=== PATIENT | female | born 1950 | race African-American/Black ===

== ENCOUNTER 2025-08-19 17:47 | Inpatient (IN) | payer OTHER ==
--- OUTSIDE RECORDS SUMMARY | 2025-08-19 17:57 | XMS REPORT | Continuity of Care Document ---
Author Name Unknown Address [address] [facility] [address] [place] [address] Organization [facility] [place] Address [address] [facility] [address] [place] [address] Care Team Providers Care Professor Of German Name Role Phone NEREIDA DODSON Primary Care Physician Unavaila KATIE Phelps Attending Clinician Unavailable ELLIOTT MALONEY Attending Clinician Unavailable RANDALL MARTIN Attending Clinician Unavailable RANDALL MARTIN Attending Clinician Unavailable AZUL AMAYA Attending Clinician Unavailable AZUL AMAYA Attending Clinician Unavailable ROBERTA BENAVIDEZ Attending Clinician Unavailab ROBERTA Mistry Attending Clinician Unavailab MEGHAN Cunningham Attending Clinician UnavailGARRY Elias Attending Clinician Unavailable GARRY KIRK Attending Clinician Unavailable Doctor Unassigned, [place] Attending Clinician U NEREIDA Guerra Attending Clinician Unavailable Nereida Marsh Attending Clinician [phone] Deni Benz DO Attending Clinician [phone] ETHAN DILLARD Attending Clinician Unavailable Meghan Reynoso MD Attending Clinician [phone] Testing, [facility] Pulmonary Function Attending Clinic laron Unavailable Maryanne Ram LMSW Attending Clinician UnaGarry Singer MD Attending Clinician Lab, Ang - Db Attending Clinician Unavailable Dai MCINTOSH, Esther Wiggins Attending Clinician Roberta Weaver DO Attending Clinician [phone] ANTONETTE MOELLER Attending Clinician Unavailable Catbecca Fernandes, ACNPChen Attending Clinician CHEN SAWYER Attending Clinician Unavailable Arabella Meza RN Attending Clinician Unavailable Amol GAR, Katie Attending Clinician [phone] Ayleen GAR, Nancy Attending Clinician [phone] Charline Toth CRNA Attending Clinician [phone] Antonette Chris MD Attending Clinician + [phone] NANCY ABBASI Attending Clinician Unavailable NANCY ABBASI Attending Clinician Unavailable Zamzam Ny Attending Clinician [phone] Denisse Novoa RN Attending Clinician [phone] JAMES OMALLEY Attending Clinician UnavailKHOI Allen Attending Clinician Unavail able KHOI DUBON Attending Clinician Unavail able Rikki Saenz DO Attending Clinician + [phone] Jelena GAR, Angel Solares Attending Clinician [phone] Anjali GAR, Sony Wiggins Attending Clinician [phone] Michael MCINTOSH, Saurabh Valdez Attending Clinician Unavail able Jessica Yeh Attending Clinician Unavailable SONY ALBA Attending Clinician Unavailable SONY ALBA Attending Clinician Unavailable Azul Amaya MD Attending Clinician [phone] THOMAS MONTGOMERY Attending Clinician Unavailable THOMAS MONTGOMERY Attending Clinician Unavailable Valerie Rios CRNA Attending Clinician [phone] Khoi Dubon MD Attending Clinician [phone] NAOMI SWEENEY Attending Clinician U NAOMI Martinez Attending Clinician U liberty Joe MD, Marlene Attending Clinician [phone] Brett Baker MD Attending Clinician [phone] April Ye MD Attending Clinician [phone] Andrew MCINTOSH, Daisy Attending Clinician Unavailab zach Morris NP, Sanjay Attending Clinician [phone] SEGUN ASCENCIO Attending Clinician Unavailable SEGUN ASCENCIO Attending Clinician Unavailable Sakshi GAR, Segun Attending Clinician [phone] Randall Martin MD Attending Clinician [phone] IVANA ROCHA Attending Clinician Unavailab IVANA Torres Attending Clinician Unavailab Ivana Torres DO Attending Clinician [phone] CRISTINA ROSAS Attending Clinician Unavailable CRISTINA ROSAS Attending Clinician Unavailable Alison GAR, Cristina Attending Clinician [phone] Fran Alvarez DO Attending Clinician [phone] EYAL SEVILLA Attending Clinician Unav ailable EYAL SEVILLA Attending Clinician Unav ailable Doctor Unassigned, [place] Attending Clinician U navailable Seth-Zeny_A_CHUCKIE Attending Clinician Unavailable KATIE CARMICHAEL Admitting Clinician Unavailable ANTONETTE MOELLER Admitting Clinician Unavailable Katie Carmichael MD Admitting Clinician + [phone] ROBERTA BENAVIDEZ Admitting Clinician Unavailab NANCY Mclaughlin Admitting Clinician Unavailable JAMES OMALLEY Admitting Clinician UnavailANGEL George Admitting Clinician Unavailable MEGHAN REYNOSO Admitting Clinician UnavailSANJAY Jacobson Admitting Clinician Unavailab IVANA Torres Admitting Clinician Unavailab FRAN Mendez Admitting Clinician Unavailable Fran Alvarez DO Admitting Clinician [phone] Seth-Gloriao_A_CHUCKIE Admitting Clinician Unavailable Payers Payer Name Policy Type Policy Number Effective Date Expirati on Date Source [facility] [id number] 2021 00:00:00 [facility] (MEDICARE REPLACEMENT/ADVANT AGE - HMO) [id number] 2019 00:00:00 Problems Condition Name Condition Details Condition Category Status Onset Date Resolution Date Last Treatment Date Treating Clinician Comments Source Tachycardi a Tachycardi a Disease Active 0 8-21 00:00: 00 [facility] Atrial fibrillati on with rapid ventricula r response Atrial fibrillati on with rapid ventricula r response Disease Active 0 7-27 00:00: 00 [facility] Non-small cell cancer of right lung Non-small cell cancer of right lung Disease Active 7-15 00:00: 00 [facility] Primary hypertensi on Primary hypertensi on Disease Active 7-02 00:00: 00 [facility] Preop cardiovasc ular exam Preop cardiovasc ular exam Disease Active 7- 00:00: 00 [facility] Hyperlipid emia, unspecifie d hyperlipid emia type Hyperlipid emia, unspecifie d hyperlipid emia type Disease Active 7- 00:00: 00 [facility] Coronary artery calcificat ion Coronary artery calcificat ion Disease Active 7-02 00:00: 00 [facility] Encounter for screening colonoscop y Encounter for screening colonoscop y Disease Active 6-13 00:00: 00 [facility] Mass of upper lobe of right lung Mass of upper lobe of right lung Disease Active 0 6- 00:00: 00 [facility] Viral syndrome Viral syndrome Disease Active 6-01 00:00: 00 [facility] Dizziness Dizziness Disease Active 0 6-01 00:00: 00 [facility] Acute UTI (urinary tract infection) Acute UTI (urinary tract infection) Disease Active 6-01 00:00: 00 [facility] SVT (supravent ricular tachycardi a) SVT (supravent ricular tachycardi a) Disease Active 0 4-16 00:00: 00 [facility] Chest pain Chest pain Disease Active 0 4-24 00:00: 00 [facility] Lung mass Lung mass Disease Resolve d 609 00:00: 00 2025-07-03 00:00:00 2025-07-03 15:48:38 [facility] Allergies, Adverse Reactions, Alerts Allergy Name Allergy Type Status Severity Reaction(s) Onset Date Inactive Date Treating Clinician Comments Source NO KNOWN ALLERGIE S Drug Class Active [facility] Family History Family Member Diagnosis Comments Start Date Stop Date Sourc e Natural [facility] father Alcohol/Drug [facility] Natural father [facility] Natural father [facility] Natural mother [facility] Natural mother Hy[facility] Natural mother Stroke [facility] Natural sister Diabetes Unive [facility] Natural [facility] Hy[facility] Social History Social Habit Start Date Stop Date Quantity Comments Source History SDOH Alcohol Std Drinks [facility] History SDOH Alcohol Binge [facility] History SDOH Social Connections Get Together [facility] History SDOH Social Connections Hoahaoism [facility] History SDOH Social Connections Membership [facility] History SDOH Social Connections Meetings [facility] ASSERTION Not [facility] Sexual orientation U [facility] History of tobacco use Passive smoker [facility] Alcoholic beverage intake 2025-07-15 00:00:00 2025-07-15 00:00:00 Ex-drinker (finding) [facility] Tobacco Comment 2025-07-03 00:00:00 2025-07-03 00:00:00 Smokes 1 each per day10 yrs ago stopped smoking [facility] Cigarettes smoked current (pack per day) - Reported 2025-07-03 00:00:00 2025-07-03 00:00:00 [facility] Cigarette pack-years 2025-07-03 00:00:00 2025-07-03 00:00:00 [facility] Tobacco use and exposure 2025-07-03 00:00:00 2025-07-03 00:00:00 Smokeless tobacco non-user [facility] Education 2025-06-16 00:00:00 2025-06-16 00:00:00 21 [facility] History of Social function 2025-06-15 00:00:00 2025-06-15 00:00:00 [facility] History SDOH Alcohol Frequency 2023-03-16 00:00:00 2023-03-16 00:00:00 1 [facility] History SDOH Social Connections Phone 2023-03-16 00:00:00 2023-03-16 00:00:00 5 [facility] History SDOH Social Connections Living 2023-03-16 00:00:00 2023-03-16 00:00:00 6 [facility] History SDOH Physical Activity DPW 2023-03-16 00:00:00 2023-03-16 00:00:00 7 [facility] History SDOH Physical Activity MPS 2023-03-16 00:00:00 2023-03-16 00:00:00 6 [facility] History SDOH Financial 2023-03-16 00:00:00 2023-03-16 00:00:00 5 [facility] History SDOH Food Worry 2023-03-16 00:00:00 2023-03-16 00:00:00 1 [facility] History SDOH Food Scarcity 2023-03-16 00:00:00 2023-03-16 00:00:00 1 [facility] History SDOH Transport Med 2023-03-16 00:00:00 2023-03-16 00:00:00 2 [facility] History SDOH Transport Non-Med 2023-03-16 00:00:00 2023-03-16 00:00:00 2 [facility] History SDOH Housing Unable to Pay 2023-03-16 00:00:00 2023-03-16 00:00:00 2 [facility] History SDOH Housing Places Lived 2023-03-16 00:00:00 2023-03-16 00:00:00 1 [facility] History SDOH Housing Homeless Last Year 2023-03-16 00:00:00 2023-03-16 00:00:00 2 [facility] Alcohol intake 2023-03-14 00:00:00 2023-03-14 00:00:00 Ex-drinker (finding) [facility] Sex assigned at 1950 00:00:00 1950 00:00:00 [facility] Smoking Status Start Date Stop Date Source Ex-smoker 2025-07-03 00:00:00 2025-07-03 00:00:00 [facility] Occasional tobacco smoker 2025-04-30 00:00:00 [facility] Smokes tobacco daily 2025-03-06 00:00:00 [facility] Medications Ordered Medication Name Filled Medication Name Start Date Stop Date Current Medication? Ordering Clinician Indication Dosage Frequency Signature (SIG) Comments Components Source qi Ruvalcaba (ANORO ELLIPTA) 62.5-25 mcg/actuati on inhaler 07-15 00:00: 00 Yes [id number] 1{puff} Inhale 1 puff in the morning. [facility] metoprolol tartrate (LOPRESSOR) tablet 50 mg metoprolol tartrate (LOPRESSOR) tablet 50 mg 07-14 15:30: 00 Yes 50mg 50 mg, Oral, BID, First dose (after last modificati on) on 07/14/25 at 1030, Until Discontinu ed, Routine [facility] morphine (2 mg/mL) injection 2 mg morphine (2 mg/mL) injection 2 mg 07-14 03:44: 36 07-14 17:11 :36 Yes 2mg 2 mg, Slow IV Push, Q4HPRN, Starting on 07/13/25 at 2244, Until 07/14/25 at 1211, Routine, Pain (scale 7-10) [facility] traMADoL (ULTRAM) tablet 50 mg 07-14 03:44: 29 07-14 17:11 :36 No 50mg 50 mg, Oral, Q6HPRN, Starting on 07/13/25 at 2244, Until 07/14/25 at 1211, Routine, Pain (scale 4-6) [facility] acetaminoph en (TYLENOL) tablet 650 mg 07-14 03:44: 27 07-14 17:11 :36 No 650mg 650 mg, Oral, Q6HPRN, Starting on 07/13/25 at 2244, Until 07/14/25 at 1211, Routine, Pain (scale 1-3) [facility] potassium chloride in water 10 mEq/100 mL RTU 10 mEq potassium chloride in water 10 mEq/100 mL RTU 10 mEq 07-14 01:00: 00 07-14 03:29 :36 Yes 10meq 10 mEq, IV Piggyback, Q1H, 2 doses, First dose on 07/13/25 at 2000, Last dose on Tue07/13/25 at 2100, Administer over 60 Minutes, 100 mL [facility] KCL (KLOR-CON M20) tablet 40 mEq KCL (KLOR-CON M20) tablet 40 mEq 07-14 01:00: 00 07-14 02:27 :00 Yes 40meq 40 mEq, Oral, ONCE, 1 dose, On 07/13/25 at 2000, [facility] mg tablet 07-14 00:00: 00 08-14 04:59 :00 Yes [id number] 50mg Take 1 tablet by mouth in the morning and 1 tablet in the evening. [facility] Loperamide 1 mg/7.5 mL solution 07-14 00:00: 00 07-20 04:59 :00 Yes [id number] 2mg Take 15 mL by mouth every 4 hours as needed (diarrhra) for up to [address] [facility] potassium chloride in water 10 mEq/100 mL RTU 10 mEq potassium chloride in water 10 mEq/100 mL RTU 10 mEq 07-13 18:00: 00 07-13 21:01 :00 Yes 10meq 10 mEq, IV Piggyback, Q1H, 2 doses, First dose on Tue07/13/25 at 1300, Last dose on Tue07/13/25 at 1400, Administer over 60 Minutes, [address] [facility] KCL (KLOR-CON M20) tablet 40 mEq KCL (KLOR-CON M20) tablet 40 mEq 07-13 17:00: 00 07-13 16:15 :00 Yes 40meq 40 mEq, Oral, ONCE, 1 dose, On 07/13/25 at 1200, Routine [facility] magnesium oxide (MAG-OX 400) 400 mg (241.3 mg magnesium) tablet 400 mg magnesium oxide (MAG-OX 400) 400 mg (241.3 mg magnesium) tablet 400 mg 07-13 16:45: 00 07-13 16:54 :00 Yes 400mg 400 mg, Oral, ONCE, 1 dose, On 07/13/25 at 1145, Routine [facility] potassium chloride in water 10 mEq/100 mL RTU 10 mEq potassium chloride in water 10 mEq/100 mL RTU 10 mEq 07-13 10:30: 00 07-13 15:28 :00 Yes 10meq 10 mEq, IV Piggyback, Q2H ES, 2 doses, First dose (after last modificati on) on Tue07/13/25 at 0530, Last dose on Tue07/13/25 at 0730, Administer over 120 Minutes, 100 mL [facility] KCL (KLOR-CON M20) tablet 40 mEq KCL (KLOR-CON M20) tablet 40 mEq 07-13 10:30: 00 07-13 10:19 :00 Yes 40meq 40 mEq, Oral, ONCE, 1 dose, On Tue07/13/25 at 0530, Routine [facility] atorvastati n (LIPITOR) tablet 40 mg atorvastati n (LIPITOR) tablet 40 mg 07-13 02:00: 00 07-14 17:11 :36 Yes 40mg 40 mg, Oral, QHS, First dose on Tue07/12/25 at 2100, Until Discontinu ed, Routine [facility] apixaban (ELIQUIS) tablet 5 mg apixaban (ELIQUIS) tablet 5 mg 07-12 13:00: 00 07-14 17:11 :36 Yes 1361 5mg 5 mg, Oral, BID, First dose on Tue07/12/25 at 0800, Until Discontinu ed, Routine, Indication s: Non-Valvul ar Atrial Fibrillati on [facility] Potassium Bicarb-Citr ic Acid (EFFER-K) effervescen t tablet 40 mEq Potassium Bicarb-Citr ic Acid (EFFER-K) effervescen t tablet 40 mEq 07-12 08:15: 00 07-12 07:55 :00 Yes 40meq 40 mEq, Oral, ONCE, 1 dose, On Tue07/12/25 at 0315, Routine [facility] diltiazem (CARDIZEM) tablet 30 mg diltiazem (CARDIZEM) tablet 30 mg 07-12 05:00: 00 07-12 08:18 :29 Yes 30mg 30 mg, Oral, Q6H, First dose on Tue07/12/25 at 0000, Until Discontinu ed, Routine [facility] Potassium Bicarb-Citr ic Acid (EFFER-K) effervescen t tablet 40 mEq 07-12 03:00: 00 07-12 02:11 :00 No 40meq 40 mEq, Oral, ONCE, 1 dose, On Tue07/11/25 at 2200, Routine [facility] diltiazem (CARDIZEM IV) 5 mg/mL injection 10 mg diltiazem (CARDIZEM IV) 5 mg/mL injection 10 mg 07-12 01:15: 00 07-12 01:21 :00 Yes 10mg 10 mg, IV Push, Administer over 2 Minutes, ONCE, 1 dose, On Tue07/11/25 at 2014, STAT [facility] NaCl 0.9% (NS) bolus infusion 1,000 mL 07-12 01:15: 00 07-12 02:14 :00 No 1000mL at 999 mL/hr, 1,000 mL, IV Infusion, ONCE, 1 dose, On Tue07/11/25 at 2014, STAT [facility] proMETHazin e 25 mg suppository 07-03 00:00: 00 Yes [id number] 25mg Insert 1 suppositor y into rectum every 4 hours as needed for Nausea and Vomiting (N/V). [facility] proCHLORper azine 10 mg tablet 07-03 00:00: 00 Yes [id number] 10mg Take 1 tablet by mouth every 6 hours as needed for Nausea and Vomiting (N/V). 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 Restricted medication : MARLENE JOE [facility] tc 99m-tetrofo smin (MYOVIEW) injection 44 millicurie 07-02 15:15: 00 07-02 15:08 :00 No [id number] 44mCi 44 millicurie , Intravenou s, ONCE, 1 dose, On Tue07/02/25 at 1015, Routine [facility] tc 99m-tetrofo smin (MYOVIEW) injection 15.5 millicurie 07-02 13:00: 00 07-02 13:00 :00 No [id number] 15.5mCi 15.5 millicurie , Intravenou s, ONCE, 1 dose, On Tue07/02/25 at 0800, Routine [facility] gadobenate dimeglumine (MULTIHANCE -10 mL) injection 10.06 mL 06-27 15:45: 00 06-27 14:45 :00 No [id number] .2mL/kg 10.06 mL (0.2 mL/kg ?50.3 kg), Intravenou s, ONCE, 1 dose, On Tue06/27/25 at 1045, Routine [facility] Food Supplement, Lactose-Ayan e (ENSURE ORIGINAL) liquid 06-25 00:00: 00 09-24 05:59 :00 Yes [id number] 1{bottl e} Take 1 Bottle by mouth in the morning and 1 Bottle in the evening. [facility] KCL (KLOR-CON M20) tablet 40 mEq KCL (KLOR-CON M20) tablet 40 mEq 06-18 15:45: 00 06-18 15:53 :00 Yes 40meq 40 mEq, Oral, ONCE, 1 dose, On Tue06/18/25 at 1045, Routine [facility] amiodarone (PACERONE) tablet 200 mg amiodarone (PACERONE) tablet 200 mg 06-18 01:00: 00 Yes 200mg 200 mg, Oral, BID, First dose on Tue06/17/25 at 2000, Until Discontinu ed, Routine [facility] amiodarone 200 mg tablet 06-18 00:00: 00 07-19 04:59 :00 No [id number] Take 1 tablet by mouth 2 times daily for 7 days, THEN 1 tablet daily for 23 days. [facility] metoprolol tartrate 50 mg tablet 06-18 00:00: 00 07-14 00:00 :00 No [id number] 75mg Take 1.5 tablets by mouth in the morning and 1.5 tablets in the evening. [facility] magnesium sulfate in water 2 gram/50 mL (4 %) infusion 2 g magnesium sulfate in water 2 gram/50 mL (4 %) infusion 2 g 06-17 22:15: 00 06-17 22:54 :00 Yes 2g 2 g, Intravenou s, ONCE, 1 dose, On Tue06/17/25 at 1715, 50 mL [facility] KCL (KLOR-CON M20) tablet 40 mEq KCL (KLOR-CON M20) tablet 40 mEq 06-17 22:15: 00 06-17 22:00 :00 Yes 40meq 40 mEq, Oral, ONCE, 1 dose, On Tue06/17/25 at 1715, Routine [facility] pantoprazol e (PROTONIX) EC tablet 40 mg pantoprazol e (PROTONIX) EC tablet 40 mg 06-17 14:00: 00 06-17 21:23 :14 Yes 40mg 40 mg, Oral, DAILY, First dose on Tue06/17/25 at 0900, Until Discontinu ed, Routine, Indication for use: None of the above [facility] metoprolol tartrate (LOPRESSOR) tablet 50 mg metoprolol tartrate (LOPRESSOR) tablet 50 mg 06-17 02:00: 00 06-18 18:31 :07 Yes 50mg 50 mg, Oral, BID, First dose on Tue06/16/25 at 2100, Until Discontinu ed, Routine [facility] apixaban (ELIQUIS) tablet 5 mg apixaban (ELIQUIS) tablet 5 mg 06-17 02:00: 00 06-18 18:31 :07 Yes 1361 5mg 5 mg, Oral, BID, First dose on Tue06/16/25 at 2100, Until Discontinu ed, Routine, Indication s: Non-Valvul ar Atrial Fibrillati on [facility] atorvastati n (LIPITOR) tablet 40 mg atorvastati n (LIPITOR) tablet 40 mg 06-17 02:00: 00 06-18 18:31 :07 Yes 40mg 40 mg, Oral, QHS, First dose on Tue06/16/25 at 2100, Until Discontinu ed, Routine [facility] metoprolol (LOPRESSOR) injection 2.5 mg 06-16 20:45: 00 06-16 20:38 :00 No 2.5mg 2.5 mg, Slow IV Push, ONCE, 1 dose, On Tue06/16/25 at 1545, FAMILIA [facility] NaCl 0.9% (NS) bolus infusion 500 mL 06-16 20:45: 00 06-16 22:25 :00 No 500mL at 999 mL/hr, 500 mL, IV Infusion, ONCE, 1 dose, On Tue06/16/25 at 1545, STAT [facility] apixaban (ELIQUIS) tablet 5 mg apixaban (ELIQUIS) tablet 5 mg 06-15 22:30: 00 06-16 00:31 :17 Yes 5mg 5 mg, Oral, BID, First dose (after last modificati on) on Tue06/15/25 at 1730, Until Discontinu ed, Routine, Indication s: Non-Valvul ar Atrial Fibrillati on [facility] apixaban (ELIQUIS) tablet 5 mg apixaban (ELIQUIS) tablet 5 mg 06-15 14:15: 00 06-15 22:26 :14 Yes 5mg 5 mg, Oral, BID, First dose (after last modificati on) on Tue06/15/25 at 0915, Until Discontinu ed, Routine, Indication s: Non-Valvul ar Atrial Fibrillati on [facility] sennosides (SENOKOT) tablet 8.6 mg sennosides (SENOKOT) tablet 8.6 mg 06-15 14:00: 00 06-16 00:31 :17 Yes 8.6mg [facility] metoprolol tartrate (LOPRESSOR) tablet 50 mg metoprolol tartrate (LOPRESSOR) tablet 50 mg 06-15 13:00: 00 Yes 50mg 50 mg, Oral, BID, First dose (after last modificati on) on Tue06/15/25 at 0800, Until Discontinu ed, Routine [facility] KCL (KLOR-CON M20) tablet 40 mEq KCL (KLOR-CON M20) tablet 40 mEq 06-15 13:00: 00 06-15 12:55 :00 Yes 40meq 40 mEq, Oral, ONCE, 1 dose, On Tue06/15/25 at 0800, Routine [facility] atorvastati n (LIPITOR) tablet 40 mg atorvastati n (LIPITOR) tablet 40 mg 06-15 02:00: 00 06-16 00:31 :17 Yes 40mg 40 mg, Oral, QHS, First dose on Tue06/14/25 at 2100, Until Discontinu ed, Routine [facility] metoprolol tartrate (LOPRESSOR) tablet 25 mg [id number] 7-26 01:00: 00 06-15 10:49 :12 Yes 25mg 25 mg, Oral, BID, First dose on Tue06/14/25 at 2000, Until Discontinu ed, Routine [facility] metoprolol tartrate 50 mg tablet 06-15 00:00: 00 06-18 00:00 :00 No [id number] 50mg Take 1 tablet by mouth in the morning and 1 tablet in the evening. [facility] apixaban 5 mg tablet 06-15 00:00: 00 06-15 00:00 :00 Yes 1361 5mg Take 1 tablet by mouth in the morning and 1 tablet in the evening. Indication s: atrial flutter [facility] enoxaparin (LOVENOX) injection 40 mg enoxaparin (LOVENOX) injection 40 mg 06-14 22:00: 00 06-15 14:53 :52 Yes 40mg 40 mg, Subcutaneo us, DAILY AT 1700, First dose on Tue06/14/25 at 1700, Until Discontinu ed, Routine [facility] KCL (KLOR-CON M20) tablet 40 mEq KCL (KLOR-CON M20) tablet 40 mEq 06-14 19:00: 00 06-14 22:23 :00 Yes 40meq 40 mEq, Oral, Q2H, 2 doses, First dose on Tue06/14/25 at 1400, Last dose on Tue06/14/25 at 1600, Routine [facility] levalbutero l (XOPENEX) nebulizer solution 0.63 mg levalbutero l (XOPENEX) nebulizer solution 0.63 mg 06-14 18:31: 38 06-16 00:31 :17 Yes .63mg [facility] ipratropium (ATROVENT) 0.02 % nebulizer solution 0.25 mg 06-14 18:31: 30 06-16 00:31 :17 No .25mg [facility] magnesium sulfate in water 2 gram/50 mL (4 %) infusion 2 g magnesium sulfate in water 2 gram/50 mL (4 %) infusion 2 g 06-14 18:15: 00 06-14 20:30 :00 Yes 2g 2 g, Intravenou s, ONCE, 1 dose, On Tue06/14/25 at 1315, 50 mL [facility] nitroglycer in (NITROSTAT) sublingual tablet 0.4 mg 06-14 17:23: 28 06-16 00:31 :17 No .4mg [facility] acetaminoph en (TYLENOL) tablet 650 mg acetaminoph en (TYLENOL) tablet 650 mg 06-14 17:23: 28 06-16 00:31 :17 Yes 650mg 650 mg, Oral, Q6HPRN, Starting on Tue06/14/25 at 1223, Until 06/15/25 at 1931, Routine, Pain (scale 4-6), Pain (scale 1-3) [facility] magnesium sulfate in D5W 1 gram/100 mL RTU IV Piggyback 1 g magnesium sulfate in D5W 1 gram/100 mL RTU IV Piggyback 1 g 06-14 16:45: 00 06-14 18:28 :00 Yes 1g 1 g, Intravenou s, ONCE, 1 dose, On Tue06/14/25 at 1145, 100 mL [facility] metoprolol tartrate (LOPRESSOR) tablet 25 mg metoprolol tartrate (LOPRESSOR) tablet 25 mg 06-14 15:45: 00 06-14 15:58 :00 Yes 25mg 25 mg, Oral, Once, 1 dose, On Tue06/14/25 at 1045, FAMILIA [facility] heparin lock flush (HEPARIN LOCKFLUSH(P ORCINE)(PF) ) 100 unit/mL injection 06-13 17:46: 56 06-13 17:46 :56 No PRN, Starting on Bhumika 06/13/25 at 1246, Until Tue06/13/25 at 1246, Routine, Intra-op [facility] sodium bicarbonate 8.4 % (1 mEq/mL) injection 06-13 17:19: 58 06-13 17:19 :58 No PRN, Starting on Bhumika 06/13/25 at 1219, Until Bhumika 06/13/25 at 1219, Routine, Intra-op [facility] lidocaine-e pinephrine (XYLOCAINE W/EPINEPHRI NE) 2 %-1:200,000 injection 06-13 17:19: 38 06-13 17:19 :38 No PRN, Starting on Bhumika 06/13/25 at 1219, Until Bhumika 06/13/25 at 1219, Routine, Intra-op [facility] fentanyl PF (SUBLIMAZE (PF)) injection 06-13 17:19: 28 06-13 17:19 :28 No Slow IV Push, PRN, Starting on Bhumika 06/13/25 at 1219, Until Bhumika 06/13/25 at 1219, Routine, Intra-op [facility] ceFAZolin (ANCEF) injection 06-13 17:00: 00 06-13 17:00 :00 No Slow IV Push, PRN, Starting on Bhumika 06/13/25 at 1200, Until Bhumika 06/13/25 at 1200, Routine, Intra-op [facility] NaCl 0.9% (NS) bolus infusion 500 mL 06-13 15:00: 00 06-13 15:01 :00 No 500mL at 999 mL/hr, 500 mL, IV Infusion, ONCE, 1 dose, On Bhumika 06/13/25 at 1000, STAT [facility] iopamidol (ISOVUE 370-500 mL) injection 80 mL 06-13 14:45: 00 06-13 13:47 :00 No [id number] 80mL 80 mL, Intravenou s, ONCE, 1 dose, On Bhumika 06/13/25 at 0945, Routine [facility] NaCl 0.9% (NS) bolus infusion 1,000 mL 06-13 14:30: 00 06-13 14:03 :00 No 1000mL at 999 mL/hr, 1,000 mL, IV Infusion, ONCE, 1 dose, On Bhumika 06/13/25 at 0930, STAT [facility] fludeoxyglu cose F-18 (FDG) injection 11.74 millicurie 05-31 14:50: 00 05-31 14:52 :00 No [id number] 11.74mC i 11.74 millicurie , Intravenou s, ONCE, 1 dose, On Tue05/31/25 at 1000, Routine [facility] umeclidiniu m (INCRUSE ELLIPTA) 62.5 mcg/actuati on DsDv 05-14 00:00: 00 06-15 00:00 :00 No [id number] 1{puff} Inhale 1 Puff in the morning. [facility] peg-electro lyte soln 236-22.74-6 .74 -5.86 gram solution 05-03 00:00: 00 05-04 04:59 :00 No [id number] 4000mL Take 4,000 mL by mouth once now for 1 dose. [facility] lactated ringers IV infusion 1,000 mL 05-02 19:30: 00 05-02 22:16 :21 No 1000mL at 75 mL/hr, 1,000 mL, IV Infusion, CONTINUOUS , Starting on Bhumika 05/02/25 at 1430, Until Bhumika 05/02/25 at 1716, Routine, PACU [facility] FENTanyl (PF) (SUBLIMAZE) injection 25 mcg 05-02 19:17: 07 05-02 22:16 :21 No 25ug 25 mcg, Slow IV Push, Q5MIN PRN, 4 doses, Starting on Bhumika 05/02/25 at 1417, Until Bhumika 05/02/25 at 1716, Routine, Pain Scale 4-6, PACU [facility] sugammadex (BRIDION) injection 05-02 19:05: 00 05-02 19:18 :43 No Intravenou s, ONCE INTRA PROCEDURE, Starting on Bhumika 05/02/25 at 1405, Until Bhumika 05/02/25 at 1418, Routine, Intra-op [facility] ondansetron (ZOFRAN (PF)) injection 05-02 18:58: 00 05-02 19:18 :43 No Slow IV Push, ONCE INTRA PROCEDURE, Starting on Bhumika 05/02/25 at 1358, Until Bhumika 05/02/25 at 1418, Administer over 2-5 Minutes, Intra-op [facility] dexmedeTOMI Dine (PRECEDEX) injection 05-02 18:30: 00 05-02 19:18 :43 No Intravenou s, ONCE INTRA PROCEDURE, Starting on Bhumika 05/02/25 at 1330, Until Bhumika 05/02/25 at 1418, Routine, Intra-op [facility] acetaminoph en (OFIRMEV) IV piggyback 05-02 18:21: 00 05-02 19:18 :43 No IV Infusion, Administer over 15 Minutes, ONCE INTRA PROCEDURE, Starting on Bhumika 05/02/25 at 1321, Until Bhumika 05/02/25 at 1418, [facility]DECADRON PHOSPHATE[facility] 4 mg/mL injection 05-02 18:13: 00 05-02 19:18 :43 No IV Push, ONCE INTRA PROCEDURE, Starting on Bhumika 05/02/25 at 1313, Until Bhumika 05/02/25 at 1418, Routine, Intra-op [facility] glycopyrrol ate (ROBINUL) injection 05-02 17:46: 00 05-02 19:18 :43 No Intravenou s, ONCE INTRA PROCEDURE, Starting on Bhumika 05/02/25 at 1246, Until Bhumika 05/02/25 at 1418, Routine, Intra-op [facility] rocuronium (ZEMURON) injection 05-02 17:40: 00 05-02 19:18 :43 No IV Push, ONCE INTRA PROCEDURE, Starting on Bhumika 6/12/25 at 1240, Until Bhumika 05/02/25 at 1418, Routine, Intra-op [facility] lidocaine 1% (XYLOCAINE) 100 mg/10 mL (1 %) injection 05-02 17:38: 00 05-02 19:18 :43 No Intravenou s, ONCE INTRA PROCEDURE, Starting on Bhumika 05/02/25 at 1238, Until Bhumika 05/02/25 at 1418, Routine, Intra-op [facility] FENTanyl (PF) (SUBLIMAZE) injection 05-02 17:37: 00 05-02 19:18 :43 No Intravenou s, ONCE INTRA PROCEDURE, Starting on Bhumika 25 at 1237, Until Bhumika 25 at 1418, Routine, Intra-op [facility] propofoL IV infusion 05-02 17:37: 00 05-02 19:18 :43 No Intravenou s, ONCE INTRA PROCEDURE, Starting on Bhumika 25 at 1237, Intra-op [facility] lactated ringers IV infusion 05-02 17:28: 00 05-02 19:18 :43 No IV Infusion, CONTINUOUS PRN, Starting on Bhumika 25 at 1228, Until Bhumika 625 at 1418, Routine, Intra-op [facility] tiotropium 18 mcg inhalation 04-29 00:00: 00 05-14 00:00 :00 No [id number] 18ug Inhale 1 capsule in the morning. [facility] Nitrofurant oin&Nit. Macrocryst (MACROBID) 100 mg capsule 04-29 00:00: 00 05-05 04:59 :00 No [id number] 100mg Take 1 capsule by mouth in the morning and 1 capsule in the evening. Do all this for 5 days. [facility] cefdinir 300 mg capsule 04-21 00:00: 00 04-29 04:59 :00 No [id number] 300mg Take 1 capsule by mouth in the morning and 1 capsule in the evening. Do all this for 7 days. [facility] nicotine 7 mg/24 hr patch 04-12 00:00: 00 04-27 04:59 :00 No [id number] 1{patch } Apply 1 Patch to area(s) every 24 (twenty-fo ur) hours for 14 days. (Step 3) [facility] nicotine 14 mg/24 hr patch 03-28 00:00: 00 04-12 04:59 :00 No [id number] 1{patch } Apply 1 Patch to area(s) every 24 (twenty-fo ur) hours for 14 days. (Step 2) [facility] acetaminoph en (TYLENOL ARTHRITIS PAIN ORAL) 03-27 15:46: 54 Yes Take by mouth. [facility] predniSONE 50 mg tablet 03-20 00:00: 00 03-25 04:59 :00 No [id number] 50mg Take 1 tablet by mouth in the morning for 4 days. [facility] ipratropium (ATROVENT) 0.02 % nebulizer solution 0.5 mg 03-19 20:15: 00 03-19 19:59 :00 No .5mg 0.5 mg, Inhalation , ONCE, 1 dose, On Tue03/19/25 at 1515, [facility] albuterol (PROVENTIL) 2.5 mg /3 mL (0.083 %) nebulizer solution 5 mg 03-19 20:15: 00 03-19 19:59 :00 No 5mg 5 mg, Inhalation , ONCE, 1 dose, On Tue03/19/25 at 1515, [facility] predniSONE (DELTASONE) tablet 50 mg 03-19 19:30: 00 03-19 20:21 :00 No 50mg 50 mg, Oral, ONCE, 1 dose, On Tue03/19/25 at 1430, Routine [facility] albuterol sulfate HFA 90 mcg/actuati on aerosol inhaler 03-19 00:00: 00 Yes [id number] 2{puff} Inhale 2 Puffs every 4 (four) hours as needed for Wheezing or Shortness of Breath. [facility] magnesium sulfate in water 2 gram/50 mL (4 %) infusion 2 g magnesium sulfate in water 2 gram/50 mL (4 %) infusion 2 g 03-08 15:00: 00 03-08 15:41 :00 No 2g 2 g, IV Piggyback, Administer over 60 Minutes, ONCE, 1 dose, On Tue03/08/25 at 1000, Routine [facility] atorvastati n (LIPITOR) tablet 40 mg atorvastati n (LIPITOR) tablet 40 mg 03-08 02:00: 00 03-08 18:45 :52 No 40mg 40 mg, Oral, QHS, First dose on Tue03/07/25 at 2100, Until Discontinu ed, Routine [facility] metoprolol tartrate 25 mg tablet 03-08 00:00: 00 06-15 00:00 :00 No [id number] 25mg Take 1 tablet by mouth in the morning and 1 tablet in the evening. [facility] nicotine (NICODERM) 14 mg/24 hr patch 1 Patch nicotine (NICODERM) 14 mg/24 hr patch 1 Patch 03-07 22:15: 00 03-08 18:45 :52 No 1{patch } 1 Patch, Topical, Administer over 24 Hours, Q24H, First dose on Tue03/07/25 at 1715, Until Discontinu ed, Routine [facility] perflutren protein-A microsphr (OPTISON) injection 3 mL 03-07 20:30: 00 03-07 20:30 :00 No [id number] 3mL 3 mL, IV Push, ONCE, 1 dose, On Tue03/07/25 at 1530, Routine [facility] magnesium sulfate in water 2 gram/50 mL (4 %) infusion 2 g magnesium sulfate in water 2 gram/50 mL (4 %) infusion 2 g 03-07 15:15: 00 03-07 15:52 :00 No 2g 2 g, IV Piggyback, Administer over 60 Minutes, ONCE, 1 dose, On Bhumika 03/07/25 at 1015, [facility]AX[facility] supp[facility] 10 mg bisacodyL (DULCOLAX) suppository 10 mg 03-07 14:30: 00 03-07 14:57 :00 No 10mg 10 mg, Rectal, Once, 1 dose, On Bhumika 03/07/25 at 0930, Routine [facility] metoprolol tartrate (LOPRESSOR) tablet 25 mg metoprolol tartrate (LOPRESSOR) tablet 25 mg 03-07 13:00: 00 Yes 25mg 25 mg, Oral, BID, First dose on [facility] 03/07/25 at 0800, Until Discontinu ed, Routine [facility] heparin (porcine) injection 5,000 Units [id number] 1517-0 4-17 13:00: 00 03-08 18:45 :52 No 5000U 5,000 Units, Subcutaneo us, Q12H, First dose on Bhumika 03/07/25 at 0800, Until Discontinu ed, Routine [facility] acetaminoph en (TYLENOL) tablet 650 mg 03-07 02:40: 42 03-08 18:45 :52 No 650mg [facility] atorvastati n 40 mg tablet 03-16 00:00: 00 Yes [id number] 40mg Take 1 tablet by mouth at bedtime. [facility] Cholecalcif damon, Vitamin D3, 50 mcg (2,000 unit) tablet 01-04 00:00: 00 Yes 50ug Take 50 mcg by mouth. [facility] lisinopriL 10 mg tablet 01-04 00:00: 00 06-15 00:00 :00 No 10mg Take 1 tablet by mouth. Currently taking 2.5 mg [facility] amLODIPine 10 mg tablet 01-04 00:00: 00 03-06 00:00 :00 No 10mg Take 1 tablet by mouth. [facility] Vital Signs Vital Name Observation Time Observation Value Comments S emile Systolic blood pressure 2025-07-31 23:09:00 120 mm[Hg] [facility] Diastolic blood pressure 2025-07-31 23:09:00 64 mm[Hg] [facility] Heart rate 2025-07-31 23:09:00 64 /min [facility] Body temperature 2025-07-31 23:09:00 36.33 Deyanira [facility] Respiratory rate 2025-07-31 23:09:00 17 /min [facility] Body weight 2025-07-31 23:09:00 47.718 kg [facility] BMI 2025-07-31 23:09:00 19.24 kg/m2 [facility] Oxygen saturation in Arterial blood by Pulse oximetry 2025-07-31 23:09:00 99 /min [facility] Systolic blood pressure 2025-07-15 13:11:00 106 mm[Hg] [facility] Diastolic blood pressure 2025-07-15 13:11:00 63 mm[Hg] [facility] Heart rate 2025-07-15 13:11:00 85 /min [facility] Respiratory rate 2025-07-15 13:11:00 16 /min [facility] Body height 2025-07-15 13:11:00 157.5 cm [facility] Body weight 2025-07-15 13:11:00 44.226 kg [facility] BMI 2025-07-15 13:11:00 17.83 kg/m2 [facility] Oxygen saturation in Arterial blood by Pulse oximetry 2025-07-15 13:11:00 99 /min [facility] Systolic blood pressure 2025-07-14 14:34:00 95 mm[Hg] [facility] Diastolic blood pressure 2025-07-14 14:34:00 50 mm[Hg] [facility] Heart rate 2025-07-14 14:34:00 74 /min [facility] Body temperature 2025-07-14 11:39:00 37.11 Deyanira [facility] Respiratory rate 2025-07-14 11:39:00 17 /min [facility] Oxygen saturation in Arterial blood by Pulse oximetry 2025-07-14 11:39:00 96 /min [facility] Body weight 2025-07-14 08:58:00 47.492 kg [facility] BMI 2025-07-14 08:58:00 19.15 kg/m2 [facility] Body height 2025-07-12 04:36:00 157.5 cm [facility] Systolic blood pressure 2025-07-03 21:18:00 130 mm[Hg] [facility] Diastolic blood pressure 2025-07-03 21:18:00 69 mm[Hg] [facility] Heart rate 2025-07-03 21:18:00 73 /[facility] 2025-07-03 21:18:00 36.94 Deyanira [facility] Respiratory rate 2025-07-03 21:18:00 18 /min [facility] Body weight 2025-07-03 21:18:00 49.034 kg [facility] BMI 2025-07-03 21:18:00 19.77 kg/m2 [facility] Oxygen saturation in Arterial blood by Pulse oximetry 2025-07-03 21:18:00 98 /min [facility] Systolic blood pressure 2025-07-03 18:08:00 117 mm[Hg] [facility] Diastolic blood pressure 2025-07-03 18:08:00 58 mm[Hg] [facility] Heart rate 2025-07-03 18:08:00 79 /min [facility] Res[facility] 2025-07-03 18:08:00 19 /min [facility] Body height 2025-07-03 18:08:00 157.5 cm [facility] Body weight 2025-07-03 18:08:00 48.535 kg [facility] BMI 2025-07-03 18:08:00 19.57 kg/m2 [facility] Oxygen saturation in Arterial blood by Pulse oximetry 2025-07-03 18:08:00 97 /min [facility] Systolic blood pressure 2025-07-02 12:02:00 121 mm[Hg] [facility] Diastolic blood pressure 2025-07-02 12:02:00 54 mm[Hg] [facility] Heart rate 2025-07-02 12:02:00 83 /min [facility] Body temperature 2025-07-02 12:02:00 37.39 Deyanira [facility] Respiratory rate 2025-07-02 12:02:00 28 /min [facility] Body height 2025-07-02 12:02:00 157.5 cm [facility] Body weight 2025-07-02 12:02:00 49.896 kg [facility] BMI 2025-07-02 12:02:00 20.12 kg/m2 [facility] Oxygen saturation in Arterial blood by Pulse oximetry 2025-07-02 12:02:00 99 /min [facility] BMI 2025-06-25 14:58:00 20.03 kg/m2 [facility] Oxygen saturation in Arterial blood by Pulse oximetry 2025-06-25 14:58:00 98 /min [facility] Systolic blood pressure 2025-06-25 14:58:00 109 mm[Hg] [facility] Diastolic blood pressure 2025-06-25 14:58:00 63 mm[Hg] [facility] Heart rate 2025-06-25 14:58:00 83 /min [facility] Respiratory rate 2025-06-25 14:58:00 18 /min [facility] Body weight 2025-06-25 14:58:00 48.081 kg [facility] Systolic blood pressure 2025-06-25 19:27:00 110 mm[Hg] [facility] Diastolic blood pressure 2025-06-25 19:27:00 50 mm[Hg] [facility] Heart rate 2025-06-25 19:27:00 77 /min [facility] Body temperature 2025-06-25 19:27:00 36.83 Deyanira [facility] Respiratory rate 2025-06-25 19:27:00 18 /min [facility] Body height 2025-06-25 19:27:00 157.5 cm [facility] Body weight 2025-06-25 19:27:00 50.259 kg [facility] BMI 2025-06-25 19:27:00 20.27 kg/m2 [facility] Systolic blood pressure 2025-06-18 17:00:00 121 mm[Hg] [facility] Diastolic blood pressure 2025-06-18 17:00:00 64 mm[Hg] [facility] Heart rate 2025-06-18 17:00:00 68 /min [facility] Body temperature 2025-06-18 17:00:00 36.78 Deyanira [facility] Respiratory rate 2025-06-18 17:00:00 19 /min [facility] Oxygen saturation in Arterial blood by Pulse oximetry 2025-06-18 17:00:00 97 /min [facility] Body weight 2025-06-18 09:15:00 50.485 kg [facility] BMI 2025-06-18 09:15:00 21.03 kg/m2 [facility] Body height 2025-06-16 23:09:00 154.9 cm [facility] Systolic blood pressure 2025-06-15 20:57:00 100 mm[Hg] [facility] Diastolic blood pressure 2025-06-15 20:57:00 56 mm[Hg] [facility] Heart rate 2025-06-15 20:57:00 77 /min [facility] Body temperature 2025-06-15 20:57:00 37.22 Deyanira [facility] Respiratory rate 2025-06-15 20:57:00 18 /min [facility] Oxygen saturation in Arterial blood by Pulse oximetry 2025-06-15 20:57:00 95 /min [facility] Body height 2025-06-15 06:39:00 154.9 cm [facility] Body weight 2025-06-15 06:39:00 50.349 kg [facility] BMI 2025-06-15 06:39:00 20.98 kg/m2 [facility] Systolic blood pressure 2025-06-13 15:27:00 114 mm[Hg] [facility] Diastolic blood pressure 2025-06-13 15:27:00 77 mm[Hg] [facility] Heart rate 2025-06-13 15:27:00 95 /min [facility] Body temperature 2025-06-13 15:27:00 36.78 Deyanira [facility] Respiratory rate 2025-06-13 15:27:00 20 /min [facility] Oxygen saturation in Arterial blood by Pulse oximetry 2025-06-13 15:27:00 94 /min [facility] Body height 2025-06-13 13:50:00 154.9 cm [facility] Body weight 2025-06-13 13:50:00 46.72 kg [facility] BMI 2025-06-13 13:50:00 19.46 kg/m2 [facility] Systolic blood pressure 2025-06-13 13:08:00 82 mm[Hg] [facility] Diastolic blood pressure 2025-06-13 13:08:00 57 mm[Hg] [facility] Body temperature 2025-06-13 13:08:00 36.39 Deyanira [facility] Respiratory rate 2025-06-13 13:08:00 24 /min [facility] Oxygen saturation in Arterial blood by Pulse oximetry 2025-06-13 13:08:00 99 /min [facility] Systolic blood pressure 2025-06-12 14:19:00 121 mm[Hg] [facility] Diastolic blood pressure 2025-06-12 14:19:00 69 mm[Hg] [facility] Heart rate 2025-06-12 14:19:00 81 /min [facility] Body temperature 2025-06-12 14:19:00 36.89 Deyanira [facility] Respiratory rate 2025-06-12 14:19:00 28 /min [facility] Body height 2025-06-12 14:19:00 155.5 [facility] Body weight 2025-06-12 14:19:00 47.038 [facility] BMI 2025-06-12 14:19:00 19.45 kg/m2 [facility] Oxygen saturation in Arterial blood by Pulse oximetry 2025-06-12 14:19:00 98 /min [facility] Systolic blood pressure 2025-06-11 18:14:00 118 mm[Hg] [facility] Diastolic blood pressure 2025-06-11 18:14:00 70 mm[Hg] [facility] Heart rate 2025-06-11 18:14:00 83 /min [facility] Body temperature 2025-06-11 18:14:00 35.61 Deyanira [facility] Body height 2025-06-11 18:14:00 157.5 cm [facility] Body weight 2025-06-11 18:14:00 47.628 kg [facility] BMI 2025-06-11 18:14:00 19.20 kg/m2 [facility] Oxygen saturation in Arterial blood by Pulse oximetry 2025-06-11 18:14:00 98 /min [facility] Systolic blood pressure 2025-06-04 14:25:00 105 mm[Hg] [facility] Diastolic blood pressure 2025-06-04 14:25:00 65 mm[Hg] [facility] Heart rate 2025-06-04 14:25:00 85 /min [facility] Body temperature 2025-06-04 14:25:00 37.22 Deyanira [facility] Respiratory rate 2025-06-04 14:25:00 16 /min [facility] Body height 2025-06-04 14:25:00 154.9 cm [facility] Body weight 2025-06-04 14:25:00 47.764 kg [facility] BMI 2025-06-04 14:25:00 19.91 kg/m2 [facility] Oxygen saturation in Arterial blood by Pulse oximetry 2025-06-04 14:25:00 99 /min [facility] Systolic blood pressure 2025-06-03 14:31:00 103 mm[Hg] [facility] Diastolic blood pressure 2025-06-03 14:31:00 74 mm[Hg] [facility] Heart rate 2025-06-03 14:31:00 69 /min [facility] Respiratory rate 2025-06-03 14:31:00 20 /min [facility] Body height 2025-06-03 14:31:00 157.5 cm [facility] Body weight 2025-06-03 14:31:00 47.038 kg [facility] BMI 2025-06-03 14:31:00 18.97 kg/m2 [facility] Oxygen saturation in Arterial blood by Pulse oximetry 2025-06-03 14:31:00 100 /min [facility] Systolic blood pressure 2025-05-22 20:38:00 117 mm[Hg] [facility] Diastolic blood pressure 2025-05-22 20:38:00 59 mm[Hg] [facility] Heart rate 2025-05-22 20:38:00 77 /min [facility] Body height 2025-05-22 20:38:00 157.5 cm [facility] Body weight 2025-05-22 20:38:00 48.263 kg [facility] BMI 2025-05-22 20:38:00 19.46 kg/m2 [facility] Oxygen saturation in Arterial blood by Pulse oximetry 2025-05-22 20:38:00 98 /min [facility] Systolic blood pressure 2025-05-03 12:59:00 131 mm[Hg] [facility] Diastolic blood pressure 2025-05-03 12:59:00 68 mm[Hg] [facility] Heart rate 2025-05-03 12:59:00 67 /min [facility] Body temperature 2025-05-03 12:59:00 36.61 Deyanira [facility] Respiratory rate 2025-05-03 12:59:00 20 /min [facility] Body height 2025-05-03 12:59:00 157.5 cm [facility] weight 2025-05-03 12:59:00 49.442 kg [facility] BMI 2025-05-03 12:59:00 19.94 kg/m2 [facility] Oxygen saturation in Arterial blood by Pulse oximetry 2025-05-03 12:59:00 99 /min [facility] Systolic blood pressure 2025-05-02 20:00:00 115 mm[Hg] [facility] Diastolic blood pressure 2025-05-02 20:00:00 66 mm[Hg] [facility] Heart rate 2025-05-02 20:00:00 70 /min [facility] Respiratory rate 2025-05-02 20:00:00 24 /min [facility] Oxygen saturation in Arterial blood by Pulse oximetry 2025-05-02 20:00:00 95 /min [facility] Body temperature 2025-05-02 19:15:00 37 Deyanira [facility] Body height 2025-05-02 14:27:00 157.5 cm [facility] Body weight 2025-05-02 14:27:00 44 kg [facility] BMI 2025-05-02 14:27:00 17.74 kg/m2 [facility] Systolic blood pressure 2025-05-02 19:15:00 115 mm[Hg] [facility] Diastolic blood pressure 2025-05-02 19:15:00 64 mm[Hg] [facility] Heart rate 2025-05-02 19:15:00 68 /min [facility] Body temperature 2025-05-02 19:15:00 37 Deyanira [facility] Respiratory rate 2025-05-02 19:15:00 22 /min [facility] Oxygen saturation in Arterial blood by Pulse oximetry 2025-05-02 19:15:00 100 /min [facility] Body height 2025-05-02 14:27:00 157.5 cm [facility] Body weight 2025-05-02 14:27:00 44 kg [facility] BMI 2025-05-02 14:27:00 17.74 kg/m2 [facility] Systolic blood pressure 2025-04-29 21:31:00 123 mm[Hg] [facility] Diastolic blood pressure 2025-04-29 21:31:00 74 mm[Hg] [facility] Heart rate 2025-04-29 21:31:00 80 /min [facility] Respiratory rate 2025-04-29 21:31:00 16 /min [facility] Body height 2025-04-29 21:31:00 157.5 cm [facility] Body weight 2025-04-29 21:31:00 47.129 kg [facility] BMI 2025-04-29 21:31:00 19.00 kg/m2 [facility] Oxygen saturation in Arterial blood by Pulse oximetry 2025-04-29 21:31:00 99 /min [facility] Systolic blood pressure 2025-04-29 16:41:00 126 mm[Hg] [facility] Diastolic blood pressure 2025-04-29 16:41:00 78 mm[Hg] [facility] Heart rate 2025-04-29 16:41:00 71 /min [facility] Respiratory rate 2025-04-29 16:41:00 20 /min [facility] Body height 2025-04-29 16:41:00 157.5 cm [facility] Body weight 2025-04-29 16:41:00 46.993 kg [facility] BMI 2025-04-29 16:41:00 18.95 kg/m2 [facility] Oxygen saturation in Arterial blood by Pulse oximetry 2025-04-29 16:41:00 99 /min [facility] Systolic blood pressure 2025-04-21 22:17:00 118 mm[Hg] [facility] Diastolic blood pressure 2025-04-21 22:17:00 71 mm[Hg] [facility] Heart rate 2025-04-21 22:17:00 66 /min [facility] Body temperature 2025-04-21 22:17:00 36.78 Deyanira [facility] Respiratory rate 2025-04-21 22:17:00 16 /min [facility] Oxygen saturation in Arterial blood by Pulse oximetry 2025-04-21 22:17:00 99 /min [facility] Body height 2025-04-21 17:49:00 157.5 cm [facility] 2025-04-21 17:49:00 49.442 kg [facility] BMI 2025-04-21 17:49:00 19.94 kg/m2 [facility] Systolic blood pressure 2025-04-03 15:12:00 134 mm[Hg] [facility] Diastolic blood pressure 2025-04-03 15:12:00 51 mm[Hg] [facility] Heart rate 2025-04-03 15:12:00 54 /min [facility] Body height 2025-04-03 15:12:00 157.5 cm [facility] Body weight 2025-04-03 15:12:00 49.442 kg [facility] BMI 2025-04-03 15:12:00 19.94 kg/m2 [facility] Oxygen saturation in Arterial blood by Pulse oximetry 2025-04-03 15:12:00 97 /min [facility] Systolic blood pressure 2025-03-27 20:43:00 129 mm[Hg] [facility] Diastolic blood pressure 2025-03-27 20:43:00 69 mm[Hg] [facility] Heart rate 2025-03-27 20:43:00 55 /min [facility] Body temperature 2025-03-27 20:43:00 37.22 Deyanira [facility] Respiratory rate 2025-03-27 20:43:00 20 /min [facility] Body height 2025-03-27 20:43:00 157.5 cm [facility] Body weight 2025-03-27 20:43:00 49.442 kg [facility] BMI 2025-03-27 20:43:00 19.94 kg/m2 [facility] Oxygen saturation in Arterial blood by Pulse oximetry 2025-03-27 20:43:00 98 /min [facility] Systolic blood pressure 2025-03-19 20:30:00 128 mm[Hg] [facility] Diastolic blood pressure 2025-03-19 20:30:00 71 mm[Hg] [facility] Heart rate 2025-03-19 20:30:00 63 /min [facility] Respiratory rate 2025-03-19 20:30:00 18 /min [facility] Oxygen saturation in Arterial blood by Pulse oximetry 2025-03-19 20:30:00 99 /min [facility] Body temperature 2025-03-19 19:17:00 36.61 Deyanira [facility] Body height 2025-03-19 19:17:00 157.5 cm [facility] Body weight 2025-03-19 19:17:00 50.349 kg [facility] BMI 2025-03-19 19:17:00 20.30 kg/m2 [facility] Systolic blood pressure 2025-03-15 16:10:00 146 mm[Hg] [facility] Diastolic blood pressure 2025-03-15 16:10:00 86 mm[Hg] [facility] Heart rate 2025-03-15 16:07:00 66 /min [facility] Res[facility] 2025-03-15 16:07:00 18 /min [facility] Body height 2025-03-15 16:07:00 157.5 cm [facility] Body weight 2025-03-15 16:07:00 50.395 kg [facility] BMI 2025-03-15 16:07:00 20.32 kg/m2 [facility] Oxygen saturation in Arterial blood by Pulse oximetry 2025-03-15 16:07:00 100 /min [facility] Systolic blood pressure 2025-03-08 16:47:00 143 mm[Hg] [facility] Diastolic blood pressure 2025-03-08 16:47:00 70 mm[Hg] [facility] Heart rate 2025-03-08 16:47:00 68 /min [facility] Body temperature 2025-03-08 16:47:00 37.61 Deyanira [facility] Respiratory rate 2025-03-08 16:47:00 18 /min [facility] Oxygen saturation in Arterial blood by Pulse oximetry 2025-03-08 16:47:00 96 /min [facility] Body weight 2025-03-07 09:00:00 51.982 kg [facility] BMI 2025-03-07 09:00:00 20.96 kg/m2 [facility] Body height 2025-03-07 03:37:00 157.5 cm [facility] Systolic blood pressure 2025-07-02 12:02:00 121 mm[Hg] [facility] Diastolic blood pressure 2025-07-02 12:02:00 54 mm[Hg] [facility] Heart rate 2025-07-02 12:02:00 83 /min [facility] Body temperature 2025-07-02 12:02:00 37.39 Deyanira [facility] Respiratory rate 2025-07-02 12:02:00 28 /min [facility] Body height 2025-07-02 12:02:00 157.5 cm [facility] Body weight 2025-07-02 12:02:00 49.896 kg [facility] BMI 2025-07-02 12:02:00 20.12 kg/m2 [facility] Oxygen saturation in Arterial blood by Pulse oximetry 2025-07-02 12:02:00 99 /min [facility] Systolic blood pressure 2025-06-18 17:00:00 121 mm[Hg] [facility] Diastolic blood pressure 2025-06-18 17:00:00 64 mm[Hg] [facility] Heart rate 2025-06-18 17:00:00 68 /min [facility] Body temperature 2025-06-18 17:00:00 36.78 Deyanira [facility] Respiratory rate 2025-06-18 17:00:00 19 /min [facility] Oxygen saturation in Arterial blood by Pulse oximetry 2025-06-18 17:00:00 97 /min [facility] Body weight 2025-06-18 09:15:00 50.485 kg [facility] BMI 2025-06-18 09:15:00 21.03 kg/m2 [facility] Body height 2025-06-16 23:09:00 154.9 cm [facility] Systolic blood pressure 2025-06-04 14:25:00 105 mm[Hg] [facility] Diastolic blood pressure 2025-06-04 14:25:00 65 mm[Hg] [facility] Heart rate 2025-06-04 14:25:00 85 /min [facility] Body temperature 2025-06-04 14:25:00 37.22 Deyanira [facility] Respiratory rate 2025-06-04 14:25:00 16 /min [facility] Body height 2025-06-04 14:25:00 154.9 cm [facility] Body weight 2025-06-04 14:25:00 47.764 kg [facility] BMI 2025-06-04 14:25:00 19.91 kg/m2 [facility] Oxygen saturation in Arterial blood by Pulse oximetry 2025-06-04 14:25:00 99 /min [facility] Procedures Procedure Date / Time Performed Performing Clinician Source MAGNESIUM 2025-07-14 10:24:00 Daljit Silva [facility] BASIC METABOLIC PANEL (NA, K, CL, CO2, GLUCOSE, BUN, CREATININE, CA) 2025-07-14 10:24:00 Daljit Silva [facility] CBC WITHOUT DIFF 2025-07-14 10:24:00 Daljit Silva [facility] BASIC METABOLIC PANEL (NA, K, CL, CO2, GLUCOSE, BUN, CREATININE, CA) 2025 22:27:00 Daljit Silva [facility] BASIC METABOLIC PANEL (NA, K, CL, CO2, GLUCOSE, BUN, CREATININE, CA) 2025 16:18:00 Sonia Pal [facility] MAGNESIUM 2025 08:09:00 Antonette Moeller [facility] BASIC METABOLIC PANEL (NA, K, CL, CO2, GLUCOSE, BUN, CREATININE, CA) 2025 08:09:00 [facility] CBC WITH DIFF 2025 08:09:00 Antonette Moeller [facility] MAGNESIUM 2025-07-12 09:41:00 Antonette Moeller [facility] IRON 2025-07-12 09:41:00 Antonette Moeller [facility] TROPONIN I 2025-07-12 09:41:[address] [facility] BASIC METABOLIC PANEL (NA, K, CL, CO2, GLUCOSE, BUN, CREATININE, CA) 2025-07-12 09:41:00 [facility] CBC WITH DIFF 2025-07-12 09:41:00 Antonette Moeller [facility] RETICULOCYTES AUTOMATED 2025-07-12 09:41:00 Santiago Moeller [facility] MRSA / MSSA SCREEN BY PCR, JAE 2025-07-12 05:14:00 [facility] XR CHEST 1 VW 2025-07-12 01:23:00 Singer [facility] TROPONIN I 2025-07-12 01:02:00 Singer [facility] THYROID STIMULATING HORMONE 2025-07-12 01:02:00 [facility] COMP. METABOLIC PANEL (99321) 2025-07-12 01:02:00 Singer [facility] CBC WITH DIFF 2025-07-12 01:02:00 Singer [facility] N-TERMINAL PRO-BNP 2025-07-12 01:02:00 Singer [facility] HB ECG ROUTINE & RHYTHM STRIP 2025-07-12 00:53:32 Singer [facility] NM MYOCARDIUM PERFUSION STRESS AND REST 2025-07-02 15:52:00 Samuel [facility] MYOCARDIUM PERFUSION STRESS AND REST 2025-07-02 15:52:00 Samuel [facility] MYOCARDIUM PERFUSION STRESS AND REST 2025-07-02 15:52:00 Samuel [facility] NUCLEAR STRESS TEST CARDIOLOGY (DO NOT SCHED) 2025-07-02 15:52:00 Samuel [facility] MYOCARDIUM PERFUSION STRESS AND REST 2025-07-02 15:52:00 Samuel [facility] MYOCARDIUM PERFUSION STRESS AND REST 2025-07-02 15:52:00 Samuel [facility] NUCLEAR STRESS TEST CARDIOLOGY (DO NOT SCHED) 2025-07-02 15:52:00 Samuel [facility] POCT GLUCOSE (AUTOMATED) 2025-07-02 12:03:00 [facility] 2025-07-02 12:03:00 Katie Carmichael [facility] MR BRAIN W WO CONTRAST 2025-06-27 15:00:00 Clary Baker [facility] MR BRAIN W WO CONTRAST 2025-06-27 15:00:00 Clary Baker [facility] MAGNESIUM 2025-06-18 09:27:00 Antonette Moeller [facility] BASIC METABOLIC PANEL (NA, K, CL, CO2, GLUCOSE, BUN, CREATININE, CA) 2025-06-18 09:27:00 Antonette Moeller [facility] CBC WITH DIFF 2025-06-18 09:27:00 Antonette Moeller [facility] BASIC METABOLIC PANEL (NA, K, CL, CO2, GLUCOSE, BUN, CREATININE, CA) 2025-06-18 09:27:00 Antonette Moeller [facility] CBC WITH DIFF 2025-06-18 09:27:00 Antonette Moeller [facility] MAGNESIUM 2025-06-18 09:27:00 Antonette Moeller [facility] MAGNESIUM 2025-06-17 19:37:00 Antonette Moeller [facility] BASIC METABOLIC PANEL (NA, K, CL, CO2, GLUCOSE, BUN, CREATININE, CA) 2025-06-17 19:37:00 Antonette Moeller [facility] CBC WITHOUT DIFF 2025-06-17 19:37:00 Antonette Moeller [facility] BASIC METABOLIC PANEL (NA, K, CL, CO2, GLUCOSE, BUN, CREATININE, CA) 2025-06-17 19:37:00 Antonette Moeller [facility] CBC WITHOUT DIFF 2025-06-17 19:37:00 Antonette Moeller [facility] MAGNESIUM 2025-06-17 19:37:00 Antonette Moeller [facility] XR CHEST 1 VW 2025-06-17 11:11:01 Kae [facility] XR CHEST 1 VW 2025-06-17 11:11:01 Kae [facility] CALPROTECTIN, FECAL 2025-06-17 11:06:00 Kae [facility] FECAL PATHOGENS BY PCR 2025-06-17 11:06:00 Kae [facility] FECES CULTURE 2025-06-17 11:06:00 Kae [facility] CALPROTECTIN, FECAL 2025-06-17 11:06:00 Kae [facility] FECAL PATHOGENS BY PCR 2025-06-17 11:06:00 Kae [facility] MAGNESIUM 2025-06-17 10:43:00 James Omalley [facility] TROPONIN I 2025-06-17 10:43:00 James Omalley [facility] COMP. METABOLIC PANEL ([id number]) 2025-06-17 10:43:00 James Omalley [facility] CBC WITH DIFF 2025-06-17 10:43:[address] [facility] N-TERMINAL PRO-BNP 2025-06-17 10:43:00 James Omalley [facility] CBC WITH DIFF 2025-06-17 10:43:[address] [facility] COMP. METABOLIC PANEL ([id number]) 2025-06-17 10:43:00 James Omalley [facility] MAGNESIUM 2025-06-17 10:43:00 James Omalley [facility] N-TERMINAL PRO-BNP 2025-06-17 10:43:00 James Omalley [facility] TROPONIN I 2025-06-17 10:43:00 James Omalley [facility] MRSA / MSSA SCREEN BY PCR, [facility] 2025-06-16 23:18:00 James Omalley [facility] MRSA / MSS[facility] 2025-06-16 23:18:00 James Omalley [facility] TROPONIN I 2025-06-16 20:24:[address] [facility] FREE T4 2025-06-16 20:24:[address] [facility] COMP. METABOLIC PANEL ([id number]) 2025-06-16 20:24:00 [facility] 2025-06-16 20:24:00 Claudio Foss [facility] URINALYSIS 2025-06-16 20:24:[address] [facility] N-TERMINAL PRO-BNP 2025-06-16 20:24:00 [facility] 2 HOUR REFLEX 2025-06-16 20:24:00 [facility] WITH DIFF 2025-06-16 20:24:00 Claudio Foss [facility] COMP. METABOLIC PANEL ([id number]) 2025-06-16 20:24:00 Pipo [facility] TROPONIN I 2025-06-16 20:24:[address] [facility] N-TERMINAL PRO-BNP 2025-06-16 20:24:00 Pipo [facility] LACTIC ACID WITH 2 HOUR REFLEX 2025-06-16 20:24:00 [facility] 2025-06-16 20:24:00 [facility] FREE T4 2025-06-16 20:24:[address] [facility] HB ECG ROUTINE & RHYTHM STRIP 2025-06-16 20:16:23 Pipo [facility] HB ECG ROUTINE & RHYTHM STRIP 2025-06-16 20:16:23 Pipo [facility] CRITICAL CARE 2025-06-16 19:48:00 [facility] 2025-06-16 19:48:00 Pipo [facility] HB ECG ROUTINE & RHYTHM STRIP 2025-06-15 15:06:09 Lazaro Lucas [facility] HB ECG ROUTINE & RHYTHM STRIP 2025-06-15 15:05:01 Sami Garnica [facility] POCT GLUCOSE (AUTOMATED) 2025-06-15 12:56:00 Ayleen [facility] POCT GLUCOSE (AUTOMATED) 2025-06-15 12:56:00 Ayleen [facility] HB ECG ROUTINE & RHYTHM STRIP 2025-06-15 12:48:30 Rikki Saenz [facility] HB ECG ROUTINE & RHYTHM STRIP 2025-06-15 11:05:10 Lazaro Lucas [facility] MAGNESIUM 2025-06-15 09:47:00 Adam Lucas [facility] BASIC METABOLIC PANEL (NA, K, CL, CO2, GLUCOSE, BUN, CREATININE, CA) 2025-06-15 09:47:00 Lazaro Lucas [facility] CBC WITHOUT DIFF 2025-06-15 09:47:00 Josette Lucas [facility] CBC WITHOUT DIFF 2025-06-15 09:47:00 Josette Lucas [facility] BASIC METABOLIC PANEL (NA, K, CL, CO2, GLUCOSE, BUN, CREATININE, CA) 2025-06-15 09:47:00 Lazaro Lucas [facility] MAGNESIUM 2025-06-15 09:47:00 Shayy, Adam denisha [facility] EKG-12 LEAD 2025-06-15 00:30:15 [facility] 2025-06-14 23:06:00 Adam Lucas [facility] TROPONIN I 2025-06-14 23:06:00 Adam Lucas [facility] THYROID STIMULATING HORMONE 2025-06-14 23:06:00 Lazaro Lucas [facility] LIPID PANEL ([id number])(TOTAL CHOLESTEROL, TRIGLYCERIDES, HDL) 2025-06-14 23:06:00 Shayy [facility] GLYCOSYLATED HEMOGLOBIN (A1C) 2025-06-14 23:06:00 Lazaro Lucas [facility] PROTHROMBIN TIME / INR 2025-06-14 23:06:00 Lazaro Pastrana [facility] ACTIVATED PARTIAL THRMPLAS NANCY 2025-06-14 23:06:00 Lazaro Lucas [facility] MAGNESIUM 2025-06-14 23:06:00 [facility] FERRITIN SERUM 2025-06-14 23:06:00 Adam Lucas [facility] LIPID PANEL ([id number])(TOTAL CHOLESTEROL, TRIGLYCERIDES, HDL) 2025-06-14 23:06:00 Lazaro Lucas [facility] GLYCOSYLATED HEMOGLOBIN (A1C) 2025-06-14 23:06:00 Lazaro Lucas [facility] THYROID STIMULATING HORMONE 2025-06-14 23:06:00 Lazaro Lucas [facility] TROPONIN I 2025-06-14 23:06:00 Adam Lucas [facility] PROTHROMBIN TIME / INR 2025-06-14 23:06:00 Lazaro Pastrana [facility] ACTIVATED PARTIAL THRMPLAS NANCY 2025-06-14 23:06:00 Lazaro Lucas [facility] MAGNESIUM 2025-06-14 23:06:[address] [facility] IRON PANEL 2025-06-14 23:05:00 Adam Lucas [facility] IRON PANEL 2025-06-14 23:05:00 Adam Lucas [facility] POCUS LIMITED ECHO US 2025-06-14 15:30:43 Jake Lock [facility] POCUS LIMITED ECHO US 2025-06-14 15:30:43 Jake Lock [facility] PHOSPHORUS 2025-06-14 15:29:00 Makenna Lopez [facility] MAGNESIUM 2025-06-14 15:29:00 Makenna Lopez [facility] TROPONIN I 2025-06-14 15:29:00 Makenna Lopez [facility] BASIC METABOLIC PANEL (NA, K, CL, CO2, GLUCOSE, BUN, CREATININE, CA) 2025-06-14 15:29:00 Dany [facility] CBC WITH DIFF 2025-06-14 15:29:[address] [facility] LACTIC ACID WHOLE BLOOD 2025-06-14 15:29:00 Dany [facility] EXTRA TUBE LT. BLUE 2025-06-14 15:29:00 Arcenio Saenz [facility] CBC WITH DIFF 2025-06-14 15:29:[address] [facility] BASIC METABOLIC PANEL (NA, K, CL, CO2, GLUCOSE, BUN, CREATININE, CA) 2025-06-14 15:29:00 Dany [facility] LACTIC ACID WHOLE BLOOD 2025-06-14 15:29:00 Rikki Saenz [facility] MAGNESIUM 2025-06-14 15:29:00 Makenna Lopez [facility] TROPONIN I 2025-06-14 15:29:00 Makenna Lopez [facility] PHOSPHORUS 2025-06-14 15:29:00 Makenna Lopez [facility] EXTRA TUBE LT. BLUE 2025-06-14 15:29:00 [facility] 2025-06-14 15:18:18 Nancy Abbasi [facility] HB ECG ROUTINE & RHYTHM STRIP 2025-06-14 15:14:16 Lazaro Lucas [facility] POCT GLUCOSE (AUTOMATED) 2025-06-14 14:54:00 Neal Alba [facility] POCT GLUCOSE (AUTOMATED) 2025-06-14 14:54:00 Neal Alba [facility] PULMONARY FUNCTION TEST (RESULTS) 2025-06-14 14:20:51 Chen Sawyer [facility] IR CENTRALLY INSERTED DEVICE TUNNELED CATHETER WITH PORT 5 OR OLDER 2025-06-13 17:42:59 Meghan Reynoso [facility] IR CENTRALLY INSERTED DEVICE TUNNELED CATHETER WITH PORT 5 OR OLDER 2025-06-13 17:42:59 Meghan Reynoso [facility] XR CHEST 1 VW 2025-06-13 13:50:[address] [facility] [facility] XR CHEST 1 VW 2025-06-13 13:50:47 Topher Neal [facility] CT CHEST PULMONARY ANGIOGRAM 2025-06-13 13:47:20 Vianney Neal [facility] HB ECG ROUTINE & RHYTHM STRIP 2025-06-13 13:04:10 Vianney Neal Karine [facility] HB ECG ROUTINE & RHYTHM STRIP 2025-06-13 13:03:30 Kavin Buenrostro [facility] HB ECG ROUTINE & RHYTHM STRIP 2025-06-13 13:03:30 Kavin Buenrostro [facility] TROPONIN I 2025-06-13 12:53:00 Topher Neal [facility] THYROID STIMULATING HORMONE 2025-06-13 12:53:00 Vianney Neal Karine [facility] ACTIVATED PARTIAL THRMPLAS NANCY 2025-06-13 12:53:00 Ángel Vianney [facility] N-TERMINAL PRO-BNP 2025-06-13 12:53:00 Vianney Neal Karine [facility] BASIC METABOLIC PANEL (NA, K, CL, CO2, GLUCOSE, BUN, CREATININE, CA) 2025-06-13 12:53:00 Kavin Buenrostro [facility] CBC WITH DIFF 2025-06-13 12:53:00 Steve Buenrostro [facility] PROTHROMBIN TIME / INR 2025-06-13 12:53:00 [facility] / INR 2025-06-13 12:53:00 [facility] 2025-06-13 12:53:00 Steve Buenrostro [facility] BASIC METABOLIC PANEL (NA, K, CL, CO2, GLUCOSE, BUN, CREATININE, CA) 2025-06-13 12:53:00 Kavin Buenrostro [facility] ACTIVATED PARTIAL THRMPLAS NANCY 2025-06-13 12:53:00 Vianney Neal [facility] THYROID STIMULATING HORMONE 2025-06-13 12:53:00 Vianney Neal [facility] TROPONIN I 2025-06-13 12:53:00 Topher Neal [facility] N-TERMINAL PRO-BNP 2025-06-13 12:53:00 Vianney Neal [facility] PET TUMOR IMAGING SKULL TO THIGH 2025-05-31 16:02:00 Roberta Benavidez [facility] PET TUMOR IMAGING SKULL TO THIGH 2025-05-31 16:02:00 Roberta Benavidez [facility] PET TUMOR IMAGING SKULL TO THIGH 2025-05-31 16:02:00 Roberta Benavidez [facility] MR BRAIN WO CONTRAST 2025-05-14 14:32:06 Roberta Benavidez [facility] MR BRAIN WO CONTRAST 2025-05-14 14:32:06 Roberta Benavidez [facility] XR CHEST 1 VW 2025-05-02 19:56:[facility] 2025-05-02 19:56:57 Estrada, [facility] POCT GLUCOSE (AUTOMATED) 2025-05-02 19:19:00 Amanda Benavidez [facility] POCT GLUCOSE (AUTOMATED) 2025-05-02 19:19:00 Amanda Benavidez [facility] POCT GLUCOSE (AUTOMATED) 2025-05-02 19:19:00 Amanda Benavidez [facility] FL TIME OR (NON-REPORTABLE) 2025-05-02 18:37:56 Roberta Benavidez [facility] FL TIME OR (NON-REPORTABLE) 2025-05-02 18:37:56 Roberta Benavidez [facility] FL TIME OR (NON-REPORTABLE) 2025-05-02 18:37:56 Roberta Benavidez [facility] CYTO BRONCHIAL BRUSHING 2025-05-02 18:10:00 Guillermo Benavidez [facility] CYTO ORGAN ASPIRATION-FNA 2025-05-02 17:54:00 Deepak Benavidez [facility] AMPLISEQ FOCUS SOLID TUMOR MUTATION PANEL BY NGS 2025-05-02 17:54:00 Roberta Benavidez [facility] INTUBATION 2025-05-02 17:43:00 Phoenix Butcher Caceres [facility] INTUBATION 2025-05-02 17:43:00 Phoenix Butcher Caceres [facility] ENDOBRONCHIAL ULTRASOUND-TRANSBRONCHIAL FNA 2025-05-02 16:58:00 Roberta Benavidez [facility] ENDOBRONCHIAL ULTRASOUND-TRANSBRONCHIAL FNA 2025-05-02 16:58:00 Roberta Benavidez [facility] CT VERAN THORAX WO CONTRAST 2025-05-02 16:26:36 Ramonita Estradatany [facility] POCT URINALYSIS 2025-04-29 17:40:00 Nereida Dodson U [facility] POCT URINALYSIS 2025-04-29 17:40:00 Nereida Dodson U [facility] URINE CULTURE 2025-04-21 22:09:00 Sanjay Morris U [facility] HB ECG ROUTINE & RHYTHM STRIP 2025-04-21 21:48:01 Sanjay Morris [facility] URINALYSIS 2025-04-21 20:58:[address] San[address] Morris Un [facility] URINALYSIS 2025-04-21 20:58:[address] Sanjay Morris Un [facility] TROPONIN I 2025-04-21 20:11:[address] Morris [facility] [facility] COMP. METABOLIC PANEL (22169) 2025-04-21 20:11:00 Sanjay Morris [facility] CBC WITH DIFF 2025-04-21 20:11:00 Sanjay Morris [facility] INFLUENZA A/B RSV COVID NAAT 2025-04-21 20:11:00 Sanjay Morris [facility] CBC WITH DIFF 2025-04-21 20:11:00 Sanjay Morris [facility] COMP. METABOLIC PANEL (69678) 2025-04-21 20:11:00 Sanjay Morris [facility] TROPONIN I 2025-04-21 20:11:00 Sanjay Morris Un [facility] INFLUENZA A/B RSV COVID NAAT 2025-04-21 20:11:00 Sanjay Morris [facility] LAB ONLY COVID INTERPRETATION 2025-04-21 20:11:00 Sanjay Morris [facility] XR CHEST 2 VW 2025-04-21 19:29:18 Sanjay Morris U [facility] XR CHEST 2 VW 2025-04-21 19:29:18 Sanjay Morris U [facility] CT HEAD WO CONTRAST 2025-04-21 19:18:47 Mikayla Morris [facility] CT HEAD WO CONTRAST 2025-04-21 19:18:47 Mikayla Morris [facility] HB ECG ROUTINE & RHYTHM STRIP 2025-03-27 20:51:00 Randall Martin [facility] XR CHEST 2 VW 2025-03-19 19:45:44 Ivana Rocha U [facility] XR CHEST 2 VW 2025-03-19 19:45:[address] [facility] XR KUB 2025-03-08 14:49:00 Lisa Lyon [facility] CT ABDOMEN PELVIS W CONTRAST 2025-03-08 12:39:40 Gil Crooks [facility] BASIC METABOLIC PANEL (NA, K, CL, CO2, GLUCOSE, BUN, CREATININE, CA) 2025-03-08 10:51[facility]00 [facility] 10:51:[address] [facility] CBC WITH DIFF 2025-03-08 10:51:00 Salo Segovia [facility] FREE T3 2025-03-08 10:51:[address] [facility] FREE T4 2025-03-08 10:51:[address] [facility] MAGNESIUM 2025-03-08 10:51:[address] [facility] FREE T4 2025-03-08 10:51:[address] [facility] BASIC METABOLIC PANEL (NA, K, CL, CO2, GLUCOSE, BUN, CREATININE, CA) 2025-03-08 10:51:00 [facility]FF 2025-03-08 10:51:00 Salo Segovia [facility] FREE T3 2025-03-08 10:51:[address] [facility] TRANSTHORACIC ECHO (TTE) COMPLETE W/ CONTRAST 2025-03-07 20:23:13 [facility] 2025-03-07 13:26:[address] [facility] URINE DRUG (IMMUNOASSAY) - COMPREHENSIVE DRUG SCREEN 2025-03-07 13:26:00 Crooks, Gil N [facility] XR KUB 2025-03-07 12:05:09 [facility] 2025-03-07 09:49:00 Gil Crooks [facility] CT HEAD WO CONTRAST 2025-03-07 07:28:02 Gil Crooks [facility] CT CERVICAL SPINE WO CONTRAST 2025-03-07 07:25:18 Gil Crooks [facility] PHOSPHORUS 2025-03-07 04:02:00 Gil Crooks [facility] THYROID STIMULATING HORMONE 2025-03-07 04:02:00 Gil Crooks [facility] HEPATIC FUNCTION PANEL (35484) (ALB,T.PRO,BILI T,BU/BC,ALT,AST,ALK PHOS) 2025-03-07 04:02:00 Gil Crooks [facility] BASIC METABOLIC PANEL (NA, K, CL, CO2, GLUCOSE, BUN, CREATININE, CA) 2025-03-07 04:02:00 Gil Crooks [facility] LIPID PANEL (20861)(TOTAL CHOLESTEROL, TRIGLYCERIDES, HDL) 2025-03-07 04:02:00 Gil Crooks [facility] CBC WITH DIFF 2025-03-07 04:02:00 Gil Crooks [facility] GLYCOSYLATED HEMOGLOBIN (A1C) 2025-03-07 04:02:00 Gil Crooks [facility] PROTHROMBIN TIME / INR 2025-03-07 04:02:00 Gil Crooks [facility] ASSIGNMENT OF BENEFITS 2023-05-23 19:00:40 Docto r Unassigned, [place] [facility] Encounters Start Date/Time End Date/Time Encounter Type Admission Type Attending Clinicians Care Facility Care Department Encounter ID Source 2025-07-04 08:37:38 Outpatient KATIE ROYAL [facility] [id number] [facility] 2025-06-03 07:14:31 Outpatient KATIE ROYAL [facility] [id number] [facility] 2025-07-17 00:00:00 2025-08-17 18:16:47 Patient Secure Msg Doctor Unassigned, [place] Doctor Unassigned, [place] [facility] 1.2.840.114 350.1.13.10 4.2.7.2.686 [id number] [facility] 2025-08-16 13:45:00 2025-08-16 13:45:00 [facility] [id number] 2025-08-16 11:00:00 2025-08-16 11:00:00 Outpatient R [facility] [id number] [facility] 2025-08-15 00:00:00 2025-08-15 20:49:50 Telephone [facility] PRIMARY AND SPECIALTY CARE 1.2.840.114 350.1.13.10 4.2.7.2.686 [id number] [facility] 2025-08-12 00:00:00 2025-08-15 11:17:35 [facility] 1.2.840.114 350.1.13.10 4.2.7.2.686 [id number] [facility] 2025-08-14 00:00:00 2025-08-14 18:35:22 Telephone Deni Benz [facility] 1.2.840.114 350.1.13.10 4.2.7.2.686 [id number] [facility] 2025-08-12 10:30:00 2025-08-12 10:30:00 Outpatient R MEGHAN REYNOSO [facility] [id number] [facility] 2025-07-08 00:00:00 2025-08-10 18:27:33 Patient Secure Msg Doctor Unassigned, [place] Doctor Unassigned, [place] [facility] 1.2.840.114 350.1.13.10 4.2.7.2.686 [id number] 037 [id number] [facility] 2025-07-10 00:00:00 2025-08-10 18:20:49 Patient Secure Msg Doctor Unassigned, [place] Doctor Unassigned, [place] [facility] ([facility] 1.2.840.114 350.1.13.10 4.2.7.2.686 [id number] [facility] 2025-08-07 00:00:00 2025-08-10 00:42:52 Telephone [facility] PRIMARY AND SPECIALTY CARE 1.2.840.114 350.1.13.10 4.2.7.2.686 [id number] [facility] 2025-08-08 11:15:00 2025-08-08 11:15:00 Packaging Manager Visit Valerie DILLARD, [facility]?CARMENRosalie NAIF [facility] OFF[facility] BUILDING 1.2.840.114 350.1.13.10 4.2.7.2.686 [id number] [facility] 2025-08-01 00:00:00 2025-08-07 11:24:39 Telephone [facility] PRIMARY AND SPECIALTY CARE 1.2.840.114 350.1.13.10 4.2.7.2.686 [id number] [facility] 2025-08-01 00:00:00 2025-08-05 16:23:23 Telephone [facility] PRIMARY AND SPECIALTY CARE 1.2.840.114 350.1.13.10 4.2.7.2.686 [id number] [id number] [facility] 2025-08-05 00:00:00 2025-08-05 16:20:19 Telephone [facility] PRIMARY [facility] SPECIALTY CARE 1.2.840.114 350.1.13.10 4.2.7.2.686 [id number] [id number] [facility] 2025-08-02 11:00:00 2025-08-02 11:00:00 Outpatient R [facility] [id number] [facility] 2025-08-01 00:00:00 2025-08-01 09:50:06 [facility] 1.2.840.114 350.1.13.10 4.2.7.2.686 [id number] [facility] 2025-07-23 00:00:00 2025-08-01 09:29:13 Telephone [facility] PRIMARY AND SPECIALTY CARE 1.2.840.114 350.1.13.10 4.2.7.2.686 [id number] [facility] 2025-07-31 18:00:00 2025-07-31 18:31:15 Office Visit R [facility] 1.2.840.114 350.1.13.10 4.2.7.2.686 [id number] [facility] 2025-06-25 00:00:00 2025-07-27 18:25:43 Patient Secure Msg Doctor Unassigned, [place] Doctor Unassigned, [place] [facility] 1.2.840.114 350.1.13.10 4.2.7.2.686 [id number] [id number] [facility] 2025-06-26 00:00:00 2025-07-27 18:19:33 Patient Secure Msg Doctor Unassigned, [place] Doctor Unassigned, [place] [facility] 1.2.840.114 350.1.13.10 4.2.7.2.686 [id number] 037 [id number] [facility] 2025-07-26 11:00:00 2025-07-26 10:40:24 Packaging Manager Visit R NEREIDA DODSON [facility] 1.2840.114 350.1.13.10 4.2.7.2.686 [id number] [facility] 2025-07-24 00:00:00 2025-07-24 11:45:18 Telephone Meghan Reynoso BUILDING 1.2840.114 350.1.13.10 4.2.7.2.686 [id number] 080 [id number] [facility] 2025-07-19 13:00:00 2025-07-19 14:30:00 Packaging Manager Visit R Yfn, [facility] Pulmonary Function Meghan Reynoso Testing, [facility] Pulmonary Function [facility] ([facility] 1.2840.114 350.1.13.10 4.2.7.2.686 [id number] [id number] [facility] 2025-07-19 11:00:00 2025-07-19 11:00:00 Packaging Manager [facility] MEDICAL OFFICE BUILDING 1.2840.114 350.1.13.10 4.2.7.2.686 [id number] [facility] 2025-07-17 00:00:00 2025-07-18 11:03:40 Patient Outreach Maryanne Ram Andie G MCC[facility] BUILDING 1.2840.114 350.1.13.10 4.2.7.2.686 [id number] [facility] 2025-07-18 00:00:00 2025-07-18 09:13:06 Telephone Meghan Reynoso BUILDING 1.2840.114 350.1.13.10 4.2.7.2.686 [id number] 080 [id number] [facility] 2025-07-15 00:00:00 2025-07-17 11:27:35 Telephone DodsonNereida quiroz [facility] PRIMARY AND SPECIALTY CARE 1.2840.114 350.1.13.10 4.2.7.2.686 [id number] 044 [id number] [facility] 2025-07-17 00:00:00 2025-07-17 10:04:32 Case Management Garry Kirk [facility] 1..114 350.1.13.10 4.2.7.2.686 [id number] [facility] 2025-07-16 11:00:00 2025-07-16 11:15:00 Packaging Manager Visit R Ml, Meghan Gray, Joe Sahni [facility]?MARISOL DISLA MEDICAL OFFICE BUILDING 1..114 350.1.13.10 4.2.7.2.686 [id number] [facility] 2025-07-15 00:00:00 2025-07-15 16:19:50 Telephone Meghan Reynoso [facility] 1.0.114 350.1.13.10 4.2.7.2.686 [id number] 080 [id number] [facility] 2025-07-15 00:00:00 2025-07-15 11:53:59 Transition of Care Esther Lala Christine [facility] 1..114 350.1.13.10 4.2.7.2.686 [id number] [facility] 2025-07-15 00:00:00 2025-07-15 10:06:03 Telephone Roberta Benavidez [facility] PROFESSIO NAL BUILDING 1.2.840.114 350.1.13.10 4.2.7.2.686 [id number] [id number] [facility] 2025-07-15 08:00:00 2025-07-15 08:57:53 Office Visit R Roberta Benavidez [facility] BUILDING 1.2840.114 350.1.13.10 4.2.7.2.686 [id number] [facility] 2025-07-11 19:48:00 2025-07-14 12:00:00 Hospital Encounter [facility] [id number] [facility] 2025-07-11 00:00:00 2025-07-12 12:57:23 Telephone Roberta Benavidez [facility] BUILD[facility] 1.2840.114 350.1.13.10 4.2.7.2.686 [id number] [id number] [facility] 2025-07-11 00:00:00 2025-07-11 14:55:59 Case Management Chen Sawyer [facility] ([facility]) 1.2840.114 350.1.13.10 4.2.7.2.686 [id number] [facility] 2025-07-11 13:00:00 2025-07-11 14:53:43 Packaging Manager Visit R CHEN SAWYER [facility] ([facility]) 1.2840.114 350.1.13.10 4.2.7.2.686 [id number] [id number] [facility] 2025-07-09 07:00:00 2025-07-09 23:59:00 Hospital Encounter Garry Kirk BUILDING 1.2.840.114 350.1.13.10 4.2.7.2.686 [id number] [facility] 2025-07-09 00:00:00 2025-07-09 12:50:05 Telephone Arabella Meza Roxie L [facility] 1.2.114 350.1.13.10 4.2.7.2.686 [id number] [id number] [facility] 2025-07-04 00:00:00 2025-07-08 15:03:41 Telephone Meghan Reynoso [facility] 1.2840.114 350.1.13.10 4.2.7.2.686 [id number] 080 [id number] [facility] 2025-06-05 00:00:00 2025-07-06 18:22:31 Patient Secure Msg Doctor Unassigned, [place] Doctor Unassigned, [place] [facility] 1..114 350.1.13.10 4.2.7.2.686 [id number] 037 [id number] [facility] 2025-07-04 11:30:00 2025-07-04 23:59:00 Hospital Encounter Garry Coleman [facility] 1..114 350.1.13.10 4.2.7.2.686 [id number] [facility] 2025-07-04 11:15:00 2025-07-04 11:15:00 Outpatient GARRY COLEMAN ARUN [facility] [id number] [facility] 2025-07-03 16:30:00 2025-07-03 17:00:00 Office Visit R Meghan Reynoso [facility] 1..114 350.1.13.10 4.2.7.2.686 [id number] 080 [id number] [facility] 2025-07-03 13:00:00 2025-07-03 15:50:15 Office Visit RANDALL PRATT HAIDER [facility] PRIMARY [facility] SPECIALTY CARE 1.2.840.114 350.1.13.10 4.2.7.2.686 [id number] [facility] 2025-07-02 00:00:00 2025-07-03 10:07:[address] [facility] 1.2.840.114 350.1.13.10 4.2.7.2.686 [id number] [facility] 2025-07-03 00:00:00 2025-07-03 00:00:00 Travel 1.2.840.1 86846.1.1 3.104.2.7 .3.450494 .8 1.2.840.114 350.1.13.10 4.2.7.3.698 084.8 [id number] [facility] 2025-07-02 07:42:35 2025-07-02 23:59:00 Hospital Encounter Roberta Graves [place] 1.2.840.1 40871.1.1 3.104.2.7 .3.043146 .8 [id number] [facility] 2025-07-02 07:42:11 2025-07-02 23:59:00 Hospital Encounter Roberta Graves [place] 1.2.840.1 15040.1.1 3.104.2.7 .3.666870 .8 [id number] [facility] 2025-07-02 00:00:00 2025-07-02 13:30:00 Case Management Chen Sawyer 1.2.840.1 29884.1.1 3.104.2.7 .3.963915 .8 [id number] [facility] 2025-07-01 00:00:00 2025-07-02 08:00:15 Telephone Nancy Abbasi 1.2.840.1 60313.1.1 3.104.2.7 .3.178373 .8 [id number] [facility] 2025-07-02 07:45:04 2025-07-02 07:45:04 Anesthesia Event Charline Toth 1.2.840.1 18283.1.1 3.104.2.7 .3.604647 .8 [id number] [facility] 2025-07-02 07:41:55 2025-07-02 07:41:55 Hospital Encounter R Roberta Benavidez [place] 1.2.840.1 97048.1.1 3.104.2.7 .3.751642 .8 [id number] [facility] 2025-07-02 07:39:14 2025-07-02 07:40:00 Hospital Encounter R Roberta Benavidez [place] 1.2.840.1 54479.1.1 3.104.2.7 .3.936595 .8 [id number] [facility] 2025-07-02 06:53:00 2025-07-02 07:33:00 Hospital Encounter R Katie Carmichael 1.2.840.1 35156.1.1 3.104.2.7 .3.731756 .8 [id number] [facility] 2025-07-02 07:20:00 2025-07-02 07:20:00 Anesthesia Event Antonette Chris 1.2.840.1 12725.1.1 3.104.2.7 .3.568666 .8 [id number] [facility] 2025-07-01 00:00:00 2025-07-01 14:54:16 Telephone Katie Carmichael 1.2.840.1 98816.1.1 3.104.2.7 .3.607512 .8 [id number] [facility] 2025-06-27 08:50:27 2025-06-27 23:59:00 Hospital Encounter R BenavidezIrashuanna Geoffreylavon 1.2.840.1 07570.1.1 3.104.2.7 .3.614712 .8 [id number] [facility] 2025-06-26 10:52:32 2025-06-26 23:59:00 Hospital Encounter R NANCY ABBASI AMER 1.2.840.1 01447.1.1 3.104.2.7 .3.030542 .8 [id number] [facility] 2025-06-26 00:00:00 2025-06-26 00:00:00 Travel 1.2.840.1 43365.1.1 3.104.2.7 .3.753098 .8 1.2.840.114 350.1.13.10 4.2.7.3.698 084.8 [id number] [facility] 2025-06-25 10:00:00 2025-06-25 15:23:23 Office Visit R Meghan Reynoso 1.2.840.1 18741.1.1 3.104.2.7 .3.817874 .8 [id number] [facility] 2025-06-25 14:30:00 2025-06-25 15:09:57 Office Visit Nereida Del Rosario [facility] PR[facility]TY [facility] 1.2.840.114 350.1.13.10 4.2.7.2.686 [id number] [facility] 2025-06-25 00:00:00 2025-06-25 00:00:00 Travel 1.2.840.1 66086.1.1 3.104.2.7 .3.223393 .8 1.2.840.114 350.1.13.10 4.2.7.3.698 084.8 [id number] [facility] 2025-06-24 00:00:00 2025-06-24 08:41:08 Telephone Zamzam Gu 1.2.840.1 93472.1.1 3.104.2.7 .3.961046 .8 [id number] [facility] 2025-06-19 00:00:00 2025-06-19 14:25:21 Transition of Care Denisse Novoa 1.2.840.1 19852.1.1 3.104.2.7 .3.354407 .8 [id number] [facility] 2025-06-16 15:02:00 2025-06-18 13:30:00 Hospital Encounter X JAMES [facility] [id number] [facility] 2025-06-17 00:00:00 2025-06-17 12:30:16 Transition of Care Denisse Novoa 1.2.840.1 53310.1.1 3.104.2.7 .3.222223 .8 [id number] [facility] 2025-06-17 07:30:00 2025-06-17 07:30:00 Hospital Encounter R Garry Kirk [facility] 1.2.840.114 350.1.13.10 4.2.7.2.686 [id number] [facility] 2025-06-16 00:00:00 2025-06-16 00:00:00 Travel 1.2.840.1 99950.1.1 3.104.2.7 .3.597168 .8 1.2.840.114 350.1.13.10 4.2.7.3.698 084.8 [id number] [facility] 2025-06-14 10:10:00 2025-06-15 18:55:00 Hospital Encounter X Rikki Saenz Shuja Ur Abdulla, Amer 1.2.840.1 38284.1.1 3.104.2.7 .3.034521 .8 [id number] [facility] 2025-05-13 00:00:00 2025-06-15 18:23:28 Patient Secure Msg Doctor Unassigned, [place] 1.2.840.1 29860.1.1 3.104.2.7 .3.252970 .8 [id number] [facility] 2025-06-14 00:00:00 2025-06-14 15:43:21 Case Management Meghan Reynoso 1.2.840.1 33099.1.1 3.104.2.7 .3.059773 .8 [id number] [facility] 2025-06-14 09:30:00 2025-06-14 14:05:16 Packaging Manager Visit Sony Cornejo Testing, [facility] Pulmonary Function 1.2.840.1 61672.1.1 3.104.2.7 .3.637925 .8 [id number] [facility] 2025-06-14 00:00:00 2025-06-14 00:00:00 Travel 1.2.840.1 75637.1.1 3.104.2.7 .3.717577 .8 1.2.840.114 350.1.13.10 4.2.7.3.698 084.8 [id number] [facility] 2025-06-13 08:37:00 2025-06-13 10:47:00 Emergency X Sony Alba 1.2.840.1 09103.1.1 3.104.2.7 .3.118130 .8 [id number] [facility] 2025-06-13 09:30:00 2025-06-13 09:30:00 Outpatient MEGHAN SOTO [facility] [id number] [facility] 2025-06-13 07:36:33 2025-06-13 08:36:00 Hospital Encounter Meghan Soto Tchapet S Riggle, Kayla J 1.2.840.1 28110.1.1 3.104.2.7 .3.765059 .8 [id number] [facility] 2025-06-13 08:35:00 2025-06-13 08:35:00 Outpatient R SONY ALBA KENT [facility] [id number] [facility] 2025-06-13 07:30:00 2025-06-13 07:30:00 Outpatient R MEGHAN REYNOSO [facility] [id number] [facility] 2025-06-13 00:00:00 2025-06-13 00:00:00 Travel 1.2.840.1 31239.1.1 3.104.2.7 .3.672750 .8 1.2.840.114 350.1.13.10 4.2.7.3.698 084.8 [id number] [facility] 2025-06-12 09:00:00 2025-06-12 18:10:06 [facility] 1.2.840.114 350.1.13.10 4.2.7.2.686 [id number] [facility] 2025-06-11 13:00:00 2025-06-11 13:58:27 Office Visit Azul Browne 1.2.840.1 72397.1.1 3.104.2.7 .3.592395 .8 [id number] [facility] 2025-06-11 09:00:00 2025-06-11 09:00:00 Outpatient ROBERTA GRAVES SHIWAN [facility] [id number] [facility] 2025-06-11 00:00:00 2025-06-11 00:00:00 Travel 1.2.840.1 85079.1.1 3.104.2.7 .3.208606 .8 1.2.840.114 350.1.13.10 4.2.7.3.698 084.8 [id number] [facility] 2025-06-10 14:30:00 2025-06-10 14:30:00 Outpatient R MONTGOMERYSIMONEGILDA MONTGOMERY THOMAS [facility] [id number] [facility] 2025-06-07 23:59:59 2025-06-07 23:59:59 Anesthesia Event Valerie Rios 1.2.840.1 22389.1.1 3.104.2.7 .3.530130 .8 [id number] [facility] 2025-06-06 00:00:00 2025-06-06 23:59:00 Outpatient R ROBERTA BENAVIDEZ SHILAShaunna [facility] [id number] [facility] 2025-06-06 00:00:00 2025-06-06 00:00:00 Outpatient R ROBERTA BENAVIDEZ SHILAShaunna [facility] [id number] [facility] 2025-06-06 00:00:00 2025-06-06 00:00:00 Outpatient R ROBERTA BENAVIDEZ SHILAShaunna [facility] [id number] [facility] 2025-06-06 00:00:00 2025-06-06 00:00:00 Outpatient R ROBERTA BENAVIDEZ SHILAShaunna [facility] [id number] [facility] 2025-06-04 09:00:00 2025-06-04 16:59:40 Office Visit Meghan Soto 1.2.840.1 18128.1.1 3.104.2.7 .3.667148 .8 [id number] [facility] 2025-06-03 09:30:00 2025-06-03 10:49:00 Office Visit Khoi Puckett 1.2.840.1 10696.1.1 3.104.2.7 .3.882846 .8 [id number] [facility] 2025-06-03 08:30:00 2025-06-03 08:30:00 Outpatient NAOMI TRONCOSO JORGE [facility] [id number] [facility] 2025-06-03 00:00:00 2025-06-03 00:00:00 Travel 1.2.840.1 68238.1.1 3.104.2.7 .3.494076 .8 1.2.840.114 350.1.13.10 4.2.7.3.698 084.8 [id number] [facility] 2025-05-01 00:00:00 2025-06-01 18:31:39 Patient Secure Msg Doctor Unassigned, [place] 1.2.840.1 86042.1.1 3.104.2.7 .3.188734 .8 [id number] [facility] 2025-05-01 00:00:00 2025-06-01 18:30:30 Patient Secure Msg Doctor Unassigned, [place] 1.2.840.1 94143.1.1 3.104.2.7 .3.090946 .8 [id number] [facility] 2025-05-31 09:39:28 2025-05-31 23:59:00 Hospital Encounter R Roberta Benavidez 1.2.840.1 40710.1.1 3.104.2.7 .3.411459 .8 [id number] [facility] 2025-05-31 09:38:41 2025-05-31 09:38:41 Hospital Encounter R Roberta Benavidez 1.2.840.1 00965.1.1 3.104.2.7 .3.004951 .8 [id number] [facility] 2025-05-31 00:00:00 2025-05-31 00:00:00 Outpatient ROBERTA GRAVES SHIWAN [facility] [id number] [facility] 2025-05-31 00:00:00 2025-05-31 00:00:00 Outpatient ROBERTA GRAVES SHIWAN [facility] [id number] [facility] 2025-05-27 00:00:00 2025-05-27 16:19:32 Telephone Nereida Dodson 1.2.840.1 70286.1.1 3.104.2.7 .3.186843 .8 [id number] [facility] 2025-05-22 15:40:00 2025-05-22 15:53:05 Office Visit R Marlene Joe 1.2.840.1 40603.1.1 3.104.2.7 .3.109957 .8 [id number] [facility] 2025-05-22 00:00:00 2025-05-22 00:00:00 Travel 1.2.840.1 60813.1.1 3.104.2.7 .3.600388 .8 1.2.840.114 350.1.13.10 4.2.7.3.698 084.8 [id number] [facility] 2025-05-20 14:30:00 2025-05-20 14:30:00 Outpatient R [facility] [id number] [facility] 2025-05-16 00:00:00 2025-05-16 10:16:26 Telephone Brett Baker 1.2.840.1 20952.1.1 3.104.2.7 .3.982188 .8 [id number] [facility] 2025-05-15 00:00:00 2025-05-15 12:54:08 Multidisci plinary Conference Brett Baker 1.2.840.1 47082.1.1 3.104.2.7 .3.711028 .8 [id number] [facility] 2025-05-14 08:01:32 2025-05-14 23:59:00 Hospital Encounter R Roberta Benavidezal 1.2.840.1 24589.1.1 3.104.2.7 .3.937295 .8 [id number] [facility] 2025-05-09 00:00:00 2025-05-14 16:22:18 Refill Varsha Roberta Cohen 1.2.840.1 94561.1.1 3.104.2.7 .3.053131 .8 [id number] [facility] 2025-05-14 00:00:00 2025-05-14 14:11:36 Telephone Nereida Dodson 1.2.840.1 31554.1.1 3.104.2.7 .3.048815 .8 [id number] [facility] 2025-05-14 00:00:00 2025-05-14 13:53:13 Telephone Varsha Roberta Cohen 1.2.840.1 84609.1.1 3.104.2.7 .3.685914 .8 [id number] [facility] 2025-05-10 00:00:00 2025-05-10 00:00:00 Scanned Documents Doctor Unassigned, [place] 1.2.840.1 55008.1.1 3.104.2.7 .3.120261 .8 [id number] [facility] 2025-05-07 00:00:00 2025-05-07 16:16:16 Telephone Varsha Roberta Cohen 1.2.840.1 88679.1.1 3.104.2.7 .3.346150 .8 [id number] [facility] 2025-05-06 00:00:00 2025-05-06 00:00:00 Outpatient R NEREIDA DODSON [facility] [id number] [facility] 2025-05-03 00:00:00 2025-05-03 08:25:58 Telephone Zamzam Gu 1.2.840.1 94428.1.1 3.104.2.7 .3.332652 .8 [id number] [facility] 2025-05-03 08:00:00 2025-05-03 08:23:42 Office Visit Valerie GuCeliorenetta Gibson 1.2.840.1 36412.1.1 3.104.2.7 .3.445378 .8 [id number] [facility] 2025-05-03 00:00:00 2025-05-03 00:00:00 Outpatient NEREIDA DEL ROSARIO [facility] [id number] [facility] 2025-05-03 00:00:00 2025-05-03 00:00:00 Travel 1.2.840.1 76626.1.1 3.104.2.7 .3.639794 .8 1.2.840.114 350.1.13.10 4.2.7.3.698 084.8 [id number] [facility] 2025-05-02 09:05:00 2025-05-02 15:16:00 Hospital [facility] [id number] [facility] 2025-05-02 12:28:00 2025-05-02 14:18:00 Anesthesia Event April Ye Darlene 1.2.840.1 48767.1.1 3.104.2.7 .3.037362 .8 [id number] [facility] 2025-05-02 11:27:00 2025-05-02 14:18:00 Surgery Roberta Benavidez 1.2.840.1 59276.1.1 3.104.2.7 .3.431191 .8 [id number] [facility] 2025-05-02 09:00:00 2025-05-02 09:04:00 Hospital Encounter R Roberta Benavidez 1.2.840.1 64808.1.1 3.104.2.7 .3.768755 .8 [id number] [facility] 2025-04-30 00:00:00 2025-04-30 16:09:40 Telephone Amanda Benavidezced Cohen 1.2.840.1 53699.1.1 3.104.2.7 .3.079998 .8 [id number] [facility] 2025-04-30 00:00:00 2025-04-30 00:00:00 Travel 1.2.840.1 13659.1.1 3.104.2.7 .3.024972 .8 1.2.840.114 350.1.13.10 4.2.7.3.698 084.8 [id number] [facility] 2025-04-29 16:30:00 2025-04-29 16:58:08 Office Visit R Roberta Benavidez 1.2.840.1 53048.1.1 3.104.2.7 .3.553106 .8 [id number] [facility] 2025-04-29 11:30:00 2025-04-29 12:44:54 Office Visit Nereida Del Rosario 1.2.840.1 14988.1.1 3.104.2.7 .3.617665 .8 [id number] [facility] 2025-04-29 00:00:00 2025-04-29 00:00:00 Travel 1.2.840.1 53205.1.1 3.104.2.7 .3.008214 .8 1.2.840.114 350.1.13.10 4.2.7.3.698 084.8 [id number] [facility] 2025-04-21 12:57:00 2025-04-21 17:43:00 Emergency X Sanjay Morris 1.2.840.1 74492.1.1 3.104.2.7 .3.838040 .8 [id number] [facility] 2025-04-21 00:00:00 2025-04-21 00:00:00 Travel 1.2.840.1 26535.1.1 3.104.2.7 .3.326771 .8 1.2.840.114 350.1.13.10 4.2.7.3.698 084.8 [id number] [facility] 2025-04-10 00:00:00 2025-04-10 00:00:00 Outpatient R SEGUN ASCENCIO ANOOP [facility] [id number] [facility] 2025-04-03 10:30:00 2025-04-03 10:36:38 Outpatient R SEGUN ASCENCIO ANOOP [facility] [id number] [facility] 2025-04-03 10:30:00 2025-04-03 10:36:38 Office Visit R Segun Ascencio 1.2.840.1 53687.1.1 3.104.2.7 .3.290098 .8 [id number] [facility] 2025-04-03 00:00:00 2025-04-03 00:00:00 Travel 1.2.840.1 65997.1.1 3.104.2.7 .3.273323 .8 1.2.840.114 350.1.13.10 4.2.7.3.698 084.8 [id number] [facility] 2025-03-27 00:00:00 2025-03-28 15:05:06 Telephone Dodson Nereida 1.2.840.1 44047.1.1 3.104.2.7 .3.461497 .8 [id number] [facility] 2025-03-27 16:00:00 2025-03-27 16:08:41 Outpatient R RANADLL MARTIN HAIDER [facility] [id number] [facility] 2025-03-27 16:00:00 2025-03-27 16:08:41 Office Visit R Randall Martin 1.2.840.1 77140.1.1 3.104.2.7 .3.180888 .8 [id number] [facility] 2025-03-27 00:00:00 2025-03-27 00:00:00 Travel 1.2.840.1 24734.1.1 3.104.2.7 .3.146413 .8 1.2.840.114 350.1.13.10 4.2.7.3.698 084.8 [id number] [facility] 2025-03-19 14:21:00 2025-03-19 16:16:00 Emergency X IVANA ROCHA [facility] [id number] [facility] 2025-03-19 14:21:00 2025-03-19 16:16:00 Emergency Ivana Rocha 1.2.840.1 70660.1.1 3.104.2.7 .3.736640 .8 [id number] [facility] 2025-03-19 00:00:00 2025-03-19 00:00:00 Travel 1.2.840.1 04775.1.1 3.104.2.7 .3.556363 .8 1.2.840.114 350.1.13.10 4.2.7.3.698 084.8 [id number] [facility] 2025-03-15 11:00:00 2025-03-15 12:02:33 Outpatient R NEREIDA DODSON [facility] [id number] [facility] 2025-03-15 11:00:00 2025-03-15 12:02:33 Office Visit Nereida Dodson 1.2.840.1 63404.1.1 3.104.2.7 .3.519378 .8 [id number] [facility] 2025-03-15 00:00:00 2025-03-15 00:00:00 Travel 1.2.840.1 67589.1.1 3.104.2.7 .3.195517 .8 1.2.840.114 350.1.13.10 4.2.7.3.698 084.8 [id number] [facility] 2025-03-11 00:00:00 2025-03-11 16:20:45 Transition of Care Denisse Novoa 1.2.840.1 92685.1.1 3.104.2.7 .3.551659 .8 [id number] [facility] 2025-03-06 20:27:00 2025-03-08 12:24:00 Outpatient U CRISTINA ROSAS [facility] [id number] [facility] 2025-03-06 20:27:00 2025-03-08 12:24:00 Hospital Encounter Cristina Rosas Kian 1.2.840.1 46019.1.1 3.104.2.7 .3.321195 .8 [id number] [facility] 2023-05-23 00:00:00 2023-05-23 00:00:00 Orders Only Doctor Unassigned, [place] [facility] 1.2.840.114 350.1.13.10 4.2.7.2.686 [id number] [facility] Results Test Description Test Time Test Comments Results Result Co mments Source [facility] (NA, K, CL, CO2, GLUCOSE, BUN, CREATININE, CA)2025 17:38:15* Test Item Value Reference Range Interpretation Comme nts NA (test code = 4334007848) 132 mmol/L 135-145 L K (test code = 9360542629) 2.7 mmol/L 3.5-5.0 LL CL (test code = 4431160081) 102 mmol/L 98-108 CO2 TOTAL (test code = 6058622866) 22 mmol/L 23-31 L AGAP (test code = 6604531121) 8 2-16 BUN (test code = 6608188174) 10 mg/dL 7-23 GLUCOSE (test code = 4190921356) 133 mg/dL 70-110 H CREATININE (test code = 2160-0) 0.61 mg/dL 0.50-1.04 CALCIUM (test code = 5284543143) 8.4 mg/dL 8.6-10.6 L eGFR (test code = 83410-0) 94.5 mL/min/1.73m2 CKD-EPI eGFR (2020). Assuming creatinine has been stable day-to-day for at least three months, the eGFR indicates Category G1 (>= 90 mL/min/1.73 m2) Lab Interpretation (test code = 74598-0) Abnormal [facility] SoutheastThyroid Stimulating [id number] 09:05:53 * Test Item Value Reference Range Interpretation Comme nts TSH (test code = 6292185509) 1.55 0.45-4.70 Biotin has been reported to cause a negative bias, interpret results relative to patient's use of biotin. Lab Interpretation (test code = 05805-9) Normal [facility] Chest 1 [id number] 02:21:13Ordering physician: JOSH CONNOLLY Indication: Shortness of breath Comparison: Chest dated 06/17/2025, CT chest dated 03/06/2025 Technical quality: Adequate Findings: Single AP view of the chest. The cardiopericardial silhouette isstably enlarged. Left-sided port catheter terminates in the distal SVC.There is a grossly stable mass in the right upper lung, measuringapproximately 5.0 cm. There are minimal bilateral pleural effusions withbibasilar atelectasis. The visualized bony thorax is intact.[facility] SoutheastTroponin [id number] 02:06:33 * Test Item Value Reference Range Interpretation Comme nts TROPONIN I (test code = 2943289263) 0.004 ng/mL <=0.034 JEANNETTE (test code = JEANNETTE) Reference (Normal) Range (defined by the 99th percentile reference limit): <= 0.034 ng/mL Note: Cardiac troponin begins to rise 3-4 hours after the onset of ischemia. Repeat in 4-6 hours if the sample was drawn within 3-4 hours of the onset of the symptom and found normal. Diagnosis of myocardial injury is made with acute changes in cTn concentrations with at least one serial sample above the 99th percentile upper reference limit (URL), taken together with the patient's clinical presentation. Biotin has been reported to cause a negative bias, interpret results relative to patient's use of biotin. Lab Interpretation (test code = 19229-3) Normal [facility] SoutheastN-Terminal Nes-[id number] 02:03:52* Test Item Value Reference Range Interpretation Comme nts NT-proBNP (test code = 81540-1) 941 pg/mL <=125 H JEANNETTE (test code = JEANNETTE) Positive: Heart Failure Likely Lab Interpretation (test code = 20372-0) Abnormal [facility] SoutheastComp. Metabolic Panel (56847)2025-07-12 01:59:13* Test Item Value Reference Range Interpretation Comme nts NA (test code = 8896303340) 136 mmol/L 135-145 K (test code = 4775109202) 2.6 mmol/L 3.5-5.0 LL CL (test code = 9466266125) 102 mmol/L 98-108 CO2 TOTAL (test code = 2949081862) 24 mmol/L 23-31 AGAP (test code = 7023517541) 10 2-16 BUN (test code = 1170689143) 16 mg/dL 7-23 GLUCOSE (test code = 8635393812) 139 mg/dL 70-110 H CREATININE (test code = 2160-0) 0.94 mg/dL 0.50-1.04 TOTAL BILI (test code = 7824764685) 0.5 mg/dL 0.1-1.1 CALCIUM (test code = 1543872032) 8.7 mg/dL 8.6-10.6 T PROTEIN (test code = 6915702494) 6.7 g/dL 6.3-8.2 ALBUMIN (test code = 1142014262) 3.4 g/dL 3.5-5.0 L ALK PHOS (test code = 2919919635) 76 U/L 34-122 ALTv (test code = 1742-6) 10 U/L 5-35 AST(SGOT) (test code = 5260155597) 17 U/L 13-40 eGFR (test code = 41653-2) 64.6 mL/min/1.73m2 CKD-EPI eGFR (2020). Assuming creatinine has been stable day-to-day for at least three months, the eGFR indicates Category G2 (60 - 89 mL/min/1.73 m2) Lab Interpretation (test code = 33151-6) Abnormal [facility] with [id number] 01:20:03* Test Item Value Reference Range Interpretation Comme nts WBC (test code = 6690-2) 9.38 4.30-11.10 RBC (test code = 789-8) 3.65 3.93-5.25 L HGB (test code = 718-7) 10.4 g/dL 11.6-15.0 L HCT (test code = 4544-3) 32.2 % 35.7-45.2 L MCV (test code = 787-2) 88.2 fL 80.6-95.5 MCH (test code = 785-6) 28.5 pg 25.9-32.8 MCHC (test code = 786-4) 32.3 g/dL 31.6-35.1 RDW-SD (test code = 25044-9) 51.9 fL 39.0-49.9 H RDW-CV (test code = 788-0) 16.2 % 12.0-15.5 H PLT (test code = 777-3) 399 166-358 H MPV (test code = 69311-8) 9.6 fL 9.5-12.9 NRBC/100 WBC (test code = 7602001752) 0 0.0-10.0 NRBC x10^3 (test code = 7934768032) See_Comment [Automated CAL [employer]] The system which generated this result transmitted reference range: 10*3/?L. The reference range was not used to interpret this result as normal/abnormal. GRAN MAT (NEUT) % (test code = 770-8) 56.1 % IMM GRAN % (test code = 8749735163) 0.3 % LYMPH % (test code = 736-9) 32.7 % MONO % (test code = 5905-5) 10.3 % EOS % (test code = 713-8) 0.3 % BASO % (test code = 706-2) 0.3 % GRAN MAT x10^3(ANC) (test code = 9637993708) 5.25 10*3/uL 1.88-7.09 IMM GRAN x10^3 (test code = 2664233927) 0.03 10*3/uL 0.00-0.06 LYMPH x10^3 (test code = 731-0) 3.07 10*3/uL 1.32-3.29 MONO x10^3 (test code = 742-7) 0.97 10*3/uL 0.33-0.92 H EOS x10^3 (test code = 711-2) 0.03 10*3/uL 0.03-0.39 BASO x10^3 (test code = 704-7) 0.03 10*3/uL 0.01-0.07 Lab Interpretation (test code = 68625-1) Abnormal [facility] MYOCARDIUM PERFUSION STRESS AND REST 2025-07-03 00:07:15Pharmacological stress myocardial perfusion imaging report Type: Technetium 99 labeled Myoview rest/stress single isotope SPECTimaging with Ragadenoson pharmacological stress and gated SPECT imaging.Indication: dyspnea, preop cardiac evaluation Procedure: Pharmacological stress test was performed w ith a bolus dose of 0.4 mg ofRagadenoson. Gated myocardial perfusion imaging was performed at restfollowing the injection of 15.5 millicuries of technetium labeled Myoviewand post stress following the injection of 44 millicuries of technetiumlabeled tetrofosmin. Findings: The overall quality of thestudy was good. Stress EKG revealed no inducible ischemia, reported separately. SPECT images demonstrate homogeneous tracer distribution throughout themyocardium. TID 0.91. Gated SPECT images demonstrate normal wall motion and myocardialthickening. Stress Values: ?EDV = 49 mL; ESV = 10 mL; EF = 80%.Rest Values: ?EDV = 54 mL; ESV = 17 mL; EF = 68%.[facility] POCT GLUCOSE (AUTOMATED)2025-07-02 12:10:29* Test Item Value Reference Range Interpretation Comme nts POCT GLU (test code = 8427491900) 106 mg/dL 70-110 Lab Interpretation (test cod e = 52039-0) Normal [facility] SoutheastMR Brain w wo [id number] 19:23:56EXAM: MR BRAIN W WO CONTRAST HISTORY: Lung cancer TECHNIQUE: Multiplanar and multisequence MRI imaging of the brain wasobtained before and after the administration of intravenous contrast. COMPARISON: 05/14/2025. FINDINGS: The ventricles and cerebral sulci are unchanged in caliber andconfiguration. Areas of chronic ischemic change are redemonstrated. There is no abnormal enhancement to suggest metastasis.[facility] Chest 1 [id number] 19:53:21EXAM: XR CHEST 1 VW HISTORY: 74 years-old Female with cough . TECHNIQUE: Single frontal view of thechest. COMPARISON: ?multiple priors most recent [facility]/13/[facility] CenterFree [id number] 21:03:12* Test Item Value Reference Range Interpretation Comme nts FREE T4 (test code = 9412998695) 1.63 ng/dL 0.78-2.20 Lab Interpretation (test cod e = 75877-0) Normal [facility] SoutheastTROPONIN [id number] 20:57:50* Test Item Value Reference Range Interpretation Comme nts TROPONIN I (test code = 6945020507) 0.003 ng/mL <=0.034 JEANNETTE (test code = JEANNETTE) Reference (Normal) Range (defined by the 99th percentile reference limit): <= 0.034 ng/mL Note: Cardiac troponin begins to rise 3-4 hours after the onset of ischemia. Repeat in 4-6 hours if the sample was drawn within 3-4 hours of the onset of the symptom and found normal. Diagnosis of myocardial injury is made with acute changes in cTn concentrations with at least one serial sample above the 99th percentile upper reference limit (URL), taken together with the patient's clinical presentation. Biotin has been reported to cause a negative bias, interpret results relative to patient's use of biotin. Lab Interpretation (test code = 80973-5) Normal [facility] SoutheastN-TERMINAL [id number] 20:55:10* Test Item Value Reference Range Interpretation Comme nts NT-proBNP (test code = 29917-0) 2270 pg/mL <=125 H JEANNETTE (test code = JEANNETTE) Positive: Heart Failure Likely Lab Interpretation (test code = 01906-7) Abnormal [facility]. METABOLIC PANEL (77407)2025-06-16 20:47:13* Test Item Value Reference Range Interpretation Comme nts NA (test code = 8912350091) 136 mmol/L 135-145 K (test code = 2981024125) 3.8 mmol/L 3.5-5.0 CL (test code = 1988057722) 110 mmol/L 98-108 H CO2 TOTAL (test code = 7805682152) 17 mmol/L 23-31 L AGAP (test code = 1911035659) 9 2-16 BUN (test code = 0378591607) 7 mg/dL 7-23 GLUCOSE (test code = 3865311623) 91 mg/dL 70-110 CREATININE (test code = 2160-0) 0.66 mg/dL 0.50-1.04 TOTAL BILI (test code = 4946755390) 0.7 mg/dL 0.1-1.1 CALCIUM (test code = 5366214373) 9.3 mg/dL 8.6-10.6 T PROTEIN (test code = 7714899496) 6.3 g/dL 6.3-8.2 ALBUMIN (test code = 4518105205) 3.2 g/dL 3.5-5.0 L ALK PHOS (test code = 9161878482) 84 U/L 34-122 ALTv (test code = 1742-6) 7 U/L 5-35 AST(SGOT) (test code = 3289336460) 13 U/L 13-40 eGFR (test code = 18436-3) 93.3 mL/min/1.73m2 CKD-EPI eGFR (2020). Assuming creatinine has been stable day-to-day for at least three months, the eGFR indicates Category G1 (>= 90 mL/min/1.73 m2) Lab Interpretation (test code = 31242-3) Abnormal [facility] SoutheastLACTIC ACID WITH 2 HOUR [id number] 20:34:33* Test Item Value Reference Range Interpretation Comme nts LACTIC ACID (test code = 9758201293) 1.68 mmol/L 0.50-2.20 Lab Interpretation (test cod e = 87441-5) Normal [facility] WITH [id number] 20:32:33* Test Item Value Reference Range Interpretation Comme nts WBC (test code = 6690-2) 7.57 4.30-11.10 RBC (test code = 789-8) 3.6 3.93-5.25 L HGB (test code = 718-7) 10.1 g/dL 11.6-15.0 L HCT (test code = 4544-3) 31.2 % 35.7-45.2 L MCV (test code = 787-2) 86.7 fL 80.6-95.5 MCH (test code = 785-6) 28.1 pg 25.9-32.8 MCHC (test code = 786-4) 32.4 g/dL 31.6-35.1 RDW-SD (test code = 91007-8) 46.1 fL 39.0-49.9 RDW-CV (test code = 788-0) 14.7 % 12.0-15.5 PLT (test code = 777-3) 307 166-358 MPV (test code = 53408-0) 9.5 fL 9.5-12.9 NRBC/100 WBC (test code = 7067888632) 0 0.0-10.0 NRBC x10^3 (test code = 9830093754) See_Comment [Automated messa ge] The system which generated this result transmitted reference range: 10*3/?L. The reference range was not used to interpret this result as normal/abnormal. GRAN MAT (NEUT) % (test code = 770-8) 62.7 % IMM GRAN % (test code = 1258774711) 0.3 % LYMPH % (test code = 736-9) 28.1 % MONO % (test code = 5905-5) 8.7 % EOS % (test code = 713-8) 0.1 % BASO % (test code = 706-2) 0.1 % GRAN MAT x10^3(ANC) (test code = 8677438958) 4.74 10*3/uL 1.88-7.09 IMM GRAN x10^3 (test code = 3753490012) 0.00-0.06 LYMPH x10^3 (test code = 731-0) 2.13 10*3/uL 1.32-3.29 MONO x10^3 (test code = 742-7) 0.66 10*3/uL 0.33-0.92 EOS x10^3 (test code = 711-2) 0.03-0.39 L BASO x10^3 (test code = 704-7) 0.01-0.07 Lab Interpretation (test code = 52475-3) Abnormal [facility] SoutheastCritical [id number] 19:48:00Claudio Foss MD ? ? 06/17/2025 ?8:38 AMCritical Care Performed by: Claudio Foss MDAuthorizedby: Claudio Foss MD ?Critical care provider statement: ?Critical care time (minutes): ?45 ?Critical care time was exclusive of: ?Separately billable procedures and treating other patients and teaching time ?Critical care was necessary to treat or prevent imminent or life-threatening deterioration of the following conditions: ?Cardiac failure ?Critical care was time spent personally by me on the following activities: ?Development of treatment plan with patient or surrogate, evaluation of patient's response to treatment, examination of patient, obtaining history from patient or surrogate, ordering and performing treatments and interventions, ordering and review of laboratory studies, ordering and review of radiographic studies, pulse oximetry, re- evaluation of patient's condition and review of old charts ?Care discussed with: admitting provider ?Comments: ? Due to a high probability of clinically significant, life threatening deterioration, the patient required my highest level of preparedness to intervene emergently and I personally spent this critical care time directly and personally managing the patient. This critical care time included obtaining a history; examining the patient; pulse oximetry; ordering and review of studies; arranging urgent treatment with development ofa management plan; evaluation of patient's response to treatment; frequent reassessment; and, discussions with other providers.This critical care time was performed to assess and manage the high probability of imminent, life- threatening deterioration that could result in multi-organ failure. It was exclusive of separately billable procedures and treating other patients. [facility])2025-06-15 12:57:10* Test Item Value Reference Range Interpretation Comme nts POCT GLU (test code = 2570590864) 118 mg/dL 70-110 H Lab Interpretation (test cod e = 17728-0) Abnormal [facility] SoutheastCbc without [id number] 10:34:43* Test Item Value Reference Range Interpretation Comme nts WBC (test code = 6690-2) 6.18 4.30-11.10 RBC (test code = 789-8) 3.15 3.93-5.25 L HGB (test code = 718-7) 8.7 g/dL 11.6-15.0 L HCT (test code = 4544-3) 26.8 % 35.7-45.2 L MCH (test code = 785-6) 27.6 pg 25.9-32.8 MCV (test code = 787-2) 85.1 fL 80.6-95.5 MCHC (test code = 786-4) 32.5 g/dL 31.6-35.1 PLT (test code = 777-3) 282 166-358 MPV (test code = 13631-9) 8.9 fL 9.5-12.9 L RDW-CV (test code = 788-0) 14.7 % 12.0-15.5 RDW-SD (test code = 73618-2) 46.1 fL 39.0-49.9 NRBC x10^3 (test code = 3707856730) See_Comment [Automated [employer]] The system which generated this result transmitted reference range: 10*3/?L. The reference range was not used to interpret this result as normal/abnormal. NRBC/100 WBC (test code = 9425709560) 0 0.0-10.0 IPF % (test code = 3296329885) Lab Interpretation (test code = 18262-3) Abnormal [facility] SoutheastPhosphorus2025-07-26 07:29:02* Test Item Value Reference Range Interpretation Comme nts PHOSPHORUS (test code = 8877789968) 3.7 mg/dL 2.5-5.0 Lab Interpretation (test cod e = 57307-7) Normal [facility] SoutheastPOCUS Limited Echo [id number] 16:29:21Study Date and Time: 2025-06-14 10:30Study Author: Edu Lock Echo US:Indication(s) for exam: ? ?Select all that apply: Tachycardia ? ?Other: N/AViews: ? ?Parasternal Long Holderness: Adequate ? ?Parasternal Short Holderness: Adequate ? ?Apical: Adequate ? ?Subxiphoid: Adequate ? ?IVC: Adequate ? ?Other (see comments): N/AFindings: ? ?Pericardial Effusion: Absent ? ?Cardiac Activity: Normal ? ?LV Function: Normal ? ?Other LV function: N/A ? ?Right Ventricular Size: Normal ? ?Signs of RV Strain: N/A ? ?Other RV findings: N/A ? ?Aortic Root/Thoracic Aorta: Normal ? ?IVC: Collapsed less than 50% ? ?Evidence of Tamponade: N/A ? ?Other cardiac findings: N/AInterpretation: ? ?Select all that apply: Normal cardiac function ? ?Other (see comments: N/AConfirmatory Study: ? ?What confirmatory study was performed during ED patient management: X-Ray ? ?Confirmatory study findings/comments: N/A Signed by Edu Lock on 2025-06-14 11:29UnCHI [facility] CenterTrhouston county community hospitalnin [id number] 16:23:22* Test Item Value Reference Range Interpretation Comme nts TROPONIN I (test code = 2923331960) 0.007 ng/mL <=0.034 JEANNETTE (test code = JEANNETTE) Reference (Normal) Range (defined by the 99th percentile reference limit): <= 0.034 ng/mL Note: Cardiac troponin begins to rise 3-4 hours after the onset of ischemia. Repeat in 4-6 hours if the sample was drawn within 3-4 hours of the onset of the symptom and found normal. Diagnosis of myocardial injury is made with acute changes in cTn concentrations with at least one serial sample above the 99th percentile upper reference limit (URL), taken together with the patient's clinical presentation. Biotin has been reported to cause a negative bias, interpret results relative to patient's use of biotin. Lab Interpretation (test code = 06744-2) Normal [facility] SoutheastMagnesium2025-07-25 16:11:23* Test Item Value Reference Range Interpretation Comme nts MAGNESIUM (test code = 9788721230) 1.5 mg/dL 1.7-2.4 L Lab Interpretation (test cod e = 72067-4) Abnormal [facility] Metabolic Panel (NA, K, CL, CO2, GLUCOSE, BUN, CREATININE, CA)2025-06-14 16:11:22* Test Item Value Reference Range Interpretation Comme nts NA (test code = 0879502417) 133 mmol/L 135-145 L K (test code = 2201585664) 3.4 mmol/L 3.5-5.0 L CL (test code = 9536863498) 104 mmol/L 98-108 CO2 TOTAL (test code = 6482044307) 20 mmol/L 23-31 L AGAP (test code = 6699694738) 9 2-16 BUN (test code = 6711338618) 10 mg/dL 7-23 GLUCOSE (test code = 8579021325) 97 mg/dL 70-110 CREATININE (test code = 2160-0) 0.82 mg/dL 0.50-1.04 CALCIUM (test code = 9388022817) 9 mg/dL 8.6-10.6 eGFR (test code = 28189-0) 76.1 mL/min/1.73m2 CKD-EPI eGFR (2020). Assuming creatinine has been stable day-to-day for at least three months, the eGFR indicates Category G2 (60 - 89 mL/min/1.73 m2) Lab Interpretation (test code = 56976-6) Abnormal [facility] with [id number] 16:01:18* Test Item Value Reference Range Interpretation Comme nts WBC (test code = 6690-2) 7.02 4.30-11.10 RBC (test code = 789-8) 3.39 3.93-5.25 L HGB (test code = 718-7) 9.6 g/dL 11.6-15.0 L HCT (test code = 4544-3) 28.9 % 35.7-45.2 L MCV (test code = 787-2) 85.3 fL 80.6-95.5 MCH (test code = 785-6) 28.3 pg 25.9-32.8 MCHC (test code = 786-4) 33.2 g/dL 31.6-35.1 RDW-SD (test code = 57922-5) 45.7 fL 39.0-49.9 RDW-CV (test code = 788-0) 14.7 % 12.0-15.5 PLT (test code = 777-3) 311 166-358 MPV (test code = 99152-4) 8.9 fL 9.5-12.9 L NRBC/100 WBC (test code = 3107315107) 0 0.0-10.0 NRBC x10^3 (test code = 5047387997) See_Comment [Automated messa ge] The system which generated this result transmitted reference range: 10*3/?L. The reference range was not used to interpret this result as normal/abnormal. GRAN MAT (NEUT) % (test code = 770-8) 53.8 % IMM GRAN % (test code = 8290033856) 0.3 % LYMPH % (test code = 736-9) 35.3 % MONO % (test code = 5905-5) 10 % EOS % (test code = 713-8) 0.3 % BASO % (test code = 706-2) 0.3 % GRAN MAT x10^3(ANC) (test code = 3837448924) 3.78 10*3/uL 1.88-7.09 IMM GRAN x10^3 (test code = 2129432081) 0.00-0.06 LYMPH x10^3 (test code = 731-0) 2.48 10*3/uL 1.32-3.29 MONO x10^3 (test code = 742-7) 0.7 10*3/uL 0.33-0.92 EOS x10^3 (test code = 711-2) 0.03-0.39 L BASO x10^3 (test code = 704-7) 0.01-0.07 Lab Interpretation (test code = 99471-2) [facility]normal [facility] Whole Wkuuv6483-15-14 15:37:46* Test Item Value Reference Range Interpretation Comme nts LACTIC ACID (test code = 5324671742) 2.12 mmol/L 0.50-2.20 QUES Lab Interpretation (test cod e = 42071-5) Normal [facility] (AUTOMATED)2025-06-14 15:00:11* Test Item Value Reference Range Interpretation Comme nts POCT GLU (test code = 9242837292) 110 mg/dL 70-110 Lab Interpretation (test cod e = 30794-7) Normal [facility] SoutheastIR Centrally inserted device tunneled catheter with port 5 or [id number] 21:26:06EXAMINATION: PORT PLACEMENT USING ULTRASOUND AND FLUOROSCOPIC GUIDANCE. HISTORY: port a cath placement for chemotherapy FACULTY: ?Dr. Kavin Buenrostro SEDATION: The patient did not require conscious sedation for the procedure. RADIATION DOSE: 1.1 mGy. TECHNIQUE: The risks, benefits and alternatives were discussed and informed consentwas obtained. Prior to beginning the procedure, Hamel Protocol was usedto confirm the patient's identity and planned procedure. Maximum sterilebarriersincluding cap, mask, hand hygiene, sterile gloves, sterile gown,large sterile drape and cutaneous antisepsis were used. Prior to the procedure, the central veins were evaluated by ultrasound, andan image was recorded and saved in PACS. The skin over the left internal jugular vein was sterilely prepped, drapedand infiltrated with 1 percent lidocaine. The vein was accessed with a 21gauge needle using realtime ultrasound guidance. A guidewire and catheterwere then passed centrally using fluoroscopic guidance. The intravascularlength from the access site to the right atrium was then assessed. Afterinfiltrating the skin in the subclavicular region with 1 percent lidocaine,a short transverse incision was made and the pocket for the port reservoirwas formed by blunt dissection. The catheter was tunneled to the IJ access site, cut to the appropriatelength, 25 cm, and inserted through a peel-away sheath. The catheter wasflushed with 100 U/mL heparin and the access needle was left in place. Thedeep tissues were approximated using 3-0 Vicryl, and the incisionclosed using Dermabond, and Steri-Strips. The incision in the lower neckwas closed with Dermabond. ESTIMATED BLOOD LOSS: Less than 10 mL. DISCHARGED TO: Outpatient recovery and then discharged. CONDITION: Stable. FINDINGS: Ultrasound image shows a patent vein in the lower neck. The finalfluoroscopic image demonstrates the catheter with its tip at the superiorcavoatrial junction. ?No complications are seen.[facility] SoutheastCT Chest pulmonary yxhdigjib0819-81-31 16:50:00PROCEDURE: CT CHEST WITH CONTRAST- CHEST PE PROTOCOL CLINICAL INDICATION: Shortness of breath and ta chycardia. PE suspected,high pretest prob ? Comparison: ?CT chest dated 05/02/2025 TECHNIQUE: Volumetric helical CT angiogram was performed of the chest (lungapices to bases) with IV contrast. Images were reconstructed at 1.25 mmslice thickness. Corresponding axial, sagittal and coronal MIP images we reperformed. Axial MIPs and coronal and sagittal MPR images were generatedand reviewed.. FINDINGS: Devices: None HEART AND GREAT VESSELS: The opacification of the pulmonary vasculature isappropriate.Respiratory motion artifact limits evaluation of the distalbranches. No filling defects are seen through the level of the lobarpulmonary arteries. The pulmonary trunk is normal in caliber. The thoracic aorta is normal in caliber with moderate atheroscleroticcalcifications. There are severe calcifications of the coronary vessels. The heart is normal in size. No pericardial abnormalities are identified.The RV to LV is normal. MEDIASTINUM AND LOWER NECK: No central airway lesions are detected. Theesophagus is unremarkable. The included thyroid gland appears normal. LYMPH NODES: Scattered small lymph nodes in both sides of the mediastinumand hilar regions. Redemonstrated partially calcified right hilar lymphnodes suggestive of prior granulomatous disease. LUNGS AND PLEURA: The lungs are well-expanded. Grossly stable size of theright upper lobe mass measuring approximately 5 x 6 cm. Grosslyunchanged1.4 cm groundglass opacity in the left upper lobe. Background ofcentrilobular emphysema. Bands of linear atelectasis/scarring are seen inthe bilateral lung bases. No pleural abnormality detected. VISUALIZED UPPER ABDOMEN: Reflux of contrast into the IVC. The includedsolid organs and hollowviscus otherwise appear unremarkable. OSSEOUS STRUCTURES AND SOFT TISSUES: No focal osseous lesionsare detected.The soft tissues appear normal.[facility]XR Chest 1 [id number] 14:54:37EXAM: XR CHEST 1 VW HISTORY: 74 years-old Female; shortness of breath COMPARISON: CT chest and CXR dated 05/02/2025 FINDINGS: Lungs: The lung volumes are moderately underinflated with resultantcongestion. A round opacity in the right upper lung field measuring 5.4 cmcorresponds to a right upper lobemass seen on previous CT chest. Patchyright infrahilar opacities. Bibasilar atelectasis. No pleuralabnormalitiesare detected. Heart/Mediastinum: The cardiomediastinal silhouette appears normal. Aorticarch calcification. Calcified lymph nodes are again seen in the right hilumsuggestive of prior granulomatous disease. Bones and soft tissues: No acute osseous findings are detected.[facility] SoutheastThyroid Stimulating Iestdug5147-66-00 14:28:02* Test Item Value Reference Range Interpretation Comme nts TSH (test code = 2935393576) 1.12 0.45-4.70 Biotin has been reported to cause a negative bias, interpret results relative to patient's use of biotin. Lab Interpretation (test code = 67716-8) Normal [facility] SoutheastTroponin [id number] 14:09:16* Test Item Value Reference Range Interpretation Comme nts TROPONIN I (test code = 7873899430) 0 ng/mL <=0.034 JEANNETTE (test code = JEANNETTE) Reference (Normal) Range (defined by the 99th percentile reference limit): <= 0.034 ng/mL Note: Cardiac troponin begins to rise 3-4 hours after the onset of ischemia. Repeat in 4-6 hours if the sample was drawn within 3-4 hours of the onset of the symptom and found normal. Diagnosis of myocardial injury is made with acute changes in cTn concentrations with at least one serial sample above the 99th percentile upper reference limit (URL), taken together with the patient's clinical presentation. Biotin has been reported to cause a negative bias, interpret results relative to patient's use of biotin. Lab Interpretation (test code = 30880-2) Normal [facility] SoutheastN-Terminal Vue-Zig5714-85-24 14:09:16* Test Item Value Reference Range Interpretation Comme nts NT-proBNP (test code = 12360-8) 1010 pg/mL <=125 H JEANNETTE (test code = JEANNETTE) Positive: Heart Failure Likely Lab Interpretation (test code = 49397-3) Abnormal [facility] SoutheastActivated Partial Thrmplas Liy0913-25-09 13:45:40* Test Item Value Reference Range Interpretation Comme [facility] APTT Patient (test code = 3173-2) 28 26-36 Lab Interpretation (test cod e = 19580-8) Normal [facility] (NA, K, CL, CO2, GLUCOSE, BUN, CREATININE, CA)2025-06-13 13:18:28* Test Item Value Reference Range Interpretation Comme [facility] NA (test code = 0904858186) 132 mmol/L 135-145 L K (test code = 7517828605) 3.4 mmol/L 3.5-5.0 L CL (test code = 6067550462) 104 mmol/L 98-108 CO2 TOTAL (test code = 3789106789) 20 mmol/L 23-31 L AGAP (test code = 7206224216) 8 2-16 BUN (test code = 5049532042) 10 mg/dL 7-23 GLUCOSE (test code = 0288953741) 124 mg/dL 70-110 H CREATININE (test code = 2160-0) 0.7 mg/dL 0.50-1.04 CALCIUM (test code = 2269071551) 9.1 mg/dL 8.6-10.6 eGFR (test code = 95394-3) 92 mL/min/1.73m2 CKD-EPI eGFR (2020). Assuming creatinine has been stable day-to-day for at least three months, the eGFR indicates Category G1 (>= 90 mL/min/1.73 m2) Lab Interpretation (test code = 42299-6) Abnormal [facility] SoutheastPROTHROMBIN TIME / [id number] 13:13:08* Test Item Value Reference Range Interpretation Comme [facility] PROTIME PATIENT (test code = 5964-2) 13.3 10.1-12.6 H INR (test code = 6301-6) 1.2 <=4.5 Normal INR <1.1; Warfarin Therapeutic range 2.0 to 3.0 or 2.5 to 3.5, depending upon the indications. Lab Interpretation (test code = 39629-7) Abnormal [facility] SoutheastCB WITH [id number] 13:01:40* Test Item Value Reference Range Interpretation Comme [facility] WBC (test code = 6690-2) 8.61 4.30-11.10 RBC (test code = 789-8) 3.78 3.93-5.25 L HGB (test code = 718-7) 10.5 g/dL 11.6-15.0 L HCT (test code = 4544-3) 31.1 % 35.7-45.2 L MCV (test code = 787-2) 82.3 fL 80.6-95.5 MCH (test code = 785-6) 27.8 pg 25.9-32.8 MCHC (test code = 786-4) 33.8 g/dL 31.6-35.1 RDW-SD (test code = 87887-3) 43.1 fL 39.0-49.9 RDW-CV (test code = 788-0) 14.5 % 12.0-15.5 PLT (test code = 777-3) 367 166-358 H MPV (test code = 41742-8) 8.5 fL 9.5-12.9 L NRBC/100 WBC (test code = 8509852885) 0 0.0-10.0 NRBC x10^3 (test code = 8717013839) See_Comment [Automated messa ge] The system which generated this result transmitted reference range: 10*3/?L. The reference range was not used to interpret this result as normal/abnormal. GRAN MAT (NEUT) % (test code = 770-8) 56.2 % IMM GRAN % (test code = 8516097444) 0.3 % LYMPH % (test code = 736-9) 32.8 % MONO % (test code = 5905-5) 9.9 % EOS % (test code = 713-8) 0.5 % BASO % (test code = 706-2) 0.3 % GRAN MAT x10^3(ANC) (test code = 7937457699) 4.84 10*3/uL 1.88-7.09 IMM GRAN x10^3 (test code = 4616451314) 0.03 10*3/uL 0.00-0.06 LYMPH x10^3 (test code = 731-0) 2.82 10*3/uL 1.32-3.29 MONO x10^3 (test code = 742-7) 0.85 10*3/uL 0.33-0.92 EOS x10^3 (test code = 711-2) 0.04 10*3/uL 0.03-0.39 BASO x10^3 (test code = 704-7) 0.03 10*3/uL 0.01-0.07 Lab Interpretation (test code = 49515-0) Abnormal [facility] SoutheastCyto Organ Apiizdazqp-Mtz1746-94-21 21:53:55* Test Item Value Reference Range Interpretation Comme nts Case Report (test code = 8818816036) [facility] Cytology ?Case: [id number] ?Authorizing Provider: ?Roberta Benavidez DO ? ? Collected: ? 05/02/2025 1254 ?Ordering Location: ? ? [facility] OR ? Received: ?05/02/2025 1521 ? Pre-Op Department ?Pathologist: ? Chanel Hickey, ? MD ? Specimens: ? A) - LUNG, RIGHT UPPER LOBE, ROBOTIC ASSISTED BRONCHOSCOPY; TRANSBRONCHIAL FINE ? NEEDLE ASPIRATION AND FORCEPS BIOPSY ? B) - LYMPH NODE, STATION 7; ENDOBRONCHIAL ULTRASOUND (EBUS) IMAGE-GUIDED FINE NEEDLE ? ASPIRATION ? C) - LYMPH NODE, STATION 4R; ENDOBRONCHIAL ULTRASOUND (EBUS) IMAGE-GUIDED FINE NEEDLE ? ASPIRATION ? D) - LYMPH NODE, STATION 11R; ENDOBRONCHIAL ULTRASOUND (EBUS) IMAGE-GUIDED FINE ? NEEDLE ASPIRATION ? Final Diagnosis (test code = 5843639433) j6cgsYGvLJUbt5cpMGAoxZWk ZzEwMzNcZnRuYmpcdWMxIHtc sqPrENyuqEdpXMGyZASzXG2r kShrqIl6wLigWPEvyyV0zEXo WTebd2slDIQ5i1uejbqjFSNp BYrkAx7foKSfzAlzDeSgSLYs EXz6tP12FJCtgH6kkPOgQHy0 XHBhcGVydzEyMjQwXHBhcGVy nLJ2UVScBT9vcuoeNWnnNXrl OJHkcvZ0KUZxeXUtI0NaUVUp KQ8oxpxuPQJ7STqlQHTzFYT7 FuOzXIYqt9Vidmm4LtDjhRXp ZFxwbGFpblxiXGZzMjBccGFy ERVkSFMTOK0WVQHFFWzWLPTK ZFXQAmZVX3VZXlXXL3CBPEbC BHXUT0iGGKGDJWYJM03IJG2S F00ASGhjHEJMPaJHWt4AL9zD QUwgRklORSBORUVETEUgQVNQ RFYHTHjRIlXZReSkFa7LM7DN EpONUE9WE1r0KJNvbxLjROYd NQWKZ54oU81ZOKopW3UWZWPB IAGHIR3VHXDlEWQQWn4TVUGE ZR2BK3ZMF2oBS70NOWzETDPj E47TKYHEYJsjVUIctreiFTOl Mb4xCTuJBLMUZK4RLWMfZBAM TBHFR91dUflsEH2KN1VVY95V FGmYFTXRYCUSPZEWYA5ZPIhZ TjWURIZBSNGOPK5IKXtYIIMy RklORSBORUVETEUgQVNQSVJB VElPTjpccGFyICAgICAtIFBP WZyRA6JTIQ8ESiEMWC5CQG9J VTGIX6zvDYLvDJVqVS2kPw5y QKCVILdYYJ1DMVPXNVFFMCaT ZZYETJvMPYWbX26XZAIDGLkk cGFyXHBhciBDLiAgTFlNUEgg Vs1KXKcsA8LECSyLMrM7Dkax ZU1PJ6YXU20PMGmTFQGANYSZ CLRRON4ZROgQNtKOHZACUHZW KB3LOGuDFJVjAkhDGDBEHSCF TEUgQVNQSVJBVElPTjpccGFy YZYvYNCsDQWGHTfDN5VMKC8S AkFWZF7CKF6EJNKTA8opXCPt OJQzGE7dPb4gJWUBZCsETY9D WSBJREVOVElGSUVEIChTRUUg B81NWKSKFByfjEFtHACotkII SzEcTPuSAAewNz2WLQhlB7CK QAyMTbEqJMW1QVIEZD6GZb4C U1aMWRqyPJyRNbDYJ3TSJGCm SJYJDruhAR8PF0HlK7OHHHLE IEZJTkUgTkVFRExFIEFTUElS FSKAV302SMDvlxFuQDZoXAGH YoKNUQVSIm8ITYqGMLnKVLBo R30XXNLBSMkvmFNfQKBpAFRp mxFOTRmnb5KuHSvuR93bxlis TURccGFyIFphaHJhIFNhcnJh ZmFuLCBNRFxwYXJcYlxwYXJ9 p5hwbZIzDEPuoYUqJzLmEBPe XRBin6wzGLUpcVWqZoLgHcCs UeFaBejgtIZgIQRfZcTdr4ai a709tXYzo5kvNPWsPhW3lQAk ZGDzlMeanut1eXniPlUjDGEz g4fxquMeAfHfNRCjXUMdVFEz oMYoU640NFKeWNmao6lzg6Iz RZKptKWal3Q3QESVJHhrAiOf B019h0ehr7zfspVyfAZ7YZWf YEE6YCyzgaDhzmZ1VIumsXXj NaG0OFzdfrRbTFggblKizwOt Hqg3BAMlR855CWL1mFzka5gi DCX6ECAkXARiXsjoLx7okQYk K130AUSpGMRDWUFnlVo8UQNh ypDltxGiwXJXj651M065d1lf TWNgprHopSgOxwicf9wkH498 XHBhcGVydzEyMjQwXHBhcGVy bFH3BUSySY2peplwPIsyILzr CPRbqqH2VIKejDVmN9TiVEUp BI1bdpreUPK3OSzfGFWzYPK4 VsLpPIRzy6Dwizm0LbKmyb9z hi22LKD5d8DemTfvFVW7OZP2 KpNkZn1nbWSrMKMoDP4gViHd uPYlVOHtnl98nLmfMHzvhlOs tF5uFcDpCMAwdFCrVZTwIM3e fOUaFMVqjW8uscuiPSBjOdLw yggrKEFtjZnowxSiVn4frPfz VDB9FJzyH4zicZ7vDfK3LRga M2choA0cIAv7IRemtJG6KEUv vL6fHI8ibpuza1cuMLwgAPzx GZTntfK9gvJ8ZHDaaEYgA1Nn qQ7wYIJuHW0aywrps7nzHEI6 GPrlQERvHTW6LbQbMJNtu7Ms vfp4FbFvb2UurOWwAHpdA73c f933JVCmyhGxV2zyaHBzpfer pYCidsiiZDmgbhS0PJVeUNTc YWluXGYxXGZzMjBcbGFuZzEw MzNcaGljaFxmMVxkYmNoXGYx MEfoW8jlVsDzK9BgTKKnPsYy sABqIDwcaIB5SSSqHGWbd92j pOr2RPNsxquul3PcVIIpeEGo dGAkpR6oitMtd0ndUZWrJNHh AWWaT9MmALO3rRPyZQGjpDMb rXO6QP7affFiNR1eBELmNwqa fhSwtVGdqhBzXJTaVQmsq2md AL2yANEmxPbgrV6azGM4RNUm g6ckkPTayYSxq0rch7UvsdPt BRgjRAKcNCsxKYFtEKYrIM9s GUIvxCCyknDbb7U1GweflBPe wxcjYhbbufK2OEuslprqBXYy YSflK7wyFaEpITEbuEfsSeyn u8TmFNTnNJFtYdwzxBZpnQ0= Final Diagnosis Comment (test code = 3284254098) x7mamMUqRUZxeYQxSVSvAitr qlNgUDZloFRuN1CexanuKWmy VE8fRY7prThxzPAfmVOwAEGe PeMpu3fnc515fZDls5jtGEWO poyazAc0uDyaN55tg1C5Hosf E71tqNJcYLN4ERYxDRHpyUTo OLRnIPC1KYMsbUFjC4pqHSIl VL5iozgiZRseORepLWVwhPT3 OSKdyBWlE7PgSPHtGSniJOHn mgf9FoAiBu4ozRCwtZqbYMct UORuAYMxXDwgNGWcGyFhGY4l V82rSBBpWAUjb5guPZOhwKLc yQIxIU2tOUjsJ2nkbXZncXzp nVSbqPVfSUdrhtW7vVUxSIyl W5bdvsIetSWrwxD8rkRgyYJm qKlrg02sAnPqRXRgsoekqoKj tNBwqjTuiCApiF5yjSlwf73v HC8sQM3xR5BvrT0sMDwhkVCe jNcqPB86FE53Y9uio0xuEeWF mUXgPhvrjMXcRZNyl5pixpCp XRhcG05ziwXiD2LezYYsbZ4w bmVzdHMuIEZpbmRpbmdzIGFy SCS2zUI7NM7kKDKpUO4wP1Yy E2hfy81rXwGzwVMvDQDrlsES jVBwkO1oqG6rt3NwrT5eTGpc mbOcgLXqAj2skTWsRU6sKAOo i5QsDVJyMVyofWqnzPcsYKOi xGhfq3ctWcRtXJR5fKJvDqzw BYMjksQuAXONXe5jJbFCz9Jm iAr6WTkjPUNycrXfEXV1QMth GpBrOZTiinDpnTZkSW5aFTYA Qxo4BXBsg7w5kNIvEDLfhks+ VK9cWxBTK6oTTCT0WSVpc1c6 aXZlXHBhclxwYXIgVGhlIGlt rSLhu5K2VZfdgaS7QYSdDRFm loJmqr0iDFAakiNgpT7bbeHS QmT3rEKbDEOgNDQqb3oaq6ma zouizhEahXh1eyfjjRUfBB7j EEWPEUKLWN7fNNyfSO9wkZNi dmVccGFyXHBhciBSZXZpZXcg n8OnD29asPRqdJIye5JrEDFd sCqwJgKlwW5hkD4coWGlWUUg RMVncO13yt2yxVTaswSuOQV8 hGVmAUQ6iSBnyvUzkFbnOPOy m4RgITOsDXigi8Daod7lFYRi kqiyCYTqMuMfpqXqGj2qTzaj ZSBuZWVkbGUgYXNwaXJhdGlv ebRfdECkyoDrf8ottlQvJGs6 vJSjd2xySCQwoPVrKVQed90m t0l5uWBfcgKir75llwZqeJX2 FQYvZVgmPM2gmIStIJAhmX2w lA7myXXldw6YyyCqRQcrE26i ozKcM3AafUZhvRGorrKbKckg QO5yAztwRTweR9QpBJYdAGVk xbSci8VayhOwm4j3jZAdWGSn vEa7GHRqqQ1zzOHoj6YqGeIc cGFyXHBhciBELiBTbWVhcnMg FSYpCDvmq2NgGddexSMmdBBb a7KlJBizR61zj6ktMcigBDKx rANiJO1shQMeoYNzGLlqDGO5 JqKiM8yvnhCcqV0qKmhyW7eo OQMjWA2tMNNuCTXmlzSmUWRw vUazjhGrFYJud6TnhriezCNu bmVlZGVkLlxwYXJccGFyIERy DC9jk9ragycbdwG4gQM3ZNKo oXihylFcVRVdKFDrMMTcj46f dXJzIHdpdGggdGhlIGRpYWdu d1Waml3zpCHxKDAsxkGliJFu XHBhcn0= Clinical Information (test code = 1941621603) Lung mass [R91.8] Gross Description (test code = 3921302478) q4cyjFRyKJXoeJCJOXFwZHYb GJ0hzBtuuPx1rIqzSLAbdzM7 rLFrLXwwx2jvFLB0c8vqtcBR CrhnOQUoAJ5sBKnbGIIzMJ5i ZmUwXGRlZmYxXHBhcGVydzEy VrLwJQWwiOIueKC7VMDaWH6k tkmhPEwtKYbcUNZnlrW0OIIr zIPnX5BcQYScHN8fooudXNR2 IWIJZxxoBa0gjSUkvSwrAtZb XaOjDNKdUCBdUKRwl2dgxvAP iyuwsTv6vO0IVRYrB9LpYE6K b8wnUBDjwBDaRDZ5GCios3hm CNimRYY7ROPyFSRmLZLqMY1S NfKhYYC9GZYaPiL9DwN5WUm2 XOGGJHGmUDyuKlu1GEO1YIh0 FKYuKO0aGNdvlNFcMAzgJunp QAbgE884ZMikTBDmI5CiW6Al XFxzZyBcXGlkIDUxMDAyIFxc CEYvT7PRFNXqYNe1AuIsGHob UYm8UXw2BZ3MJqEpQBKwJAM6 MaA1MFCjBPd0SDogZN0RJSZ3 SKO1IZn0IFAjXULjJkAwYOu9 IDIgXFxzcyAzIFxcZmwgXFxu N01wbNAtUNBSYwxxbCXklwln dHJjaFxmczIyXHBhciANClxw YIRrAB3MMDVwTBvuGCq4tvGq XTMuYwHjZXFxT75ai7JAk6Dr QE4AGAz1puWhhkILIesutrNc XHBhciANCkExLiAgTFVORywg VwqRJQRjWCIZOVAaYR1GJLes Xs7MF3MSCcQUI3KJD1QCFWUL Dn2ZY2fEO8QLYDg3TJXHYT5T QlJPTkNISUFMIEZJTkUgTkVF AFzEZUUDYDbHJRVAJ95rTZ2V IEZPUkNFUFMgQklPUFNZIFxw YXIgDQpSZWNlaXZlZCBmcmVz wHVyhmPdBHMfO9Wst0Vys4Tt Y8Kzjd65nzHeMDFzmwgewKRy XzQtiD2hWCRwvIYku1YtiiY5 dY4kBVcuSL3oSUOaMOLnFRRm ZXTwTFunpRQkJV9GPGOtnDUi MBSdKRTsmRzaBVNdYYTzZr1l FH2wl5FhhQThfINvfvImWALp ZWFyKHMpIGFuZCAyIFBhcGFu aWNvbGFvdSBzdGFpbmVkIHNt ZWFyKHMpKVxwYXIgDQpccGFy IK6AJHPlINXMVW9PMZNACTyB ULGPJQWBAyWXT1GGMfUIR5EI YRgSRWLKV6eJBMYOOOARV14V DP7ZV88HBZzuMLATGoYWGy4R F5rOMEh4IGXOOeGlWpsPOKHG JVBfmyOHMcCfOxNxA19umjFa JMKca7FvLWEnHBEvv0VnkCYc WJWtaeifasixwV8qoLEsQ0To HQIpc91pLL6iQKDlFTUnZnRf M68hwVxfJ9EwPZklJIJhvo1r kBtpOV7tREEdCXXsEuPtCZES DQO0JPYhcJ97jtEgYOCXdd5s cyBkZXNjcmlwdGlvbiBwZXJm f6CoMXDtIdaeQkQgneApwbPD QAkqy0Erv7GnLlldHQDfLCcP pdHoTKWkNBZ3YWZxuWZaktPq PwOPDcWnFL8hAWWqwK0edG3t c1YloY6eETuvEZFtIMkgmHVz TS0GOHDtZDKEHC3QDRWWXWyZ TNOTFTBCTpDTS7PGCaKBJ9XI XMwOCMLOM6sICVGENQBOI16V BW6NU15ZKZosMKLPGyVEJt7B X3fUMTg7BTUAOaVgJiuMOFTN VMXstsMFLaZnMdCkJ88rblFo LVPxz5NxJKPoXFVoa6MfwEKf CMQchupckdmpyO5oeYFuD4Oh VTMpm31jHN3cLJNyXWLlLdSb G28zgQboU3RzJTmyKMTvid2p kLyoDK2aKZXqIHBpVaLhYRVN GYV9IEShvW85vvOtBMBHgm4h cyBkZXNjcmlwdGlvbiBwZXJm s7TxPBKeZcnjYoCzumGgrjEH TDsqw3Xct9HjNvdrYGGeCKzL cmVwYXJlZCAyIHNsaWRlcyAo MiBIJkUpXHBhciANClxwYXIg SDoKLL6sOXuCMtvqAAVGM6lD RPYDQWIAYCrZTcT3RRXEMb9K SUMgQVNTSVNURUQgQlJPTkNI R0UNB8HFSeBCNnNVP1WZR14P CUxYCMDHGV2XZS0OOESYWKSJ E4LLCcELWM9BMyZSSIjMYMUO G2SAFYHteaXKFv0lAGOnSJLo gA6zOQAiZCYekEQkkIBmwMNg LHXayV1hMk7ocOXxrI0re92k Jq8qKj0ySSR0RVZoKVCtXWFo f8NasdsgZX5rKZBlVXBurT4z BOfwaH2sHIonmUe7CYSjMHf0 MRkuFD5dCPV7Md7hvDTbAKHi v1NpO9GkxPAjuO0ds0vpVQPp DQpQcmVwYXJlZCAyIHNsaWRl cyAoMiBIJkUpXHBhciANClxw SEByYUmVb5VekCV3CKI1KSMu oMXrg8smWYDrAFphfMWuQW2F X4mqIITfVYKoNOYnp8jeFLN6 iN1iZWT8AiPtXSyjisGstGQx BXajTYYzljAnlUGny0e4kTWd IKPbLR80HH4fvZQgJJ3iRJLo tOM9TXQnDCOttCytjMJayJzg iyPqmM4nIIChRQG7OEYuffEq aKYiL5R9xC5zKB3tGLKnnCyl bnQgaWRlbnRpdHkuIFxwYXIg EUyur7HoWQrldNulJUYdNbSf DQpcZnMyMiANClxlcGljTmVz iAKyXrL1FSCylXMnZRH8SH0e jMrqUIWwRSk4URsvFTQfT9Yv C6GvBQblSaKaMMaaBBIvPHHg MLizDQFxK3EBNGDyNPw2YlBb AOcaWGu9UTl0YA2UAaTcHVRs NTA5PhgbSqTvBTe3VZsdOH7N LHL9DKT7GXz6WUScHMDtZwZh WGn8WDEwWYldryYiYEkmXhrt TCwqL97ukVVqPIqrLyBcKEhq qCcwITOdEGU8ZB4RMMUxeuER NefpXKNvMT1JMMUzVCvbVIe7 juNgDFKoTlXsDKChY14on0CH c1GcAK2MRMo3coTaeeikJbNy NFRbuPEMc9TxASXPZqpwbzRe FCKyvcTISipvCIOoDCo7jjHn fjCUQzUsWcVbPLyGBOwjEe0A FQdxS8LOBUyUWsN2UcBPGaNP YxAESzBESDSIBRWXPVDZE39Q TkQgKEVCVVMpIElNQUdFLUdV GCJUMBLFVA9CGP5VBEJMJGLC H1NCQfYVMT3WBERkljQUTkgf xqUpIBHyU4DgumCbDSMdYSRk MDadVYTcH6QgnpSwScGeXL8j tGhwYC42mlUsDLYniahuaBPx VgJjjC0jBIWmmBWgk8PxleS6 rF7aZVl9RC7jDDGqWWQyDMJy RCMpCVsduKBjSI5LGTNaqPGe ZWQgNSBzbGlkZXMgICgyIFJv uLHfd7rhn2ukb0YapB7oMLUv bWVhcihzKSwgMiBQYXBhbmlj c1wol7Qes3ZaeI8wAMZiwBPt pmxcVQsgSX1pPRDrHDCeSQ7f T42iQY37MQQ1DNzdSFPlX9i4 y1CusK5cmDHvhAFiREKkk21l cykpXHBhciANClxwYXIgDQpU v7XkmIG0PTDxs3joDRYyECNn mxMVNxpfZRTuXYxwt4NsTNzv cGljWHNhMzAgDQpTbGlkZXMg CC2mADSiwHpjX3Ovt69enIAm HCIjj3IaQQZnEPUawVCeRI8w l9x3AYV4yDThMUWtbBiowwKa qfBjMMKlpfOjwV5jvQJdVKhn CD70uRTgK3S4fV3hRL64wUQu omLyJeXjifT7WXOeVidmKUJd h52sw9RxaNH1eBXynMXlDLVa eSn9cT5OLgmppSubAzFpfJOv OjX9YEQjpZIyCEW7PH9ylXzn QRFvIKn3UIjjSZUgR1QyJ9Vv XFxzZyBcXGlkIDUxMDAyIFxc FFHwU6BCFOGmLFj9WfNqHFzp MDd8KMh4BM3IDmEbMLKsJUK8 Tfz2AYZyOOx8JVybTG0FSDR3 ZUM0PKM4MkNfJNShScCpYDp8 IDIgXFxzcyAzIFxcZmwgXFxu Z06qkMPfTTgnEvFtAXfhqWlp XKGsPEY1WV4JCHHhfjKJIiud VNJbDA1IUSRmOPjtZOc5eqFi VBEbTiMtAWNnS93wi6GRz7Qu VI1JMRy3guEpjnftHrQzWUUd tEBGl9TjCRRRRbpsjdBkWCEc ivGCVztmHHOmMFd2smBufvDX ZsEbRzIvBGuUVTgdOy8GNOyi V5VXCTpXAdK9WgbaTP4NJ3AB J48GILfEFYMGVIRQWGSRIU1H RGnEDuDEZCHHGRHAGT8XJPvB RUQgRklORSBORUVETEUgQVNQ SVJBVElPTlxwYXIgDQpcZnMy MiBSZWNlaXZlZCBmcmVzaCBp rhGgPBSzX7Uhp3Nbp8WaR9Bv oeOpkEHhyFP6LCNnNNqxp7U2 YWluZWQgYnkgYXNwaXJhdGlv biAoNCBuZWVkbGUgcGFzcyhl cykpXHBhciANClByZXBhcmVk TEwvf0kfLIJmRQFkNXWSe75s ke98n9x4ZTX8VVxwVTDjx72q PVUcbrfwCOJxLRXqRO9hJ10v IS02RCF8VWjnVNRum21mMHGu cyksIGFuZCAxIFBhcGFuaWNv zYBmpSIqtJJastTpUQD1uY1h sSqqASMzIAEwtiI3dB4uSHSu PDcrDHReEHpsxYCaME8VNI33 ZFipSWU0SWSruQDwy8wmPUXx JYryvVIfRS7BIHKiEuPtBBUy E4imDMYlSO3TS1gzJUZiGGYi MFRku8rsNSW2wS8rHKM5RqYx IHdlcmUgbGFiZWxlZCBvbnNp kQZbi9x4sDRaGAByVM28YF0a oUFgGE1xZXOchQJ5YHJtNXJf eXkmwRHzoFfmsnJfnC4mAFXx KRZ0DBKvlnThqFApG8Y7aF8b BV0pHXGdiYajgtFuiPJvteBh jNlmAKqdGDEdB80rl1XWi6Zq k2tbyGhyt7JpyIOxKQ1qyMPy EP6Cw1faZEFkmBKjUEJ5KUkl h8vaSHenJDH9EMHrKlBwQQAn YD0SKdEjHZG7QJMpXeY9EaD4 ASu2FOKORmPmGmSrJpBvTWlm GUEhORt3FSt1HRuMEnDwIPZ9 LPGjTKb2APQ4QIFaYFywnTOn RFoge0ZsBsHgORYjAOemsrV6 UYJyuvCzn3DwPTYwMARcO6ia YjEwNSANClxwYXIgDQpccGFy ZCANClxwbGFpblxsdHJjaFxm asLoQDQtvDCLRST3ZQ5tWTCX RsewcKXlTYKbh5JjCNtnuJhv WHNiMzAgDQpcZnMyMFxwYXIg DQpccGFyZFxsdHJwYXIgDQpE UI5aDSvLVSRYGV2HNGXuOWJR JAKOQ42oNYOWMnDDGyQSPvFN DiIWSSMBOYCDPTDTU05RAsDj KEVCVVMpIElNQUdFLUdVSURF TRTKNC4XYO6UGJVTFHTED6VM XzAHJQ0TLMTglaKQWwruodMk CHFtU5SspuQmGKRjTIXrUBtt XBFmC5RwfaLeGsVhZJ1thSza AX96mqLsSPKwvrriiGGsHeOq sK0aHBJyxTHdz8JrwfX5bH0y XAt5CA8zHJCvPNOjYRVrXTWl NIsdzPKgUD5KCTFvgYNuCOWd SGNssDfoEJSxJVq1QRCzrSPu v9pwk3xor4XcvJ5dZDTojIPn zgnpXAihMBITZNFftphrg1yr i7Llo8SkqP7aLAWgiCGqzjxs IRqbCZ5eZNAaAGLhDX2gQ20r PC10MHM5SRgvFRXtQ9a9f6Gq lD7neDHouQXdRDTmc17iahue HALlweGWSsktCIEgJLwUf5Dx uKD7KJduj8pnMZZnSPIuxmYN FwuyXTGsSPlry2RiWXzbrLkn XJLdAjTiGGoRhTvfNFCqHO2x IFYnfIlmF3Epi57wgWCpOVKz u0WwPVUhTKGerJNuAR2qw9r2 SHK3kAMnPOInaQyjocIeshSq BPZkknTjtY5mhYLyTKeqTO02 zUWbZ6P3vI8jAJ31fRMvxzJc TmVbjnD0BHVkYsudKEBul52b r4DulLH1lGDecLZzFSTaoRt9 oW5NZiedlBcrSuCymATkLsV3 ISEloGZtSHW5NR4bmQhlLQBb A0HkA7DpjfT6PIFkllBMIlnm OPMrRF2YBDNpWOuzEC8ScU== Cytology Rapid Assessment (test code = [id number]) o1gxiSHkHYFcwSIDBKSdCHAo HG3fwQqquPg6xJhkJHLjhuP2 eVIuZMlbm1gqDEG8h6ygyrPE RebnMKAdWS4cAPtqXFWkCT9e ZmUwXGRlZmYxXHBhcGVydzEy MoQgIHEmoPAocQM6JRAlYS8i xmloKHeoYEbuWXLqtvB1MIIm hMHfK9QgSCNwKU7ohugwTPL0 MXBLRxkfUv7biZTmuJqkAuUb NmSyHNSyCNYuELZgo4izcaIP kxtvxWk4aC2GWAYnC7WpII5F e1unGMNqmDJiNNC0QYmos3dm LDipDKX8KXXxRWGeRKTxLC4K VhIhUFU4WPUbDuI4YxH6KXz1 XOEQXNDzTHtsScd6RJA8HAk6 QZWhVW6xJSgdyMMvOUvpQxen EDycG881BHsvXNSyT4CcL6Ug XFxzZyBcXGlkIDUxMDAyIFxc RHPcV8EFSQNgBFz3KgApURec DRq6GAu3HR5HBeIdAVVuSZD4 VmD1FUUwECv3TBiuQX6RKVF6 SSG7HLrsRFbjQDZiNzPcOOo2 IDIgXFxzcyAzIFxcZmwgXFxu G24qsXNjNTFMGsnkbPMtytns dHJjaFxmczIyXHBhciANClxw QQZpVD2BKJBcYPwfCOg1ehVr KGLiWmMmGXBjI09sp7YDm5Az HQ2OJNl4lrSpscWGTqszdvYb XHBhciANCkExLiAgTFVORywg EexOOQGnVZCFOMXmWD0HKUap Ji8CQ2PLBiSIV3UXO6RZGVAE Vz4ZN9dVP0VELGm9ISUOPI0E QlJPTkNISUFMIEZJTkUgTkVF BAqESLBFUCzWOXCTH11aWT6X IEZPUkNFUFMgQklPUFNZIFxw YXIgDQpcZnMyMiBSYXBpZCBv xj3tlCWvNTZ7LSz2XDRif47e zDWlVo1psDGfBNQ1KXOwQCWv YK3mnzWsxARtNO5ZGDRhzXKe xDauzaDLmVurb3ByMBEeTIIm gXXmhyGyOMfuXSCit3v0uJKz ZMEpmnSgROmwD58fqqC7ZZXs vvQWIcuSndXymO8bnuXtjHJe QLEvWWSumrWdnRM5cS0tAdPp ZEHrBbzlUFppaR01NDDhqrC8 SZRzp88pNT8gLFOjhG3wzuHv P4c0DW3xGQSemrEwHWLyttSL NgS6DFs9HLAyu70dhFXjMa9z dKAqJUW2XCNRFXKbA4AcrlQs oK5jQZFgkPW0jbJEo5RakIKg bCwgMzAxIFVuaXZlcnNpdHkg Ezu3JEklJ0DyczGqbW1bELCB IRX5XzV2PXzynoTbTKmyMENz kmOBWpauEHFsLLXsbBUIm2Ct MCANClxlcGljTmVzdERvYzB7 OBZvtJKoEPO4LQ0gzTjnKNRv DDw2BLwfDIPmW8VhO8TdOIjq ZyBcXGlkIDUxMDAyIFxcZGIg K5RJLWWyONk0HgYrMJpgXVg1 WCa2AA3VLdCvMEHoUON4Rndi XyDtYAk4WCviZR6DFGX2DDK3 CQv1EJxzLGEvTfGmMUi7LLKk GZgeciKgSUbnRosgPQjuL99o cGFyZFxzYjEwNVxlcGljWHNi VQH6AE7EZJEqWvAkiHLbVO9J PEMjjdTqDDyarJycoA1uaOUy N9ynGkXtBsddgYkmZyMjeDYu YzEgDQpcbHRycGFyXHNiMzBc EZZdA3hpHwLbQX6HGDVoVuUj vCLjBS0VZGSbotFujRPpeAJp MO1RPiJbLWDGLZ6AYYAHZ5RU GEOVOPSVRV9KRIo3DHCFPO2K Oy3ZX7tBQRctFOrBNlYBL9VP JUKyBVWXQfgmPN0LB5SoP8LU REVEIEZJTkUgTkVFRExFIEFT YYgKJUKFN47baJXgAQ7HOZAx EoCpEcHtwNYsw36ew0r4MNOd qqMfhLK8cT3nRDJyxyGdim8b CAAhfPAGfmITyJTwHT59CNJb bkNOYjG9NCp2VDNhr21mAGWg p10uHZHfEEEaXFKhv8ZqRIa5 VESPk4n4pH5nhZgezSTvgQmg oObrM6p1KTVxhTZtPN7QEQCz JXvykSsnIUI0DCQhaYfsUBO0 DLs6NHMpl696XCOhJAYngO9n bCBpbnRlcnByZXRhdGlvbiBh ihHqQ46pnCDkyWZegLYbbmKh On16NEnzpIDhBS7KBKKymAMe zJvcseGhOQTjr1CaBIRnADAx BRYGQiUBCFv6EOG2v27oI5Rq uFRzPNzti3FbjRVkDIPkYQYw WV4eblHgq5u6oEFEzUIpXNDI GAs1SEY4o65zIGZFQOe7FNS8 XHBhciANClxzYTMwXGVwaWNY j3KvESOWRpdbwpBtYW6KZMQr oVOKAXI5BB1eTWzfIVYjT5Oo J6RvmbS0CBFhaxPKOezsWhhd uWxnv7JhsTGhBNFlQUgdjFWb NTEwMDIgXFxkYiBPVlIgIiAx YUe9SWE8CTKnKEd6EAlzL8DA ZGXmGJWtXzt9FTW6MnY6WRy2 JVUCZl7mDdP8TqNvYHZ8WiH8 HGH4BeQxBOCfOcUiGMGqKPAi RNoxuFOwHL2zzOlkXOYyPIGd ICP9YLNxzSILb4KeZWQdOIos ZnMyMlxwYXIgDQpccGFyZCAN ClxwbGFpblxsdHJjaFxmczIy RYJhyIFRKVY1WM8kNCLFDuzk yZFuWWXse6OhFOvvfTrwANYg MzAgDQpcZnMyMFxwYXIgDQpc lXHaPYwweBMgBEDoAUuUFQ1s JPeNYLCOQX0CBUYnTDVWQXWY V81zSOK6YGLKGC0VJu0TK6eX MLvlBFmHNgYBC5CMKVEoWWKV NblwJG6ZK6JuQ1ZHDDWYTAKB TkUgTkVFRExFIEFTUElSQVRJ N58edFPfRA5HVQUwTsEtGfDh jZVbs00bc8t0ECFwsqWpoZR2 nK9aWFSnxvCzwc3rVQTvcCTA lwDWdAUvRS80KBQnriAKPpE0 ECb4LUKtw35kHCJba81pYREa VFQdOUNxh3TmQJh3MIIFk9p3 mQ9lcUwuhVEgvInqdOzrT2o6 DCNstHSoOM9YJNBqEJnltVno HGO8XWTbnOxlNZQ1DJy6USFe z684VEBrIBRewR4whRWeieQu wrExQCPbcWygsdNgjeEhR54h oRLwuQQugUPpzvFhMv07HSzd nMQdCO4BJAWzrOUdeOwduoCr TRUdm7NmUWGgLFZhREOWPhLA ULq7UTR7h01sC5DmkIHwNFno g0NhlDRaNPBbNXDvID1njoKm z1a2mIPEsNUwXOQCEVb6PAK1 d82dVIEJZAl9KYK5FMRwyqNF SoskSSVgZOAwcBPCs5WpWXVK KdsrzzJiAN5CNQIiaAFTFOA0 GP5eBAhjUIZzU0ImH4UhkyS7 FEVojmZRHmmdGsqeuMobl5Pg dCBcXHNnIFxcaWQgNTEwMDIg YEvvCkOFNvObJhAmYHe6RRW0 QRBqXXa3HOscW6OXEVTwFYOt Zqr8DOZeDvD9YRd3GAZZDf6y VbE2SdZaZYC5RQE1GIK6MoEy XHQgMiBcXHNzIDMgXFxmbCBc SL6saWveXNCeGEXkIVZ6WCQs eMIOh7ChIZQjEQgeJiNvTgww YXIgDQpccGFyZCANClxwbGFp blxsdHJjaFxmczIyXGVwaWNO VYN0RS7tTALBYtvokSMnSUFr g4UcKPswiPisEJZsAnHhEDln ZnMyMFxwYXIgDQpccGFyZFxs hRDaNAGwWFsLQE6pOCqPEQPP IN1BYZGzWMWOAJXKS88cQXEI OyBFTkRPQlJPTkNISUFMIFVM KJDDO05POyZnKWMPZUPiUZcA FAdFKPuYFWRDNKSNVM7BOQ5S QTTIAUVZG2YGIzTKZO2AKJRi lwPKJcmhsaNuQOBebTnhWJ1t LXNpdGUgZXZhbHVhdGlvbiBw MAFoo7CwOGDwXpzpXRZaF4li bWVudFxwYXIgDQpFdmFsdWF0 yW9lCWGnrZAhLCQgTgOpZUbo EVRaYBHwAvWfLa6ySGHvGVyt i5E5yBUwuDBnAE7WGHArRXwa xDhjQVJ5IAShnGvhOGG0PFg9 LUOmr174HVIoGEGydE3wiTRn bnRlcnByZXRhdGlvbiBhbmQg C40ybJWoaWVtiQYqkpLpOl83 OOpijONwKD1PTLGzuPIdzNmi iaAcDDGpm4GzKUPlQGUoMXQQ BgQLJIv7ZRC0b07zS0QcvZVk RXidh4ZadRScDNYnOKVuCA4p dcBay9z6bZIUvMPdYMTFQWy1 VAJ1c88yKRNGBPu5RHC8KVDr obPUFgxsUWEwOVMyeXEPq0Fo ZLSYLiomitQnZO7DVVWgwUTU DRB9FW5nKGhuGZTmM6WjQ0Uz avE1g0eozDidq9GcsWOqMJ3e oEPvSC1HRIVqfzUbCAdlzKat oH2wUFx2 Disclaimer (test code = [id number]) m0essXAuSCYhk2hlJPDkiONt ZzEwMzNcZnRuYmpcdWMxIHtc rhFmNMafi3CiA6GxUeGmQQam bnNpXGRlZmxhbmcxMDMzXGZ0 xtRgSHNwIGolNIRwYPgkPt4w kVFlbUjzIbPeEPWep8qnnuCE IGdiJpTsU617SJDqVUjjz7ad f8CuGIIasSDqu7K3PPFItnjo hQd2f5nwZmRzRcJ8pAUyJFgp W2phboNjfIYzP5OgrEJkhJy4 kQcsM60ky5M1IscyG5feCNLx NRIaT9RjKE9vTKIdWpq5REW6 OEX7NGSnTJSwL4OyNM1bOKTi gVSbTZi5f4ploSdvKRUwMTX1 r8gqXVlmyjFnBD7pct7owCu8 g6liteIqVFAvXEIecLUIDMXm G8WilNhgFf3laCm1yKbdZnyh PQF2Rby3UD3jok98gzb2uIld VVCqptziZpJ5MIbpGYKtztzl ABv7SHyxAQAbnNW3KAKptPAg P1QsDWLhCJ0nstb8RBK6VKba FJEmEbI2OXWcjZSmZBKsvMmh ESdrv587KTF7HvPyNE1cD3Kp n6Y7mK3mwIFrIDJfhLZsOuPy PSIcdc0diWQuFZhka9VzFUE3 hvT6nQCqnRSwTLTzTM88Byzt p5YeNcmlYBY4YTLtiyBda5Bs f1sxYdGtjsDqM4bpY1FuJHRt EPHuFKDaWsVqrlUex6Rvx6Wt dQEjhWw9e9wwRENfWMRrdOez j5xdMMG1JQQsA0P3fNGha6nr VYjjXUWvmTO0hiU0VPXodYBi R9CqrT7lSQVqRZ8nfqb9d3ts FDB9GEjrYNXsYyK4ulI6PILr aCZiNSKtkWutDLulr739GGE8 IjYbZQRqk7NjZ7GofLwvQ49i fTunH41mKVMnvQkhvW6fbOkg hU6vBaTgAfQiIIrryUvwqJBa blxmMVxmczIwXGxhbmcxMDMz QDogV1jmRoHdHCDodHfxRGes b2GtUWFhCVWvKforoxKwPDSi yAEcdnJnu4O4IX2yfDEsucQw yQSvTDYjj2SyjGVjb7RlvELn GWEbtjRqc2AfEDL9XRQ2hT3c SUDnzzYpwf0bRMG0r6vxJaCK lCJnvxXXIJGqDWm4uXPpL2Vr P5hzxSTrCqYyM1AwzCZdUNHY FrRlFN6tsDYnnpKgDR4tVMC8 eqQjVRYjGCHrae0nCCCxYM77 pQRzDKNvurGzDG8nSfLIyRho d6DbgDO0LMY4bK8cROkwelCc QIVqxJ8uGFFuHW7qUVf3lbTi QPYrq0RtBO5xBCDkvOUsEWF3 KYHdu3AtV0DpBIN1FVLqjB7i UXCtbECBQT9EWWywMf0qRHCp rfzfE3FfxusnBWGwZDORsUKz WPWrkx95GTPuGU5zY3fwTKTp AUOhssDkpAXko1WwKTSfjEY4 sUQoLH8PQiFMm84eVLLiPZVO nxNcOVPwmXutsOM8ozQ6xU5z IChGREEpLiAgVGhlIEZEQSBk i8NvVO4llGYdSWS8yOBbMDZl uFYoxmNbJNKmjcL3jOVrMJX7 SAA3fe2aHLmmURGvbGUkTCOE TIEuCPMug5ZzcO2dwZHbOULx HZJlxBLhe5EjkxZbXYHsPNAu IMGtxY5sQ7XkIRyrQy9vEKPc hzhnVU9vnt41QO3whpLhYI4h hzCwFA62btNiC1qHBGmjoJ7j nYZpHe6xnFGaiRccSAZfwWZy FSwemDwlqHXjuXvpWp2pVKsi YXJccGFyIEFwcHJvcHJpYXRl tJucutUsV8PjikSxiI2wdFNl huElXD0kBX9xQ1G4oEKsZNBr xwFxe2ugNRxtrxAzGqWnotQt OFQuYThbWCDqq7YoCCixEXO5 YWlucyBpbmNsdWRpbmcgSCZF ZEJLnQGnpIBqTYK6MCkxufVz lpWlGF2quI7bjHshtY1weYHi lAC1zdmdRYDaTGHfgJwxXLPo GT5fjGAiZGIqusZYiHbrbQJx vT0rT7EcQYGcUTQvok4uCOBr kZ2gCNnxm8QfdkomLLWpPGUm ABYmyxMcvr4hRPYiaTTNRQ3Q XXhgyEChc6FqcyLrY4rHPEF0 NUQwNjYwMjgxKSBleGNlcHQg OCEeps42IZAgzI4ofJmcYXQg gB4jwY1jyKrsiG5yImSuBmAl SjteQC9nWOWvJ1twtAUnKMZy UXCvI0kfPqCyoC6zjUfpVvmt izZqCDSxyp23 Embedded Images (test code = [id number]) Addendum (test code = [id number]) z7vvrCRiDRKebYMfCRJyTfea cpLqQQXunPUqC8ElvjvpPFgr EL5gLD3olPcrdZGbeBPkXFNu QiKzd7biv633tJAyr4qpIGDV oleteCh0pVblQ49gg3V1Trok X03xlYCrCOC0UTXfKXWapEQa MRUcLUR7RRJzgAPzR2okBGFe ES8ydkmeCWqvAQdiEXSmpNY2 QVCzqHXiE0NqYCKoUDbrLBCl ktt9QuLzDh4maWCvuNmhFCfd YXJkXHBsYWluXGZzMjAgQWRk WD2faI4szS0dnkAqp8F2LM7t dPHakSavslMYKXZ3eBIcHGSz cn0= [facility] Tumor imaging skull to [id number] 16:44:45WHOLE BODY F-18 FDG PET-CT SCAN INDICATION: Initial staging Non-small cell lung cancer (NSCLC), staging COMPARISON: CT chest 05/02/[address] abdomen pelvis 03/06/2025 TECHNIQUE: The patient's fastingblood glucose level was 101 mg/dL. 11.7mCi of F-18 fluorodeoxyglucose was administered intravenously. After onehour of resting a whole body scan was performed on an up to date PET/CTsystem. Blood index SUV: 2.1Liver SUV max: 2.7 and SUV mean: ?2.2 FINDINGS HEAD AND NECK: BRAIN, PARANASAL SINUSES, MUCOSAL SURFACES: Physiologic activity of thebrain is identified. No abnormal focal FDG uptake. CERVICAL NODES: No hypermetabolic lymph nodes. THYROID: No abnormal focal FDG uptake. SUPRACLAVICULAR REGIONS AND AXILLAE: No hypermetabolic lymph nodes. BREASTS: Bilateral breast tissues are heterogenous and dense with bowel adiscrete mass. Mildly increased uptake of 1.9 SUV max. LUNGS: Right upper lobelarge spiculated mass measuring up to 4. 3 x 3.4 cmin the metabolically active portions and 11.7 SUV max was bettercharacterized on prior CT thorax. No additional FDG avid lung nodules. MEDIASTINUM: No hypermetabolic lymph nodes. HEART: Physiologic activity is identified. Atherosclerosis of the thoracicaorta and their branches. LIVER, GALLBLADDER, BILE DUCTS, PANCREAS, AND SPLEEN: Physiologic activityis identified. No abnormal focal FDG uptake. ADRENALS: No focal abnormal FDG uptake. KIDNEYS: Expected excretory activities. RETROPERITONEAL, ILIAC, INGUINAL NODES: No hypermetabolic lymph nodes STOMACH, BOWEL: Diffuse uptake in gastric fundus, likely inflammatory. Thesmall bowel with physiologic uptake in the large bowel demonstrate diffuseuptake up to 9.3 SUV max without underlying CT correl ate. PELVIS: No abnormal focal FDG uptake. Again seen is calcified uterinefibroid. BONE MARROW: No abnormal focal FDG uptake. EXTREMITIES: ?No abnormal focal FDG uptake. CUTANEOUS SURVEY: ?Negative.[facility] FOCUS SOLID TUMOR MUTATION PANEL BY [id number] 18:21:02* Test Item Value Reference Range Interpretation Comme nts [employer] SOLID TUMOR NGS (test code = [id number]) See Comment JEANNETTE (test code = JEANNETTE) Sample Tested: [id number] A3-14 (Aspirate: LUNG, RIGHT UPPER LOBE; Primary Tumor: Lung Adenocarcinoma)Marked % Tumor Cells in the Requested Area: 40%Result and Interpretation: No pathogenic or likely pathogenic DNA or RNA variants were detected in this assay. Please refer to the gene list below for details on the regions analyzed. Test information: Test is performed using [employer] AmpliSeq Focus Panel reagent ([employer], [place]). It is a targeted next generation sequencing (NGS) assay validated to include 47 genes with known relevance to solid tumors. GRCh37 (hg19) reference sequence is used for identifying pathogenic variants. The assay is validated to detect single-nucleotide variants (SNVs), nucleotide-level insertions and deletions (ie, indels) of 35 genes, and RNA fusions involving 23 RNA drivers. The following genes are examined by the assay:Full panel (total 47 genes): ABL1, AKT1, AKT3, ALK, AR, HARDY, BRAF, CDK4, CTNNB1, DDR2, EGFR, ERBB2, ERBB3, ERBB4, ERG, ESR1, ETV1, ETV4, ETV5, FGFR1, FGFR2, FGFR3, GNA11, GNAQ, HRAS, IDH1, IDH2, JAK1, JAK2, JAK3, KIT, KRAS, MAP2K1, MAP2K2, MET, MTOR, NRAS, NTRK1, NTRK2, NTRK3, PDGFRA, PIK3CA, PPARG, RAF1, RET, ROS1, ?and SMO. ? Only DNA (35 genes are analyzed for DNA SNVs and small indels): AKT1, ALK, AR, BRAF, CDK4, CTNNB1, DDR2, EGFR, ERBB2, ERBB3, ERBB4, ESR1, FGFR2, FGFR3, GNA11, GNAQ, HRAS, IDH1, IDH2, JAK1, JAK2, JAK3, KIT, KRAS, MAP2K1, MAP2K2, MET, MTOR, NRAS, PDGFRA, PIK3CA, RAF1, RET, ROS1, and SMO. Only RNA (23 genes are tested for RNA fusion drivers): ABL1, ALK, AKT3, HARDY, BRAF, EGFR, ERBB2, ERG, ETV1, ETV4, ETV5, FGFR1, FGFR2, FGFR3, MET, NTRK1, NTRK2, NTRK3, PDGFRA, PPARG, RAF1, RET, ROS1. This test was developed, and its performance characteristics determined by [facility]. It has not been cleared or approved by the U.S. Food and Drug Administration (FDA). The FDA does not require this test to go through premarket FDA review. This test is used for clinical purposes. It should not be regarded as investigational or for research. This laboratory is certified under the Clinical Laboratory Improvement Amendments (CLIA) as qualified to perform high complexity clinical laboratory testing. The result is not intended to be used as the sole means for clinical diagnosis or patient management decisions. References:1. [employer] AmpliSeq Focus Panel package insert.2. NCCN, ASCO and other practice guidelines. This result has been reviewed and approved by Nora Camp MD, PhD, [facility] wo [id number] 15:36:50EXAM: MR BRAIN WO CONTRAST HISTORY: 74 years-old Female; Provided indication: Non- small cell lungcancer (NSCLC), staging . TECHNIQUE: Multiplanar and multisequence MRI imaging of the brain wasobtained without contrast. COMPARISON: ?CT head without contrast dated 04/21/2025 FINDINGS: Postcontrast imaging was not performed due to patient unable to toleratethe study. The ventricles and cerebral sulci are normal in caliber and configuration.No midline shift or pathological extra-axial fluid collection is present.The basal cisterns are unremarkable. No restricted diffusion is present. Scatter foci of T2/FLAIR hyperintensityin the white matter are compatible with mild chronic microvascularischemia.Chronic lacunar infarct in the left basal ganglia with associatedfoci of gradient blooming suggestive of hemosiderin staining. The T2 flow voids for the major intracranial vessels are unremarkable. Noabnormal fluid signal is present in the mastoid air cells or paranasal airsinuses.[facility] Ver[facility] thorax wo [id number] 19:00:42PROCEDURE: CT CHEST WITHOUT CONTRAST - CHEST PROTOCOL CLINICAL INDICATION: robotic bronchoscopy ? Comparison: ?CT chest February 2010 TECHNIQUE: Volumetric images of the chest were acquired (from lung apicesto bases) in inspiration without intravenous contrast. Images werereconstructed at 0.63 mm slice thickness. MIP axial images, coronal andsagittal reformats were also submitted for interpretation FINDINGS: Devices: None LUNGS AND PLEURA: The lungs are well- expanded. Interval increase in size ofthe right upper lobe mass now measuring 5 x 6 cm. Background ofcentrilobular emphysema. Asymmetrical interlobular septal thickeningthroughout the right lung. Linear atelectasis in the left lower lobe andmiddle lobe. LYMPH NODES: Scattered small lymph nodes in both sides of the mediastinumand hilar regions. Partially calcified right hilar and subcarinal lymphnodes suggestive of prior granulomatous disease. MEDIASTINUM AND LOWER NECK: No central airway lesions are detected. Theincluded thyroid gland appears normal.The esophagus is within normallimits. HEART AND GREAT VESSELS: The heart is normal in size. No pericardialabnormalities are identified. The RV to LV is normal. The thoracic aorta isnormal in caliber. The pulmonary trunk is normal in caliber. VISUALIZED UPPER ABDOMEN: Small left kidney simple cyst. OSSEOUS STRUCTURES AND SOFT TISSUES: No focal osseous lesions are detected.The soft t issues appear normal.[facility] Bronch[facility] 2025-05-07 18:06:25* Test Item Value Reference Range Interpretation Comme nts Case Report (test code = [id number]) Non-Gynecologic Cytology ?Case: [id number] ?Authorizing Provider: ?Roberta Benavidez DO ? ? Collected: ? 05/02/2025 1310 ?Ordering Location: ? ? [facility] OR ? Received: ?05/02/2025 1526 ? Department ? Pathologist: ? Mutaníbal, Hollidarscarri, ? MD ? Specimen: ? ?LUNG, RIGHT UPPER LOBE, ENDONBRONCHIAL BRUSHING ? Final Diagnosis (test code = [id number]) k5tbwMUhMILyz5btDWZorNAb ZzEwMzNcZnRuYmpcdWMxIHtc qfLbJNzfdZkiQILePZWsCD5m sSdnpDx2vHyjVCMlniC0fKZq BVvca1lmMRL1a4bcryszAOYl NJrkMh4jkTSwpIruHsDdVIQp MWj3cV51KGBgbU9sjUUpGTl4 XHBhcGVydzEyMjQwXHBhcGVy tTJ0XSDhDY0cneeeIQqnZOwx EHJbkaU8NJBcvVCoX3TvNCHq IZ3ujhuzREO6USdoLQWaYGN0 CxVdOTPvf3Zbatc8GpNisNHn ZFxwbGFpblxiXGZzMjIgQTEu FYuCRlouFOSKO9pKFVIOVIDI YElYQyS8KVSRPP1MYd8MP3wT BGdpMpOBX7iRUqu3EEFicxDx ICAgICAgLSBBVFlQSUNBTCBD JOuQJtSTNdIVOC3DQFGmoh81 QHH8FvFxn2N1LAFhKaSbMGJw JH5alIioAEDyKT8cVXTtX6to dA4wxqo4KyBwOLIeKiZ4HKSr dyN9Xlk6HQAvZThic2lwv8Sp W7WzkBIddXh0w1knAEViBnV8 cTCsOWsuC4ehwpOmoNEbSYNh WFm6tEzvEtYjJGYhg9pptdNe ZmNoYXJzZXQwIENhbGlicmk7 nB81IZLnmW8iyIOdJLztbqBm TbG5GCcuDOUlLcX7SEEruSXl PLPtG6xqSKQqDFjcBXMwYOcq iOBlKJX5cOxdh5Z6xKIpcEKq cNlwPvJsBtHcVJFGj4AiEWx8 gNkfV5DhSBHbRjN6jXDrFOMt YAtpJIKsRVMopvZ2cH22LOia tuJ1wXUts8Sks81bb624cJ9l rNWdEAT1HCMhWBLobELeSQAw KRT9TQOraXTiV6vzOIUyAI9i hqurWUxrANcaYKJecUI7SOKr uTSeH6CpJYBhSRvoQKLmvln8 LvEuFm3gzHQqlMbtTJftw8fk f9hqyMJgEty6JWNnPvTjVjsl YIhgz4Yhu1rtFBXubp3aXAT9 fRVfhGogt6S3xFVtFVZxwIAw jdEyCBNqZkN7AIagAE3wnj36 LZRxHAK8ig3lnPUryHdxuhMv rYZkYXheQ0MkXFKet818JNKt Q2NlMTJby4X5lzNmGyYsRZOu rMX4mxR8XTXbVXu9nPUrgzT1 ntQhkSUhG9gweA0jBYEtYB7p ttgwy0uoQXikKEapOOXzjVY4 yhA5RQGnbSTsC4YcqN1vUVQv AUihEAPhjkx8NwFgUm5nrSNf eTcyMFxzYmtwYWdlXHBnbmNv bnRccGduZGVjXHBsYWluXHBs YWluXGYwXGZzMjRccWxccGxh zG3rGaTtCbClTBrdJH7mEFFp U4ojyIGcAIXvMUMjW0brYvLh uQ5knMukGVriQaBpYfJdXKit YXIgSSBoYXZlIHBlcnNvbmFs yBzlyiM8gDS0ARYjRYnbSBCf RGJunJUpwv2rtRojIZEhCW4o IGFncmVlIHdpdGggYWxsIHN0 YXRlbWVudHMgbWFkZSBieSBy XWPnPLOaiYRxUHFvrVzoy5Kc o8UzmWV9oB8sn1vnq6GiDBJo dMD2LN00jnH8wX6dTVRlGP3a ZGKmSZ9yiPDvlMQfHPAia48h dGhpcyByZXBvcnQuXHBsYWlu XGYyXGZzMjhcbGFuZzEwMzNc aGljaFxmMlxkYmNoXGYyXGxv W3pzFgDoKaOlORorPCE8lA== Final Diagnosis Comment (test code = [id number]) r5wqzYLxKDKqzNTbOOWdUlfz jhXwTKEttRMdS0UvydudIDnf NN1bJC1xeAqwnQUulZPpAXRr ItTfn1yez167oZUsg4goOTZR ogmkqXo8wYvpJ80io5W4Oybq E45vxOReLRX7PWRpFYTewUFl VNZrMPI1DHPimWAbN2nrHSWd JJ0ctrdvOTsvHNtgJZSaySR8 NFNvyPAtW5BbPZCsMQxzICFv tzm3FfXrJq4pzAQazQolDBts YXJkXHBsYWluXGZzMjAgUGxl EHTgKMSbRGOQYwF8UPEqHyFt y6ItWVMmbQQmk44ojAXhtjMn iv7xqLruxk1ypVHbyF== Clinical Information (test code = [id number]) Lung mass [R91.8] Gross Description (test code = [id number]) c1xluAKeGORgjLEhWZPbLmun qfNbEOIqaVIdT2NhahqiAPir YE0zCY1dvFzcrQXehMNwOYXu GzJyn4xdu866uGJha3trKEFT zjvzoBo1sOcbS27bs1P8Lkmx G80urYTqMXD8YNKbQIFmuNVl AILrHRG3ISPstVEgH6nfTXFb CS2ffrtgXIimXKzsMKRczDA0 TDCykQHeU9DiWUVeTDmiNRJd lio0VaQzAg4smOVvnAgqXRlx SzgwbKwzs8GikDNmZAkyHLEg WSMbFCzqsyctAAn7TEZxCWzp iNAlSR7anVhcHnepjHgod4Uz dCBcXGlkIDUxMDAyIFxcZGIg R4QZUAXhRAl4ClVzSaHtDKg3 KJy4EV9AHpDhBJVyBMF1SqK7 SZBbHEz1BGqhLH1FOBK7KKD4 YVRwGZmnJCXySqSzAJh4JECy WZvsvuTlGWcxHtvmOAdeA57g cGFyZFxwbGFpblxmczIyXHBh fuewYLHzFKBmJbRwUQIbK2ye YjMwXHBsYWluXGZzMjJccGFy TCVuqkMopWDeHCQoJiKTEG4J YENASTzYLWUQCKHQBsQYH9GH OyBFTkRPQlJPTkNISUFMIEJS KEDMHL7PYUdxxyDwLiOlAMe4 OKAvCyPrh4jtyEHkJIKrIcyd DI6hGOLlLACtcTTzRYCdOCOs N8v7t6IcvHLsZGS0jN8BbHLs M1WyCTQjTWzwmWyuYPDDndOv YXJlZCAyIHNsaWRlcyAoMSBQ THXazqmgu5ccq8JyB1q8t9Qm iE3eJOSrZPDzIXNxdTZdp8lm z2iaQ5q0q4DznM2wfLQllZWz VOOrh07lUJAicyptMNCmVBYb zUJAm6BgDHlmSYLeE4MrK8Mi foQ0f8jclWhqv7XccULoBJ1i cGFyfQ== Disclaimer (test code = [id number]) c9nogAPoQQCef8weMHHqaQPq ZzEwMzNcZnRuYmpcdWMxIHtc alVxHIyiz9TsU0HuMrXrTQmk bnNpXGRlZmxhbmcxMDMzXGZ0 fiPlFZIdPKyaIMOwNEjuWv7n mKTraSxjGyLuORKdi0xtoeEU BIenBwRtA284JXOiBAoru3dn p4LpGGFceEMaq6D4UTOLqebr fWl7f6qgYyAhDxT7jXAgIIys L8tjevFkgTUbL0OwbFKowMl8 eNxbZ77md9C8KqvgB0crLTSg RSGjS0McNX5jLMXrFnw7NKS3 BOF0XERdDIMyO8AxLG8xWOTb mACsQZc7n2rkvUahKILbOIG8 u2kyQVcajsDfMK1jqq2kgNr1 t8ruekQoIRCeBRCjoEZUFSPh F0KolXwsJt5eaJp8iGnzNpop NZP0Tvn2GT4eyi27qho0zFeh IHPnehgzOjC6KEgnCJJdhwux NNf0FBzjKEDyfJM2OUArjUNg D2QtFWDaFH3reuz1CJI6CUpv NQJaYpX1NFUwoUIyLPLvpZdw GPhxg073EJQ0QmSbDE4nR8Eh k2U1mS3kfTTbOKZljRXmUwVy JDZvtq0ikRJqFBrit8CpATD0 laA9fVEezNJwLSQiJF76Rily o4JyUqtlQVQ3BMJfzfYee3Up g3uqPoKmsvAqQ2xxD7JsOZYc CVXxIMJdPmLdydXgm5Suy1Wo lREhcFl7o0gsDTOkQPNvlMln j2smBLA8JMCeY1H2dBUjo7qa MBpcHFEyiQM3huP6IDYlrDAs F8QxhA3fVGPfZC4orxz3p5in YCJ2ZNpvZLBrPjC4pcK0JNXv gRQjVNFugCcuQScrj247KZR6 DjSmEAGan5CcU9CtvWueT28f xZgsW84gGRUqtNwyxF5edKsz jS9kArCySjQgHLkutNmycYOt blxmMVxmczIwXGxhbmcxMDMz GVwuS6jlAmVuLSJifHdjEIdv p1MgHWIaRBEaVqgwflHwSCEo aXYtkuQrh9V9OC9ekIOocnIw aKDfSJJgj2MefIYep9AunUPl MFXtctViy5PpVSH8UKS2jD3f MNErfpHieg3wHYG5f1acWiVU xMOnblDIIFCmEPk2aHVmJ5Pn Q5jcwGIsBwJwA4PwpNAlISOU FtIdCV3qkJLgcyOzWF5cMLO1 bsXrIGJpYKGzqd7vNZHhVU37 yQAaSYLkgxYgNA3qGoBGiXbf y1OotZA8TZU6nP7pHYnwceBt TGSvyM9pPIOvOP2bNLv7ccGo BVOdn9UgFP3eBCKgtWUmOCF4 TDRtu8EmO7SgGKM3OKUcuF5c HBMcdTPYGN5XCSalCt8mSPRu xbnsW8LyccxvRXZyVKKHuAGm BNYiod42GGEfEU4pN3duBQVb MYPndmEfjKOhk7FbVQBezRW7 zFJxYJ0JOaUJo00kTLVkMZQY elLwFQWbsGfyzGR5euB2jQ5a IChGREEpLiAgVGhlIEZEQSBk l5HjZG1duTHrCZO3iLKtFGHs xHDsdkBnRFFzhcC4vMBiHJR1 YSV3ee1lJXdgVKKhaPKiOMXG ZZSlPLIfv8FwiA8oiCCtFABt HQAdrEHep1TuvzEfVRMkGRFj BBQxlK4cZ4XmTFltIa0rIKUh amzpDZ6kdl01ZG5jbhZhZU8n dnFpEB04zcJsZ1mCYJpsaS0u xQGqGq7fqQLbhRinQMAzxRGk UBpvmWebyKWmdEipIn4aUJcd YXJccGFyIEFwcHJvcHJpYXRl tWnfymCkX1ZpxxLfoI8llUCd tvBlEK5hPW8mO4O7oUFfZTHv gdSkw5qsHSlisbAbNfGyxdCt FLOdYMoxNDMfu8GxSUnwLVJ3 YWlucyBpbmNsdWRpbmcgSCZF UMPYuACwzIAuZQQ9IFdewvQh dwDkGR3mcA3vjAjuaV8bzAAq jNF3nogvCIPbUDHpkViiOTSn RX5doFAwWUXdprEAnZbxeSMm rI5nT5AtYTYxEATfdc0cIFKh uH3pLRyty2OouzvzIZFeCQJi JCTagaSckn5fQKAeePVFZO4M MVtqeIEbb3CgabLrC8yXLZI7 NUQwNjYwMjgxKSBleGNlcHQg XTNlqb09XEPhjR6agAyeGASt hO4fuI7luMcvkW9eBjDdKqTt AhbmAQ5fKLEdP6erxZAxZCZu SDJeY7uqYgMpgK0qzBmaJati [id number] Embedded Images (test code = [id number]) [facility] [id number] 21:29:49Chest X-Ray Indication: s/p robotic bronchoscopy ? Technique: Frontal view(s) of the chest submitted for interpretation. Comparison: 04/21/2025 Ordering Clinician: ROBERTA BENAVIDEZ Technical Quality: Adequate Findings: No pleural effusion. 4.3 cm right upper lobe mass. Small linearprobableatelectatic opacities of the left lower lobe. No acute mediastinalabnormality. No pneumothor ax. No acute fractures.[facility] 1 [id number] 21:29:49Chest X-Ray Indication: s/p robotic bronchoscopy ? Technique: Frontal view(s) of the chest submitted for interpretation. Comparison: 04/21/2025 Ordering Clinician: ROBERTA BENAVIDEZ Technical Quality: Adequate Findings: No pleural effusion. 4.3 cm right upper lobe mass. Small linear probableatelectatic opacities of the left lower lobe. No acute mediastinalabnormality. No pneumothorax. No acute fractures.[facility] GLUCOSE (AUTOMATED)2025-05-02 19:20:34* Test Item Value Reference Range Interpretation Comme [facility] POCT GLU (test code = [id number]) 101 mg/dL 70-110 Lab Interpretation (test cod e = 28073-4) Normal [facility] GLUCOSE (AUTOMATED)2025-05-02 19:20:34* Test Item Value Reference Range Interpretation Comme nts POCT GLU (test code = [id number]) 101 mg/dL 70-110 Lab Interpretation (test cod e = [id number]) Normal [facility] Time OR(non-reportable)2025-05-02 18:38:46 These images do not require a Radiology diagnostic report.[facility] Time OR(non-reportable)2025-05-02 18:38:46These images do not require a Radiology diagnostic report.[facility] [id number] 17:43:00Phoenix Butcher MD ? ? 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 Indications and Patient ConditionIndications for airway management: anesthesia and airway protectionSpontaneous Ventilation: absentSedation level: deepPreoxygenated: yesPatient position: sniffingMILS maintained throughoutMask difficulty assessment: 1 - vent by mask Final Airway DetailsFinal airway type: endotracheal airway Successful airway: ETTCuffed: yes Successful intubation technique: video laryngoscopyFacilitating devices/methods: intubating styletEndotracheal tube insertion site: oralBlade: MacintoshBlade size: #3ETT size (mm): 8.5Cormack-Lehane Classification: grade I - full view of glottisPlacement verified by: chest auscultation and capnometry Measured from: lipsETT to lips (cm): 20Number of attempts at approach: 1 Additional CommentsSmooth atraumatic intubation with dentition intact in preop condition. VL x 1, CA1. GIv. VL used only for direct visualization of cuff by surgeon specificationUnCHI St. Luke[facility] Patients Medical CenterPOCT Urinalysis W Specific [id number] 17:41:00* Test Item Value Reference Range Interpretation Comme nts POCT U SP GRAV (test code = 3255) 1 mg/dl 1.005-1.025 A POCT PH U (test code = 3254) 6 mg/dl 5-8 POCT U LEUK EST (test code = 3263) trace Negative - Negative POCT U NIT (test code = 3262) positive Negative - Negati ve POCT U PROT (test code = 3259) negative Negative - Negative POCT U GLU (test code = 3256) 50 Negative - Negati ve POCT U KETONE (test code = 3258) negative Negative - Negative POCT U UROBILI (test code = 3260) normal 0.2-1 POCT U BILI (test code = 3261) negative Negative - Negative POCT U BLD (test code = 3257) negative Negative - Negati ve POCT U COLOR (test code = 3266) dark yellow POCT U APPEAR (test code = 3267) clear Lab Interpretation (test cod e = 60476-1) Abnormal [facility] [id number] 20:26:03EXAM: CT HEAD WO CONTRAST HISTORY/PROVIDED INDICATION: Dizziness, persistent/recurrent, cardiac orvascular cause suspected . TECHNIQUE: Axial CT of the head without contrast was performed andreconstructed. Coronal and sagittal reformatted images were generated. COMPARISON: CT Head 03/06/2025. FINDINGS: The ventricles and cerebral sulci are normal in caliber and configuration.No midline shift or pat hological extra-axial fluid collection is present.The basal cisterns are unremarkable. No acute intracranial hemorrhage or significant mass effect is visualized.Periventricular and deep white matter hypodensities are nonspecific butlikely represent sequelae of microvascular ischemic disease. Chroniclacunar infarct in the left basal ganglia. The parnell-white matterdifferentiation is preserved. The mastoid air cells are clear. ?The visualized paranasal air sinuses areclear.The calvarium and centralskull base are unremarkable.[facility] CHE[facility] 2 [id number] 19:51:10ORDERING PROVIDER: RADHA MORRIS HISTORY: cough TECHNIQUE: PA and lateral views of the chest COMPARISON: CXR 03/19/2025, CT chest 03/06/2025 FINDINGS: Adequate pulmonary volumes. Interval enlargement of an ovoid masslikeopacity at right apex, now measuring up to 4.9 cm (previously 3.9 cm whenmeasured similarly). ? Lungs are otherwise clear. ? The cardiac silhouetteis stable in size. Aortic athe rosclerosis. ? The osseous structures appearunchanged.[facility] 2 [id number] 20:27:10ORDERING PHYSICIAN: IVANA ROCHA. HISTORY: cough, known right lung mass TECHNIQUE: 2 Views. COMPARISON: None. FINDINGS: Lungs: ?A 3.6 cm rounded mass is seen within the right upper lobe. Thelungs are otherwise clear. Pleura: ?No effusion or pleural disease is seen. ?No pneumothorax. Mediastinum/Madhavi: ?No masses or adenopathy. Calcified right hilar lymphnodes are seen. Heart: ?The heart is not enlarged. Other: ?No acute osseous abnormality is seen.[facility] Abdomen pelvis w [id number] 14:01:40EXAM: CT ABDOMEN AND PELVIS WITH CONTRAST HISTORY: diarrhea COMPARISON: None. Interpretation of outside study FINDINGS: Outside report is not available at this time. Emphysematous change and trace ate lectasis in the lung bases. Hepatic steatosis. The spleen, gallbladder, adrenal glands and right kidneyare normal. 1.5 cm cyst at the superior pole of the left kidney. Pancreaticduct is mildly prominent measuring up to 5 mm at the pancreatic head nopancreatic mass seen. No biliary ductal dilatation. Atherosclerotic change in the aorta and iliac arteries. No abdominal aorticaneurysm. Scattered mild atherosclerotic change in the aortic branches. 2.9 cm calcified uterine fibroid. The bladder is unremarkable. Fluiddensity seen throughout the colon. No bowel wall thickening or obstruction.The appendix is not definitely identified. There is no free fluid orlymphadenopathy. Degenerative change involving the spine, sacroiliac joints and hips ispresent. [facility] [id number] 20:44:54EXAM: XR KUB HISTORY: 74 years-old Female with abdominal distention TECHNIQUE: Supine radiographic v iew/s of the abdomen. COMPARISON: 03/07/2025 FINDINGS: Nonobstructive bowel gas pattern. No acute osseous abnormality. Calcified uterine fibroid multiple phleboliths are noted in the mid pelvis.[facility] Transthoracic echo (TTE) [id number] 22:20:59* Test Item Value Reference Range Interpretation Comme nts Height (test code = 0582419673) 62 in Weight (test code = 2026812106) 114 lbs Systolic BP (test code = 4779865208) 130 mmHg Diastolic BP (test code = 9402789780) 57 mmHg Heart Rate (test code = 4177411253) 65 bpm LVOT diameter (test code = 9525455157) 1.95 cm LVOT area (test code = 8760441956) 3 cm2 BSA (test code = 9329550217) 1.51 m2 LA size (test code = 7121980026) 3.8 cm Ao root diam (test code = 3100927050) 3.1 cm Aortic root (test code = 4760599728) 3.1 cm Ao root annulus (test code = 7095443640) 3.1 cm LAV(MOD-sp4) (test code = 4867056920) 65.4 mL MV Peak A Agustín (test code = 1699852333) 90 cm/s MV Peak E Agustín (test code = 3887203562) 63.8 cm/s E/A ratio (test code = 0723110629) 0.71 ratio E wave decelartion time (test code = 9251916364) 0.27 s MV Prop V (test code = 0183436430) 47.1 cm/s MV E/e' septal (test code = 8906433648) 7.4 cm/s TASV (test code = 5229193030) 18.1 cm/s TR Peak Agustín (test code = 4265755886) 244.9 cm/s Triscuspid Valve Regurgitation Peak Gradient (test code = 3863578866) 24 mmHg Tapse (test code = 2834805054) 2.04 cm LVOT stroke volume (test code = 3398290548) 70.6 cm3 LVOT peak agustín (test code = 6092818948) 96 cm/s LVOT mn grad (test code = 3185851853) 1.6 mmHg AV LVOT peak gradient (test code = 6200429822) 3.7 mmHg LVOT peak VTI (test code = 7401378033) 21.9 cm LV V1 mean (test code = 6156611075) 57.5 cm/s Aortic valve mean velocity (test code = 7360143251) 98.6 cm/s Ao peak agustín (test code = 8195702871) 167.7 cm/s Ao VTI (test code = 1461910802) 33.3 cm AV area by cont VTI (test code = 4521253089) 2.1 cm2 AV area peak agustín (test code = 6090382785) 1.9 cm2 Ao max PG (test code = 4481609053) 11.3 mm[Hg] AV peak gradient (test code = 0322359751) 11.3 mmHg AV valve area (test code = 2820163542) 2.12 cm2 AV mean gradient (test code = 5148416604) 4.9 mmHg LA Volume Index (BP) (test code = 1707200985) 45.8 mL/m2 LA volume (BP) (test code = 4597873293) 69 mL LAV(MOD-sp2) (test code = 6373323562) 68.1 mL LVIDD (test code = 6056553042) 4.6 cm Left Ventricular End Diastolic Volume by Teichholz Method (test code = 8899527) 98.1 mL IVS (test code = 7651352208) 0.87 cm Interventricular Septum Diastolic Thickness by 2D (test code = 0724499) 0.87 cm LVPWD (test code = 3609717244) 0.91 cm PW (test code = 3038994039) 0.91 cm 0.6-1.1 EF(Teich) (test code = 9364591801) 60.1 % LVIDS (test code = 4369745257) 3.6 cm Left Ventricular End Systolic Volume by Teichholz Method (test code = 2518681) 54.4 mL FS (test code = 1307940827) 32 % EF - 2D (test code = 31390064) 60.1 % Radiology Study observation (narrative) (test code = 07345-8) JEANNETTE (test code = JEANNETTE) ?Left?Ventricle: Left ventricle size is normal. There is moderate concentric hypertrophy. Normal systolic function with a visually estimated EF of 55 - 60%. There is grade 1 diastolic dysfunction. ?Right?Ventricle: Right ventricle size is normal. Normal systolic function. TAPSE is 2.04 cm. TDI-derived tricuspid annular systolic velocity (TDI S') is 18.1 cm/s. Left VentricleLeft ventricle size is normal. There is moderate concentric hypertrophy. Normal systolic function with a visually estimated EF of 55 - 60%. There is grade 1 diastolic dysfunction.Right VentricleRight ventricle size is normal. Normal systolic function. TAPSE is 2.04 cm. TDI-derived tricuspid annular systolic velocity (TDI S') is 18.1 cm/s.Left AtriumLeft atrium is moderately dilated. Left atrium volume index is 45.8 mL/m2.Right AtriumRight atrium size is normal.IVC/SVCIVC diameter is less than or equal to 21 mm and decreases greater than 50% during inspiration; therefore the estimated right atrial pressure is normal (~0-5 mmHg).Mitral ValveMild posterior mitral annular calcification. Trace transvalvular regurgitation. No stenosis.Tricuspid ValveTricuspid valve structure is normal. Mild transvalvular regurgitation. Right ventricular systolic pressure is 30-35 mmHg. No stenosis.Aortic ValveMildly thickened cusps. Mildly calcified cusps. Trace transvalvular regurgitation. No hemodynamically significant .Pulmonic ValveNot well visualized.Ascending AortaNormal sized sinus of Valsalva.PericardiumTh e pericardium is normal. No pericardial effusion.Study DetailsStudy quality was adequate. A complete echocardiogram was performed using 2D, color flow Doppler and spectral Doppler. The apical, parasternal, subcostal and suprasternal views were obtained. 3 mL of Optison ultrasound enhancing agent used. Patient exhibited sinus rhythm. [facility] [id number] 18:46:07EXAM: XR KUB HISTORY: 74 years-old Female with diarrhea TECHNIQUE: Supine radiographic view/s of the abdomen. COMPARISON: CT abdomen pelvis 03/06/2025 FINDINGS: Nonobstructive bowel gas pattern. No acute osseous abnormality. Calcified uterine fibroid and multiple phleboliths are noted in the pelvis.[facility] CT Cervical spine wo [id number] 14:21:36EXAM: CT HEAD WO CONTRAST, CT CERVICAL SPINE WO CONTRAST HISTORY: 74 years -old Female with fall COMPARISON: None. TECHNIQUE: Outside images interpretation, report not available for review. FINDINGS:CT HEAD: The ventricles and cerebral sulci are normal in caliber and configuration.No hydrocephalus, midline shift or pathological extra-axial fluidcollection is present. The basal cisterns are unremarkable. There is no acute intracranial hemorrhage or significant mass effect. Noparenchymal attenuat ion abnormality. The parnell-white matter differentiationis preserved. The paranasal sinuses and mastoid air cells are clear. No acute calvarialfractures. CT CERVICAL SPINE: Straightening of the normal cervical lordosis. The vertebral bodies arenormal in height and in normal alignment. No acute facet fracture orsubluxation is present. The craniocervical junction is intact. Multilevel mild to moderate spondylotic changes noted. The prevertebral soft tissues are unremarkable. Multiple subcentimeterhypodense thyroid nodules are noted which do not require follow-up. Partially visualized spiculated right upper lobe mass measuring up to 3.1cm to the extent seen.[facility] Head wo [id number] 14:21:36EXAM: CT HEAD WO CONTRAST, CT CERVICAL SPINE WO CONTRAST HISTORY: 74 years -old Female with fall COMPARISON: None. TECHNIQUE: Outside images interpretation, report not available for review. FINDINGS:CT HEAD: The ventricles and cerebral sulci are normal in caliber and configuration.No hydrocephalus, midline shift or pathological extra-axial fluidcollection is present. The basal cisterns are unremarkable. There is no acute intracranial hemorrhage or significant mass effect. Noparenchymal attenuat ion abnormality. The parnell-white matter differentiationis preserved. The paranasal sinuses and mastoid air cells are clear. No acute calvarialfractures. CT CERVICAL SPINE: Straightening of the normalcervical lordosis. The vertebral bodies arenormal in height and in normal alignment. No acute facetfracture orsubluxation is present. The craniocervical junction is intact. Multilevel mild to moderate spondylotic changes noted. The prevertebral soft tissues are unremarkable. Multiple subcentimeterhypodense thyroid nodules are noted which do not require follow-up. Partially visualized spiculated right upper lobe mass measuring up to 3.1cm to the extent seen.[facility] Consult Notes Date/Time Note Provider Source 2025-07-12 11:11:45 Associated Order(s): CONSULT WOMENS HEALTH NURSE PRACTITIONER-ADULT Spoke with pt and son regarding home health services ordered. Provided pt's son with a list of in network agencies and he has chosen [facility]. Referral for PT/OT/ long-term for med management has been submitted to [facility]. Awaiting acceptance. [facility] HH: [phone] ALESSANDRA Barraza Senior Ux Developer - Care Management [facility] [phone] [email or web address] 2025-07-12 08:24:04 Associated Order(s): CONSULT CARDIOLOGY [facility] Cardiology Consult Note Patient: Lisset Valle Date of : 1950 Date of service: 07/12/2025 Primary Care Physician: Nereida Dodson CHIEF COMPLAINT: Chief Complaint Patient presents with Chest Pain HISTORY OF PRESENT ILLNESS: Lisset Valle is a 74 year old female presented to the ER for evaluation for chest pain. History from patient. Pertinent cardiac related history reviewed from chart History of Present Illness The patient is a 74-year-old female who presented to the ER for the evaluation of chest pain. She was last seen during a hospital stay on 06/18/[address] LIVE on 07/03/2025 after the completion of a 30-day event monitor. Medical management was recommended at that time, with no plans for EP study or ablation based on the EP notes reviewed on 07/03/2025. Since then, she reports feeling well overall but admits to occasional non-compliance with medications and is unsure about her current medication regimen. She presented to the ER on 07/12/2025 due to chest pain. The chest pain was not retrosternal, had no specific radiation, and was not typical exertional chest pain. DOA NYHA class II was noted. In the ER, she was found to be in A-fib with RVR, prompting cardiology consultation for both chest pain and A-fib with RVR history. 06.18.2025 The patient is a 74-year-old female who presented to the ER for low blood pressure, elevated heart rate, and generalized weakness and fatigue. History was obtained from the patient's last chart review. She was recently discharged from the main campus where she was admitted from 06/14/2025 and discharged on 06/15/2025 after an EP evaluation. She was diagnosed with new onset atrial flutter with RVR with a CHADS-VASc score of 3 versus recurrent SVT. During the hospital stay, the dose of metoprolol was increased from Lopressor 25 b.i.d. to 50 b.i.d., and she was initiated on Eliquis 5 mg b.i.d. and advised to stop taking lisinopril. After discharge, she experienced an elevated heart rate of 150s to 160 bpm with low systolic blood pressure in the 80s overnight, leading to an ER visit on 06/16/2025. She was initiated on an i.v. amiodarone drip and admitted to the hospital for close observation and monitoring. Currently, she is maintaining sinus rhythm and reports feeling better in terms of fatigue and lethargy. NYHA class II is noted. Cardiac risk factors include age, female status, hypertension, dyslipidemia, history of lung cancer, history of SVT, and recently diagnosed lung adenocarcinoma status post left tunneled jugular catheter placement on 06/13/2025. PAST MEDICAL HISTORY Past Medical History: Diagnosis Date Acid reflux Essential (primary) hypertension Past Surgical History: Procedure Laterality Date ENDOBRONCHIAL ULTRASOUND-TRANSBRONCHIAL FNA ([facility]) Bilateral 05/02/2025 Surgeon: Roberta Benavidez DO; [facility] ROBOTIC ASSISTED BRONCHOSCOPY ([facility]) N/A 05/02/2025 Surgeon: Roberta Benavidez DO; [facility] Family History Problem Relation Age of Onset Stroke Mother Hypertension Mother Diabetes Mother Hypertension Father Alcohol/Drug Father Cancer Father Diabetes Sister Hypertension Sister Diabetes Brother Hypertension Brother SOCIAL HISTORY Social History Socioeconomic History Marital status: Number of children: 3 Highest education level: Some college, no degree Tobacco Use Smoking status: Former Current packs/day: 1.00 Average packs/day: 1 pack/day for 40.0 years (40.0 ttl pk-yrs) Types: Cigarettes Passive exposure: Current Smokeless tobacco: Never Tobacco comments: Smokes 1 each per day 10 yrs ago stopped smoking Substance and Sexual Activity Alcohol use: Not Currently Drug use: Not Currently Social Drivers of Health Financial Resource Strain: Low Risk (03/16/2023) Overall Financial Resource Strain (CARDIA) Difficulty of Paying Living Expenses: Not hard at all Food Insecurity: No Food Insecurity (06/17/2025) NCSS - Food Insecurity Worried About Running Out of Food in the Last Year: No Ran Out of Food in the Last Year: No Transportation Needs: No Transportation Needs (06/17/2025) NCSS - Transportation Lack of Transportation: No Physical Activity: Sufficiently Active (03/16/2023) Exercise Vital Sign Days of Exercise per Week: 7 days Minutes of Exercise per Session: 60 min Social Connections: Unknown (03/16/2023) Social Connection and Isolation Panel [NHANES] Frequency of Communication with Friends and Family: More than three times a week Marital Status: Housing Stability: Not At Risk (06/17/2025) NCSS - Housing/Utilities Has Housing: Yes Worried About Losing Housing: No Unable to Get Utilities: No ALLERGIES No Known Allergies MEDICATIONS Current Discharge Medication List STOP taking these medications amiodarone 200 mg tablet Comments: Reason for Stopping: metoprolol tartrate 50 mg tablet Comments: Reason for Stopping: apixaban 5 mg tablet Comments: Reason for Stopping: atorvastatin 40 mg tablet Comments: Reason for Stopping: proCHLORperazine 10 mg tablet Comments: Reason for Stopping: proMETHazine 25 mg suppository Comments: Reason for Stopping: Food Supplement, Lactose-Free (ENSURE ORIGINAL) liquid Comments: Reason for Stopping: acetaminophen (TYLENOL ARTHRITIS PAIN ORAL) Comments: Reason for Stopping: albuterol sulfate HFA 90 mcg/actuation aerosol inhaler Comments: Reason for Stopping: Cholecalciferol, Vitamin D3, 50 mcg (2,000 unit) tablet Comments: Reason for Stopping: Current Facility-Administered Medications: apixaban (ELIQUIS) tablet 5 mg, 5 mg, Oral, BID, Antonette Moeller, atorvastatin (LIPITOR) tablet 40 mg, 40 mg, Oral, QHS, Antonette Moeller, metoprolol tartrate (LOPRESSOR) tablet 75 mg, 75 mg, Oral, BID, Antonette Moeller, DO REVIEW OF SYSTEMS: Comprehensive 10-system review was conducted and were negative except for what's noted in the HPI. The following systems were reviewed: Constitutional, cardiovascular, respiratory, gastrointestinal, genitourinary, musculoskeletal, neurologic, psychiatric, endocrinological, and hematological. PHYSICAL EXAMINATION: Vitals: 07/12/25 0000 07/12/25 0200 07/12/25 0400 07/12/25 0600 BP: 114/57 106/50 128/68 114/61 Pulse: 83 86 95 86 Resp: (!) 32 Temp: 37.1 ?C (98.7 ?F) 36.8 ?C (98.2 ?F) 36.4 ?C (97.6 ?F) 36.8 ?C (98.3 ?F) TempSrc: Tympanic Tympanic Tympanic Tympanic SpO2: 96% 98% 99% 96% Weight: 47.6 kg (105 lb) Height: General: no apparent distress HEENT: normocephalic atraumatic Neck: supple, no lymphadenopathy, no bruits, no JVD Lungs: clear to auscultation bilaterally. No wheezes or rhonchi. No increased work of breathing. Cardio: Regular rate and rhythm, S1&S2 normal, no murmurs, rubs or gallops Abdomen: soft; non-tender; non-distended; normoactive bowel sounds. : not examined Rectal: not examined Extremities: no clubbing, cyanosis, or edema. Skin: no rashes, no visible lesions. Neuro: no gross focal deficits LABS - Reviewed pertinent labs as below: CBC BMP PT/INR WBC (10*3/?L) Date Value 07/12/2025 8.86 NA (mmol/L) Date Value 07/12/2025 133 (L) No results found for: "PT" PLT (10*3/?L) Date Value 07/12/2025 317 K (mmol/L) Date Value 07/12/2025 3.2 (L) INR (no units) Date Value 06/14/2025 1.2 HGB (g/dL) Date Value 07/12/2025 8.5 (L) BUN (mg/dL) Date Value 07/12/2025 13 HCT (%) Date Value 07/12/2025 27.4 (L) CREATININE (mg/dL) Date Value 07/12/2025 0.57 LIPID PROFILE GLUCOSE (mg/dL) Date Value 07/12/2025 107 CHOL (mg/dL) Date Value 06/14/2025 134 TSH LDL CHOL (mg/dL) Date Value 06/14/2025 75 TSH (mIU/L) Date Value 07/11/2025 1.55 CARDIAC ENZYMES HDL (mg/dL) Date Value 06/14/2025 39 (L) No results found for: "CK" TRIG (mg/dL) Date Value 06/14/2025 99 LFTs No results found for: "CKMB" AST(SGOT) (U/L) Date Value 07/11/2025 17 TROPONIN I (ng/mL) Date Value 07/11/2025 0.004 ALT(SGPT) (U/L) Date Value 08/15/2017 33 ALTv (U/L) Date Value 07/11/2025 10 No results found for: "BNP" LDL CHOL (mg/dL) Date Value 06/14/2025 75 Recent Labs 07/11/252001 TROPNI 0.004 Recent Labs 06/14/25 1806 TRIG 99 LDL CHOL (mg/dL) Date Value 06/14/2025 75 NT-proBNP (pg/mL) Date Value 07/11/2025 941 (H) ASSESSMENT/PLAN Principal Problem: Tachycardia Active Problems: SVT (supraventricular tachycardia) Mass of upper lobe of right lung Primary hypertension Hyperlipidemia, unspecified hyperlipidemia type Coronary artery calcification Atrial fibrillation with rapid ventricular response Results Labs - NT BNP: 2330 pg/mL Diagnostic Testing - EK06/15/2025, strips reviewed Atrial flutter with rapid ventricular response with heart rate of 150 bpm Labs - Hemoglobin: 07/12/2025, Mildly reduced at 8.5 - Platelet count: 07/12/2025, 317 - Potassium: 07/12/2025, Reduced at 3.2 - Creatinine: 07/12/2025, 0.5 - Troponin: 07/12/2025, 0.004 - NT proBNP: 07/12/2025, Mildly elevated but improved at 941 - Liver Function Tests (LFTs): 07/12/2025, Within normal limits Imaging - Chest x-ray: 07/11/2025, Stable cardiomegaly with no evidence of any heart failure pattern noted - Echocardiogram: 03/07/2025, Preserved LV systolic function with no significant valve abnormalities noted. RVSP noted to be at 3035 Diagnostic Testing - EK07/11/2025, Presence of baseline sinus rhythm with short runs of SVT episodes noted with PVCs. Narrow QRS complex, nonspecific ST-T changes noted Assessment & Plan Recurrent paroxysmal SVT: - Recurrent SVT versus recurrent atrial flutter with RVR episodes noted. - Continue Lopressor 50 mg twice daily at home. - Consider changing Lopressor or metoprolol tartrate 75 mg twice daily to metoprolol XL 75 mg twice daily at discharge or during hospital stay. - Continue current dose of Eliquis 5 mg twice daily without changes. - If not optimally controlled, consider reinitiating amiodarone as per last hospital admission. - Patient was supposed to be on amiodarone 200 mg daily based on discharge summary and EP notes. - Recommended outpatient EP evaluation may benefit from Watchman device in the future. Recent Labs 06/17/25 0543 07/11/252001 TROPNI 0.003 0.004 NT-proBNP (pg/mL) Date Value 07/11/2025 941 (H) Chest pain: - Appears atypical. - Recommend serial troponins x2. - Consider adequate rate control strategy. - Continue current dose of Lopressor 75 mg twice daily. - Not on aspirin due to Eliquis and underlying anemia. - May benefit from outpatient stress test after discussion with primary cardiology team. Recent Labs 06/17/25 0543 07/11/252001 TROPNI 0.003 0.004 Elevated NT-proBNP: Likely in the setting of underlying recurrent SVT episodes: Chronic heart failure preserved ejection fraction. No clinical signs of volume overload noted. Will continue monitor. NT-proBNP (pg/mL) Date Value 07/11/2025 941 (H) Anemia: - Drop in hemoglobin noted. - Treatment/workup with primary team and oncology team. - Continue with Eliquis 5 mg b.i.d. in the setting of possibility of underlying paroxysmal atrial flutter. - - Recommended outpatient EP evaluation may benefit from Watchman device in the future. Hypertension: - Stable on Lopressor 75 mg twice daily. - May consider reducing the dose of metoprolol tartrate to 50 with metoprolol succinate to 25 b.i.d. based upon the blood pressure response. Dyslipidemia: - Recommend restarting Lipitor 40 mg daily. LDL CHOL (mg/dL) Date Value 06/14/2025 Lung adenocarcinoma: - Treatment/workup as per primary team and oncology team. Rx plan discussed with the patient/hospitalist team. Total Visit Time: 60 mins The total Visit time for today's visit with Lisset Valle encompassed 60 minutes. Time was spent reviewing the chart before, during and after the visit, reviewing laboratory results, taking interval history, performing the documented physical examination, completing and "cleaning up" the electronic medical record as well as addressing any questions and concerns. The time spent for patient care includes: PreCharting (eg, review of tests, notes, etc.), Obtaining and/or reviewing separately obtained history (Care Everywhere or paper records), Counseling and educating the patient/family/caregiver, Ordering medications, tests, or procedures, Ordering referrals and/or communicating with other health day care aide (when not separately reported), Documenting clinical information in the electronic or other health record, and Independently interpreting results (not separately reported) and/or communicating results to the patient/family/caregiver, and personally reviewing cardiac imaging, ECG, tele monitor. This report was dictated using Mertado and is subject to voice recognition errors. Please excuse any unusual inaccuracies. My diagnostic impression and treatment plans were discussed at length with the patient. All side effects as well as drug-drug interactions and risks discussed at length. Ample opportunity was offered and encouraged to ask questions during this visit and patient appreciated the answers given by me and verbzalised statisfcation in the answers given. Thank you for allowing us to participate in the care of Lisset Valle. If you have any questions or concerns please feel free to call our office at [phone]. I would be happy to be of further assistance for Lisset Valle wellbeing. Voice recognition software has been used to create portions of this document. An attempt to proofread has been made to minimize errors. Please do not hesitate to call with any questions. Lilian Nance MD 07/12/2025 8:24 AM Mold Shifter, Division of Cardiology [facility] [employer] 2025-06-17 08:08:53 Associated Order(s): CONSULT CARDIOLOGY [facility] Cardiology Consult Note Patient: Lisset Valle Date of : 1950 Date of service: 06/17/2025 Primary Care Physician: Nereida Dodson CHIEF COMPLAINT: Chief Complaint Patient presents with Other Low blood pressure HISTORY OF PRESENT ILLNESS: Lisset Valle is a 74 year old female presented to the ER for evaluation for low blood pressure, elevated heart rate, and generalized weakness and fatigue. History from patient/family member. Pertinent cardiac related history reviewed from chart History of Present Illness The patient is a 74-year-old female who presented to the ER for low blood pressure, elevated heart rate, and generalized weakness and fatigue. History was obtained from the patient's last chart review. She was recently discharged from the [facility] where she was admitted from 06/14/2025 and discharged on 06/15/2025 after an EP evaluation. She was diagnosed with new onset atrial flutter with RVR with a CHADS-VASc score of 3 versus recurrent SVT. During the hospital stay, the dose of metoprolol was increased from Lopressor 25 b.i.d. to 50 b.i.d., and she was initiated on Eliquis 5 mg b.i.d. and advised to stop taking lisinopril. After discharge, she experienced an elevated heart rate of 150s to 160 bpm with low systolic blood pressure in the 80s overnight, leading to an ER visit on 06/16/2025. She was initiated on an i.v. amiodarone drip and admitted to the hospital for close observation and monitoring. Currently, she is maintaining sinus rhythm and reports feeling better in terms of fatigue and lethargy. NYHA class II is noted. Cardiac risk factors include age, female status, hypertension, dyslipidemia, history of lung cancer, history of SVT, and recently diagnosed lung adenocarcinoma status post left tunneled jugular catheter placement on 06/13/2025. PAST MEDICAL HISTORY Past Medical History: Diagnosis Date Acid reflux Essential (primary) hypertension Past Surgical History: Procedure Laterality Date ENDOBRONCHIAL ULTRASOUND-TRANSBRONCHIAL FNA ([facility]) Bilateral 05/02/2025 Surgeon: Roberta Benavidez DO; Location[facility] ROBOTIC ASSISTED BRONCHOSCOPY ([facility]) N/A 05/02/2025 Surgeon: Roberta Benavidez DO; Location: [facility] Family History Problem Relation Age of Onset Stroke Mother Hypertension Mother Diabetes Mother Hypertension Father Alcohol/Drug Father Cancer Father Diabetes Sister Hypertension Sister Diabetes Brother Hypertension Brother SOCIAL HISTORY Social History Socioeconomic History Marital status: Number of children: 3 Highest education level: Some college, no degree Tobacco Use Smoking status: Former Current packs/day: 1.00 Average packs/day: 1 pack/day for 40.0 years (40.0 ttl pk-yrs) Types: Cigarettes Passive exposure: Current Smokeless tobacco: Never Tobacco comments: Smokes 1 each per day Substance and Sexual Activity Alcohol use: Not Currently Drug use: Not Currently Social Drivers of Health Financial Resource Strain: Low Risk (03/16/2023) Overall Financial Resource Strain (CARDIA) Difficulty of Paying Living Expenses: Not hard at all Food Insecurity: No Food Insecurity (03/07/2025) NCSS - Food Insecurity Worried About Running Out of Food in the Last Year: No Ran Out of Food in the Last Year: No Transportation Needs: No Transportation Needs (03/07/2025) NCSS - Transportation Lack of Transportation: No Physical Activity: Sufficiently Active (03/16/2023) Exercise Vital Sign Days of Exercise per Week: 7 days Minutes of Exercise per Session: 60 min Social Connections: Unknown (03/16/2023) Social Connection and Isolation Panel [NHANES] Frequency of Communication with Friends and Family: More than three times a week Marital Status: Housing Stability: Not At Risk (03/07/2025) NCSS - Housing/Utilities Has Housing: Yes Worried About Losing Housing: No Unable to Get Utilities: No ALLERGIES No Known Allergies MEDICATIONS Current Discharge Medication List STOP taking these medications apixaban 5 mg tablet Comments: Reason for Stopping: metoprolol tartrate 50 mg tablet Comments: Reason for Stopping: acetaminophen (TYLENOL ARTHRITIS PAIN ORAL) Comments: Reason for Stopping: albuterol sulfate HFA 90 mcg/actuation aerosol inhaler Comments: Reason for Stopping: Cholecalciferol, Vitamin D3, 50 mcg (2,000 unit) tablet Comments: Reason for Stopping: atorvastatin 40 mg tablet Comments: Reason for Stopping: Current Facility-Administered Medications: [] amiodarone (CORDARONE) 900 mg in D5W 500 mL infusion, 1 mg/min, IV Infusion, CONTINUOUS, Last Rate: 33.33 mL/hr at 06/16/251851, 1 mg/min at 06/16/251851 FOLLOWED BY amiodarone (CORDARONE) 900 mg in D5W 500 mL infusion, 0.5 mg/min, IV Infusion, CONTINUOUS, Claudio Foss MD, Last Rate: 16.67 mL/hr at 06/16/252357, 0.5 mg/min at 06/16/252357 apixaban (ELIQUIS) tablet 5 mg, 5 mg, Oral, BID, Sonia Pal MD, 5 mg at 06/16/252156 atorvastatin (LIPITOR) tablet 40 mg, 40 mg, Oral, QHS, Sonia Pal MD, 40 mg at 06/16/252157 metoprolol tartrate (LOPRESSOR) tablet 50 mg, 50 mg, Oral, BID, Sonia Pal MD, 50 mg at 06/16/252156 pantoprazole (PROTONIX) EC tablet 40 mg, 40 mg, Oral, DAILY, James Omalley MD REVIEW OF SYSTEMS: Comprehensive 10-system review was conducted and were negative except for what's noted in the HPI. The following systems were reviewed: Constitutional, cardiovascular, respiratory, gastrointestinal, genitourinary, musculoskeletal, neurologic, psychiatric, endocrinological, and hematological. PHYSICAL EXAMINATION: Vitals: 06/17/25 0200 06/17/25 0400 06/17/25 0600 06/17/25 0746 BP: 111/80 121/75 121/75 121/71 BP Location: Left arm Patient Position: Supine Pulse: 67 67 63 Resp: 22 25 23 Temp: 37.6 ?C (99.7 ?F) 37.6 ?C (99.7 ?F) 37.1 ?C (98.8 ?F) 37.1 ?C (98.7 ?F) TempSrc: Tympanic Tympanic Tympanic Oral SpO2: 97% 96% 98% Weight: 47.5 kg (104 lb 11.2 oz) Height: General: no apparent distress HEENT: normocephalic atraumatic Neck: supple, no lymphadenopathy, no bruits, no JVD Lungs: clear to auscultation bilaterally. No wheezes or rhonchi. No increased work of breathing. Cardio: Regular rate and rhythm, S1&S2 normal, no murmurs, rubs or gallops Abdomen: soft; non-tender; non-distended; normoactive bowel sounds. : not examined Rectal: not examined Extremities: no clubbing, cyanosis, or edema. Skin: no rashes, no visible lesions. Neuro: no gross focal deficits LABS - Reviewed pertinent labs as below: CBC BMP PT/INR WBC (10*3/?L) Date Value 06/17/2025 6.83 NA (mmol/L) Date Value 06/17/2025 134 (L) No results found for: "PT" PLT (10*3/?L) Date Value 06/17/2025 294 K (mmol/L) Date Value 06/17/2025 3.0 (L) INR (no units) Date Value 06/14/2025 1.2 HGB (g/dL) Date Value 06/17/2025 8.5 (L) BUN (mg/dL) Date Value 06/17/2025 6 (L) HCT (%) Date Value 06/17/2025 25.9 (L) CREATININE (mg/dL) Date Value 06/17/2025 0.67 LIPID PROFILE GLUCOSE (mg/dL) Date Value 06/17/2025 86 CHOL (mg/dL) Date Value 06/14/2025 134 TSH LDL CHOL (mg/dL) Date Value 06/14/2025 75 TSH (mIU/L) Date Value 06/14/2025 1.28 CARDIAC ENZYMES HDL (mg/dL) Date Value 06/14/2025 39 (L) No results found for: "CK" TRIG (mg/dL) Date Value 06/14/2025 99 LFTs No results found for: "CKMB" AST(SGOT) (U/L) Date Value 06/17/2025 13 TROPONIN I (ng/mL) Date Value 06/17/2025 0.003 ALT(SGPT) (U/L) Date Value 08/15/2017 33 ALTv (U/L) Date Value 06/17/2025 6 No results found for: "BNP" LDL CHOL (mg/dL) Date Value 06/14/2025 75 Recent Labs 06/17/25 0543 TROPNI 0.003 Recent Labs 06/14/25 1806 TRIG 99 LDL CHOL (mg/dL) Date Value 06/14/2025 75 NT-proBNP (pg/mL) Date Value 06/17/2025 2,330 (H) ASSESSMENT/PLAN Principal Problem: Atrial fibrillation with rapid ventricular response Active Problems: SVT (supraventricular tachycardia) Mass of upper lobe of right lung Primary hypertension Hyperlipidemia, unspecified hyperlipidemia type Coronary artery calcification Non-small cell cancer of right lung Results Labs - Hemoglobin: 06/17/2025, 8.5 g/dL - Platelet Count: 06/17/2025, 294 x10 9 /L - Potassium: 06/17/2025, 3.0 mmol/L - Creatinine: 06/17/2025, 0.6 mg/dL - Troponins: Negative - NT BNP: 2330 pg/mL Imaging - Echocardiogram: 03/07/2025, Preserved LV systolic function, moderate LVH, no significant valve abnormalities noted Diagnostic Testing - EK06/15/2025, strips reviewed Atrial flutter with rapid ventricular response with heart rate of 150 bpm Assessment & Plan 1. Palpitations: - Recurrent SVT versus recurrent atrial flutter with RVR episodes noted. - Currently on i.v. amiodarone drip, recommend to complete for 24 hours followed by p.o. amiodarone 2 mg b.i.d. - Currently on Lopressor 50 b.i.d. May consider changing the metoprolol tartrate 50 b.i.d. to Toprol-XL 25 b.i.d. - Continue with the current dose of Eliquis 5 mg b.i.d. as initiated previously. - Recommended outpatient EP evaluation for consideration for further EP studies and ablation. If flutters confirmed, may benefit from Watchman device in the future. Recent Labs 06/16/25 1524 06/17/25 0543 TROPNI 0.003 0.003 NT-proBNP (pg/mL) Date Value 06/17/2025 2,330 (H) 2. Anemia: - Drop in hemoglobin noted. - Treatment/workup with primary team and oncology team. - Continue with Eliquis 5 mg b.i.d. in the setting of possibility of underlying paroxysmal atrial flutter. 3. Hypertension: - Stable currently on metoprolol tartrate 50 b.i.d. - May consider reducing the dose of metoprolol tartrate to 50 with metoprolol succinate to 25 b.i.d. based upon the blood pressure response. 4. Dyslipidemia: - Currently on Lipitor 40 mg daily. LDL CHOL (mg/dL) Date Value 06/14/2025 75 5. Lung adenocarcinoma: - Treatment/workup as per primary team and oncology team. Follow-up: Anticipate discharge in a.m. tomorrow if maintaining sinus rhythm. Quick EP follow-up within 1 to 2 weeks and consider outpatient 30-day event monitor as recommended by the previous discharge summary. Total Visit Time: 60 mins The total Visit time for today's visit with Lisset Valle encompassed 60 minutes. Time was spent reviewing the chart before, during and after the visit, reviewing laboratory results, taking interval history, performing the documented physical examination, completing and "cleaning up" the electronic medical record as well as addressing any questions and concerns. The time spent for patient care includes: PreCharting (eg, review of tests, notes, etc.), Obtaining and/or reviewing separately obtained history (Care Everywhere or paper records), Counseling and educating the patient/family/caregiver, Ordering medications, tests, or procedures, Ordering referrals and/or communicating with other health day care aide (when not separately reported), Documenting clinical information in the electronic or other health record, and Independently interpreting results (not separately reported) and/or communicating results to the patient/family/caregiver, and personally reviewing cardiac imaging, ECG, tele monitor. This report was dictated using Mertado and is subject to voice recognition errors. Please excuse any unusual inaccuracies. My diagnostic impression and treatment plans were discussed at length with the patient and family member present. All side effects as well as drug-drug interactions and risks discussed at length. Ample opportunity was offered and encouraged to ask questions during this visit and patient appreciated the answers given by me and verbzalised statisfcation in the answers given. Thank you for allowing us to participate in the care of Lisset Valle. If you have any questions or concerns please feel free to call our office at [phone]. I would be happy to be of further assistance for Lisset Valle wellbeing. Voice recognition software has been used to create portions of this document. An attempt to proofread has been made to minimize errors. Please do not hesitate to call with any questions. Lilian Nance MD 06/17/2025 8:08 AM Mold Shifter, Division of Cardiology [facility] 2025-03-08 10:15:00 Associated Order(s): CONSULT ADULT OCCUPATIONAL THERAPY OT GENERAL EVALUATION Consult received via [employer], EMR reviewed and evaluation completed 03/08/25. Patient referred to occupational therapy for evaluation and treatment secondary to SVT ( Supraventricular tachycardia). Patient agreeable to participate in occupational therapy. Patient found semireclining in bed and Heels offloaded? No: not required as patient is alert and oriented, as well as exhibits sufficient LE strength and ability to move/reposition LEs/heels throughout the day, Daughter present. Discharge Recommendations: Therapy Needs and Potential:Not applicable as no further skilled acute care OT needs at this time. - Patient able to follow commands: 1-step Yes, Multi-step Yes, Inconsistencies No Challenges to Home Transition:- Requires supervision or verbal cues for IADLS - Increased risk of falls Equipment Recommendations:Shower chair, Grab bars, and Hand held shower PLAN OF CARE: Discharge from OT services Precautions: Weight bearing status: NA General: PPE Utilized: Gloves and Fall, peripheral IV, telemetry. Bracing: N/A Subjective: Patient received semi relined in bed. Agreeable to occupational Therapy evaluation. Current Occupational Performance and/or Treatment: AM-PAC 6 Clicks (Raw Score 0=Dependent, 24=Independent; Low function Raw Score 0= Dependent, 32=Independent): Raw Score - Daily Activity: 24 T-Scale Score - Daily Activity: 57.54 Feeding: Independently able to feed self ( observed sitting up in during breakfast). Grooming: Independently able to perform simple grooming task ( washing face) while sitting EOB. UB Dressing: Independently able to don hospital gown, while sitting EOB. LB Dressing: Independently able to don non skid socks, utilizing figure four technique, while sitting EOB Toilet Transfer: Independent bed to and from commode holding onto IV pole. Functional Mobility: HOB elevated. Able to transition from sup to sit EOB independently. Transitions from sit to stand supervision, amb to/from bathroom independently. Verbal cues provided for body mechanics and safety. Patient/caregiver educated on:Adaptive equipment , ADL training, Fall prevention, General strengthening, Role of OT, and Safety awareness Patient left semireclining in bed with call kline in reach. Daughter present. Please, see full evaluation below for more detail. OT EVALUATION: 74 year old female Admit date: 03/06/2025 Date of onset: 03/06/2025 Admit Diagnosis: SVT (supraventricular tachycardia) [I47.10] OT Diagnosis: Impaired IADL independence PMH: Past Medical History: Diagnosis Date Acid reflux Essential (primary) hypertension PSH: No past surgical history on file. PAIN: Denies pain before and after session. OCCUPATIONAL ROLES/HOME ENVIRONMENT: Home environment: Lives with daughter, 13/06 supervision/assistance is not available, and Single story home. Bathroom access: Yes Bathroom setup: Combo Occupation(s): Retired Function prior to admission: Household ambulation, Community ambulation, Independent with BADLs, and Independent with IADLs Suspected ischemic or hemorraghic stroke patient: No Equipment prior to admission: None PERFORMANCE SKILLS/FACTORS: UE Muscle Tone: bilateral WNL UE ROM: bilateral AROM WFL UE Strength: EVARISTO UE 4/5 Hand dominance: right Dexterity/Coordination: bilateral Fine motor skills Intact , bilateral Gross motor skills Intact , and bilateral Finger to nose Intact Endurance - Sitting: Fair Standing: Fair Sitting Balance - Static: Fair Dynamic: Fair Standing: Balance - Static Fair Dynamic: Fair Dizziness: No Skin Integrity: No breakdown noted and defer full skin assessment to nursing Sensation: bilateral Intact to light touch Oral Motor: Poor dentition Communication: Able to verbalize needs Yes Other: N/A Vision: WFL Yes Other: reading glasses Hearing: good; no issues reported COGNITION: Orientation: person, place, date/time, and situation Follows Commands: 1-step Yes Multi-step Yes Inconsistencies Yes Safety Awareness/Judgment: Fair PROBLEM LIST: Decreased independence with ADL REHAB POTENTIAL/PROGNOSIS: NA as no further therapy needs PATIENT/FAMILY GOALS: to go home TREATMENT/INTERVENTION PLAN: Discharge from OT PATIENT-FAMILY TEACHING Patient provided with preferred teaching of verbal information on Adaptive equipment , ADL training, Fall prevention, General strengthening, Role of OT, and Safety awareness. Shows readiness to learn. Verbal instruction teaching provided. Individual verbalizes understanding of teaching provided. Cydney Ann OTR *This may not be patient's primary therapist. Please contact the Rehab Department at [phone] with questions. Total Timed Treatment Codes: 4 Min Total Treatment Time: 23 Min Patient Complexity Level Moderate - An occupational therapy evaluation of moderate complexity was completed using the above tests and measures. The following information was obtained: An occupational profile and medical and therapy history, including an expanded review of medical and/or therapy records and additional review of physical, cognitive, or psychosocial history related to current functional performance, Various standardized and non-standardized assessments were used to identify at least 3-5 performance deficits related to physical, cognitive, or psychosocial skills that result in activity limitations and/or participation restrictions, and Clinical decision making of moderate analytic complexity, which includes an analysis of the occupational profile, analysis of data from detailed assessment(s), and consideration of several treatment options. Patient may present with comorbidities that affect occupational performance. Minimal to moderate modification of tasks or assistance (e.g., physical or verbal) with assessment(s) is necessary to enable patient to complete evaluation component. Reji Ann OT [facility] 2025-03-07 15:08:08 Associated Order(s): CONSULT CARDIAC ELECTROPHYSIOLOGY Images from the original note were not included. Cardiac EP Consult Note Service: [facility] Reason for Consultation: Syncopal episode. EKG at OSH showin SVT with HR 150-160 and PVCs Date of Service: 03/07/2025 CHIEF COMPLAINT: Syncope HISTORY OF PRESENT ILLNESS Lisset Valle is a 74 year old female with a PMHx of HTN, HLD, and tobacco use who presents as a transfer from [facility] after she sustained a syncopal episode. At OSH patient went into SVT which improved after 12mg adenosine and subsequent 50mg lopressor. Patient reports she was doing yardwork with her sister when she passed out. No preceding symptoms. No tongue biting, incontinence, limb shaking, post-ictal confusion. Her sister witnessed the event, and after the patient passed out her sister moved her into a chair. It took about 1-2 minutes before the patient came to. Patient denies that she has any prior chest pain, SOB, presyncope, dizziness, lightheadedness. Does reports intermittent palpitations that occur less than weekly. Continues to smoke cigarettes. Reports night sweats and self-denies weight loss. However patient's daughter reports her mother is losing weight. Daughter also reports she notices her mother has FERRERA nowadays, where at the moment she has FERRERA from bed to bathroom, while 1 year ago she could walk indefinitely. Past Medical History: Past Medical History: Diagnosis Date Acid reflux Essential (primary) hypertension Past Surgical History: No past surgical history on file. Family History: Family History Problem Relation Age of Onset Stroke Mother Hypertension Mother Diabetes Mother Hypertension Father Alcohol/Drug Father Cancer Father Diabetes Sister Hypertension Sister Diabetes Brother Hypertension Brother Allergies: No Known Allergies Medications: Current Facility-Administered Medications Medication Dose Route Frequency Last Rate Last Admin acetaminophen (TYLENOL) tablet 650 mg 650 mg Oral Q6HPRN atorvastatin (LIPITOR) tablet 40 mg 40 mg Oral QHS heparin (porcine) injection 5,000 Units 5,000 Units Subcutaneous Q12H 5,000 Units at 03/07/25 0807 metoprolol tartrate (LOPRESSOR) tablet 25 mg 25 mg Oral BID 25 mg at 03/07/25 0807 Social History: Social History Socioeconomic History Marital status: Spouse name: Not on file Number of children: Not on file Years of education: Not on file Highest education level: Not on file Occupational History Not on file Tobacco Use Smoking status: Every Day Current packs/day: 1.00 Average packs/day: 1 pack/day for 40.0 years (40.0 ttl pk-yrs) Types: Cigarettes Passive exposure: Current Smokeless tobacco: Current Substance and Sexual Activity Alcohol use: Not Currently Drug use: Not Currently Sexual activity: Not on file Other Topics Concern Not on file Social History Narrative Not on file Social Drivers of Health Financial Resource Strain: Low Risk (03/16/2023) Overall Financial Resource Strain (CARDIA) Difficulty of Paying Living Expenses: Not hard at all Food Insecurity: No Food Insecurity (03/07/2025) NCSS - Food Insecurity Worried About Running Out of Food in the Last Year: No Ran Out of Food in the Last Year: No Transportation Needs: No Transportation Needs (03/07/2025) NCSS - Transportation Lack of Transportation: No Physical Activity: Sufficiently Active (03/16/2023) Exercise Vital Sign Days of Exercise per Week: 7 days Minutes of Exercise per Session: 60 min Stress: Not on file Social Connections: Unknown (03/16/2023) Social Connection and Isolation Panel [NHANES] Frequency of Communication with Friends and Family: More than three times a week Frequency of Social Gatherings with Friends and Family: Not on file Attends Rastafarian Services: Not on file Active Member of Clubs or Organizations: Not on file Attends Club or Organization Meetings: Not on file Marital Status: Housing Stability: Not At Risk (03/07/2025) NCSS - Housing/Utilities Has Housing: Yes Worried About Losing Housing: No Unable to Get Utilities: No REVIEW OF SYSTEMS 12 points ROS were obtained and negative except mentioned in HPI PHYSICAL EXAMINATION Temp: [36.2 ?C (97.1 ?F)-37.2 ?C (98.9 ?F)] Heart Rate (monitor): [64-83] Pulse: [65-84] Resp: [17-20] BP: (130-165)/(57-74) MAP (mmHg): [81-103] Vitals: 03/07/25 0400 03/07/25 0541 03/07/25 0804 03/07/25 1126 BP: (!) 145/62 (!) 143/74 130/57 BP Location: Left arm Patient Position: Sitting Pulse: 76 82 65 Resp: 18 17 20 Temp: 36.8 ?C (98.2 ?F) 36.9 ?C (98.4 ?F) SpO2: 100% 99% 100% Weight: 52 kg (114 lb 9.6 oz) Height: Telemetry: SR with ventricular bigeminy and PVC's, also with PAC's without ventricular conduction General: In NAD Lungs: CTAB Cardio: Regular S1 and S2, no m/g/r Abdomen: soft, NT ND Extremities: No edema, warm to touch Labs/Imaging/Pathology - reviewed A1C Last Two A1C Results ([facility]/LC, POCT, [facility]) Recent Labs 03/06/25 230 HGBA1C 6.0* LDL LDL CHOL (mg/dL) Date Value 03/06/2025 38 Iron No results found for: "IRON" Ferritin @RECENTLAB(ferritin)@ TSH Recent Labs 03/06/25 2302 TSH 0.32* EKG : at OSH TTE pending Stress Testing NST 02/2023: IMPRESSION Normal myocardial perfusion after pharmacologic stress test. There is no ischemia. Normal left ventricular function. 30 day monitor 04/2023: Diagnostic monitored time about 5 days Baseline rhythm was normal sinus rhythm with narrow QRS complex. Frequent PVCs (9% burden) Intermittent 2nd degree type 2 AV block (rates down to 36 BPM) Episodes of PSVT vs flutter with rates up to 162 BPM (longest 32 seconds) Confirmed by WALLY CHEUNG MD ([id number]) on 04/23/2023 11:25:54 AM ASSESSMENT/PLAN Lisset Valle is a 74 year old female with PMH as listed above. EP was consulted for: SVT | Syncope HTN | HLD Current Smoker RUL Mass, likely malignancy Low TSH Prediabetes Patient presenting with syncope. At OSH EKG showed SVT that improved with adenosine and metoprolol, however it is unusual for SVR to cause syncope. Had 30d monitor in 2022 that showed intermittent 2nd degree type 2 block and either pSVT vs flutter but does not appear that patient followed up after. Further review of 30d monitor from 2022 shows no actual 2nd degree type 2 block, but instead PAC's without ventricular conduction. Patient also has lung mass favoring malignancy. In this case, will recommend medical management and can do SVT ablation if sustains SVT despite medications. Also given lung mass, would benefit from consideration of mass compression of SVC as etiology of syncope Recommendations: - agree with lopressor 25mg bid -If patient refractory to medical management and sustaining SVT, then will consider ablation - Recommend obtaining T4+T3 to further characterize low TSH - No need for heart monitor on d/c - F/u TTE - Work up lung mass - F/u CT PE -Consider further imaging to see if lung mass is compressing SVC as etiology of syncope - F/u EP clinic Dr. Martin 4-6 weeks - Telemetry monitoring - Optimize electrolytes. Keep K>4, Mg>2. - EP will sign off. Discussed with Dr. Martin. Please call with any questions. Lazaro Lucas MD Internal Medicine, PGY-2 [facility] Team Cosigned by Randall Martin MD at 03/08/2025 9:50 AM CDT Associated attestation - Randall Martin MD - 03/08/2025 9:50 AM CDT Addendum Note from Cardiac Electrophysiology Attending: After discussion with senior embedded software engineer/resident, I examined this patient on the date note was written. I agree with fellow's note as written. The time spent was 75 minutes for patient care which includes: precharting by reviewing EKGs and prior blood work-up as well as monitor results, obtaining and reviewing her medical chart as well as prior encounters, performing a full comprehensive medical exam and evaluation, discussing a cardiac procedure, documenting clinical information onto this electronic medical chart and independently interpreting prior results with communicating these results to the patient. I appreciate the opportunity to participate in the care of this patient. Sincerely, Randall Martin MD Cardiac Electrophysiology INTERNAL MEDICINE [facility] 2025-03-07 13:36:25 Associated Order(s): CONSULT CARDIOLOGY Cardiology Consult Note Date of Service: 03/07/2025 13:36 Time: 1:36 PM Service: Medicine Chief Complaint: Syncope Reason for consult: SVT History of Present Illness: Lisset Valle is a 74 year old female with a PMHx of HTN, HLD, tobacco use who presents with syncopal episode onset yesterday. She was doing yard work outside yesterday and took some time to rest on her porch when she collapsed. She denies lightheadedness/dizziness prior to fall. She lost consciousness for a couple of minutes. She denies residual symptoms after regaining consciousness, denies confusion, headache, disorientation. Her daughter saw the episode and called EMS. She was taken to [facility] ED where she was found in SVT with rate of 160-170s. EKG showed ST depressions. She was given IV adenosine 12 mg which converted her to NSR. Was started on PO Metoprolol 50 mg with achievement of rate control. Today, she denies chest pain, SOB, palpitations or lightheadedness, orthopnea, leg swelling. She states feeling fatigued and has intermittent episodes of cough. Previous cardiac history of being admitted to cardiology in February 2023 for left sided chest pain. At that time, troponins negative, EKG w/o ischemic change. Had underwent NM stress test, negative for ischemia and then discharged with event monitor. Event monitor for 1 week showed sinus rhythm with intermittent slowing of her heart rate alternating with some rapid rates and possible atrial flutter. She was recommended to follow up with EP but was unable to due to cost. ROS: Per HPI Past Medical History: Diagnosis Date Acid reflux Essential (primary) hypertension No past surgical history on file. Family History Problem Relation Age of Onset Stroke Mother Hypertension Mother Diabetes Mother Hypertension Father Alcohol/Drug Father Cancer Father Diabetes Sister Hypertension Sister Diabetes Brother Hypertension Brother Social History Socioeconomic History Marital status: Tobacco Use Smoking status: Every Day Current packs/day: 1.00 Average packs/day: 1 pack/day for 40.0 years (40.0 ttl pk-yrs) Types: Cigarettes Passive exposure: Current Smokeless tobacco: Current Substance and Sexual Activity Alcohol use: Not Currently Drug use: Not Currently Social Drivers of [employer] Financial Resource Strain: Low Risk (03/16/2023) Overall Financial Resource Strain (CARDIA) Difficulty of Paying Living Expenses: Not hard at all Food Insecurity: No Food Insecurity (03/07/2025) NCSS - Food Insecurity Worried About Running Out of Food in the Last Year: No Ran Out of Food in the Last Year: No Transportation Needs: No Transportation Needs (03/07/2025) NCSS - Transportation Lack of Transportation: No Physical Activity: Sufficiently Active (03/16/2023) Exercise Vital Sign Days of Exercise per Week: 7 days Minutes of Exercise per Session: 60 min Social Connections: Unknown (03/16/2023) Social Connection and Isolation Panel [NHANES] Frequency of Communication with Friends and Family: More than three times a week Marital Status: Housing Stability: Not At Risk (03/07/2025) NCSS - Housing/Utilities Has Housing: Yes Worried About Losing Housing: No Unable to Get Utilities: No No Known Allergies Prior to Admission medications Medication Sig Start Date End Date Taking? Authorizing Provider atorvastatin 40 mg tablet Take 1 tablet by mouth at bedtime. 03/16/23 Yes Nikki Paulino MD Cholecalciferol, Vitamin D3, 50 mcg (2,000 unit) tablet Take 50 mcg by mouth. 01/04/23 Yes Doctor Unassigned, [place] lisinopriL 10 mg tablet Take 1 tablet by mouth. 01/04/23 Yes Doctor Unassigned, [place] Current Facility-Administered Medications: acetaminophen (TYLENOL) tablet 650 mg, 650 mg, Oral, Q6HPRN, Crooks, Gil N, DO atorvastatin (LIPITOR) tablet 40 mg, 40 mg, Oral, QHS, Crooks, Gil N, DO heparin (porcine) injection 5,000 Units, 5,000 Units, Subcutaneous, Q12H, CrooksGil newell N, DO, 5,000 Units at 03/07/25 0807 metoprolol tartrate (LOPRESSOR) tablet 25 mg, 25 mg, Oral, BID, Crooks, Gil N, DO, 25 mg at 03/07/25 0807 Physical Examination: Temp: [36.2 ?C (97.1 ?F)-37.2 ?C (98.9 ?F)] Heart Rate (monitor): [64-83] Pulse: [65-84] Resp: [17-20] BP: (130-165)/(57-74) MAP (mmHg): [81-103] No intake or output data in the 24 hours ending 03/07/25 1336 General: no apparent distress HEENT: Normocephalic, atraumatic Cardiovascular: RRR, no murmurs, no JVD Respiratory: CTAB Abdomen: Soft, nondistended, no TTP Skin: intact, warm, dry Extremities: no clubbing, cyanosis, or edema Neuro/Psych: no focal deficits Labs/Imaging/Pathology - Reviewed EKG: Sinus Rhythm with PACs and PVCs Echocardiography: pending Nuclear imaging 02/23/23: Normal myocardial perfusion after pharmacologic stress test. There is no ischemia. Normal left ventricular function. Cardiac Cath: none on file Assessment/Plan: Lisset Valle is a 74 year old female admitted with: SVT | Syncope, likely arrhythmogenic HTN | HLD Current Smoker RUL Mass, likely malignancy Currently NSR, euvolemic, angina free. Recommendations: -Please obtain OSH records of SVT (specifically EKGs and strips) -> once available consult EP -arrhythmia may be easily ablatable prior to any procedure -Lopressor 25 BID -telemetry, K>4, Mg>2 -TTE -would benefit from biopsy of RUL mass Thank you for your consult. Discussed with Dr. More. Cardiology will continue to follow. Richmond Dillard MD Cardiovascular Medicine Fellow Cosigned by Lidia Iniguez MD at 03/07/2025 10:00 PM CDT Associated attestation - Lidia Iniguez MD - 03/07/2025 10:00 PM CDT I personally saw and examined the patient on the noted date of service and agree with the fellow's note as written. Lidia More MD, FACShaniqua, [facility] Cardiology Faculty CARDIOVASCULAR DISEASE [facility] - Health 2025-03-07 00:17:00 Associated Order(s): CONSULT ADULT PHYSICAL THERAPY Patient agreeable to working with physical therapy. Patient in semichair position in bed , grand daughter present in the room . Recommend nursing staff utilize supervision to safely assist patient with mobility out of the bed or chair. PHYSICAL THERAPY EVALUATION Consult received, chart reviewed and evaluation complete this date. Patient is referred to PT for evaluation and treatment. Patient is a 74 year old female who presents to hospital for SVT (supraventricular tachycardia) [I47.10] . Discharge Recommendations: Therapy Needs and Potential: Patient without any skilled PT needs at this time. Challenges to Home Transition: None Equipment recommendations: no device Current Functional Status and/or Treatment: AM-PAC 6 Clicks (Raw Score 0=Dependent, 24=Independent; Low function Raw Score 0= Dependent, 32=Independent): Raw Score - Basic Mobility : 23 T-Scale Score - Basic Mobility : 50.88 Bed Mobility: Supine-sit: Independent Sitting at the edge of bed: independent, sit to supine: independent Dizziness no Transfers: Sit to stand: Independent using no device Stand to sit: Independent using no device Dizziness No Ambulation: Assisted patient with ambulation as follows: 300 feet using no device and Independent. Dizziness No Therapeutic exercise: instructed patient in the following: ankle pumps, heel slides, hip abduction/adduction 10x After session, patient reclining in bedside chair, grand daughter present . Call button provided. Rn notified of patient status PLAN OF CARE: PT signs off. See below for complete details. Admit Date: 03/06/2025 Hospital Diagnosis:SVT (supraventricular tachycardia) [I47.10] PT Diagnosis: Difficulty walking and Weakness Weight Bearing Precaution: NA General Precautions: PPE used:Gloves, General, Fall, Lines/Tubes,IV peripheral Bracing/Cast present or required:N/A PMH: Past Medical History: Diagnosis Date Acid reflux Essential (primary) hypertension PSH: No past surgical history on file. PRIOR LIVING SITUATION: lives in a single story house with 3 steps to enter with no hand rails DME: No device Prior level of Mobility: community ambulation Suspected ischemic or hemorraghic stroke:No Subjective: Patient states that she was independent prior to hospitalization Patient/Family Goals: to get better Patient/Family verbalizes understanding of condition: Yes PAIN: denies pain before and after session COMMUNICATION Primary Language: Polish Able to Verbalize needs: Yes Vision:good; no issues reported Hearing:good; no issues reported ORIENTATION/COGNITION: Oriented to: person, place, date/time, and situation Awake: Yes Alert: Yes Dizzy: No Follows Commands: Yes 1-Step Yes Multi-Step Yes Inconsistent: No NEUROLOGICAL Light Touch: within functional limits bilateral LE Tone: normal BALANCE: Sitting: Static: Good Dynamic: Fair+ Standing: Static: Fair+ Dynamic: Fair RANGE OF MOTION: within functional limits bilateral LE, STRENGTH: 3+/5 (F+), Rt LE , 4+/5 left LE ENDURANCE: Fair, Room air SKIN INTEGRITY: defer to nursing notes PROBLEM LIST: patient has no acute PT needs at this time ASSESSMENT: Patient is a 74 year old female seen secondary to the above listed diagnosis. No further inpatient PT needs identified at this time. Rehabilitation Potential: good Goals: The following goals are to maximize independence and safety with functional mobility to eventually return to prior living situation and prior functional status. Defer as no PT needs. Treatment Plan: Evaluation only and Discharge from PT PATIENT EDUCATION: Patient provided with preferred teaching of verbal information on role of PT, plan of care. Shows readiness to learn. Verbal instruction teaching provided. Individual verbalizes understanding of teaching provided. Total Time Tx Codes in Minutes: 0 min Total Treatment Time in Minutes: 15 min Cecil BergerPT, DPT, CCS Board-Certified Clinical Specialist in Cardiovascular and Pulmonary Physical Therapy Cecil Berger PT [facility] - Health History and Physical Notes Date/Time Note Provider Source 2025-07-12 03:13:26 Medicine History & Physical Date of Service: 07/12/2025 Pt presents from: Home CC: Chest pain History of Present Illness: Lisset Valle is a 74 year old female with past md hx including hypertension, GERD, atrial fibrillation on Eliquis, stage II non-small cell lung carcinoma status post port placement that presents to the ED for chest pain. Per patient she developed chest pain approximately 1 day ago and due to the pain she decided come to ED for evaluation. Patient does not wish to participate with exam questions. She does indicate she is semicompliant with home medications and cannot name her home medications either. Emergency department she was noted to have A-fib with RVR requiring 1 push of Cardizem IV and transition in the ED to Cardizem p.o. Initial labs show no leukocytosis. She is noted to be anemic with a hemoglobin of 10.4 g/dL normocytic in nature. Initial chemistry shows patient to have potassium 2.6 mmol/L with an elevated proBNP. Chest x-ray shows bilateral minimal pleural effusion with atelectasis also showing right upper lung mass. Hospitalist called for admission. ROS: Pt denies F / N / V / D / Constipation / CP / SOB / cough / Abd pain / dysuria / hematuria / melena / hematochezia / rashes / suicidal or homicidal ideation / All others negative Review of Hx/Meds: PMH: Past Medical History: Diagnosis Date Acid reflux Essential (primary) hypertension PSH: has a past surgical history that includes robotic assisted bronchoscopy (shx) (N/A, 05/02/2025) and endobronchial ultrasound-transbronchial fna (shx) (Bilateral, 05/02/2025). Family Hx: Noncontributory unless mentioned above Social History Tobacco Use Smoking status: Former Current packs/day: 1.00 Average packs/day: 1 pack/day for 40.0 years (40.0 ttl pk-yrs) Types: Cigarettes Passive exposure: Current Smokeless tobacco: Never Tobacco comments: Smokes 1 each per day 10 yrs ago stopped smoking Substance Use Topics Alcohol use: Not Currently Drug use: Not Currently Current Scheduled Medications Current IV Current Facility-Administered Medications: apixaban (ELIQUIS) tablet 5 mg, 5 mg, Oral, BID, Antonette Moeller DO atorvastatin (LIPITOR) tablet 40 mg, 40 mg, Oral, QHS, Antonette Moeller DO metoprolol tartrate (LOPRESSOR) tablet 75 mg, 75 mg, Oral, BID, Antonette Moeller DO diltiazem (CARDIZEM) tablet 30 mg, 30 mg, Oral, Q6H, Josh Connolly DO, 30 mg at 07/12/25 0148 Objective: Vitals: Vitals: 07/11/25 2300 07/11/25 2336 07/12/25 0000 07/12/25 0200 BP: 110/53 114/57 106/50 Pulse: 86 83 86 Resp: Temp: 37.3 ?C (99.1 ?F) 37.1 ?C (98.7 ?F) 36.8 ?C (98.2 ?F) TempSrc: Tympanic Tympanic SpO2: 95% 96% 98% Weight: 48 kg (105 lb 12.8 oz) Height: 1.575 m (5' 2") I/O's: Intake/Output Summary (Last 24 hours) at 07/12/2025 0313 Last data filed at 07/12/2025 0200 Gross per 24 hour Intake 1000 ml Output -- Net 1000 ml Physical Exam: General: NAD, Alert, lying in bed comfortable, cogent speech. HEENT: anicteric, oral mucosa dry Neck: supple, no JVD, no bruits. Chest: CTA B/L, no W/R/C. Heart: RRR, S1/S2, no M/G/R Abdominal: BS normoactive, soft, ND, NT. Skin/Extremities: no rash, no cyanosis, warm and dry, no LE edema. Neurological: CN II-XII grossly intact, no focal deficits. Labs: BMP:BMP NA (mmol/L) Date Value 07/11/2025 136 06/18/2025 134 (L) 06/17/2025 134 (L) 06/17/2025 134 (L) 06/16/2025 136 K (mmol/L) Date Value 07/11/2025 2.6 (LL) 06/18/2025 3.4 (L) 06/17/2025 3.1 (L) 06/17/2025 3.0 (L) 06/16/2025 3.8 CALCIUM (mg/dL) Date Value 07/11/2025 8.7 06/18/2025 9.1 06/17/2025 9.0 06/17/2025 9.0 06/16/2025 9.3 CL (mmol/L) Date Value 07/11/2025 102 06/18/2025 108 06/17/2025 106 06/17/2025 109 (H) 06/16/2025 110 (H) BUN (mg/dL) Date Value 07/11/2025 16 06/18/2025 10 06/17/2025 9 06/17/2025 6 (L) 06/16/2025 7 CREATININE (mg/dL) Date Value 07/11/2025 0.94 06/18/2025 0.73 06/17/2025 0.89 06/17/2025 0.67 06/16/2025 0.66 GLUCOSE (mg/dL) Date Value 07/11/2025 139 (H) 06/18/2025 104 06/17/2025 147 (H) 06/17/2025 86 06/16/2025 91 CO2 TOTAL (mmol/L) Date Value 07/11/2025 24 06/18/2025 18 (L) 06/17/2025 16 (L) 06/17/2025 17 (L) 06/16/2025 17 (L) CBC:CBC WBC (10*3/?L) Date Value 07/11/2025 9.38 RBC (10*6/?L) Date Value 07/11/2025 3.65 (L) PLT (10*3/?L) Date Value 07/11/2025 399 (H) HGB (g/dL) Date Value 07/11/2025 10.4 (L) HCT (%) Date Value 07/11/2025 32.2 (L) BMP:Hepatic Function Panel ALBUMIN (g/dL) Date Value 07/11/2025 3.4 (L) T PROTEIN (g/dL) Date Value 07/11/2025 6.7 TOTAL BILI (mg/dL) Date Value 07/11/2025 0.5 BILI UNCON (mg/dL) Date Value 03/06/2025 0.5 BILI CONJ (mg/dL) Date Value 03/06/2025 0.0 ALT(SGPT) (U/L) Date Value 08/15/2017 33 ALTv (U/L) Date Value 07/11/2025 10 AST(SGOT) (U/L) Date Value 07/11/2025 17 ALK PHOS (U/L) Date Value 07/11/2025 76 Troponin: Recent Labs 07/11/25 2002 TROPNI 0.004 I have reviewed all relevant labs Imaging: XR Chest 1 vw Result Date: 07/11/2025 Ordering physician: JOSH CONNOLLY Indication: Shortness of breath Comparison: Chest dated 06/17/2025, CT chest dated 03/06/2025 Technical quality: Adequate Findings: Single AP view of the chest. The cardiopericardial silhouette is stably enlarged. Left-sided port catheter terminates in the distal SVC. There is a grossly stable mass in the right upper lung, measuring approximately 5.0 cm. There are minimal bilateral pleural effusions with bibasilar atelectasis. The visualized bony thorax is intact. Impression: Stable cardiomegaly. Minimal bilateral pleural effusions with bibasilar atelectasis. Grossly stable mass in the right upper lung, measuring approximately 5.0 cm. END REPORT RL: [id number] AFC: [id number] MYOCARDIUM PERFUSION STRESS AND REST Result Date: 07/02/2025 Pharmacological stress myocardial perfusion imaging report Type: Technetium 99 labeled Myoview rest/stress single isotope SPECT imaging with Ragadenoson pharmacological stress and gated SPECT imaging. Indication: dyspnea, preop cardiac evaluation Procedure: Pharmacological stress test was performed with a bolus dose of 0.4 mg of Ragadenoson. Gated myocardial perfusion imaging was performed at rest following the injection of 15.5 millicuries of technetium labeled Myoview and post stress following the injection of 44 millicuries of technetium labeled tetrofosmin. Findings: The overall quality of the study was good. Stress EKG revealed no inducible ischemia, reported separately. SPECT images demonstrate homogeneous tracer distribution throughout the myocardium. TID 0.91. Gated SPECT images demonstrate normal wall motion and myocardial thickening. Stress Values: EDV = 49 mL; ESV = 10 mL; EF = 80%. Rest Values: EDV = 54 mL; ESV = 17 mL; EF = 68%. Impression: Normal myocardial perfusion scan with preserved ejection fraction and normal wall thickening. I was present for the stress procedure. MR Brain w wo contrast Result Date: 06/27/2025 EXAM: MR BRAIN W WO CONTRAST HISTORY: Lung cancer TECHNIQUE: Multiplanar and multisequence MRI imaging of the brain was obtained before and after the administration of intravenous contrast. COMPARISON: 05/14/2025. FINDINGS: The ventricles and cerebral sulci are unchanged in caliber and configuration. Areas of chronic ischemic change are redemonstrated. There is no abnormal enhancement to suggest metastasis. No evidence of metastasis. Preliminary Report Dictated by Resident: Angelica Lee I, Som Reed MD., have reviewed this study and agree with the above report. XR Chest 1 vw Result Date: 06/17/2025 EXAM: XR CHEST 1 VW HISTORY: 74 years-old Female with cough . TECHNIQUE: Single frontal view of the chest. COMPARISON: multiple priors most recent 06/13/2025 FINDINGS/IMPRESSION: Lines, tubes and devices: None. Lungs and pleura: The lungs are adequately expanded. Bibasilar atelectasis. Redemonstrated right upper lobe mass. Right perihilar aspect visualized. No pleural effusion, or pneumothorax. Heart/Mediastinum: The cardiac silhouette appears normal accounting for technique and degree of inspiration. There are vascular calcifications aortic arch patient's Bones and soft tissues: No acute osseous abnormality is visualized. IMPRESSION: No acute cardiopulmonary process. Redemonstrated is right upper lobe mass. IImelda MD., have reviewed this study and agree with the above report. IR Centrally inserted device tunneled catheter with port 5 or older Result Date: 06/13/2025 EXAMINATION: PORT PLACEMENT USING ULTRASOUND AND FLUOROSCOPIC GUIDANCE. HISTORY: port a cath placement for chemotherapy FACULTY: Dr. Kavin Buenrostro SEDATION: The patient did not require conscious sedation for the procedure. RADIATION DOSE: 1.1 mGy. TECHNIQUE: The risks, benefits and alternatives were discussed and informed consent was obtained. Prior to beginning the procedure, Hamel Protocol was used to confirm the patient's identity and planned procedure. Maximum sterile barriers including cap, mask, hand hygiene, sterile gloves, sterile gown, large sterile drape and cutaneous antisepsis were used. Prior to the procedure, the central veins were evaluated by ultrasound, and an image was recorded and saved in PACS. The skin over the left internal jugular vein was sterilely prepped, draped and infiltrated with 1 percent lidocaine. The vein was accessed with a 21 gauge needle using realtime ultrasound guidance. A guidewire and catheter were then passed centrally using fluoroscopic guidance. The intravascular length from the access site to the right atrium was then assessed. After infiltrating the skin in the subclavicular region with 1 percent lidocaine, a short transverse incision was made and the pocket for the port reservoir was formed by blunt dissection. The catheter was tunneled to the IJ access site, cut to the appropriate length, 25 cm, and inserted through a peel-away sheath. The catheter was flushed with 100 U/mL heparin and the access needle was left in place. The deep tissues were approximated using 3-0 Vicryl, and the incision closed using Dermabond, and Steri-Strips. The incision in the lower neck was closed with Dermabond. ESTIMATED BLOOD LOSS: Less than 10 mL. DISCHARGED TO: Outpatient recovery and then discharged. CONDITION: Stable. FINDINGS: Ultrasound image shows a patent vein in the lower neck. The final fluoroscopic image demonstrates the catheter with its tip at the superior cavoatrial junction. No complications are seen. Successful left chest wall port placement (7F-25 cm). PLAN: The port is ready for immediate use. Please note that a power injectable port was placed. When treatment is completed, removal can be scheduled by calling [facility]IR. [facility]: [phone]. [facility]: [phone]. CT Chest pulmonary angiogram Result Date: 06/13/2025 PROCEDURE: CT CHEST WITH CONTRAST- CHEST PE PROTOCOL CLINICAL INDICATION: Shortness of breath and tachycardia. PE suspected, high pretest prob Comparison: CT chest dated 05/02/2025 TECHNIQUE: Volumetric helical CT angiogram was performed of the chest (lung apices to bases) with IV contrast. Images were reconstructed at 1.25 mm slice thickness. Corresponding axial, sagittal and coronal MIP images were performed. Axial MIPs and coronal and sagittal MPR images were generated and reviewed.. FINDINGS: Devices: None HEART AND GREAT VESSELS: The opacification of the pulmonary vasculature is appropriate. Respiratory motion artifact limits evaluation of the distal branches. No filling defects are seen through the level of the lobar pulmonary arteries. The pulmonary trunk is normal in caliber. The thoracic aorta is normal in caliber with moderate atherosclerotic calcifications. There are severe calcifications of the coronary vessels. The heart is normal in size. No pericardial abnormalities are identified. The RV to LV is normal. MEDIASTINUM AND LOWER NECK: No central airway lesions are detected. The esophagus is unremarkable. The included thyroid gland appears normal. LYMPH NODES: Scattered small lymph nodes in both sides of the mediastinum and hilar regions. Redemonstrated partially calcified right hilar lymph nodes suggestive of prior granulomatous disease. LUNGS AND PLEURA: The lungs are well-expanded. Grossly stable size of the right upper lobe mass measuring approximately 5 x 6 cm. Grossly unchanged 1.4 cm groundglass opacity in the left upper lobe. Background of centrilobular emphysema. Bands of linear atelectasis/scarring are seen in the bilateral lung bases. No pleural abnormality detected. VISUALIZED UPPER ABDOMEN: Reflux of contrast into the IVC. The included solid organs and hollow viscus otherwise appear unremarkable. OSSEOUS STRUCTURES AND SOFT TISSUES: No focal osseous lesions are detected. The soft tissues appear normal. 1. Respiratory motion artifact limits evaluation of the distal branches, but no evidence of acute or chronic pulmonary embolism is seen through the level of the lobar branches. AIDOC shows no filling defects in the pulmonary artery branches. 2. Stable appearance of the right upper lobe mass measuring up to 6 cm. Preliminary Report Dictated by Resident: Crow Aguirre MD., have reviewed this study and agree with the above report. XR Chest 1 vw Result Date: 06/13/2025 EXAM: XR CHEST 1 VW HISTORY: 74 years-old Female; shortness of breath COMPARISON: CT chest and CXR dated 05/02/2025 FINDINGS: Lungs: The lung volumes are moderately underinflated with resultant congestion. A round opacity in the right upper lung field measuring 5.4 cm corresponds to a right upper lobe mass seen on previous CT chest. Patchy right infrahilar opacities. Bibasilar atelectasis. No pleural abnormalities are detected. Heart/Mediastinum: The cardiomediastinal silhouette appears normal. Aortic arch calcification. Calcified lymph nodes are again seen in the right hilum suggestive of prior granulomatous disease. Bones and soft tissues: No acute osseous findings are detected. Patchy right infrahilar opacities may represent atelectasis, aspiration, or developing infection. Redemonstrated right upper lobe mass measuring approximately 5.4 cm Preliminary Report Dictated by Resident: Crow Aguirre MD., have reviewed this study and agree with the above report. Assessment and plan: Principal Problem: Tachycardia A-fib with RVR: POA, suspect secondary to medication noncompliance - Cardiology consultation -Follow-up TSH -Restart home metoprolol, will hold Cardizem -Restart home anticoagulation with Eliquis -Prior admission shows patient to be on amiodarone, heart rate has improved with Cardizem alone will hold off amiodarone and continue metoprolol trial see outpatient dose before restarting Hypertension: POA - Continue metoprolol Hypokalemia: POA - Continue to replete as needed Hyperlipidemia: POA - Continue statin Lung cancer: POA - Follow-up outpatient primary oncology team Anemia: POA, no active bleeding - Follow-up reticulocyte count and iron panel Encouraged patient regarding portance of compliance with medication, will place order for home health at discharge DVT prophylaxis: Eliquis Simon FINANCIAL REPORTING ANALYST was verified Disposition: Admit IMU follow-up cardiology eval [facility] 2025-07-02 06:40:32 Surgery H&P Note History of Present Illness: Lisset Valle is a 74 year old female with past medical history of hypertension, GERD, atrial fibrillation on apixaban, stage 2a non small cell lung carcinoma s/p port placement presenting for screening colonoscopy. Since the last clinic visit the patient obtained a brain MRI showing no evidence of metastasis. She also received a 30 day heart monitor. Prep went well and she is having clear bowel movements Histories Past Medical History: Diagnosis Date Acid reflux Essential (primary) hypertension Past Surgical History: Procedure Laterality Date ENDOBRONCHIAL ULTRASOUND-TRANSBRONCHIAL FNA (SHX) Bilateral 05/02/2025 Surgeon: Roberta Benavidez DO; Location: [facility] ROBOTIC ASSISTED BRONCHOSCOPY (SHX) N/A 05/02/2025 Surgeon: Roberta Benavidez DO; Location: [facility] Physical Exam: There were no vitals filed for this visit. General: Active and alert, in no acute distress Cardiovascular: Regular rate, normotensive. Respiratory:Unlabored on room air Gastrointestinal: Soft, nondistended, not tender to palpation. no rebound tenderness, guarding or peritonitis. Labs: No new Radiology: MR Brain w wo contrast Result Date: 06/27/2025 EXAM: MR BRAIN W WO CONTRAST HISTORY: Lung cancer TECHNIQUE: Multiplanar and multisequence MRI imaging of the brain was obtained before and after the administration of intravenous contrast. COMPARISON: 05/14/2025. FINDINGS: The ventricles and cerebral sulci are unchanged in caliber and configuration. Areas of chronic ischemic change are redemonstrated. There is no abnormal enhancement to suggest metastasis. No evidence of metastasis. Preliminary Report Dictated by Resident: Angelica Lee I, Som Reed MD., have reviewed this study and agree with the above report. Assessment/Plan: Lisset Valle is a 74 year old female with past medical history of hypertension, GERD, atrial fibrillation on apixaban, stage 2a non small cell lung carcinoma s/p port placement presenting for screening colonoscopy. There have been no interval health changes since the patient was last seen in clinic. She is NPO, informed consent obtained. All questions thoroughly answered and she wants to proceed with the procedure. -colonoscopy today, will discuss results with patient and schedule follow up accordingly Jovani Anderson MD Surgery PGY-2 07/02/2025 06:40 Cosigned by Katie Carmichael MD at 07/02/2025 7:28 AM CDT Associated attestation - Katie Carmichael MD - 07/02/2025 7:28 AM CDT Attending Attestation: I personally evaluated and examined the patient on 07/02/2025 and do not agree with Dr. Anderson's note as written. I actively participated in the decision-making process. Patient's Eliquis was not held, she ate a breakfast taco yesterday morning, and she did not complete her bowel prep. Additionally she was also scheduled for a stress test this morning. I have cancelled her colonoscopy today as she was not adequately prepared. She is being sent over for her stress test today. She will be rescheduled. Katie Carmichael M.D. 07/02/2025 07:26 SURGERY [facility] 2025-06-16 20:58:04 MEDICINE [facility] ADMIT H&P Date of Service: 06/16/2025 CHIEF COMPLAINT: low blood pressure with elevated heart rate Subjective History of Present Illness A 74-year-old female with a medical history of supraventricular tachycardia (SVT), hypertension, hyperlipidemia, and recently diagnosed lung adenocarcinoma (status post tunneled left internal jugular catheter placement on 06/13/25) presents to the emergency department with low blood pressure and elevated heart rate. She also reports generalized weakness. The patient was recently hospitalized for tachycardia identified during a clinic visit and was discharged yesterday. During that admission, it was noted she had a history of medication noncompliance. Her metoprolol dose was adjusted, and she was advised to follow up with electrophysiology (EP) as an outpatient for further evaluation. Today, while at home, she experienced symptoms of feeling unwell and informed her son. Her blood pressure was noted to be in the 90s/60s with a heart rate of 176. She also reports having diarrhea. PAST MEDICAL HISTORY Past Medical History: Diagnosis Date Acid reflux Essential (primary) hypertension Past Surgical History: Procedure Laterality Date ENDOBRONCHIAL ULTRASOUND-TRANSBRONCHIAL FNA (SHX) Bilateral 05/02/2025 Surgeon: Roberta Benavidez DO; [facility] ROBOTIC [facility]ISTED BRONCHOSCOPY (SHX) N/A 05/02/2025 Surgeon: Roberta Benavidez DO; [facility] Family History Problem Relation Age of Onset Stroke Mother Hypertension Mother Diabetes Mother Hypertension Father Alcohol/Drug Father Cancer Father Diabetes Sister Hypertension Sister Diabetes Brother Hypertension Brother ALLERGIES No Known Allergies MEDICATIONS No current facility-administered medications on file prior to encounter. Current Outpatient Medications on File Prior to Encounter Medication Sig Dispense Refill apixaban 5 mg tablet Take 1 tablet by mouth in the morning and 1 tablet in the evening. Indications: atrial flutter 60 tablet 2 metoprolol tartrate 50 mg tablet Take 1 tablet by mouth in the morning and 1 tablet in the evening. 180 tablet 3 acetaminophen (TYLENOL ARTHRITIS PAIN ORAL) Take by mouth. albuterol sulfate HFA 90 mcg/actuation aerosol inhaler Inhale 2 Puffs every 4 (four) hours as needed for Wheezing or Shortness of Breath. 8.5 g 0 Cholecalciferol, Vitamin D3, 50 mcg (2,000 unit) tablet Take 50 mcg by mouth. atorvastatin 40 mg tablet Take 1 tablet by mouth at bedtime. 30 tablet 2 I attest that the foregoing medication list in the medical record is true, accurate and complete to the best of my knowledge. SOCIAL HISTORY Social History Socioeconomic History Marital status: Number of children: 3 Highest education level: Some college, no degree Tobacco Use Smoking status: Former Current packs/day: 1.00 Average packs/day: 1 pack/day for 40.0 years (40.0 ttl pk-yrs) Types: Cigarettes Passive exposure: Current Smokeless tobacco: Never Tobacco comments: Smokes 1 each per day Substance and Sexual Activity Alcohol use: Not Currently Drug use: Not Currently Social Drivers of Health Financial Resource Strain: Low Risk (03/16/2023) Overall Financial Resource Strain (CARDIA) Difficulty of Paying Living Expenses: Not hard at all Food Insecurity: No Food Insecurity (03/07/2025) NCSS - Food Insecurity Worried About Running Out of Food in the Last Year: No Ran Out of Food in the Last Year: No Transportation Needs: No Transportation Needs (03/07/2025) NCSS - Transportation Lack of Transportation: No Physical Activity: Sufficiently Active (03/16/2023) Exercise Vital Sign Days of Exercise per Week: 7 days Minutes of Exercise per Session: 60 min Social Connections: Unknown (03/16/2023) Social Connection and Isolation Panel [NHANES] Frequency of Communication with Friends and Family: More than three times a week Marital Status: Housing Stability: Not At Risk (03/07/2025) NCSS - Housing/Utilities Has Housing: Yes Worried About Losing Housing: No Unable to Get Utilities: No REVIEW OF SYSTEMS Review of Systems Constitutional: Negative. HENT: Negative. Eyes: Negative. Respiratory: Negative. Breasts: Negative. Cardiovascular: Negative. Gastrointestinal: Positive for diarrhea. Negative for abdominal distention, abdominal pain, anal bleeding, blood in stool, constipation, nausea, rectal pain and vomiting. Genitourinary: Negative. Musculoskeletal: Negative. Skin: Negative. Neurological: Positive for weakness. Negative for dizziness, tremors, seizures, syncope, facial asymmetry, speech difficulty, light-headedness, numbness and headaches. Psychiatric/Behavioral: Negative. Endocrine: Endocrine negative Objective PHYSICAL EXAMINATION Vitals: 06/16/25 1753 06/16/25 1800 06/16/25 1809 06/16/251999 BP: 129/79 120/80 136/67 BP Location: Left arm Patient Position: Supine Pulse: 90 58 Resp: 24 (!) 32 25 Temp: 37.1 ?C (98.7 ?F) 37.1 ?C (98.7 ?F) 36.7 ?C (98.1 ?F) TempSrc: Oral Oral Tympanic SpO2: 99% 96% 99% Weight: 50.3 kg (111 lb) 49.5 kg (109 lb 1.6 oz) Height: 1.549 m (5' 1") Physical Exam Constitutional: General: She is not in acute distress. Appearance: Normal appearance. She is not ill-appearing, toxic-appearing or diaphoretic. HENT: Head: Normocephalic and atraumatic. Right Ear: External ear normal. Left Ear: External ear normal. Nose: Nose normal. No congestion or rhinorrhea. Mouth/Throat: Mouth: Mucous membranes are moist. Pharynx: No oropharyngeal exudate or posterior oropharyngeal erythema. Eyes: General: No scleral icterus. Extraocular Movements: Extraocular movements intact. Conjunctiva/sclera: Conjunctivae normal. Pupils: Pupils are equal, round, and reactive to light. Cardiovascular: Rate and Rhythm: Normal rate. Pulmonary: Effort: Pulmonary effort is normal. Breath sounds: Normal breath sounds. Abdominal: General: Abdomen is flat. Bowel sounds are normal. There is no distension. Palpations: Abdomen is soft. Tenderness: There is no abdominal tenderness. Musculoskeletal: General: Normal range of motion. Cervical back: Normal range of motion and neck supple. Right lower leg: No edema. Left lower leg: No edema. Neurological: Mental Status: She is alert. Psychiatric: Comments: Flat affect LABS/IMAGING - reviewed Assessment & Plan Lisset Valle is a 74 year old female with PMH as listed above, admitted to the hospital with: 1. Atrial fibrillation: TSH is normalized -- On amiodarone gtt -- On Eliquis 2. Diarrhea: per patient ist may be chronic -- Stool studies including Stool culture, clostridium difficile 3. HTN: -- On metoprolol 4. HLD: -- On lipitor 5. Lung adenocarcinoma -- Will defer to outpatient management. Prophylaxis: DVT- Eliquis Code Status: Full Code Advance Care Planning (Z71.89): Discussed at length with patient; full understanding confirmed. Surrogate decision maker identified: Yes. Expected discharge: Home. Time spent: 19 minutes. INPT: Anticipate greater than 2 midnight stays due to intensive nursing care, frequent monitoring, and ongoing/complex intervention due to the treatment of atrial fibrillation and diarrhea. [facility] 2025-06-14 12:11:00 Images from the original note were not included. [facility] Admit H&P PCP: Nereida Dodson Date of Service: 06/14/2025 CHIEF COMPLAINT: Fast HR HISTORY OF PRESENT ILLNESS Lisset Valle is a 74 year old female with a PMH of prediabetes, Hx SVT w/ syncope, HTN, HLD, former smoker, lung adenocarcinoma (recent dx) s/p tunneled L IJ placement 06/13/25 who presents with fast HR from PFT clinic. Patient reports she was at her PFT appointment today and they found her HR to be high. Denies many symptoms. No chest pain, SOB. Denies palpitations. Reports some intermittent dizziness but no syncope since her last event in February. Denies f/c/n/v. Reports she wants to be DNR/DNI. Has not started on chemo yet. Reports she missed some beta arnoldo doses, and misses them regularly throughout the weeks. Tobacco use quit this year. In the ED vitals were temp HR 135, BP 115/54, RR 27, O2 sat 95% % on RA. Labs significant for cbc with normocytic anemia, lactic 2.12, bmp with low K and Mg, trop neg x1, . Imaging consisted of none. Medications administered in ED: lopressor 25mg x1, 1 NS. Also here in ED yesterday with CT PE negative for PE. Past medical history: has a past medical history of Acid reflux and Essential (primary) hypertension. Past surgical history: has a past surgical history that includes robotic assisted bronchoscopy (shx) (N/A, 05/02/2025) and endobronchial ultrasound-transbronchial fna (shx) (Bilateral, 05/02/2025). Social history: reports that she has quit smoking. Her smoking use included cigarettes. She has a 40 pack-year smoking history. She has been exposed to tobacco smoke. She has never used smokeless tobacco. She reports that she does not currently use alcohol. She reports that she does not currently use drugs. Family history: family history includes Alcohol/Drug in her father; Cancer in her father; Diabetes in her brother, mother, and sister; Hypertension in her brother, father, mother, and sister; Stroke in her mother. Allergies: No Known Allergies MEDICATIONS No current facility-administered medications on file prior to encounter. Current Outpatient Medications on File Prior to Encounter Medication Sig Dispense Refill metoprolol tartrate 25 mg tablet Take 1 tablet by mouth in the morning and 1 tablet in the evening. 60 tablet 3 atorvastatin 40 mg tablet Take 1 tablet by mouth at bedtime. 30 tablet 2 umeclidinium (INCRUSE ELLIPTA) 62.5 mcg/actuation DsDv Inhale 1 Puff in the morning. (Patient not taking: Reported on 06/11/2025) 30 Each 11 acetaminophen (TYLENOL ARTHRITIS PAIN ORAL) Take by mouth. albuterol sulfate HFA 90 mcg/actuation aerosol inhaler Inhale 2 Puffs every 4 (four) hours as needed for Wheezing or Shortness of Breath. 8.5 g 0 Cholecalciferol, Vitamin D3, 50 mcg (2,000 unit) tablet Take 50 mcg by mouth. lisinopriL 10 mg tablet Take 1 tablet by mouth. Currently taking 2.5 mg (Patient not taking: Reported on 06/14/2025) REVIEW OF SYSTEMS Per HPI. PHYSICAL EXAMINATION Vitals: 06/14/25 1025 06/14/25 1029 06/14/25 1100 06/14/25 1218 BP: 101/66 111/54 123/83 106/65 Pulse: 158 135 98 68 Resp: (!) 35 27 (!) 33 19 SpO2: 95% 95% 98% Weight: Height: General: In NAD HEENT: EOM intact Lungs: CTAB Cardio: Regular S1 and S2, no m/g/r Abdomen: soft, NT ND Extremities: No edema, warm to touch LABS - reviewed pertinent labs as below: Last Two A1C Results ([facility]/LC, POCT, [facility]) Recent Labs 03/06/25 2302 HGBA1C 6.0* LDL CHOL (mg/dL) Date Value 03/06/2025 38 No results found for: "IRON" @RECENTLAB(ferritin)@ Recent Labs 06/13/25 0753 TSH 1.12 IMAGING - reviewed, pertinent results as below: EKG/Telemetry: Narrow complex tachycardia without clearly defined P waves --> SR with PAC's === Study performed on encounter date 03/06/25 === Transthoracic echo (TTE) Routine - Interpretation Summary - Left Ventricle: Left ventricle size is normal. There is moderate concentric hypertrophy. Normal systolic function with a visually estimated EF of 55 - 60%. There is grade 1 diastolic dysfunction. Right Ventricle: Right ventricle size is normal. Normal systolic function. TAPSE is 2.04 cm. TDI-derived tricuspid annular systolic velocity (TDI S') is 18.1 cm/s. Stress Testing NST 02/2023: IMPRESSION Normal myocardial perfusion after pharmacologic stress test. There is no ischemia. Normal left ventricular function. 30 day monitor 04/2023: Diagnostic monitored time about 5 days Baseline rhythm was normal sinus rhythm with narrow QRS complex. Frequent PVCs (9% burden) Intermittent 2nd degree type 2 AV block (rates down to 36 BPM) Episodes of PSVT vs flutter with rates up to 162 BPM (longest 32 seconds) Confirmed by WALLY CHEUNG MD ([id number]) on 04/23/2023 11:25:54 AM CHART REVIEW: reviewed ASSESSMENT/PLAN Lisset Valle is a 74 year old female with PMH as listed above, admitted to the hospital with: SVT vs newfound aflutter CV 3 Hx SVT w/ syncope Hypokalemia / hypomagnesemia Normocytic anemia Prediabetes HTN HLD former smoker lung adenocarcinoma (recent dx) s/p tunneled L IJ placement 06/13/25 Patient presenting with fast HR found during PFT test today. Relatively asymptomatic but has softer BP. C/f SVT but also could be flutter so will have EP evaluate. Hold off on AC until EP eval. NSR now. Had little symptoms. Plan: - Admit to [facility] - Trend Troponin once more - NTG 0.4mg SL q5min prn angina - EKG qAM and PRN chest pain - C/w Telemetry - O2 per protocol - Keep K >4, Mg>2 - Admit labs: CBC, BMP, LFTs, Mag, pt/INR, Ptt, TSH, A1c, Lipid panel, Iron panel/ Ferritin, UDS - EP consult for SVT vs aflutter (previously considered SVT ablation in past if recurred) -Hold heparin drip until EP evaluates rhythm - resume home lopressor 25mg bid - home lipitor 40 qhs - atrovent/xopenex PRN Pain: tylenol DVT Prophylaxis: enoxaparin Bowel regimen: Senokot Code Status: addressed: DNR/DNI Lazaro Lucas MD Internal Medicine, PGY-3 [facility] Team I reviewed patient's chart, vitals, lab work, current medications and other diagnostic studies. I saw and examined the patient and agree with the detailed note written by Dr Lucas. I actively participated in the decision-making process. Please see the detailed progress note for additional details with the following additions/exceptions if any. Angel Bowles MD, [facility] [employer] Division of Cardiovascular Medicine [facility] 2025-05-02 11:27:37 Interventional Pulmonary Pre-Operative History and Physical Note Date of Service: 05/02/25 Lisset Valle is 74 year old female interviewed and examined today in the DSU/holding area/operating room before induction of anesthesia. There have been no significant interval changes in the history or physical exam. I agree with the clinic note as written from date 04/29/2025. Risks, benefits and alternatives to the procedure were reviewed with the patient again today, and pt voiced understanding of the condition present as well as the planned procedure(s) without questions and wishes to proceed. Informed consent had been obtained. Diagnosis: lung mass Planned procedure: RAB + EBUS-TBFNA Anny Estrada DO PGY-6 Fellow Pulmonary & Critical Care Medicine Cosigned by Roberta Benavidez DO at 05/02/2025 11:54 AM CDT Associated attestation - Roberta Benavidez DO Noel - 05/02/2025 11:54 AM CDT PULMONARY DISEASE [facility] 2025-03-06 19:22:27 Images from the original note were not included. [facility] ADMIT H&P Date of Service: 03/06/2025 PCP: PATIENT DOES NOT HAVE A PCP CHIEF COMPLAINT: SYNCOPE History of Present Illness Lisset Valle is a 74 year old female with PMHx of HTN, HLD, and tobacco use who presents as a transfer from [facility] after she sustained a syncopal episode. Patient reports that she was doing yard work today and was resting on her front porch when she collapsed. She denies light headedness or dizziness prior to the fall. Patient does not remember the fall itself; just recounts that she was drinking water when it happened. Patient's daughter heard her fall and called EMS for assistance. Per the patient, the daughter yelled her name several times before she awoke. Patient denies any symptoms after the event. While at the [facility] ED, patient went into SVT with HR 150-160 for which IV Adenosine 12 MG was administered which resulted in her converting to NSR. Patient was started on PO Metoprolol 50 MG with achievement of rate control. Patient had espinoza-scans completed which did not show trauma from the fall but did show a RUL mass. Additionally, patient reports that she has been experiencing a cough as well as diarrhea for the past couple of months. Patient states that her diarrhea coincides with her diet and will worsen with certain foods. Patient additionally is a current smoker, smokes 1/2 PPD for the past 50 years. Of note, patient was admitted 03/14/2023-03/16/2023 on the cardiology service for left sided chest pain. Troponins were negative, EKG without ischemic changes. Patient has a NM stress test done which was negative for ischemia and patient was then discharged with an event monitor. Event monitor showed sinus rhythm with intermittent slowing of her heart rate alternating with some rapid rates and possible atrial flutter. There were recommendations for her to see EP. Per chart review, it does not appear that patient followed up with EP. Patient lives in [place], [place]. Patient lives with her daugher and her grandchildren. Patient is independent with her ADL's and is still currently driving. Patient ambulates without assistive devices. In the [facility] ED: Vitals: T 36.6, HR 85, BP 115/80, O2 100% on RA Labs: WBC 6.7, Hgb 11.3, Na 138, K 3.5, Cr 0.85, Mg 1.6, hsTrop 7.0 [42-81], D-Dimer 603, C Diff Negative, COVID / Flu / RSV negative, UA 2+ Blood; no LE or Nitrites, Imaging: CT Head: Negative. CT C-Spine: No acute fracture. CTPE: 4 cm solid mass in the RUL, c/f malignancy. Recommends PET/CT or lung biopsy. CTAP: No acute or significant findings in the abdomen or pelvis. No evidence of metastasis. Course: Transferred to [facility] for cardiology and oncology evaluation. IV Adenosine 12 MG given. PO Metoprolol Tartrate 50 MG given. PAST MEDICAL HISTORY Past Medical History: Diagnosis Date Acid reflux Essential (primary) hypertension No past surgical history on file. Family History Problem Relation Age of Onset Stroke Mother Hypertension Mother Diabetes Mother Hypertension Father Alcohol/Drug Father Cancer Father Diabetes Sister Hypertension Sister Diabetes Brother Hypertension Brother ALLERGIES No Known Allergies MEDICATIONS No current facility-administered medications on file prior to encounter. Current Outpatient Medications on File Prior to Encounter Medication Sig Dispense Refill atorvastatin 40 mg tablet Take 1 tablet by mouth at bedtime. 30 tablet 2 Cholecalciferol, Vitamin D3, 50 mcg (2,000 unit) tablet Take 50 mcg by mouth. lisinopriL 10 mg tablet Take 1 tablet by mouth. SOCIAL HISTORY Social History Socioeconomic History Marital status: Tobacco Use Smoking status: Every Day Current packs/day: 1.00 Average packs/day: 1 pack/day for 40.0 years (40.0 ttl pk-yrs) Types: Cigarettes Passive exposure: Current Smokeless tobacco: Never Substance and Sexual Activity Alcohol use: Not Currently Drug use: Not Currently Social Drivers of Health Financial Resource Strain: Low Risk (03/16/2023) Overall Financial Resource Strain (CARDIA) Difficulty of Paying Living Expenses: Not hard at all Food Insecurity: No Food Insecurity (03/16/2023) Hunger Vital Sign Worried About Running Out of Food in the Last Year: Never true Ran Out of Food in the Last Year: Never true Transportation Needs: No Transportation Needs (03/16/2023) PRAPARE - Transportation Lack of Transportation (Medical): No Lack of Transportation (Non-Medical): No Physical Activity: Sufficiently Active (03/16/2023) Exercise Vital Sign Days of Exercise per Week: 7 days Minutes of Exercise per Session: 60 min Social Connections: Unknown (03/16/2023) Social Connection and Isolation Panel [NHANES] Frequency of Communication with Friends and Family: More than three times a week Marital Status: Housing Stability: Low Risk (03/16/2023) Housing Stability Vital Sign Unable to Pay for Housing in the Last Year: No Number of Places Lived in the Last Year: 1 Unstable Housing in the Last Year: No REVIEW OF SYSTEMS: Reviewed 14 point ROS negative otherwise stated in HPI PHYSICAL EXAMINATION: Reviewed Vitals: 03/06/252 03/06/25 2100 BP: (!) 165/72 BP Location: Right arm Patient Position: Supine Pulse: 66 Resp: 18 Temp: 36.2 ?C (97.1 ?F) SpO2: 98% Weight: 51.5 kg (113 lb 8 oz) Height: 1.575 m (5' 2.01") Physical Exam Cardiovascular: Rate and Rhythm: Normal rate and regular rhythm. Pulses: Normal pulses. Heart sounds: Normal heart sounds. Pulmonary: Effort: Pulmonary effort is normal. Breath sounds: Normal breath sounds. Abdominal: General: Bowel sounds are normal. Palpations: Abdomen is soft. Musculoskeletal: Right lower leg: No edema. Left lower leg: No edema. Neurological: Mental Status: She is alert. LABS- Reviewed pertinent labs as below: PENDING IMAGING- Reviewed, pertinent results as below: No final results containing an impression from the past 2 days were found. ASSESSMENT/PLAN Lisset Valle is a 74 year old female with PMH as listed above, admitted to the hospital with: # Syncopal Episode likely 2/2 Tachyarrhythmia Patient presented to OSH ED due to syncopal episode and was found to go into SVT and was given adenosine for which converted her to NSR. Patient started on metoprolol for which helped achieve rate control. Imaging did not show any signs of trauma. Patient denies any prior episodes. Will continue with metoprolol for rate control and monitor with telemetry as well as cardiology consult in AM. Plan: - admit to [facility] - f/u admission labs - consult cardiology in AM - c/w lopressor; adjust dose as tolerated and clinically indicated - telemetry monitoring - K > 4; Mg > 2 # RUL Mass Patient with fatigue and cough for the past few months. Imaging significant for a 4 cm right upper lung mass with concerns for malignancy. Patient with additional scans of abdomen/pelvis and head for which were unremarkable. Consider oncology consultation as well as biopsy with IR for definitive diagnosis. Discussed with patient if she would like to pursue treatment if the mass were to be malignant in nature; patient stated that she would like to hear her options first to decipher. Plan: - f/u OSH radiology reads - consider IR biopsy inpatient vs outpatient - consider oncology consult # Diarrhea Patient with diarrhea that appears to be diet dependent. Infectious work up with C Diff at OSH negative; additionally patient without risk factors for C. Diff. Plan: - continue to monitor # HTN # HLD # Tobacco Dependence Chronic conditions. Patient reports that she occasionally hold lisinopril due to low SBP readings; due to starting of lopressor, will continue to hold and resume as clinically indicated. Plan: - c/w home medications as appropriate - holding lisinopril CODE: Full DIET: PPCLD - MN DVT: SubQ Heparin Gil Crooks DO Department of Internal Medicine [facility] Cosigned by Fran Alvarez DO at 03/07/2025 3:37 AM CDT Associated attestation - Fran Alvarez DO - 03/07/2025 3:37 AM CDT I personally examined the patient on the date of service and agree with Dr. Crooks's resident note as written. I actively participated in the decision-making process. Please see the resident's note for additional details. Fran Alvarez DO [employer] | Department of Internal Medicine [facility] - Health Procedure Notes Date/Time Note Provider Source 2025-06-13 12:50:00 VASCULAR AND INTERVENTIONAL RADIOLOGY PROCEDURE NOTE Pre-procedure diagnosis: Need access for chemotheraphy Post-procedure diagnosis: Same. Procedure: Successful ultrasound and flucoscopically guided left internal jugular vein tunneled port placement. Findings: Patent left internal jugular vein. Successful port placement via left internal jugular vein. Catheter measures 25 cm. Tip of the port of cath projects over in the superior cavoatrial junction. Ready for use. Complications: None immediate. Condition: Unchanged, stable. Estimated blood loss: Minimal, < 5 mL. Full dictated note to follow in PACS. 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 Performed by: Phoenix Butcher MD Authorized by: April Ye MD Indications and Patient Condition Indications for airway management: anesthesia and airway protection Spontaneous Ventilation: absent Sedation level: deep Preoxygenated: yes Patient position: sniffing MILS maintained throughout Mask difficulty assessment: 1 - vent by mask Final Airway Details Final airway type: endotracheal airway Successful airway: ETT Cuffed: yes Successful intubation technique: video laryngoscopy Facilitating devices/methods: intubating stylet Endotracheal tube insertion site: oral Blade: Shweta Blade size: #3 ETT size (mm): 8.5 Cormack-Lehane Classification: grade I - full view of glottis Placement verified by: chest auscultation and capnometry Measured from: lips ETT to lips (cm): 20 Number of attempts at approach: 1 Additional Comments Smooth atraumatic intubation with dentition intact in preop condition. VL x 1, CA1. GIv. VL used only for direct visualization of cuff by surgeon specification ANESTHESIOLOGY [facility] Notes Date/Time Note Provider Source 2025-08-16 09:35:02 Signed and given to staff. Nereida [facility] 2025-08-15 20:49:13 Forms from [facility] have been placed in provider folder for review and signature. Anny Barreto [facility] 2025-08-15 11:16:34 Spoke with Maira, physical therapist for patient. States that she was able to see patient yesterday while OT was there. Patient tends to sit outside in garage and that may have been the reason why she was not answering the door. Miara states that patient has a reevaluation next week and will update me with any further issues. [facility] 2025-08-14 18:33:[address] Reynoso's patient Spoke to patient's sister if her low potassium level from labs on 07/24/25 was addressed as she had transferred her care to [facility]. She states she does not know. She has started seeing them and treatment has started. She has an appointment with them tomorrow and will address this with them. I have also ordered a repeat BMP to be drawn with the labs she has already scheduled for 08/16/25. Deni Benz DO Medical Oncology T [facility] 2025-08-12 16:53:20 Please review and advise. ALISON 07/31/25 NOV 01/28/26 Carmela Kim LVN [facility] 2025-08-12 15:10:09 Copied from [facility] #[id number]. Topic: Clinical - Medical Advice >> Aug 12, 2025 3:05 PM Patient Liquor Runner wrote: Lisset Valle is a 75 year old female Maira Physical therapist provider states she has gone to patient is refusing PT/OT. She states she has gone three times to her house and she is refusing to open the door. Maira Phone: [phone] Please advise Dominique Kikrland [facility] 2025-08-08 11:15:00 Images from the original note were not included. Patient has been identified by and name and was provided with cup, antiseptic towelette, and clean catch instructions. Patient unable to void. Patient will have specimen dropped off to lab in the morning. Unpreserved Urine Culture Aptima tube Other urine Christopher Aragon [facility] 2025-08-08 10:11:45 FWD to PCP as RENNY. Sofya Rausch MA [facility] 2025-08-07 15:48:22 Lisset Valle is a 75 year old female Maira, PT certified physical therapist assistant for [facility] reports Patient refused Physical Therapy today Thank You Dai Ward [facility] 2025-08-07 11:21:11 Images from the original note were not included. Spoke with Maira with [facility]. Notified Maira of provider recommendation for patient. Nereida Dodson, JOSE Noted. Continue to PT and monitor active and resting heart rate. If this continues, will need to follow with cardiology or EP. Jaiden Redd RN [facility] 2025-08-06 11:09:49 Left voicemail for Maira with [facility] to return call to clinic. [facility] 2025-08-05 16:24:55 Noted. Continue to PT and monitor active and resting heart rate. If this continues, will need to follow with cardiology or EP. [facility] 2025-08-05 16:23:06 Completed. Handed to DAYNA Castillo. [facility] 2025-08-05 11:38:51 For your review. Anna Tovar RN [facility] 2025-08-05 11:27:06 Copied from [facility] #[id number]. Topic: Clinical - Medical Advice >> Aug 05, 2025 11:24 AM Patient Liquor Runner wrote: Lisset Mildred Clinic Name: [facility] [id number] female / 75 year old (1950) Maira, physical therapy assist with [facility] calling to let provider know that patient missed PT appt today. States that she had left patient a VM letting her know what time she would come. There was no one home when she went, will try to see patient later in the week. Brooklynn Lacey [facility] 2025-08-01 20:05:29 Forms received and placed in providers folder for review upon return. Dacia Castro MA [facility] 2025-08-01 17:16:52 [facility] forms received for completion and provider signature. Marshall Bowles [facility] 2025-08-01 12:56:36 Please review and advise. ALISON 07/31/2025 Carmela Kim WATER QUALITY ANALYST [facility] 2025-08-01 12:32:14 Copied from [facility] #[id number]. Topic: Clinical - Order >> Aug 01, 2025 12:28 PM Patient Liquor Runner wrote: Lisset Valle (75 year old female) is calling to Pulse rate with walking went up to 149, 10 min later pulse rate 75. After exercise Pulse rate 80. Maira with [facility] [phone] Thank you! Helen Wise [facility] 2025-08-01 09:49:37 DME order enteral formula faxed to [facility] on 08/01/2025 Carmela Kim WATER QUALITY ANALYST [facility] 2025-08-01 09:20:03 Contacted rep at [facility] and notified them that a previous med list is not available d/t recent updates. Fax number was provided for any future needs. No further needs were voiced. Closing out. Carmela Kim WATER QUALITY ANALYST [facility] 2025-07-29 16:06:59 Called Maggie with [facility], no answer. Left VM to return call to clinic regarding request for patient medication list. Jaiden Redd RN [facility] 2025-07-26 11:00:00 Images from the original note were not included. Venipuncture collection performed by clean technique on the right anticubitus. Total of 1 attempts were made. Slight pressure and a bandage/dressing were applied to the site(s). The patient experienced no complications. The following specimens were processed according to instructions and sent to [facility] laboratories per lab order : LT BLUE SST 1 RED LAV 1 PPT DK GREEN (LiHep) DK GREEN (SodH) PARNELL DK BLUE (K2) DK BLUE (S) ACD Blood Culture NIPT/NTD Mara Weber [facility] 2025-07-24 11:33:56 Spoke with patient's son - heidentified patient by name and . Introduced myself as Karina Sanchez RN support nurse in the [facility] Oncology clinic. Patient is currently trying to get her treatment started with [facility] in [place]. They are waiting on insurance approval. Patient does not plan to return to [facility] oncology. Karina Sanchez RN [facility] 2025-07-23 16:23:50 Lisset Valle is a 75 year old female Maggie with [facility] called asking if the patients medication list prior to 07/14 can be faxed to [phone]. Please contact [phone] Jaime Greenberg [facility] 2025-07-19 11:00:00 Images from the original note were not included. Venipuncture collection performed by clean technique on the left anticubitus. Total of 1 attempts were made. Slight pressure and a bandage/dressing were applied to the site(s). The patient experienced no complications. The following specimens were processed according to instructions and sent to [facility] laboratories per lab order on 07/19/2025 : LT BLUE SST 1 RED LAV 1 PPT DK GREEN (LiHep) DK GREEN (SodH) PARNELL DK BLUE (K2) DK BLUE (S) ACD Blood Culture NIPT/NTD Christopher Aragon [facility] 2025-07-18 09:09:06 Spoke with pt regis Burton to inquire if pt was going to continue medical oncology care with [facility] or switch to [facility] as this is where they will be receiving XRT soon. Pt son stated our goal is to be treated closer to [facility] if able, he will notify our team if there will be changes with medical oncology and infusions at [facility]. Jacqueline Johnson LVN [facility] 2025-07-17 11:39:29 Referral was created by clinical for Dr. Gianfranco Bryant. I received a successful fax email confirmation at 11:33 am. Referral was scanned into pts media. Libertad Miranda [facility] 2025-07-16 11:00:00 Images from the original note were not included. Venipuncture collection performed by clean technique on the left anticubitus. Total of 1 attempts were made. Slight pressure and a bandage/dressing were applied to the site(s). The patient experienced no complications. The following specimens were processed according to instructions and sent to [facility] laboratories per lab order on 07/16/2025 : LT BLUE SST 1 RED LAV 1 PPT DK GREEN (LiHep) DK GREEN (SodH) PARNELL DK BLUE (K2) DK BLUE (S) ACD Blood Culture NIPT/NTD Christopher Aragon [facility] 2025-07-15 16:18:58 Called pt and left voicemail. Tae Johnourt [facility] 2025-07-15 13:51:09 Lisset Valle is a 75 year old female Leana, social services aide with [facility], is calling requesting to speak with clinical staff regarding pt's Oncology appts on 07/17/25 and the duration of the appts and possibly rescheduling appts. Please contact Leana at [phone] Maykel Quinn [facility] 2025-07-15 12:06:03 Lvm asking pt to please cb regarding referral as referral on file shows Nkechi Stokes MD Address: [address] [place] [address] Dacia Castro MA [facility] 2025-07-15 11:10:39 Copied from [facility] #[id number]. Topic: Clinical - Referral >> Jul 15, 2025 11:08 AM Patient Liquor Runner wrote: Lisset Valle is a 75 year old female Brinana Hendricks Calling from [facility] to request a referral for the patient. [address] FAX: [phone] Diagnosis code: C34.91 Annette Hernandez Appointment not scheduled Hetal Cary [facility] 2025-07-15 10:04:44 Referrals sent via ground fax to and . Fax confirmation pending fax # [phone] [facility] 2025-07-14 02:17:42 Problem: Falls, Risk of Goal: Absence of falls Outcome: Progressing as expected Problem: Discharge Planning Goal: Adequate for discharge Outcome: Progressing as expected Goal: Effective communication Outcome: Progressing as expected Problem: Mobility - Impaired Goal: Able to achieve maximum mobility level Outcome: Progressing as expected Problem: Pain Goal: Control of pain at or below patient's documented comfort goal Outcome: Progressing as expected Goal: Reduction in pain sensation Outcome: Progressing as expected Problem: Nausea/Vomiting Goal: Absence of nausea/vomiting Outcome: Progressing as expected Problem: Infection Risk Goal: Absence of infection Outcome: Progressing as expected Problem: Venous Thromboembolism, (actual or risk of) Goal: Absence of venous thromboembolism (Risk) Outcome: Progressing as expected Citlaly Wooten RN [facility] 2025-07-14 00:33:24 Problem: Falls, Risk of Goal: Absence of falls Outcome: Progressing as expected Problem: Discharge Planning Goal: Adequate for discharge Outcome: Progressing as expected Goal: Effective communication Outcome: Progressing as expected Problem: Mobility - Impaired Goal: Able to achieve maximum mobility level Outcome: Progressing as expected Problem: Pain Goal: Control of pain at or below patient's documented comfort goal Outcome: Progressing as expected Goal: Reduction in pain sensation Outcome: Progressing as expected Problem: Nausea/Vomiting Goal: Absence of nausea/vomiting Outcome: Progressing as expected Problem: Infection Risk Goal: Absence of infection Outcome: Progressing as expected Problem: Venous Thromboembolism, (actual or risk of) Goal: Absence of venous thromboembolism (Risk) Outcome: Progressing as expected Norah Mortensen RN [facility] 2025 08:14:23 Problem: Falls, Risk of Goal: Absence of falls Outcome: Progressing as expected Problem: Discharge Planning Goal: Adequate for discharge Outcome: Progressing as expected Goal: Effective communication Outcome: Progressing as expected Problem: Mobility - Impaired Goal: Able to achieve maximum mobility level Outcome: Progressing as expected Problem: Pain Goal: Control of pain at or below patient's documented comfort goal Outcome: Progressing as expected Goal: Reduction in pain sensation Outcome: Progressing as expected Problem: Nausea/Vomiting Goal: Absence of nausea/vomiting Outcome: Progressing as expected Geneva Ahn RN [facility] 2025 06:07:46 Problem: Falls, Risk of Goal: Absence of falls Outcome: Progressing as expected Problem: Discharge Planning Goal: Adequate for discharge Outcome: Progressing as expected Goal: Effective communication Outcome: Progressing as expected Problem: Mobility - Impaired Goal: Able to achieve maximum mobility level Outcome: Progressing as expected Problem: Pain Goal: Control of pain at or below patient's documented comfort goal Outcome: Progressing as expected Goal: Reduction in pain sensation Outcome: Progressing as expected Problem: Nausea/Vomiting Goal: Absence of nausea/vomiting Outcome: Progressing as expected [facility] 2025-07-12 18:41:01 Problem: Falls, Risk of Goal: Absence of falls Outcome: Progressing as expected Problem: Discharge Planning Goal: Adequate for discharge Outcome: Progressing as expected Goal: Effective communication Outcome: Progressing as expected Problem: Mobility - Impaired Goal: Able to achieve maximum mobility level Outcome: Progressing as expected Problem: Pain Goal: Control of pain at or below patient's documented comfort goal Outcome: Progressing as expected Goal: Reduction in pain sensation Outcome: Progressing as expected Problem: Nausea/Vomiting Goal: Absence of nausea/vomiting Outcome: Progressing as expected Kamila Pappas RN [facility] 2025-07-12 15:51:20 Images from the original note were not included. Pharmacy Recommendations for Patient Admission: Add amiodarone 200 mg PO daily Add cholecalciferol 50 mcg PO QAM The NEEDLE LOOM OPERATOR medication list has been updated and reflected in the chart below. Please use the [facility] Med List for ordering home doses during admission. Patient Adherence: Sporadically Non-Adherent to some medications. Source(s) used in interview: Outpatient Pharmacy and Medical Records Interview limitations: Patient is poor historian RX Transitions of Care Risk Score: 22 Medications Added Medications Removed Medications Modified None None None Allergies as of 07/11/2025 (No Known Allergies) Pharmacy Updated [id number] Med List Medication Sig proCHLORperazine 10 mg tablet Take 1 tablet by mouth every 6 hours as needed for Nausea and Vomiting (N/V). amiodarone 200 mg tablet Take 1 tablet by mouth 2 times daily for 7 days, THEN 1 tablet daily for 23 days. metoprolol tartrate 50 mg tablet Take 1.5 tablets by mouth in the morning and 1.5 tablets in the evening. apixaban 5 mg tablet Take 1 tablet by mouth in the morning and 1 tablet in the evening. Indications: atrial flutter atorvastatin 40 mg tablet Take 1 tablet by mouth at bedtime. Cholecalciferol, Vitamin D3, 50 mcg (2,000 unit) tablet Take 50 mcg by mouth. proMETHazine 25 mg suppository Insert 1 suppository into rectum every 4 hours as needed for Nausea and Vomiting (N/V). Food Supplement, Lactose-Free (ENSURE ORIGINAL) liquid Take 1 Bottle by mouth in the morning and 1 Bottle in the evening. acetaminophen (TYLENOL ARTHRITIS PAIN ORAL) Take by mouth. albuterol sulfate HFA 90 mcg/actuation aerosol inhaler Inhale 2 Puffs every 4 (four) hours as needed for Wheezing or Shortness of Breath. Outpatient Pharmacy Contact Information: [facility] [address] [place] [id number] Thank you for the opportunity to participate in the care of this patient. Sabrina Mitchell RPH 3:49 PM, 07/12/2025 [facility] Department of Pharmacy - [facility] Phone: ADC: [phone] Sabrina Mitchell [facility] 2025-07-12 12:47:08 Attempted to reach pt son, no answer, left a vm Citlaly Ram RN 07/12/2025 12:47 PM Citlaly Ram RN [facility] 2025-07-12 12:45:46 Can probably hold off colonoscopy until things calm down a bit as far as all her appointments. Notified patient. IM-PULMONARY DISEASE STAFF [facility] 2025-07-12 10:42:09 Patient's son is trying to get patient's colonoscopy rescheduled. It has been rescheduled multiple times. He notes some testing Dr. Benavidez ordered (PET) showed possible concern. He states patient does have GI symptoms (diarrhea). Patient is about to start chemo/radiation for lung cancer which will go through to August. Patient's son would like to know if the colonoscopy is urgent? Will it be ok if the colonoscopy is delayed until late August? Patient is currently admitted. Halie He RN [facility] 2025-07-12 06:59:00 Problem: Falls, Risk of Goal: Absence of falls Outcome: Progressing as expected Problem: Discharge Planning Goal: Adequate for discharge Outcome: Progressing as expected Goal: Effective communication Outcome: Progressing as expected Problem: Mobility - Impaired Goal: Able to achieve maximum mobility level Outcome: Progressing as expected Problem: Pain Goal: Control of pain at or below patient's documented comfort goal Outcome: Progressing as expected Goal: Reduction in pain sensation Outcome: Progressing as expected Problem: Nausea/Vomiting Goal: Absence of nausea/vomiting Outcome: Progressing as expected [facility] 2025-07-12 00:00:00 RN spoke with patient about the importance of second iv. Patient declined a second iv at this time. Patient not receiving any continuous infusion at the moment. Patient agreeable to discussion if continuous infusion is ordered. RN and MD notified [facility] 2025-07-11 23:08:18 Patient admitted to [facility] for diagnosis of tachycardia. Patient agrees to admission, discussed plan of care with patient and family. Patient is awake, A&Ox4, RR even and unlabored on RA. Color appropriate for race. PIV intact x1. No adverse reaction to medications administered while in ED. Belongings with patient to unit. [facility] Jose E Duenas RN [facility] 2025-07-11 22:59:02 Nurse Report Report given to Lauren MCINTOSH. Chief complaint, assessment findings, infusion verify and orders reviewed. Jose E Duenas RN [facility] 2025-07-11 22:08:42 Pt refusing 2nd IV. Educated pt on necessity of 2nd IV and its uses for IMU admit, pt verbalized understanding but refuses 2nd IV d/t pt states "I just don't want to go through that pain again." [facility] 2025-07-11 19:45:46 Patient brought by wheelchair for c/o chest pain. Pain began 7PM today. Gloria Cross RN [facility] 2025-07-11 15:02:35 Pt's son Janeen states that Dr Benavidez ordered a series of test but her Colonoscopy has gotten rescheduled twice. He would like to know is there's an urgency on having these test completed. Pls advise. Walter Burkett [facility] 2025-07-09 12:49:00 Noted. Will wait for rehabilitation caseworker to assist with scheduling and provide education to pt when colonoscopy is rescheduled. Marichuy Flaherty MA [facility] 2025-07-09 10:29:28 Ms. Valle was scheduled for a colonoscopy with Dr. Carmichael on 07/16/25. Procedure was cancelled and is pending reschedule due to multiple appointments in two locations ([place] and [place]) on the same day. Son concerned it is too hard on her body to manage.This was the second time procedure was cancelled. Son requesting case/child care provider to assist with setting up appointments while patient is receiving chemotherapy to prevent similar situation in the future. Stated they had this service at [facility] for his father. Email request sent to SS and CM for assistance. Called son and provided number for [facility] to request case/child care provider assistance with Care Coordination.Thank you. Arabella Meza RN [facility] 2025-07-09 08:20:47 Email mesg to team to ensure pulm clearance is not needed prior to procedure. Marichuy Flaherty MA [facility] 2025-07-04 16:10:17 Left detailed voicemail on patient phone with the purpose of the call and the contact information for pt to return call to clinic to speak with Karina Sanchez, RN Called patient to talk to her about the Xrt and infusion appts. Karina Sanchez RN [facility] 2025-07-03 09:48:18 Cardio cleared for colonoscopy after yesterdays stress test. Do we need pulmonary clearance before we reschedule her? Marichuy Flaherty MA [facility] 2025-07-02 19:41:08 Negative stress test. Ok to proceed and hold Eliquis 2-3 days before procedure. [facility] 2025-07-02 16:42:39 Please advise if pt needs additional testing or if she can proceed with colonoscopy and ok to hold Eliqius prior to procedure. [facility] 2025-07-02 16:38:48 Initial Clearance: Per last ov on 05/22/2025 Assessment/Plan: ICD-10-CM 1. Preop cardiovascular exam Z01.810 2. SVT (supraventricular tachycardia) I47.10 3. Primary hypertension I10 4. Hyperlipidemia, unspecified hyperlipidemia type E78.5 5. Coronary artery calcification I25.10 Preop cardiac evaluation-chronic dyspnea on exertion likely due to lung condition. No chest pain. Previous nuclear stress test in 2022 showed no ischemia. Echocardiogram in 2024 showed normal ejection fraction and wall motion. For colonoscopy, the risk is low to intermediate. Okay to proceed. Recommend to continue metoprolol throughout surgery. A nuclear stress test has been ordered by pulmonary medicine. If nuclear stress test shows no significant ischemia, moderate cardiac risk for lung surgery. Coronary artery calcification-I reviewed her CT scan chest. Significant coronary artery calcification. Continue metoprolol and high intensity Lipitor. Hypertension-her blood pressure is well-controlled. Continue lisinopril and metoprolol. CAG-ajit-luopwyhebi with metoprolol. Following [facility] EP. RTC as needed Marlene Joe MD, FACC, GLORIA Operator Maintainer Department of Cardiovascular Medicine [facility] Need to schedule pt with son and sister Malick in office once stress test reviewed and pt cleared for colonoscopy for nurse visit to ensure compliance with bowel prep and clear liquid diet prior to procedure. Patient may need person to be with her throughout her bowel prep to ensure she complies with instructions. Please see TE from yesterday regarding prep as pt stated had not eaten and was drinking her bowel prep and clear liquids and instructions were reinforced with her son and son and patient verbalized understanding but patient did not comply with instructions and or medication holding. To ensure adequate understanding of prep NV is needed. T [facility] [employer] 2025-07-02 16:31:34 ----- Message from Katie Carmichael sent at 07/02/2025 7:21 AM CDT ----- Good morning all, Ms. Valle was scheduled for a colonoscopy this morning. Her Eliquis was not held, she ate a breakfast taco yesterday morning, and she did not complete her bowel prep. Additionally she was also scheduled for a stress test this morning. I have cancelled her colonoscopy today as she was not adequately prepared. She is being sent over for her stress test today. She will need to be rescheduled with split SuPrep and appropriate preprocedural instructions. Please reach out to her and her sister Malick for instructions and to reschedule. Thank you, [facility]H [facility] [employer] 2025-07-02 08:00:00 Summary: stress Lisset Valle is a 74 year old female received to Nuclear Medicine for Stress Test. Pt is AAOx4 and is in NAD. Pt identified using Name & . Pt endorses no caffeine intake for 24 hrs and being NPO at least 4 hrs. PIV placed at right hand. Indication for this Stress Test is chest pain. NM Tech monitoring is almita Supervising physician heath obtained consent at 07/02/2025 Time out completed 1006 Lexiscan 0.4mg/5mL injected at 1006, followed by 5mL NS flush. PIV removed, pt leaving in no obvious distress. [facility] 2025-07-01 14:34:57 Images from the original note were not included. Name and verified, pt states she started her bowel prep at noon. Pt was instructed she should also take Dulcolax tablets as well. Pt states she is in the bathroom and that her stool is getting "clearer". Pt verbalized understanding and gave permission to explain instructions to her son Janet. Citlaly Ram RN 07/01/2025 2:40 PM Called and spoke to son, son is aware of bowel prep instructions and for pt to continue with clear liquids and to finish bowel prep tomorrow morning, son states pt is too arrive by 0630 tomorrow morning at surgery center and pt was given instructions to finish bowel prep at 0300 instead of 0400. Citlaly Ram RN 07/01/2025 2:46 PM Bowel Prep instructions: Colonoscopy Screening Bowel Prep: If patient has constipation (constipation severity score 2): Recommend Golytely split prep GoLytely Bowel Prep (Split Dose) Instructions To prepare for the examination, you will need to completely clean out your bowels. Please follow the instructions carefully. You must have a responsible adult bring you, stay and drive you home the day of the procedure. You will NOT be allowed to travel home alone or in a Taxi, Bus or Uber. You will need to buy: GoLytely - Prescription will be sent to your pharmacy Dulcolax 5mg tablets (You will need 4)-Can be purchased over the counter Medications: You may need to change your medication routine if you take medications such as fish oil, diabetes medication, anti-inflammatory medications, or blood thinners. You may take Tylenol. If you take any of the following blood thinners you need to inform your provider and may require clearance from your sales operations consultant or PCP: Plavix, Coumadin, Effient, Eliquis, Xarelto, Brilinta or Pradaxa One week before the exam: Do not take Iron supplements. Do not eat nuts, corn or popcorn. The day before the exam: NO SOLID FOOD, MILK OR CREAM PRODUCTS Drink only clear liquids all day (breakfast, lunch, and dinner). Clear liquids include chicken/beef broth, jello, pulp-less fruit Juice, black coffee (no creamer), tea, soft drinks, concepcion josette, Gatorade, PowerAde, and popsicles. * NOTHING RED OR PURPLE* At Noon: take two (2) Dulcolax tablets At Noon: start drinking GoLytely. You may mix with Vazquez, Crystal Light, or any other flavoring (as long as it is not red, blue or purple) Drink an 8-oz glass of GoLytely every 10 to 15 minutes until the bottle is half empty (2 L) At 8:00 PM: take two (2) Dulcolax tablets Continue to drink clear liquids until midnight, then nothing to eat/drink after midnight except for medications Day of exam: At 4:00 AM: Drink one 8-oz glass of GoLytely every 10 to 15 minutes until the second half of the bottle is empty (2 L) Do not eat or drink anything the rest of the morning (if you are scheduled later afternoon you can remain on clear liquids until 2 hours prior to arrival time for procedure). You may take your medications with a small sip of water. NO CHEWING GUM OR HARD CANDY Citlaly Ram RN [facility] 2025-07-01 14:05:23 Images from the original note were not included. Called and spoke to pt son. He state that pt has not c/o any symptoms. He states he does ask her and she says she is fine. She is taking her medications as prescribed. Tressa Russell RN [facility] 2025-07-01 13:23:17 Patient's son Janet called and stated patient is scheduled for colonscopy 07/02/25 and they are needing instructions for prep. Please call to [phone]. Tyra Castro [facility] 2025-07-01 10:30:05 Lisset Valle is a 74 year old female Dayana with [employer] [facility] [employer] reports that had 5 serious events that occurred on 06/29/2025,1st@5:07 am, 2nd @ 5:19 am, 3rd @ 8:56 am, 4@ 9:02 am and 5th @ 9:05 am, events were SVT,(4), 5th was SVT with Sinus tachycardia with PVC, reference number # [id number]. Thanks Mary Joseph [facility] 2025-06-26 11:00:00 Patient was given a Synacor 30 day Monitor. They were educated on use and care. The patient was instructed to contact [employer] with any further questions or issues. Patient verbally acknowledged these instructions via teach back. Stephy Becerril [facility] 2025-06-26 09:46:38 Images from the original note were not included. Your upcoming colonoscopy is at [facility] on 07/02/25. The address is [address] [place] [address], [id number]The nursing staff at [facility] will call you the workday prior to your procedure between 12p-3p to provide arrival time. When you arrive, please come inside and sign in at the desk. Please note: You may not travel home alone after your procedure and that includes in a taxi or by bus. We must speak to your Responsible Adult (who will be picking you up) the morning of your procedure, before the start of your procedure. This person must be an adult over the age of 18 years of age. Maintain a clear liquid diet the entire day before your procedure. Do not drink anything containing red, blue, or purple dyes. Follow the instructions of your bowel prep as directed by you physician. You may also take your medications the morning of your procedure with a sip of water as directed by physician. Anticoagulants: Will hold apixaban two days prior to procedure if okay with cardiology. Seeing cardiology today. Other medication Note(s)/Instructions: Advised to take amiodarone and metoprolol morning of procedure. Pending screening, a COVID test may be required. If a patient tests positive, their cases are cancelled and/or rescheduled. COVID NOTE: Denies COVID symptoms or exposure, no testing required. Additional questions, concerns, requests:Text message sent with medication instructions and emailed . Patient verbalized understanding of pre-op instructions and voiced no further questions at this time.CB number and availability provided. [facility] [employer] 2025-06-25 14:37:18 Name/ MRN / Age / Gender: Lisset Valle, [id number] 74 year old female BMI: Estimated body mass index is 20.27 kg/m? as calculated from the following: Height as of 06/25/25: 1.575 m (5' 2"). Weight as of 06/25/25: 50.3 kg (110 lb 12.8 oz). Allergies: Patient has no known allergies. Last Vitals: BP Readings from Last 1 Encounters: 06/25/25 110/50 Pulse Readings from Last 1 Encounters: 06/25/25 77 SpO2 Readings from Last 1 Encounters: 06/25/25 98% Date of Surgery: 07/02/2025 Surgeon: Katie Carmichael MD Procedure: COLONOSCOPY (Rectum) OR Location: [facility] OR [facility] Anesthesia Preop Screen (no physical exam) Anesthesia Preop: [id number] and Phone Preop [facility] Communication: Spoke with Patient's son on 06/25/25 at 3PM. Reviewed case with Dr. Gonzalez. Anesthesia History Anesthesia History Negative Previous Anesthetics/Airways Cardiovascular Comments: EKG 06/16/25: A fib with RVR AISSATOU February 2025: ? Left Ventricle: Left ventricle size is normal. There is moderate concentric hypertrophy. Normal systolic function with a visually estimated EF of 55 - 60%. There is grade 1 diastolic dysfunction. ? Right Ventricle: Right ventricle size is normal. Normal systolic function. TAPSE is 2.04 cm. TDI-derived tricuspid annular systolic velocity (TDI S') is 18.1 cm/s. Preop cardiac evaluation-chronic dyspnea on exertion likely due to lung condition. No chest pain. Previous nuclear stress test in 2022 showed no ischemia. Echocardiogram in 2024 showed normal ejection fraction and wall motion. For colonoscopy, the risk is low to intermediate. Okay to proceed. Recommend to continue metoprolol throughout surgery. A nuclear stress test has been ordered by pulmonary medicine. If nuclear stress test shows no significant ischemia, moderate cardiac risk for lung surgery. Admitted on 06/16/2025 for atrial fibrillation with rapid ventricular response. The principal diagnosis was confirmed through clinical evaluation and EKG findings showing atrial flutter with rapid ventricular response. She was treated with an intravenous amiodarone drip, which showed improvement. Cardiology was consulted for assistance in management and heart rate did improve which led to transition to oral amiodarone. Anticoagulation was managed with Eliquis. She was continued on metoprolol with good effect. METS: <3 METS Comments: She's only able to go up 1 flight of stairs. Not able to walk more than 1 block. Two weeks ago patient walked from [facility] [employer] lot to second floor (no wheelchair available) and patient was so winded and SOB, she ended up getting admitted to ER. (+) Hypertension Pulmonary Comments: PET 05/31/2025: 1. Large right upper lobe pulmonary FDG avid mass measuring 4.3 x 3.4 cm in the metabolically active portions, in keeping with known cancer. 2. No FDG avid lymphadenopathy or distant metastasis. 3. Diffuse colonic FDG avidity without CT correlate. This finding is nonspecific and could be inflammatory. Recommend correlation with colonoscopy, if clinically relevant. (+) Cigarette use Neuro/Musculoskeletal Comments: MR Brain wo contrast Result Date: 05/14/2025 No acute intracranial abnormality. No discrete intracranial lesions within the limitation of noncontrasted study (+) TIA GI/Hepatic Comments: Diffuse Colonic FDG avidity (+) GERD Hematology Comments: 06/18/25 04:27 WBC x10 3 : 7.87 RBC x10 6 : 3.19 (L) HGB: 9.0 (L) HCT: 27.3 (L) MCV: 85.6 MCH: 28.2 MCHC: 33.0 RDW-SD: 45.9 RDW-CV: 14.8 PLT x10 3 : 312 (L): Data is abnormally low (+) On anti-coagulant therapy Patient Accepts Blood Transfusion: No Renal Comments: 06/18/25 04:27 NA: 134 (L) K: 3.4 (L) CL: 108 CO2 TOTAL: 18 (L) AGAP: 8 BUN: 10 GLUCOSE: 104 CREATININE: 0.73 (L): Data is abnormally low Skin Negative Skin ROS Endo/Other Negative Endo/Other ROS Other Comments: -Successful left chest wall port placement (7F-25 cm) 06/13/2025 (+) Cigarette use (+) Alcohol use CATCHER PLUG CATCHER PLUG N/A Pediatric Pediatric N/A N/A Preoperative Medication Instructions Continue taking all prescribed medications except: PORTER inhibitors, ARBs, diuretics, all oral diabetes medications Anticoagulant Therapy: Defer to surgeons Insulin: Take 1/2 dose the night prior to surgery. Hold on DOS. Phentermine: Alert [facility] anesthesiologist SGLT2 Inhibitors: "gliflozins" to be held for 3 days prior to elective surgeries GLP1 Agonosit: stop 7 days prior to surgery MAC Cases: Continue taking PORTER inhibitors and ARBs ASA Classification ASA: 3 ASA Comments: 74 year old female w/ PMH of HTN, acid reflux, former smoker who had multiple presentations for SOB/FERRERA to ED d/t Non-small cell cancer of right lung - Primary Labs: Chemistry 06/18/2025 CBC 06/18/2025 134 (L) 108 10 104 7.87 9.0 (L) 312 3.4 (L) 18 (L) 0.73 27.3 (L) eGFR: 87.5 Date: 06/18/2025 ANC: 5.20 Date: 06/18/2025 LFTs 06/17/2025 Coags AST: 13 AP: 77 Prot: 6.2 (L) Ca: 9.1 PT: 13.3 (H) Date: 06/14/2025 ALT: 6 T Evaristo: 0.8 Alb: 3.0 (L) PTT: 29 Date: 06/14/2025 PO4: 3.7 Date: 06/14/2025 INR: 1.2 Date: 06/14/2025 Cardiac Endocrine & other pBNP: 2,330 (H) Date: 06/17/2025 A1C: 5.8 (H) Date: 06/14/2025 Trop I: 0.003 Date: 06/17/2025 POCT A1C: - Date: - CK: - Date: - TSH: 1.28 Date: 06/14/2025 CKMB: - Date: - FT4: 1.63 Date: 06/16/2025 LDL: 75 Date: 06/14/2025 Lact: 1.68 Date: 06/16/2025 Procal: - Date: - Respiratory -|-|-|-|- D-dimer: - ABG Date: - Date: - Miscellaneous Type and Screen: - Antibody: - Date: - POCT : - Date: - Current Medications: No outpatient medications have been marked as taking for the 07/02/25 encounter (Hospital Encounter). Previous Surgeries: Past Surgical History: Procedure Laterality Date ENDOBRONCHIAL ULTRASOUND-TRANSBRONCHIAL FNA ([facility]X) Bilateral 05/02/2025 Surgeon: Roberta Benavidez DO; [facility] ROBOTIC ASSISTED BRONCHOSCOPY ([facility]X) N/A 05/02/2025 Surgeon: Roberta Benavidez DO; [facility]: [facility] Physical Exam Anesthesia Plan ASA Status: 3 Plan discussed during pre-op evaluation: General and TIVA Anesthetic plan on DOS: General and TIVA Anesthesia plan discussed with: patient or open claims representative Post-Operative Analgesia: routine analgesia & antiemetics Recovery Plan: PACU Additional comments: NACR-NURSE PICKER OPERATOR,CERTIFIED REGISTERED NURSE PICKER OPERATOR [place] [id number] 14:30:00 Addended by: NEREIDA MARSH on: 07/16/2025 12:47 PM Modules accepted: Orders [facility] 2025-06-25 14:30:00 Addended by: NEREIDA MARSH on: 07/16/2025 12:49 PM Modules accepted: Orders [facility] 2025-06-24 09:12:19 Done, rescheduled to 07/02 Mary Muro [facility] 2025-06-24 08:35:33 Please contact patient to reschedule colonoscopy procedure. Consult already completed. Marianne Wei [facility] 2025-06-18 13:17:56 Problem: Falls, Risk of Goal: Absence of falls Outcome: Resolved Problem: Pain Goal: Control of pain at or below patient's documented comfort goal Outcome: Resolved Problem: Skin integrity Impaired (Risk or Actual) Goal: Prevention of new skin breakdown Outcome: Resolved Problem: Discharge Planning Goal: Adequate for discharge Outcome: Resolved Goal: Effective communication Outcome: Resolved Problem: Infection Risk Goal: Absence of infection Outcome: Resolved Problem: Inadequate Renal Function Goal: Maintain Renal Function Outcome: Resolved Problem: Respiratory Function - Impaired Goal: Adequate oxygenation Outcome: Resolved Goal: Adequate work of breathing Outcome: Resolved Goal: Patent airway Outcome: Resolved Problem: Bleeding, Risk of Goal: Absence of impaired coagulation signs and symptoms Outcome: Resolved Problem: Discharge Planning Goal: Adequate for discharge Outcome: Resolved Goal: Effective communication Outcome: Resolved Problem: Infection, Risk of or Actual Goal: Absence of infection Outcome: Resolved Problem: Nutrition Deficit Goal: Adequate nutritional intake Outcome: Resolved Warren Velásquez RN [facility] 2025-06-18 03:06:44 Problem: Falls, Risk of Goal: Absence of falls Outcome: Progressing as expected Problem: Pain Goal: Control of pain at or below patient's documented comfort goal Outcome: Progressing as expected Problem: Skin integrity Impaired (Risk or Actual) Goal: Prevention of new skin breakdown Outcome: Progressing as expected Problem: Discharge Planning Goal: Adequate for discharge Outcome: Progressing as expected Goal: Effective communication Outcome: Progressing as expected Problem: Infection Risk Goal: Absence of infection Outcome: Progressing as expected Problem: Inadequate Renal Function Goal: Maintain Renal Function Outcome: Progressing as expected Problem: Respiratory Function - Impaired Goal: Adequate oxygenation Outcome: Progressing as expected Goal: Adequate work of breathing Outcome: Progressing as expected Goal: Patent airway Outcome: Progressing as expected Problem: Bleeding, Risk of Goal: Absence of impaired coagulation signs and symptoms Outcome: Progressing as expected Problem: Discharge Planning Goal: Adequate for discharge Outcome: Progressing as expected Goal: Effective communication Outcome: Progressing as expected Problem: Infection, Risk of or Actual Goal: Absence of infection Outcome: Progressing as expected Problem: Nutrition Deficit Goal: Adequate nutritional intake Outcome: Progressing as expected Inderjit Willis RN [facility] 2025-06-17 16:34:11 Problem: Falls, Risk of Goal: Absence of falls Outcome: Progressing as expected Problem: Pain Goal: Control of pain at or below patient's documented comfort goal Outcome: Progressing as expected Problem: Skin integrity Impaired (Risk or Actual) Goal: Prevention of new skin breakdown Outcome: Progressing as expected Problem: Discharge Planning Goal: Adequate for discharge Outcome: Progressing as expected Goal: Effective communication Outcome: Progressing as expected Problem: Infection Risk Goal: Absence of infection Outcome: Progressing as expected Problem: Inadequate Renal Function Goal: Maintain Renal Function Outcome: Progressing as expected Problem: Respiratory Function - Impaired Goal: Adequate oxygenation Outcome: Progressing as expected Goal: Adequate work of breathing Outcome: Progressing as expected Goal: Patent airway Outcome: Progressing as expected Problem: Bleeding, Risk of Goal: Absence of impaired coagulation signs and symptoms Outcome: Progressing as expected Problem: Discharge Planning Goal: Adequate for discharge Outcome: Progressing as expected Goal: Effective communication Outcome: Progressing as expected Problem: Infection, Risk of or Actual Goal: Absence of infection Outcome: Progressing as expected Problem: Nutrition Deficit Goal: Adequate nutritional intake Outcome: Progressing as expected T [facility] 2025-06-17 04:17:27 Problem: Falls, Risk of Goal: Absence of falls 06/17/2025 0414 by Luis Marino RN Outcome: Progressing as expected 06/17/2025 0408 by Luis Marino RN Outcome: Progressing as expected Problem: Pain Goal: Control of pain at or below patient's documented comfort goal 06/17/2025 0414 by Luis Marino RN Outcome: Progressing as expected 06/17/2025 0408 by Luis Marino RN Outcome: Progressing as expected Problem: Skin integrity Impaired (Risk or Actual) Goal: Prevention of new skin breakdown Outcome: Progressing as expected Problem: Discharge Planning Goal: Adequate for discharge Outcome: Progressing as expected Goal: Effective communication Outcome: Progressing as expected Problem: Infection Risk Goal: Absence of infection Outcome: Progressing as expected Luis Marino RN 06/17/2025 4:17 AM T Luis Marino RN [facility] 2025-06-16 17:33:52 Patient used bed side commode and had an episode of diarrhea. Per patient she has been having chronic diarrhea for several months. [facility] 2025-06-16 17:27:40 Nurse Report Report given to DAYNA Valerio. Chief complaint, assessment findings, infusion verify and orders reviewed. ABEBE MTZ RN [facility] 2025-06-16 16:55:44 Patient was assisted to bedside commode and heart rate increased to 150's [facility] 2025-06-16 14:57:21 Lisset Valle is a 74 year old female arrived to ED via personal means with CC of low blood pressure (90's/60's), and pulse 176 at home. Reports generalized weakness. Port placed last week for chemo treatment. 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 Reports generalized weakness. Port placed last week for chemo treatment. HPI History provided by: Patient Illness Location: Low blood pressure Severity: Moderate Onset quality: Gradual Timing: Constant Chronicity: New Relieved by: Nothing Worsened by: Nothing Associated symptoms: no abdominal pain, no chest pain, no cough, no fatigue, no fever, no headaches, no nausea, no shortness of breath, no vomiting and no wheezing Past Medical History / Immunizations Past Medical History: Diagnosis Date Acid reflux Essential (primary) hypertension Tetanus received in last 5 years: Unknown Childhood immunizations: Up-to-date Past Surgical History Past Surgical History: Procedure Laterality Date ENDOBRONCHIAL ULTRASOUND-TRANSBRONCHIAL FNA (SHX) Bilateral 05/02/2025 Surgeon: Roberta Benavidez DO; Location: [facility] OR [facility] ROBOTIC ASSISTED BRONCHOSCOPY (SHX) N/A 05/02/2025 Surgeon: Roberta Benavidez DO; Location: [facility] Allergies No Known Allergies Social History Tobacco Use Former; 1 pack/day; Smoked an average of 1 pack/day for 40.0 years; Types: Cigarettes Passive Exposure: Current Smokeless Tobacco: Never used smokeless tobacco. Comments: Smokes 1 each per day Alcohol Use Not Currently. Drug Use Not Currently. Review of Systems Review of Systems Constitutional: Negative. Negative for chills, fatigue, fever and unexpected weight change. HENT: Negative. Eyes: Negative. Negative for discharge and itching. Respiratory: Negative. Negative for cough, chest tightness, shortness of breath and wheezing. Cardiovascular: Positive for palpitations. Negative for chest pain. Gastrointestinal: Negative. Negative for abdominal distention, abdominal pain, nausea and vomiting. Genitourinary: Negative. Negative for dysuria, urgency, frequency and flank pain. Musculoskeletal: Negative. Skin: Negative. Negative for color change, pallor and wound. Neurological: Negative. Negative for dizziness, syncope, light-headedness and headaches. Psychiatric/Behavioral: Negative. Negative for agitation and behavioral problems. All other systems reviewed and are negative. Endocrine: Endocrine negative Physical Exam ED Triage Vitals [06/16/25 1500] Weight 50.3 kg (111 lb) Actual or estimated Estimated by patient/family report Height 1.549 m (5' 1") BP 90/69 Pulse 178 Resp 18 Temp 37.6 ?C (99.7 ?F) Temp source Oral SpO2 95 % Measured on Room air Physical Exam Vitals reviewed. Constitutional: Appearance: She is well-developed. HENT: Head: Normocephalic and atraumatic. Nose: Nose normal. Eyes: Conjunctiva/sclera: Conjunctivae normal. Neck: Trachea: No tracheal deviation. Cardiovascular: Rate and Rhythm: Regular rhythm. Tachycardia present. Heart sounds: Normal heart sounds. No murmur heard. No friction rub. Pulmonary: Effort: Pulmonary effort is normal. No respiratory distress. Breath sounds: Normal breath sounds. No stridor. No wheezing or rales. Abdominal: General: Bowel sounds are normal. There is no distension. Palpations: Abdomen is soft. Tenderness: There is no abdominal tenderness. There is no guarding or rebound. Musculoskeletal: General: Normal range of motion. Cervical back: Normal range of motion and neck supple. Skin: General: Skin is warm and dry. Neurological: Mental Status: She is alert and oriented to person, place, and time. Cranial Nerves: No cranial nerve deficit. Sensory: No sensory deficit. Psychiatric: Behavior: Behavior normal. Labs Lab Results CBC WITH DIFF - Abnormal Result Value Ref Range WBC 7.57 4.30 - 11.10 10*3/?L RBC 3.60 (*) 3.93 - 5.25 10*6/?L HGB 10.1 (*) 11.6 - 15.0 g/dL HCT 31.2 (*) 35.7 - 45.2 % MCV 86.7 80.6 - 95.5 fL MCH 28.1 25.9 - 32.8 pg MCHC 32.4 31.6 - 35.1 g/dL RDW-SD 46.1 39.0 - 49.9 fL RDW-CV 14.7 12.0 - 15.5 % PLT 307 166 - 358 10*3/?L MPV 9.5 9.5 - 12.9 fL NRBC/100 WBC 0.0 0.0 - 10.0 /100 WBCs NRBC x10 3 <0.01 10*3/?L GRAN MAT (NEUT) % 62.7 % IMM GRAN % 0.30 % LYMPH % 28.1 % MONO % 8.7 % EOS % 0.1 % BASO % 0.1 % GRAN MAT x10 3 (ANC) 4.74 1.88 - 7.09 10*3/uL IMM GRAN x10 3 <0.03 0.00 - 0.06 10*3/uL LYMPH x10 3 2.13 1.32 - 3.29 10*3/uL MONO x10 3 0.66 0.33 - 0.92 10*3/uL EOS x10 3 <0.03 (*) 0.03 - 0.39 10*3/uL BASO x10 3 <0.03 0.01 - 0.07 10*3/uL COMP. METABOLIC PANEL (90707) - Abnormal NA 136 135 - 145 mmol/L K 3.8 3.5 - 5.0 mmol/L CL 110 (*) 98 - 108 mmol/L CO2 TOTAL 17 (*) 23 - 31 mmol/L AGAP 9 2 - 16 BUN 7 7 - 23 mg/dL GLUCOSE 91 70 - 110 mg/dL CREATININE 0.66 0.50 - 1.04 mg/dL TOTAL BILI 0.7 0.1 - 1.1 mg/dL CALCIUM 9.3 8.6 - 10.6 mg/dL T PROTEIN 6.3 6.3 - 8.2 g/dL ALBUMIN 3.2 (*) 3.5 - 5.0 g/dL ALK PHOS 84 34 - 122 U/L ALTv 7 5 - 35 U/L AST(SGOT) 13 13 - 40 U/L eGFR 93.3 mL/min/1.73m2 N-TERMINAL PRO-BNP - Abnormal NT-proBNP 2,270 (*) <=125 pg/mL URINALYSIS - Abnormal APPEARANCE Slightly Cloudy (*) Clear COLOR Yellow Yellow PH 5.0 4.8 - 8.0 SP GRAVITY 1.012 1.003 - 1.030 GLU U QUAL Normal Normal BLOOD 3+ (*) Negative KETONES Negative Negative PROTEIN Negative Negative UROBILIN Normal Normal BILIRUBIN Negative Negative NITRITE Negative Negative LEUK VIK Negative Negative RBC/HPF 6 (*) 0 - 3 HPF WBC/HPF 4 0 - 5 HPF BACTERIA Few (*) Negative MUCOUS Slight (*) Negative LPF SQ EPITH 17 HPF HYAL CAST 1 <=2 LPF MAGNESIUM - Abnormal MAGNESIUM 2.8 (*) 1.7 - 2.4 mg/dL TROPONIN I - Normal TROPONIN I 0.003 <=0.034 ng/mL LACTIC ACID WITH 2 HOUR REFLEX - Normal LACTIC ACID 1.68 0.50 - 2.20 mmol/L FREE T4 - Normal FREE T4 1.63 0.78 - 2.20 ng/dL Imaging No orders to display Orders and Treatments Orders Placed This Encounter Procedures Critical Care XR Chest 1 vw CBC WITH DIFF COMP. METABOLIC PANEL (83918) TROPONIN I N-TERMINAL PRO-BNP LACTIC ACID WITH 2 HOUR REFLEX URINALYSIS Free T4 Magnesium MRSA / MSSA Screen by PCR, Nares Cbc with Diff Comp. Metabolic Panel (93114) Magnesium N-Terminal Pro-Bnp Troponin I Feces Culture Clostridioides (Clostridium) Difficile Toxin Calprotectin, Fecal Fecal Pathogens by PCR Consult Cardiology Orders Placed This Encounter Medications NaCl 0.9% (NS) bolus infusion 500 mL metoprolol (LOPRESSOR) injection 2.5 mg FOLLOWED BY Linked Order Group amiodarone (CORDARONE) 900 mg in D5W 500 mL infusion amiodarone (CORDARONE) 900 mg in D5W 500 mL infusion pantoprazole (PROTONIX) EC tablet 40 mg atorvastatin (LIPITOR) tablet 40 mg apixaban (ELIQUIS) tablet 5 mg metoprolol tartrate (LOPRESSOR) tablet 50 mg Procedures EKG Time 1516 Rate 137 Afib with RVR Non specific ST T changes [place] normal Abnormal EKG MDM Patient was evaluated for an emergency medical condition related to Other (Low blood pressure ) Diagnoses considered but not limited to: SVT Uncontrolled Afib Labs:were ordered, and resulted, any relevant abnormalities were considered. Abnormal Labs Reviewed CBC WITH DIFF - Abnormal; Notable for the following components: Result Value RBC 3.60 (*) HGB 10.1 (*) HCT 31.2 (*) EOS x10 3 <0.03 (*) All other components within normal limits COMP. METABOLIC PANEL (92473) - Abnormal; Notable for the following components: CL 110 (*) CO2 TOTAL 17 (*) ALBUMIN 3.2 (*) All other components within normal limits N-TERMINAL PRO-BNP - Abnormal; Notable for the following components: NT-proBNP 2,270 (*) All other components within normal limits Narrative: Positive: Heart Failure Likely URINALYSIS - Abnormal; Notable for the following components: APPEARANCE Slightly Cloudy (*) BLOOD 3+ (*) RBC/HPF 6 (*) BACTERIA Few (*) MUCOUS Slight (*) All other components within normal limits MAGNESIUM - Abnormal; Notable for the following components: MAGNESIUM 2.8 (*) All other components within normal limits CBC WITH DIFF - Abnormal; Notable for the following components: RBC 3.02 (*) HGB 8.5 (*) HCT 25.9 (*) MPV 9.3 (*) EOS x10 3 <0.03 (*) All other components within normal limits COMP. METABOLIC PANEL (31773) - Abnormal; Notable for the following components: NA 134 (*) K 3.0 (*) CL 109 (*) CO2 TOTAL 17 (*) BUN 6 (*) T PROTEIN 6.2 (*) ALBUMIN 3.0 (*) All other components within normal limits MAGNESIUM - Abnormal; Notable for the following components: MAGNESIUM 1.4 (*) All other components within normal limits N-TERMINAL PRO-BNP - Abnormal; Notable for the following components: NT-proBNP 2,330 (*) All other components within normal limits Narrative: Positive: Heart Failure Likely Imaging:This is a teaching institution and preliminary studies are read by physicians in training. A final read by a radiologist will be confirmatory of preliminary studies or may include addenda. A reasonable attempt will be made to contact the patient or family to communicate findings if necessary. ED Course as of 06/17/25 0840 [place] Jun 16, 2025 1638 Bed requested ADC [DN] ED Course User Index [DN] Claudio Foss MD Diagnosis/Impression as of 06/17/25 0840 Weakness Uncontrolled atrial fibrillation AdmissionCare Guideline: Atrial Fibrillation, Inpatient Based on the indications selected for the patient, the bed status of Inpatient was determined to be MET The following indications were selected as present at the time of evaluation of the patient: - Clinical Indications for Admission to Inpatient Care - Admission is indicated for 1 or more of the following: - Initiation or adjustment of antiarrhythmic medication that requires cardiac monitoring (eg, telemetry), as indicated by ALL of the following: - Cardiac monitoring (eg, telemetry) appropriate, as indicated by 1 or more of the following: - Significant structural heart disease (eg, cardiomyopathy, dilation, scar or fibrosis, disruption to normal cardiac electrical propagation, hypertrophy) - Cardiac monitoring required that extends beyond observation care Complications and Comorbidities selected: None AdmissionCare documentation entered by: Claudio Foss [facility] [employer], 29th edition, Copyright ? 2024 [facility] [employer] All Rights Reserved. [id number]:00 Medical Decision Making Problems Addressed: Uncontrolled atrial fibrillation: acute illness or injury Weakness: acute illness or injury Amount and/or Complexity of Data Reviewed Labs: ordered. ECG/medicine tests: ordered and independent interpretation performed. Decision-making details documented in ED Course. Risk Prescription drug management. Decision regarding hospitalization. Pulse Oximetry: is not hypoxic. Interpreted. Reassessment:stable Communication with operations consultant: Cardiology Dr. Joe Limitations to patient care and compliance: none. Plan & Summary: The patient is a 74-year-old female who presents for low blood pressure and palpitations. Of note, she was released from [place] yesterday for SVT. She presented today in SVT and uncontrolled atrial fibrillation. She responded well initially to metoprolol and ultimately had to be placed on amiodarone drip. BNP is elevated. She is slightly hypokalemic. I spoke with Dr. Gifford at length in regards to the patient and he will see the patient in consultation. She was admitted to the ICU for further inpatient management. Lisset Valle is a 74 year old female presenting for complaint(s) listed within the note. . Admitted to . Case discussed and level of care determined with admitting provider. History, physical exam findings, results of visit, diagnosis, medication regimens and plan of future care have been considered. Additional MDM may be found in the ED course. Vital signs were rechecked before final disposition and determined to be expected for patient's clinical condition. Disposition & Follow Up ED Disposition ED Disposition Admit - ICU Condition -- Comment -- Current Discharge Medication List STOP taking these medications apixaban 5 mg tablet Comments: Reason for Stopping: metoprolol tartrate 50 mg tablet Comments: Reason for Stopping: acetaminophen (TYLENOL ARTHRITIS PAIN ORAL) Comments: Reason for Stopping: albuterol sulfate HFA 90 mcg/actuation aerosol inhaler Comments: Reason for Stopping: Cholecalciferol, Vitamin D3, 50 mcg (2,000 unit) tablet Comments: Reason for Stopping: atorvastatin 40 mg tablet Comments: Reason for Stopping: Future Appointments In 1 week Meghan Reynoso MD [facility], [facility] In 1 week [facility] 2 (3T) [facility], [facility] In 2 weeks ADC NM 1 [facility], [facility] In 2 weeks ADC NM 1 [facility] ADC NM 1 [facility] In 2 weeks ADC NM 1 [facility], [facility] In 2 weeks Azul Amaya MD [facility], [facility] In 2 weeks Randall Martin MD [facility] weeks Roberta Benavidez DO [facility], [facility], [facility] In 1 month Nereida Dodson, JOSE [facility] Primary Care, Jonah Vaca, LKJ t Claudio Foss Jr., MD Clinical [employer] [facility] Emergency Department Dragon Dictation Software is used frequently and may produce errors. Promptly contact for obvious discrepancies. Claudio Foss MD 06/17/25 0840 [facility] 2025-06-16 14:48:00 Associated Order(s): Critical Care Critical Care Performed by: Claudio Foss MD Authorized by: Claudio Foss MD Critical care provider statement: Critical care time (minutes): 45 Critical care time was exclusive of: Separately billable procedures and treating other patients and teaching time Critical care was necessary to treat or prevent imminent or life-threatening deterioration of the following conditions: Cardiac failure Critical care was time spent personally by me on the following activities: Development of treatment plan with patient or surrogate, evaluation of patient's response to treatment, examination of patient, obtaining history from patient or surrogate, ordering and performing treatments and interventions, ordering and review of laboratory studies, ordering and review of radiographic studies, pulse oximetry, re-evaluation of patient's condition and review of old charts Care discussed with: admitting provider Comments: Due to a high probability of clinically significant, life threatening deterioration, the patient required my highest level of preparedness to intervene emergently and I personally spent this critical care time directly and personally managing the patient. This critical care time included obtaining a history; examining the patient; pulse oximetry; ordering and review of studies; arranging urgent treatment with development of a management plan; evaluation of patient's response to treatment; frequent reassessment; and, discussions with other providers. This critical care time was performed to assess and manage the high probability of imminent, life-threatening deterioration that could result in multi-organ failure. It was exclusive of separately billable procedures and treating other patients. [facility] 2025-06-16 14:48:00 AdmissionCare Guideline: Atrial Fibrillation, Inpatient Based on the indications selected for the patient, the bed status of Inpatient was determined to be MET The following indications were selected as present at the time of evaluation of the patient: - Clinical Indications for Admission to Inpatient Care - Admission is indicated for 1 or more of the following: - Initiation or adjustment of antiarrhythmic medication that requires cardiac monitoring (eg, telemetry), as indicated by ALL of the following: - Cardiac monitoring (eg, telemetry) appropriate, as indicated by 1 or more of the following: - Significant structural heart disease (eg, cardiomyopathy, dilation, scar or fibrosis, disruption to normal cardiac electrical propagation, hypertrophy) - Cardiac monitoring required that extends beyond observation care Complications and Comorbidities selected: None AdmissionCare documentation entered by: Claudio Foss [facility], 29th edition, Copyright ? [address] [facility] All Rights Reserved. [id number]:00 [facility] 2025-06-15 19:00:00 Problem: Falls, Risk of Goal: Absence of falls Outcome: Progressing as expected Problem: Skin integrity Impaired (Risk or Actual) Goal: Prevention of new skin breakdown Outcome: Progressing as expected Problem: Respiratory Function - Impaired Goal: Able to cough effectively Outcome: Progressing as expected Goal: Adequate oxygenation Outcome: Progressing as expected Goal: Adequate work of breathing Outcome: Progressing as expected Goal: Patent airway Outcome: Progressing as expected Cynthia Anaya RN [facility] 2025-06-15 19:00:00 Problem: Falls, Risk of Goal: Absence of falls 06/15/20251928 by Cynthia Anaya RN Outcome: Adequate for discharge 06/15/20251924 by Cynthia Anaya RN Outcome: Progressing as expected Problem: Skin integrity Impaired (Risk or Actual) Goal: Prevention of new skin breakdown 06/15/20251928 by Cynthia Anaya RN Outcome: Adequate for discharge 06/15/20251924 by Cynthia Anaya RN Outcome: Progressing as expected Problem: Respiratory Function - Impaired Goal: Able to cough effectively 06/15/20251928 by Cynthia Anaya RN Outcome: Adequate for discharge 06/15/20251924 by Cynthia Anaya RN Outcome: Progressing as expected Goal: Adequate oxygenation 06/15/20251928 by Cynthia Anaya RN Outcome: Adequate for discharge 06/15/20251924 by Cynthia Anaya RN Outcome: Progressing as expected Goal: Adequate work of breathing 06/15/20251928 by Cynthia Anaya RN Outcome: Adequate for discharge 06/15/20251924 by Cynthia Anaya RN Outcome: Progressing as expected Goal: Patent airway 06/15/20251928 by Cynthia Anaya RN Outcome: Adequate for discharge 06/15/20251924 by Cynthia Anaya RN Outcome: Progressing as expected [facility] 2025-06-15 02:21:27 Problem: Falls, Risk of Goal: Absence of falls Outcome: Progressing as expected Problem: Skin integrity Impaired (Risk or Actual) Goal: Prevention of new skin breakdown Outcome: Progressing as expected Problem: Respiratory Function - Impaired Goal: Able to cough effectively Outcome: Progressing as expected Goal: Adequate oxygenation Outcome: Progressing as expected Goal: Adequate work of breathing Outcome: Progressing as expected Goal: Patent airway Outcome: Progressing as expected [facility] 2025-06-15 00:37:12 Report given to Tereas MCINTOSH. Chief complaint, assessment findings, infusion verify and orders reviewed. Plan of care discussed with patient and both nurses. Patient/family members verbalized understanding. [facility] Arnold Fernandes RN [facility] 2025-06-14 19:14:56 Report given to Arnold MCINTOSH. YT Griselda Copeland RN [facility] 2025-06-14 15:00:00 Patient given a sandwich box and a bottle of water. [facility] 2025-06-14 14:18:07 Patient up in a wheelchair and assisted to the restroom. [facility] 2025-06-14 13:26:53 Admit orders are in. EKG ordered. There are several EKG on patients chart. [facility] 2025-06-14 11:22:07 1000ml IV NS complete at this time. [facility] 2025-06-14 10:37:10 Rapid called for tachycardia during PFT testing s/p day 1 port placement. Pt alert and orienated, able to make complete sentences, pupils round and equal, denies any cp, or SOB, no cyanosis noted, breath sounds clear bilaterally. Patient placed on continuous monitoring, BG checked 110, and EKG, SVT noted on. MICU fellow at bedside. Patient agreeable to go to ED. TX to ED RM 116. @ 1013 YT Rogelio Sutton RN [facility] 2025-06-14 10:27:41 Lisset Valle is a 74 year old female presenting to ED with c/o tachycardia. Patient was being seen in the clinic and was having pulmonary function test when her heart rate became elevated. Patient denies any complaints on arrival. EKG done and placed on front desk monitor. Patient with new port placement for chemo. Arrived to room in NAD. VSS. Respirations even and unlabored. Lung sounds clear bilaterally. Bowel sounds normoactive in all 4 quadrants. Bed locked and in lowest position with call kline within reach. Palma Donohue RN [facility] 2025-06-14 10:11:53 Lisset Valle is a 74 year old female presents as a rapid after pulmonary function test for elevated HR "all over the place" and hypotension. PT is awake and alert, does not appear to be in distress. According to family member bedside "this happens all the time". PT to room for further evaluation. 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 treatment: None Travel and Exposure Screening: Symptoms Does patient have any of these symptoms?: (not recorded) Exposure Screening Has patient had contact with someone with a communicable disease in the last month?: (not recorded) Diseases exposed to:: (not recorded) Is Patient ?: (not recorded) Exposure Date: (not recorded) Chief Complaint: Chief Complaint Patient presents with Other HR "all over the place" History of Present Illness: History of Present Illness Lisset Valle is a 74 year old female who presents from pulmonary clinic with tachycardia in the 150-160 range and SVT bouncing in and out of SVT. Every few minutes she will go into SVT. Patient has a past medical history significant for hypertension on metoprolol which she did not take this morning, [id number] smoking history, non-small cell lung cancer, who presented to the emergency room yesterday from IR with tachycardia. She was given IV fluid bolus which resolved the tachycardia. She had her IR port placed for chemotherapy yesterday after the ER visit. Patient denies any other systemic signs or symptoms, no fever, no shortness of breath. Past Medical History/Immunizations: Past Medical History: Diagnosis Date Acid reflux Essential (primary) hypertension Tetanus received in last 5 years: Unknown Childhood immunizations: Up-to-date Allergies: No Known Allergies Past Social History: Tobacco Use Former; 1 pack/day; Smoked an average of 1 pack/day for 40.0 years; Types: Cigarettes Passive Exposure: Current Smokeless Tobacco: Never used smokeless tobacco. Comments: Smokes 1 each per day Alcohol Use Not Currently. Drug Use Not Currently. Past Surgical History: Past Surgical History: Procedure Laterality Date ENDOBRONCHIAL ULTRASOUND-TRANSBRONCHIAL FNA (SHX) Bilateral 05/02/2025 Surgeon: Roberta Benavidez DO; Location[facility] ROBOTIC ASSISTED BRONCHOSCOPY (SHX) N/A 05/02/2025 Surgeon: Roberta Benavidez DO; [facility] Review of Systems: Review of Systems Constitutional: Negative. HENT: Negative. Eyes: Negative. Respiratory: Negative. Breasts: Negative. Cardiovascular: Positive for palpitations. Gastrointestinal: Negative. Genitourinary: Negative. Musculoskeletal: Negative. Skin: Negative. Neurological: Negative. Psychiatric/Behavioral: Negative. All other systems reviewed and are negative. Endocrine: Endocrine negative Physical Exam: Physical Exam ED Triage Vitals Weight 06/14/25 1013 46.7 kg (103 lb) Actual or estimated 06/14/25 1013 Actual Height 06/14/25 1013 1.549 m (5' 1") BP 06/14/25 0955 (!) 126/99 Pulse 06/14/25 0955 140 Resp 06/14/25 0955 18 Temp -- Temp src -- SpO2 07/25/25 0955 99 % Measured on -- Physical Exam Vitals and nursing note reviewed. Constitutional: Appearance: Normal appearance. She is normal weight. HENT: Head: Normocephalic and atraumatic. Right Ear: External ear normal. Left Ear: External ear normal. Nose: Nose normal. Mouth/Throat: Mouth: Mucous membranes are moist. Eyes: Extraocular Movements: Extraocular movements intact. Pupils: Pupils are equal, round, and reactive to light. Cardiovascular: Rate and Rhythm: Tachycardia present. Pulmonary: Effort: Pulmonary effort is normal. Breath sounds: Normal breath sounds. Abdominal: General: Abdomen is flat. Musculoskeletal: General: Normal range of motion. Cervical back: Normal range of motion and neck supple. Skin: General: Skin is warm. Capillary Refill: Capillary refill takes less than 2 seconds. Neurological: General: No focal deficit present. Mental Status: She is alert and oriented to person, place, and time. Mental status is at baseline. Psychiatric: Mood and Affect: Mood normal. Behavior: Behavior normal. Thought Content: Thought content normal. Judgment: Judgment normal. Radiology: No orders to display Lab Results: Lab Results LACTIC ACID WHOLE BLOOD - Normal Result Value Ref Range LACTIC ACID 2.12 0.50 - 2.20 mmol/L CBC WITH DIFF BASIC METABOLIC PANEL (NA, K, CL, CO2, GLUCOSE, BUN, CREATININE, CA) MAGNESIUM TROPONIN I EKG: If EKG completed, see Procedure Note. Orders and Treatments: Orders Placed This Encounter Procedures Cbc with Diff Basic Metabolic Panel (NA, K, CL, CO2, GLUCOSE, BUN, CREATININE, CA) Lactic Acid Whole Blood Magnesium Phosphorus Troponin I Consult Cardiology Orders Placed This Encounter Medications NaCl 0.9% (NS) bolus infusion 1,000 mL metoprolol tartrate (LOPRESSOR) tablet 25 mg First Provider Eval: ED Events Date/Time Event User Comments 06/14/25 1015 Medical Screening Begins RIKKI SAENZ MD -- 06/14/25 1015 First Provider Evaluation RIKKI SAENZ MD -- ED COURSE ED Course as of 06/14/25 1145 TueJun 14, 2025 1144 Given paroxysmal nature of this SVT, we will hold off on giving adenosine at this time. Home dose metoprolol given. Cardiology consulted and pending reccs. [WF] ED Course User Index [WF] Rikki Saenz DO Diagnosis/Impression as of 06/14/25 1145 Abnormal heart rate Results Procedures: EKG-12 Lead ROUTINE ONCE Date/Time: 06/14/2025 11:14 AM Performed by: Oliver Lopez MD Authorized by: Rikki Saenz DO ECG interpreted by ED Physician in the absence of a sales operations consultant: yes Previous ECG: Previous ECG: Compared to current Similarity: Changes noted Interpretation: Interpretation: abnormal Rate: ECG rate assessment: tachycardic Rhythm: Rhythm: SVT Ectopy: Ectopy: none QRS: QRS axis: Normal QRS intervals: Normal QRS conduction: normal ST segments: ST segments: Normal T waves: T waves: normal Q waves: Abnormal Q-waves: not present MDM: Assessment & Plan Medical Decision Making Lisset Valle is a 74 year old female who presents from pulmonary clinic with tachycardia in the 150-160 range and SVT bouncing in and out of SVT. Every few minutes she will go into SVT. Patient has a past medical history significant for hypertension on metoprolol which she did not take this morning, [id number] smoking history, non-small cell lung cancer, who presented to the emergency room yesterday from IR with tachycardia. She was given IV fluid bolus which resolved the tachycardia. She had her IR port placed for chemotherapy yesterday after the ER visit. Patient denies any other systemic signs or symptoms, no fever, no shortness of breath. Differential includes SVT, arrhythmia, infection, misplaced port, PE, not limited to these. Cardiology consult was placed and accepted patient for admission. Amount and/or Complexity of Data Reviewed Independent Historian: guardian External Data Reviewed: notes. Labs: ordered. Decision-making details documented in ED Course. ECG/medicine tests: ordered and independent interpretation performed. Decision-making details documented in ED Course. Risk Prescription drug management. Decision regarding hospitalization. Flowsheet Documentation: Scoring Tools: No data recorded Disposition/Condition: ED Disposition None Discharge Medications: Patient's Medications START taking these medications No medications on file CONTINUE taking these medications which have NOT CHANGED ACETAMINOPHEN (TYLENOL ARTHRITIS PAIN ORAL) Take by mouth. ALBUTEROL SULFATE HFA 90 MCG/ACTUATION AEROSOL INHALER Inhale 2 Puffs every 4 (four) hours as needed for Wheezing or Shortness of Breath. ATORVASTATIN 40 MG TABLET Take 1 tablet by mouth at bedtime. CHOLECALCIFEROL, VITAMIN D3, 50 MCG (2,000 UNIT) TABLET Take 50 mcg by mouth. LISINOPRIL 10 MG TABLET Take 1 tablet by mouth. Currently taking 2.5 mg METOPROLOL TARTRATE 25 MG TABLET Take 1 tablet by mouth in the morning and 1 tablet in the evening. UMECLIDINIUM (INCRUSE ELLIPTA) 62.5 MCG/ACTUATION DSDV Inhale 1 Puff in the morning. START taking Modified Medications as Prescribed No medications on file STOP taking these medications No medications on file Follow-up: Follow up with PCP next week Electronically signed by: Oliver Lopez MD, [facility] Emergency Medicine Oliver Lopez MD 06/14/25 1320 Cosigned by Rikki Saenz DO at 06/14/2025 7:30 PM CDT Associated attestation - Rikki Saenz DO - 06/14/2025 7:30 PM CDT I personally examined the patient and agree with resident note below. I actively participated in the decision-making process and was present for ALL procedures. Lab and imaging studies reviewed Diagnosis 1. Paroxysmal SVT 2. Active non small cell lung cancer Plan 1. Fluids and metoprolol given 2. Cards consulted, will admit Please see the resident's note for additional details. Rikki Saenz DO [facility] Emergency Medicine EMERGENCY MEDICINE [facility] 2025-06-13 10:31:39 Lisset Valle is a 74 year old female is discharged. Ambulatory with NAD noted. A&Ox4 with respirations even & unlabored bilaterally. Pt education provided, pt verbalized understanding. PIV intact & patent. PIV placed by IR, pt going back to IR for port cath placement. Discussed with IR & aware that we will leave IV in place for IR use. IR verbalized understanding. This RN & ERT transferred to Outpatient IR. Antonietta Guallpa RN [facility] 2025-06-13 10:05:20 Patient states that she is feeling better, family at bedside. Antoinette Zuniga RN [facility] 2025-06-13 08:50:00 Lisset Valle is a 74 year old female that presents to the er, brought down for IR. Pt was scheduled for a PORT for chemo therapy and her b/p was 80's/50's with a HR in the 160's. Pt with lung cancer. Pt is a/o x4. Pt is 96-98% on room air. Pt denies any CP. EKG done Vandana Rose RN [facility] 2025-06-13 08:38:[address] with DAYNA Mane. Kamila Gould RN [facility] 2025-06-13 08:29:07 ECG Obtained @ 0803. Syd Powell PCT [facility] 2025-06-12 09:00:00 Addended by: GARRY KIRK on: 06/16/2025 05:18 PM Modules accepted: Level of Service RAD-RADIATION ONCOLOGY STAFF [facility] 2025-06-11 13:00:00 Addended by: AZUL AMAYA V on: 06/13/2025 06:57 AM Modules accepted: Level of Service TS-THORACIC SURGERY (CARDIOTHORACIC VASCULAR SURGERY) STAFF [facility] 2025-05-27 11:05:42 Per last ov on 05/22/2025 Assessment/Plan: ICD-10-CM 1. Preop cardiovascular exam Z01.810 2. SVT (supraventricular tachycardia) I47.10 3. Primary hypertension I10 4. Hyperlipidemia, unspecified hyperlipidemia type E78.5 5. Coronary artery calcification I25.10 Preop cardiac evaluation-chronic dyspnea on exertion likely due to lung condition. No chest pain. Previous nuclear stress test in 2022 showed no ischemia. Echocardiogram in 2024 showed normal ejection fraction and wall motion. For colonoscopy, the risk is low to intermediate. Okay to proceed. Recommend to continue metoprolol throughout surgery. A nuclear stress test has been ordered by pulmonary medicine. If nuclear stress test shows no significant ischemia, moderate cardiac risk for lung surgery. Coronary artery calcification-I reviewed her CT scan chest. Significant coronary artery calcification. Continue metoprolol and high intensity Lipitor. Hypertension-her blood pressure is well-controlled. Continue lisinopril and metoprolol. TKH-[id number]-llmalevwdo with metoprolol. Following [facility] EP. RTC as needed Marlene Joe MD, FACC, MOJGANE Operator Maintainer Department of Cardiovascular Medicine [facility] Citlaly Ram RN [facility] 2025-05-27 10:02:[address] referral for pts' upcoming appt with pulmonary. Ramya Kerr [facility] 2025-05-16 10:07:08 Spoke w/ patient who then asked us to primarily speak w/ her son about results. Spoke about MDC topics and specifically MRI brain, which patient was hesitant to pursue again 2/2 pain + claustrophobia. Patient's son confirmed this but will talk w/ patient about pursuing this again as it affects treatment plan significantly. Patient's son prefers that [facility] call him to schedule appointments as patient will defer to him. Per MDC discussion, radiology will try to give pain meds/anxiolytics during MRI brain to facilitate. Patient's son prefers appts on Tue or Tuesday but will take anything sooner. Brett Baker M.D. Dept. Pulmonary Critical Care PGY6 INTERNAL MEDICINE [facility] 2025-05-15 16:36:19 Pt is scheduled for 05/22/[address] Heath Ram, RN 05/15/2025 4:36 PM Citlaly Ram RN [facility] 2025-05-15 12:36:00 Multidisciplinary Tumor Board Date of Presentation: 05/15/2025 Attending/Presenter: Varsha/Samuel HPI: Lisset Valle is a 74 year old female w/ PMH of HTN, acid reflux, former smoker who had multiple presentations for SOB/FERRERA to ED. Initial imaging on 03/07/25 noted RUL spiculated lung mass. Pt scheduled f/u for IR on 04/03/25 and pulmonary clinic visits on 04/29/25. Pt underwent RAB + EBUS on 05/02/25. RUL lesion biopsy pathology revealing of non-small cell carcinoma, favoring adenocarcinoma. RUL brushing and stations 7, 4R, 11R were all negative. ECOG ~ 1-2 Significant PMH: has a past medical history of Acid reflux and Essential (primary) hypertension. Significant labs: reviewed Topics for discussion: Review Imaging: CT thorax: reviewed PET: ordered MRI brain: reviewed Review pathology: reviewed Discuss Treatment Options: reviewed Discussion and recommendations included: PLAN/RECOMMENDATIONS: - repeat MRI brain w/ contrast as patient previously declined contrast 2/2 pain w/ vascular access - CTS referral FAMILIA - Medical oncology + radiation onc referral FAMILIA - PFTs + stress test - F/u NGS testing (EGFR, ALK testing in-house if available) Brett Baker M.D. Dept. Pulmonary Critical Care PGY6 [facility] 2025-05-14 16:15:[address] Benavidez for review. Pharmacy comment: NDC not covered by insurance. Incruse Ellipta covered. Lashell Sampson RN [facility] 2025-05-14 14:11:28 Done. Thank you [facility] 2025-05-14 14:07:35 Please review. Patient requesting cardiology referral for cardiac clearance for Colonoscopy. Jaiden Redd RN [facility] 2025-05-14 13:51:49 Images from the original note were not included. Seen by patient on My Chart. Roberta Benavidez DO 05/14/2025 11:12 AM CDT Back to Top Left message for son ([phone]) for callback. MRI looks good. No evidence of cancer spread to brain. Patient Communication Released Seen Roberta Benavidez DO P Pulmonary Nurse Left message for son ([phone]) for callback. MRI looks good. No evidence of cancer spread to brain. Halie He RN [facility] 2025-05-14 12:27:[address] referral for pts upcoming appointment with cardiology. Ramya Kerr [facility] 2025-05-14 11:03:51 Routing message to [facility] to schedule patient with clinical cardiology for cardiac clearance. [facility] 2025-05-13 10:13:09 Please refer to clinical cardiology for clearance. Thanks VILLANUEVA IM-CLINICAL CARDIAC ELECTROPHYSIOLOGY STAFF [facility] 2025-05-07 16:15:24 Results went over with son. Will plan for MRI brain and PET scan to complete staging. PFT ordered, son will call to schedule Will place referral for medical oncology and thoracic surgery. Leola, can we please present at tumor board. Thanks. [facility] 2025-05-03 14:01:14 Addendum created 05/03/25 1401 by Phoenix Butcher MD Intraprocedure Meds edited [facility] 2025-05-03 08:24:15 The following patient is scheduled for Colonoscopy with Katie Carmichael at [facility] Surgery Department. The procedure is currently scheduled on TBD and requires Cardiac clearance prior to the procedure. Please submit the following: Note indicating Cardiac clearance risk level 2. Most recent office note date 3. Recent tests (if not accessible in [facility]): Labs, EKG, Echo, etc 4. Information on implantable devices (pacemaker, AICD, last interrogation, device type with response to magnet and most recent EP report) 5. Perioperative recommendations / 6. Optimization for surgery, any needs for cardiac testing prior to having surgery Thank you, Jessica Baugh MA [facility] 2025-05-02 15:01:01 Patient: Lisset Valle Procedure Summary Date: 05/02/25 Room / Location: [place] [address] [facility] Anesthesia Start: 1228 Anesthesia Stop: 1418 Procedures: ROBOTIC ASSISTED BRONCHOSCOPY (Chest) ENDOBRONCHIAL ULTRASOUND-TRANSBRONCHIAL FNA (Bilateral: Chest) Diagnosis: Lung mass (Lung mass [R91.8]) Surgeons: Roberta Benavidez DO Responsible Provider: April Ye MD Anesthesia Type: General ASA Status: 3 Anesthesia Type: General Last vitals BP 118/60 (05/02/25 1445) Temp 37 ?C (98.6 ?F) (05/02/25 1415) Pulse 70 (05/02/25 1500) Resp 24 (05/02/25 1500) SpO2 95 % (05/02/25 1500) There were no known notable events for this encounter. Anesthesia Post Evaluation Patient location during evaluation: PACU Patient participation: complete - patient participated Level of consciousness: awake and alert Pain management: satisfactory to patient Airway patency: patent Cardiovascular status: acceptable Respiratory status: acceptable Hydration status: acceptable AN-ANESTHESIOLOGY ANESTHESIOLOGIST [facility] 2025-04-30 15:56:14 Images from the original note were not included. Care Coordination: RAB/EBUS to be scheduled 05/02/[address] Roberta Benavidez under Gen Anesthesia. Medications and Allergies reviewed. HOLD LISINOPRIL x1 DAY PRIOR. HOLD AC/ APT: n/a CT chest VERAN protocol: Day of procedure prior to OR holding- contacted CT techs to schedule 1 hr prior to procedure. Below are the instructions for pre and post procedure as discussed, including: Anesthesia Pre-op instructions ATS Patient Ed series on bronchoscopy Map of [place] Advised She will be admitted to Day Surgery. Advised NOT to go to radiology for CT. Contact numbers provided for myself and DSU for pre procedure and for Pulm clinic and 24 Hr Access center for post procedure. Questions answered. [facility] Interventional Pulmonology- Operating Room A bronchoscopy is a procedure that allows us to look into the airways of your lungs with a small flexible, lighted scope. This is an outpatient procedure. You will be admitted to Day Surgery to prepare you for this procedure with anesthesia in the operating room. How Do I Prepare for the Procedure? Do NOT eat or drink anything after 12 midnight the night before the procedure. You may drink CLEAR liquids ONLY up to 2 hours before you arrive at the hospital (water, plain tea, black coffee, grape or apple juice- NO Milk or Cream). You may need to HOLD medication that thins your blood such as Coumadin/warfarin, heparin, aspirin, Plavix, ibuprofen, Xarelto, Eliquis or other blood thinners. If you take any other medications, you may do so with a few sips of water. If you take insulin, ask your nurse or doctor about the dose since you will need to take less or none at all. Dress comfortably and leave valuables at home. Remove and leave Dentures at home. You must bring one adult family member or friend with you to receive post procedure instructions AND to drive you home. No EXEPTIONS. (Use of a taxi or transportation company does NOT qualify.) You will get 2 phone calls: 1. Anesthesia will call you to review health history and give you specific instructions on your MEDICATIONS. 2. Day Surgery will contact you the afternoon before your scheduled procedure to give you a TIME to ARRIVE. On the day of the procedure, generally 2 Hours prior to procedure: Report to Day Surgery (DSU) at [facility] in [place]. Directions to Day Surgery: Park in [address] in front of [facility] [address]. Be sure to bring your ticket with you to get it validated for free parking (1 ticket per patient). When entering [facility] [address] at the [facility] up, walk straight ahead past the elevators towards the [facility] Wall. Take the hallway to the right. DSU is on the left at the end of the hallway. Call ahead to the Day Surgery senior account clerk if you are running late or having any troubles: [phone] or [phone]. Hospital Address: [facility]; [address] [place] [address]; [place] [address]. Interventional Pulmonary Nurse: Leola Staton RN, AE-C [phone] --- Discharge Instructions after Bronchoscopy You had medicine to relax and for pain. You may feel dizzy or sleepy. Do not drive or use heavy equipment. Do not make important decisions. Do not drink any alcohol. Diet: When you can swallow easily, you may go back to your regular diet, medicines, and light exercise. Follow-up: For patients with tissue biopsies or fluid samples taken, we will call you with the results in about 10 business days. Expected Post procedure symptoms: You may have a fever the night of the procedure < 100.6 You may cough up blood-streaked mucus and/or small clots of blood, no more than quarter size. A sore throat may be present for up to 4 days. You may take Cepacol lozenges. Dissolve one in mouth as needed for throat dryness or discomfort. Call right away if you have: Increased difficulty breathing Unusual chest pain Temperature above 100.6? F (37.5? C) for greater than 24 hours. Coughing that does not stop If you have severe pain, bleeding, or shortness of breath, go to the nearest Emergency room. If you have questions or concerns, call: Tuesday to Tuesday, 8 a.m. to 4:30 p.m: Pulmonary Clinic at [facility] ([facility]) at [phone]. After hours/holidays/weekends: Call the 24 HOUR ACCESS Center at [phone]. Nurses will take your call. [employer] Patient Information Series Flexible Bronchoscopy (Airway Endoscopy) Flexible bronchoscopy (nando aguilar) is a visual exam of the breathing passages of the lungs (called airways ). It is also called airway endoscopy. This test is done when it is important for your doctor to see inside the airways of your lungs, or to get samples of mucus or tissue from the lungs. Bronchoscopy involves placing a thin tube-like instrument called a bronchoscope (patel cooper?p) through the nose or mouth and down into the airways of the lungs. The tube acts as a camera and is able to carry pictures back to a video screen. Why do I need a bronchoscopy? Common reasons why a bronchoscopy is needed include: Infections--When a person is suspected of having a serious infection, bronchoscopy may be performed to get better samples from a particular area of the lung. These samples can be looked at in a lab to try to find out the exact cause of the infection. A person who has recurrent infection may have a bronchoscopy to try to figure out a cause. For example, tissue samples can be looked at for cilia function (brush lining of airways that move mucus). Airway fluid can be checked to see if there are any signs of aspiration due to swallowing problems that allow food or liquids to get into the airways. Lung spot--An abnormal finding ( spot ) in the lung viewed on an x-ray film or CT scan may be caused by an infection, cancer, or inflammation. Bronchoscopy is done in some cases to take samples from the area. These samples are then looked at in a lab to help find the specific cause of the lung spot. Airway blockage and Atelectasis--Atelectasis is caused when the airway to a lung or part of a lung is blocked and air cannot get through. The air sacs do not expand which can be seen on chest x-ray. This blockage is usually caused by something such as a peanut, a tumor, or thick mucus in the airway passage. Bronchoscopy allows the doctor to see the blockage and try to sample and/or remove the substance. This helps to open up the airway and lung, especially when lesser invasive treatments (like chest airway clearance) have failed. Bleeding--When a person has coughed up blood, bronchoscopy may help find the cause of the bleeding. For example, if a tumor is causing the bleeding, the doctor will locate the tumor and take samples of tissue (biopsies) through the bronchoscope. The samples are then looked at in the lab to identify the type of tumor. Noisy Breathing and Abnormal Airways--A person can have noisy or abnormal breathing sounds that may be caused by a problem with the throat or airways of the lung. There may be shortness of breath, noisy breathing, or labored breathing during sleep. Children may be born with abnormal airways such as a tracheal (windpipe) connection with the esophagus (feeding tube) called a TE fistula. Bronchoscopy allows the doctor to look directly at the throat, vocal cord area, windpipe, and major airways to identify any problems. Causes of this type of breathing may include vocal cord paralysis or weakness, floppiness in the airways (bronchomalacia) or voice box (laryngomalacia), or a blood vessel pressing on the outside of the airway (vascular compression). Lung Transplant--People who have had lung transplant will have bronchoscopy to check on how well the lungs are doing. Samples will be taken of tissue and airway mucus to check for infection or signs of rejection in the new lungs. Alternatives to bronchoscopy Other tests and procedures, such as x-rays, CT scans and suctioning techniques can give the doctor some information about the lungs, but bronchoscopy allows the doctor to look at the inside of the lungs, obtain very specific samples and remove mucus if necessary. This is why your doctor may schedule a bronchoscopy even after you have had X-rays or other tests. What happens during a bronchoscopy? Your doctor can explain what will happen during the bronchoscopy. If you are awake, he or she can talk youthrough it [id number]. You will probably be lying down with the head of the bed tilted up slightly. The bronchoscope is placed through your nose, then advanced slowly down the back of the throat, through the vocal cords and into the airways. If a person has a breathing tube in place, the bronchoscope is passed through this tube. Your doctor will be able to see the inside of the airways as the bronchoscope moves down. You may feel like you cannot catch your breath, but there is usually enough room around the tube to breathe and get enough oxygen. The doctor can also give you breaks during the procedure as needed. The length of the bronchoscopy varies depending on what needs to be done and why you need it. The doctor can give you an estimate, but usually it can last from 15 minutes to an hour. Risks of bronchoscopy Bronchoscopy is a safe procedure. Serious risks from bronchoscopy, such as an air leak or serious bleeding, are uncommon (less than 5%). The risks associated with the procedure are as follows: Discomfort and Coughing--While the bronchoscope is passed through your nose and back of your throat into the lungs, it may cause some discomfort. It may also tickle your airways, causing a cough. You will be given medicine to help with this prior to the procedure. Reduced oxygen--Your oxygen level will be continuously monitored during the procedure using a pulse oximeter, with a sensor clip placed on your finger. The level of oxygen in the blood may fall during the procedure for several reasons. The bronchoscope may block the flow of air into the airway, or small amounts of liquid used during the test may be left behind, causing the oxygen level to drop. This drop is usually mild, and the level usually returns to normal without treatment. If the oxygen level remains low, the doctor will give extra oxygen or stop the test to allow for recovery. Lung Leak--Rarely, an airway may be injured by the bronchoscope, particularly if the lung is already very inflamed or diseased. The procedure could cause an air leak (pneumothorax) in which air comes out of the lung and gathers in the space around it, which can limit how well the lung expands. This complication is not common, and is more likely if a biopsy is taken during bronchoscopy. If there is a large or ongoing air leak, it may need to be drained with a chest tube. (For more information see the ATS patient information piece Chest Tube Thoracostomy at www.thoracic.org/patients) . Bleeding--Bleeding can occur after the doctor performs a biopsy. Bleeding can also occur if the airway is already inflamed or damaged by disease. Usually bleeding is minor and stops without treatment. Sometimes a medication can be given through the bronchoscope to stop bleeding. Rarely, bleeding can lead to severe breathing problems or . Infection--While equipment used is cleaned before and after use, there is a small risk that a germ could be introduced into the airways that could cause infection. If a new infection develops, it would be treated. What happens after the procedure? Patients vary in how long it takes to wake-up with sedation. If you are in the intensive care unit on a ventilator (respirator; breathing machine), you may already be sedated and will continue to receive medicines to keep you comfortable on the ventilator. If you are an outpatient or a non-critically ill inpatient, you will need to stay in a recovery area until the sedative has worn off. You will also need to wait until the numbing medicine wears off before drinking any liquids. If you are an outpatient, it is recommended that you bring someone along to drive you home. It is unlikely that you will experience any problems after the test other than a mild sore throat, hoarseness, cough, or muscle aches. If you feel chest pain or increased shortness of breath or cough up more than a few tablespoons of blood once you leave the hospital, contact your doctor immediately. Your doctor can tell you how your airways look right away. Lab results take more time, usually 1-4 days or more depending on the specific test that is being done. Authors: Amrita Yap, MARIO Ziegler and writing group for A Primer on Critical Care for Patients and Their Families Reviewers: Krista Lanza MD, DrPH, Ten Neri MD, Lavon Rutledge MD, Gil Garcia MD ATS Patient Education Series ? 2015 [employer] Care Coordination: RAB/EBUS to be scheduled 11/07/24 at [facility] OR with Gen Anesthesia. Medications and Allergies reviewed. HOLD AC/ APT: CT chest VERAN protocol: Day of procedure prior to OR holding- contacted CT techs to schedule 1 hr prior to procedure. Consented in clinic. Below are the instructions for pre and post procedure as discussed, including: Anesthesia Pre-op instructions [facility] Patient Ed series on bronchoscopy Map of campus Advised he will be admitted to Day Surgery. Advised NOT to go to radiology for CT. Contact numbers provided for myself and DSU for pre procedure and for Pulm clinic and 24 Hr Access center for post procedure. Questions asked and answered. [facility] Interventional Pulmonology- Operating Room A bronchoscopy is a procedure that allows us to look into the airways of your lungs with a small flexible, lighted scope. This is an outpatient procedure. You will be admitted to Day Surgery to prepare you for this procedure with anesthesia in the operating room. How Do I Prepare for the Procedure? Do NOT eat or drink anything after 12 midnight the night before the procedure. You may drink CLEAR liquids ONLY up to 2 hours before you arrive at the hospital (water, plain tea, black coffee, grape or apple juice- NO Milk or Cream). You may need to HOLD medication that thins your blood such as Coumadin/warfarin, heparin, aspirin, Plavix, ibuprofen, Xarelto, Eliquis or other blood thinners. If you take any other medications, you may do so with a few sips of water. If you take insulin, ask your nurse or doctor about the dose since you will need to take less or none at all. Dress comfortably and leave valuables at home. Remove and leave Dentures at home. You must bring one adult family member or friend with you to receive post procedure instructions AND to drive you home. No EXEPTIONS. (Use of a taxi or transportation company does NOT qualify.) You will get 2 phone calls: 1. Anesthesia will call you to review health history and give you specific instructions on your MEDICATIONS. 2. Day Surgery will contact you the afternoon before your scheduled procedure to give you a TIME to ARRIVE. On the day of the procedure, generally 2 Hours prior to procedure: Report to Day Surgery (DSU) at [facility] in [place]. Directions to Day Surgery: Park in [address] in front of [facility] [address]. Be sure to bring your ticket with you to get it validated for free parking (1 ticket per patient). When entering [facility] [address] at the [address] up, walk straight ahead past the elevators towards the [facility] Wall. Take the hallway to the right. DSU is on the left at the end of the hallway. Call ahead to the Day Surgery senior account clerk if you are running late or having any troubles: [phone] or [phone]. Hospital Address: [facility]; [address] [place] [address]; [place] [address]. Interventional Pulmonary Nurse: Leola Staton RN, AE-C [phone] --- Discharge Instructions after Bronchoscopy You had medicine to relax and for pain. You may feel dizzy or sleepy. Do not drive or use heavy equipment. Do not make important decisions. Do not drink any alcohol. Diet: When you can swallow easily, you may go back to your regular diet, medicines, and light exercise. Follow-up: For patients with tissue biopsies or fluid samples taken, we will call you with the results in about 10 business days. Expected Post procedure symptoms: You may have a fever the night of the procedure < 100.6 You may cough up blood-streaked mucus and/or small clots of blood, no more than quarter size. A sore throat may be present for up to 4 days. You may take Cepacol lozenges. Dissolve one in mouth as needed for throat dryness or discomfort. Call right away if you have: Increased difficulty breathing Unusual chest pain Temperature above 100.6? F (37.5? C) for greater than 24 hours. Coughing that does not stop If you have severe pain, bleeding, or shortness of breath, go to the nearest Emergency room. If you have questions or concerns, call: Tuesday to Tuesday, 8 a.m. to 4:30 p.m: Pulmonary Clinic at [facility] ([facility]) at [phone]. After hours/holidays/weekends: Call the 24 HOUR ACCESS Center at [phone]. Nurses will take your call. [employer] Patient Information Series Flexible Bronchoscopy (Airway Endoscopy) Flexible bronchoscopy (nando aguilar) is a visual exam of the breathing passages of the lungs (called airways ). It is also called airway endoscopy. This test is done when it is important for your doctor to see inside the airways of your lungs, or to get samples of mucus or tissue from the lungs. Bronchoscopy involves placing a thin tube-like instrument called a bronchoscope (bron ko-sko?p) through the nose or mouth and down into the airways of the lungs. The tube acts as a camera and is able to carry pictures back to a video screen. Why do I need a bronchoscopy? Common reasons why a bronchoscopy is needed include: Infections--When a person is suspected of having a serious infection, bronchoscopy may be performed to get better samples from a particular area of the lung. These samples can be looked at in a lab to try to find out the exact cause of the infection. A person who has recurrent infection may have a bronchoscopy to try to figure out a cause. For example, tissue samples can be looked at for cilia function (brush lining of airways that move mucus). Airway fluid can be checked to see if there are any signs of aspiration due to swallowing problems that allow food or liquids to get into the airways. Lung spot--An abnormal finding ( spot ) in the lung viewed on an x-ray film or CT scan may be caused by an infection, cancer, or inflammation. Bronchoscopy is done in some cases to take samples from the area. These samples are then looked at in a lab to help find the specific cause of the lung spot. Airway blockage and Atelectasis--Atelectasis is caused when the airway to a lung or part of a lung is blocked and air cannot get through. The air sacs do not expand which can be seen on chest x-ray. This blockage is usually caused by something such as a peanut, a tumor, or thick mucus in the airway passage. Bronchoscopy allows the doctor to see the blockage and try to sample and/or remove the substance. This helps to open up the airway and lung, especially when lesser invasive treatments (like chest airway clearance) have failed. Bleeding--When a person has coughed up blood, bronchoscopy may help find the cause of the bleeding. For example, if a tumor is causing the bleeding, the doctor will locate the tumor and take samples of tissue (biopsies) through the bronchoscope. The samples are then looked at in the lab to identify the type of tumor. Noisy Breathing and Abnormal Airways--A person can have noisy or abnormal breathing sounds that may be caused by a problem with the throat or airways of the lung. There may be shortness of breath, noisy breathing, or labored breathing during sleep. Children may be born with abnormal airways such as a tracheal (windpipe) connection with the esophagus (feeding tube) called a TE fistula. Bronchoscopy allows the doctor to look directly at the throat, vocal cord area, windpipe, and major airways to identify any problems. Causes of this type of breathing may include vocal cord paralysis or weakness, floppiness in the airways (bronchomalacia) or voice box (laryngomalacia), or a blood vessel pressing on the outside of the airway (vascular compression). Lung Transplant--People who have had lung transplant will have bronchoscopy to check on how well the lungs are doing. Samples will be taken of tissue and airway mucus to check for infection or signs of rejection in the new lungs. Alternatives to bronchoscopy Other tests and procedures, such as x-rays, CT scans and suctioning techniques can give the doctor some information about the lungs, but bronchoscopy allows the doctor to look at the inside of the lungs, obtain very specific samples and remove mucus if necessary. This is why your doctor may schedule a bronchoscopy even after you have had X-rays or other tests. What happens during a bronchoscopy? Your doctor can explain what will happen during the bronchoscopy. If you are awake, he or she can talk youthrough it [id number]. You will probably be lying down with the head of the bed tilted up slightly. The bronchoscope is placed through your nose, then advanced slowly down the back of the throat, through the vocal cords and into the airways. If a person has a breathing tube in place, the bronchoscope is passed through this tube. Your doctor will be able to see the inside of the airways as the bronchoscope moves down. You may feel like you cannot catch your breath, but there is usually enough room around the tube to breathe and get enough oxygen. The doctor can also give you breaks during the procedure as needed. The length of the bronchoscopy varies depending on what needs to be done and why you need it. The doctor can give you an estimate, but usually it can last from 15 minutes to an hour. Risks of bronchoscopy Bronchoscopy is a safe procedure. Serious risks from bronchoscopy, such as an air leak or serious bleeding, are uncommon (less than 5%). The risks associated with the procedure are as follows: Discomfort and Coughing--While the bronchoscope is passed through your nose and back of your throat into the lungs, it may cause some discomfort. It may also tickle your airways, causing a cough. You will be given medicine to help with this prior to the procedure. Reduced oxygen--Your oxygen level will be continuously monitored during the procedure using a pulse oximeter, with a sensor clip placed on your finger. The level of oxygen in the blood may fall during the procedure for several reasons. The bronchoscope may block the flow of air into the airway, or small amounts of liquid used during the test may be left behind, causing the oxygen level to drop. This drop is usually mild, and the level usually returns to normal without treatment. If the oxygen level remains low, the doctor will give extra oxygen or stop the test to allow for recovery. Lung Leak--Rarely, an airway may be injured by the bronchoscope, particularly if the lung is already very inflamed or diseased. The procedure could cause an air leak (pneumothorax) in which air comes out of the lung and gathers in the space around it, which can limit how well the lung expands. This complication is not common, and is more likely if a biopsy is taken during bronchoscopy. If there is a large or ongoing air leak, it may need to be drained with a chest tube. (For more information see the ATS patient information piece Chest Tube Thoracostomy at www.thoracic.org/patients) . Bleeding--Bleeding can occur after the doctor performs a biopsy. Bleeding can also occur if the airway is already inflamed or damaged by disease. Usually bleeding is minor and stops without treatment. Sometimes a medication can be given through the bronchoscope to stop bleeding. Rarely, bleeding can lead to severe breathing problems or . Infection--While equipment used is cleaned before and after use, there is a small risk that a germ could be introduced into the airways that could cause infection. If a new infection develops, it would be treated. What happens after the procedure? Patients vary in how long it takes to wake-up with sedation. If you are in the intensive care unit on a ventilator (respirator; breathing machine), you may already be sedated and will continue to receive medicines to keep you comfortable on the ventilator. If you are an outpatient or a non-critically ill inpatient, you will need to stay in a recovery area until the sedative has worn off. You will also need to wait until the numbing medicine wears off before drinking any liquids. If you are an outpatient, it is recommended that you bring someone along to drive you home. It is unlikely that you will experience any problems after the test other than a mild sore throat, hoarseness, cough, or muscle aches. If you feel chest pain or increased shortness of breath or cough up more than a few tablespoons of blood once you leave the hospital, contact your doctor immediately. Your doctor can tell you how your airways look right away. Lab results take more time, usually 1-4 days or more depending on the specific test that is being done. Authors: Amrita Yap, MARIO Ziegler and writing group for A Primer on Critical Care for Patients and Their Families Reviewers: Krista Lanza MD, DrPH, Ten Neri MD, Lavon Rutledge MD, Gil Garcia MD ATS Patient Education Series ? 2015 [employer] Leola Staton RN [facility] [employer] 2025-04-30 13:37:25 Name/ MRN / Age / Gender: Lisset Valle, [id number] 74 year old female BMI: Estimated body mass index is 19 kg/m? as calculated from the following: Height as of 04/29/25: 1.575 m (5' 2"). Weight as of 04/29/25: 47.1 kg (103 lb 14.4 oz). Allergies: Patient has no known allergies. Last Vitals: BP Readings from Last 1 Encounters: 04/29/25 123/74 Pulse Readings from Last 1 Encounters: 04/29/25 80 SpO2 Readings from Last 1 Encounters: 04/29/25 99% Date of Surgery: 05/02/2025 Surgeon: Roberta Benavidez DO Procedure: ROBOTIC ASSISTED BRONCHOSCOPY ENDOBRONCHIAL ULTRASOUND-TRANSBRONCHIAL FNA (Bilateral: Chest) OR Location: [facility] Anesthesia Preop Eval (physical exam) Anesthesia Preop: Chart Review and Nnfo-bt-Bibr APAC Communication: Left VM. Plan to evaluate on DOS. Shanice Dutton MD 05/01/25 11:33 AM 04/30/2025 LM. Roger MCINTOSH Anesthesia History Anesthesia History Negative Previous Anesthetics/Airways Cardiovascular Comments: 04/29/2025 seen by cardiology for lung mass Patient does have some shortness of breath with exertion with even minimal exertion. Symptoms improved with rest. A/P will get PFT, start Spiriva enroll in cardiac rehab pending PFT's. F/u 4-6 weeks 04/21/2025 EKG Normal sinus rhythm Normal ECG When compared with ECG of 27-MAR-2025 15:51, Premature atrial beats are no longer Present 03/27/2025 Seen by EP cardiology for SVT: Medical management sustaining SVT, then will consider ablation 03/15/2023 Nuc Stress Test Impression Normal myocardial perfusion after pharmacologic stress test. There is no ischemia.Normal left ventricular function. 03/07/2025 TTE Left Ventricle: Left ventricle size is normal. There is moderate concentric hypertrophy. Normal systolic function with a visually estimated EF of 55 - 60%. There is grade 1 diastolic dysfunction. ? Right Ventricle: Right ventricle size is normal. Normal systolic function. TAPSE is 2.04 cm. TDI-derived tricuspid annular systolic velocity (TDI S') is 18.1 cm/s. METS Comments: She participates in exercise intermittently. (+) Hypertension (lisinopri, metoprolol) (+) Dyslipidemia (atorvastatin) (+) Dysrhythmias and SVT Pulmonary Comments: CC: lung mass (+) COPD, emphysema (+) Asthma (+) Shortness of breath and on exertion (+) Smokeless tobacco use (+) Cigarette use Neuro/Musculoskeletal Negative Neuro/Musculosketal ROS GI/Hepatic (+) GERD Hematology Comments: CBCWBC (10*3/?L) Date Value 04/21/2025 7.69 RBC (10*6/?L) Date Value 04/21/2025 3.95 PLT (10*3/?L) Date Value 04/21/2025 377 (H) HGB (g/dL) Date Value 04/21/2025 10.9 (L) HCT (%) Date Value 04/21/2025 34.0 (L) (+) Anemia Renal Negative Renal ROS Comments: BMPNA (mmol/L) Date Value 04/21/2025 133 (L) K (mmol/L) Date Value 04/21/2025 4.5 CALCIUM (mg/dL) Date Value 04/21/2025 9.6 CL (mmol/L) Date Value 04/21/2025 105 BUN (mg/dL) Date Value 04/21/2025 18 CREATININE (mg/dL) Date Value 04/21/2025 0.85 GLUCOSE (mg/dL) Date Value 04/21/2025 100 CO2 TOTAL (mmol/L) Date Value 04/21/2025 19 (L) Skin Skin ROS Negative per Chart Review Endo/Other (+) Diabetes Mellitus Hemoglobin A1C: 6.2 Other Comments: 04/29/2025 Fluid behind ears noted, which may contribute to dizziness (+) Smokeless tobacco use (+) Cigarette use 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 Hold on DOS. Phentermine: Alert [facility] anesthesiologist SGLT2 Inhibitors: "gliflozins" to be held for 3 days prior to elective surgeries GLP1 Agonosit: stop 7 days prior to surgery MAC Cases: Continue taking PORTER inhibitors and ARBs ASA Classification ASA: 3 Labs: Chemistry 04/21/2025 CBC 04/21/2025 133 (L) 105 18 100 7.69 10.9 (L) 377 (H) 4.5 19 (L) 0.85 34.0 (L) eGFR: 72.9 Date: 04/21/2025 ANC: 3.67 Date: 04/21/2025 LFTs 04/21/2025 Coags AST: 14 AP: 90 Prot: 7.4 Ca: 9.6 PT: 13.5 (H) Date: 03/06/2025 ALT: 8 T Evaristo: 0.4 Alb: 4.0 PTT: - Date: - PO4: 4.4 Date: 03/06/2025 INR: 1.2 Date: 03/06/2025 Cardiac Endocrine & other pBNP: - Date: - A1C: 6.0 (H) Date: 03/06/2025 Trop I: 0.004 Date: 04/21/2025 POCT A1C: - Date: - CK: - Date: - TSH: 0.32 (L) Date: 03/06/2025 CKMB: - Date: - FT4: 1.45 Date: 03/08/2025 LDL: 38 Date: 03/06/2025 Lact: - Date: - Procal: - Date: - Respiratory -|-|-|-|- D-dimer: - ABG Date: - Date: - Miscellaneous Type and Screen: - Antibody: - Date: - POCT : - Date: - Current Medications: No current facility-administered medications for this encounter. Current Outpatient Medications Medication Sig Dispense Refill Nitrofurantoin&Nit. Macrocryst (MACROBID) 100 mg capsule Take 1 capsule by mouth in the morning and 1 capsule in the evening. Do all this for 5 days. 10 capsule 0 tiotropium 18 mcg inhalation Inhale 1 capsule in the morning. 30 capsule 11 acetaminophen (TYLENOL ARTHRITIS PAIN ORAL) Take by mouth. albuterol sulfate HFA 90 mcg/actuation aerosol inhaler Inhale 2 Puffs every 4 (four) hours as needed for Wheezing or Shortness of Breath. 8.5 g 0 metoprolol tartrate 25 mg tablet Take 1 tablet by mouth in the morning and 1 tablet in the evening. 60 tablet 3 atorvastatin 40 mg tablet Take 1 tablet by mouth at bedtime. 30 tablet 2 Cholecalciferol, Vitamin D3, 50 mcg (2,000 unit) tablet Take 50 mcg by mouth. lisinopriL 10 mg tablet Take 1 tablet by mouth. Currently taking 2.5 mg Previous Surgeries: No past surgical history on file. Anesthesia Physical Exam General alert and oriented x 3 Neuro/Psych Dental poor dentition Abdominal Airway Mallampati score:II TM distance:> 5 cm Neck ROM: full Mouth opening:normal Extremity Pulmonary (+) decreased breath sounds Other Cardiovascular Rate: normal Anesthesia Plan ASA Status: 3 Plan discussed during pre-op evaluation: General and TIVA Anesthetic plan on DOS: General and TIVA Plan to include: IV induction Anesthesia plan discussed with: patient or open claims representative Post-Operative Analgesia: routine analgesia & antiemetics Recovery Plan: PACU Additional comments: AN-ANESTHESIOLOGY ANESTHESIOLOGIST [facility] 2025-04-30 13:26:42 LVM for patient and granddaughter at their numbers on file regarding pre/post lung biopsy education. Contact number provided. Awaiting return call. [facility] 2025-04-29 16:30:00 Addended by: ANNY ESTRADA DO on: 04/30/2025 01:33 PM Modules accepted: Orders PULMONARY DISEASE [facility] 2025-04-21 17:19:01 Pt discharged with diagnosis of acute UTI, dizziness, viral syndrome, and mass of upper lobe of R lung. Printed and verbal instructions reviewed with and given to pt. Prescriptions given x 1. Pt verbalized understanding of teaching, medication, and recommended follow-up. Denies questions or concerns at this time. Pt ambulatory at discharge. Appears in no apparent distress. No ataxia noted. Omaira Barros RN [facility] 2025-04-21 12:48:21 Cough, congestion, dizziness, fatigue and weakness for the past few days. Denies chest pain, shortness of breath, fevers at home, dysuria, abdominal pain. Patient poor historian. Patient got CT scan in February which showed mass on lungs. Patient was instructed to follow up for biopsy but never did. HX: COPD, emphysema. Dahiana Hodge RN [facility] 2025-03-28 15:04:31 Detailed VM left with callback number 03/28/2025 Carmela Kim LVN Carmela Kim LVN [facility] 2025-03-28 13:45:07 Prescribed step 2 nicotine patches. Patient will apply 1 patch every 24 hours for 2 weeks. She will then titrate down to step 3 patches which is less nicotine every 24 hours for another 2 weeks. Thank you [facility] 2025-03-28 11:03:30 Son/EC-Roishon states mother was prescribed Nicotine Patches while inpatient and is requesting to restart. He stated that mother has cut down on smoking and currently smokes 1-2 packs weekly. He is unsure how much she is smoking daily as she "sometimes sneaks them." Please review and advise. ALISON 03/15/25 NOV not scheduled [facility] 2025-03-27 16:36:18 Son of patient is requesting that the patient be prescribed nicotine patches Jordan Hough [facility] 2025-03-19 16:15:42 PT D/C home. GCS15, VS stable. Given D/C paperwork. Pt ambulatory at time of discharge. Pt educated on med usage, follow up care, s/s worsening condition, need for hydration. Pt verbalized understanding. Pt ambulated from ED in NAD with family. Prescriptions x 2 sent to pharmacy [facility] 2025-03-19 14:15:25 Pt presents to ED with her daughter with c/o shortness of breath, cough, and sore throat that began last night per patient. Pt states she quit smoking 2 wks ago. Pt VSS during triage, NAD. Sonya Syed RN [facility] 2025-03-19 14:06:00 [facility] Emergency Department Note Patient Name: Lisset Valle Date of : 1950 74 year old female Treatment Room: 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 No sick contacts. No fevers. No congestion, runny nose or ear pain. She quit smoking approximately 10 days ago. She does report a history of asthma but denies any history of COPD or emphysema. She does not use any breathing treatments at home. She was recently admitted after syncopal episode and had a CT of her chest showing a right lung mass. She is scheduled for biopsy on April 03. No medications used prior to arrival. Here for evaluation. Past Medical History/Immunizations: Past Medical History: Diagnosis Date Acid reflux Essential (primary) hypertension Tetanus received in last 5 years: Unknown Allergies: No Known Allergies Past Social History: Tobacco Use Every Day; 1 pack/day; Smoked an average of 1 pack/day for 40.0 years; Types: Cigarettes Passive Exposure: Current Smokeless Tobacco: Current user of smokeless tobacco. Alcohol Use Not Currently. Drug Use Not Currently. Past Surgical History: History reviewed. No pertinent surgical history. Review of Systems: Review of Systems Constitutional: Negative for chills and fever. Respiratory: Positive for cough and shortness of breath. Cardiovascular: Negative for chest pain. Gastrointestinal: Negative for abdominal pain and vomiting. Genitourinary: Negative for dysuria. Musculoskeletal: Negative for arthralgias, neck pain and neck stiffness. Skin: Negative for wound. Neurological: Negative for dizziness. Psychiatric/Behavioral: Negative for agitation. Endocrine: Negative for goiter. Physical Exam: ED Triage Vitals [03/19/25 1417] Weight 50.3 kg (111 lb) Actual or estimated Height 1.575 m (5' 2") BP 113/68 Pulse 74 Resp 16 Temp 36.6 ?C (97.9 ?F) Temp src SpO2 98 % Measured on Physical Exam Vitals and nursing note reviewed. Constitutional: Appearance: Normal appearance. She is normal weight. HENT: Head: Normocephalic and atraumatic. Right Ear: Tympanic membrane, ear canal and external ear normal. Left Ear: Tympanic membrane, ear canal and external ear normal. Nose: Nose normal. Mouth/Throat: Mouth: Mucous membranes are moist. Pharynx: No oropharyngeal exudate or posterior oropharyngeal erythema. Cardiovascular: Rate and Rhythm: Normal rate and regular rhythm. Pulses: Normal pulses. Pulmonary: Effort: Pulmonary effort is normal. No respiratory distress. Breath sounds: Wheezing present. Comments: No use of accessory muscles and she is able to speak in full and complete sentence without difficulty. Scattered wheezing bilaterally. Abdominal: General: There is no distension. Musculoskeletal: General: Normal range of motion. Cervical back: Neck supple. Skin: General: Skin is warm and dry. Neurological: General: No focal deficit present. Mental Status: She is alert and oriented to person, place, and time. Radiology: XR CHEST 2 VW Final Result ORDERING PHYSICIAN: IVANA ROCHA. HISTORY: cough, known right lung mass TECHNIQUE: 2 Views. COMPARISON: None. FINDINGS: Lungs: A 3.6 cm rounded mass is seen within the right upper lobe. The lungs are otherwise clear. Pleura: No effusion or pleural disease is seen. No pneumothorax. Mediastinum/Madhavi: No masses or adenopathy. Calcified right hilar lymph nodes are seen. Heart: The heart is not enlarged. Other: No acute osseous abnormality is seen. IMPRESSION Lungs clear apart from right upper lobe mass. End of Report Lab Results: Lab Results - No data to display EKG: If EKG completed, see Procedure Note. Orders and Treatments: Orders Placed This Encounter Procedures XR CHEST 2 VW Orders Placed This Encounter Medications albuterol (PROVENTIL) 2.5 mg /3 mL (0.083 %) nebulizer solution 5 mg ipratropium (ATROVENT) 0.02 % nebulizer solution 0.5 mg predniSONE (DELTASONE) tablet 50 mg albuterol sulfate HFA 90 mcg/actuation aerosol inhaler predniSONE 50 mg tablet First Provider Eval: ED Events Date/Time Event User Comments 03/19/25 140 Medical Screening Begins IVANA ROCHA DO -- 03/19/25 140 First Provider Evaluation IVANA ROCHA DO -- ED COURSE Diagnosis/Impression as of 03/19/25 1543 SOB (shortness of breath) Procedures: Procedures MDM: Medical Decision Making The patient presents from home with her daughter for evaluation for cough and shortness of breath that started yesterday. No sick contacts. No fevers. No congestion, runny nose or ear pain. She quit smoking approximately 10 days ago. She does report a history of asthma but denies any history of COPD or emphysema. She does not use any breathing treatments at home. She was recently admitted after syncopal episode and had a CT of her chest showing a right lung mass. She is scheduled for biopsy on April 03. No medications used prior to arrival. Vital signs are stable in the ER. She is able to speak in full and complete sentences and has no use of accessory muscles. She has scattered wheezing bilaterally. Offered the patient screening for COVID, influenza as well as RSV and she does decline. Will obtain a chest x-ray to eval for possible pneumonia. Will also give the patient albuterol and Atrovent treatments here in the ER as well as oral prednisone. We are unable to expedite her biopsy appointment. Anticipate discharge home later. 1542 -the patient is doing well here in the ER. Her x-ray shows her known right upper lobe mass but no other acute cardiothoracic pathology. She is feeling better after the treatments given here in the ER. Her wheezing has resolved. She remained stable here in the ER and is okay for discharge home with PCP follow-up. Problems Addressed: SOB (shortness of breath): acute illness or injury Amount and/or Complexity of Data Reviewed Independent Historian: Details: Daughter Radiology: ordered and independent interpretation performed. Decision-making details documented in ED Course. Risk Prescription drug management. Flowsheet Documentation: Scoring Tools: No data recorded Disposition/Condition: ED Disposition ED Disposition Discharge Condition Stable Comment -- Discharge Medications: Patient's Medications START taking these medications ALBUTEROL SULFATE HFA 90 MCG/ACTUATION AEROSOL INHALER Inhale 2 Puffs every 4 (four) hours as needed for Wheezing or Shortness of Breath. PREDNISONE 50 MG TABLET Take 1 tablet by mouth in the morning for 4 days. CONTINUE taking these medications which have NOT CHANGED ATORVASTATIN 40 MG TABLET Take 1 tablet by mouth at bedtime. CHOLECALCIFEROL, VITAMIN D3, 50 MCG (2,000 UNIT) TABLET Take 50 mcg by mouth. LISINOPRIL 10 MG TABLET Take 1 tablet by mouth. METOPROLOL TARTRATE 25 MG TABLET Take 1 tablet by mouth in the morning and 1 tablet in the evening. START taking Modified Medications as Prescribed No medications on file STOP taking these medications No medications on file Follow-up: Electronically signed by: Ivana Rocha DO 03/19/25 1543 [facility] 2025-03-08 11:59:45 Pt stable for discharge. Pt verbalized understanding of discharge education. [facility] Sarah Smith RN [facility] 2025-03-08 11:55:54 Problem: Falls, Risk of Goal: Absence of falls Outcome: Adequate for discharge Problem: Respiratory Function - Impaired Goal: Able to cough effectively Outcome: Adequate for discharge Goal: Adequate oxygenation Outcome: Adequate for discharge Goal: Adequate work of breathing Outcome: Adequate for discharge Goal: Patent airway Outcome: Adequate for discharge Problem: Pain Goal: Control of pain at or below patient's documented comfort goal Outcome: Adequate for discharge Goal: Reduction in pain sensation Outcome: Adequate for discharge Problem: Discharge Planning Goal: Adequate for discharge Outcome: Adequate for discharge Goal: Effective communication Outcome: Adequate for discharge Problem: Skin integrity Impaired (Risk or Actual) Goal: Prevention of new skin breakdown Outcome: Adequate for discharge [facility] 2025-03-07 23:52:11 Problem: Falls, Risk of Goal: Absence of falls Outcome: Progressing as expected Problem: Respiratory Function - Impaired Goal: Able to cough effectively Outcome: Progressing as expected Goal: Adequate oxygenation Outcome: Progressing as expected Goal: Adequate work of breathing Outcome: Progressing as expected Goal: Patent airway Outcome: Progressing as expected Problem: Pain Goal: Control of pain at or below patient's documented comfort goal Outcome: Progressing as expected Goal: Reduction in pain sensation Outcome: Progressing as expected Problem: Discharge Planning Goal: Adequate for discharge Outcome: Progressing as expected Goal: Effective communication Outcome: Progressing as expected Problem: Skin integrity Impaired (Risk or Actual) Goal: Prevention of new skin breakdown Outcome: Progressing as expected Danielle Bales RN [facility] 2025-03-07 15:11:34 Problem: Falls, Risk of Goal: Absence of falls Outcome: Progressing as expected Problem: Respiratory Function - Impaired Goal: Able to cough effectively Outcome: Progressing as expected Goal: Adequate oxygenation Outcome: Progressing as expected Goal: Adequate work of breathing Outcome: Progressing as expected Goal: Patent airway Outcome: Progressing as expected Problem: Pain Goal: Control of pain at or below patient's documented comfort goal Outcome: Progressing as expected Goal: Reduction in pain sensation Outcome: Progressing as expected Problem: Discharge Planning Goal: Adequate for discharge Outcome: Progressing as expected Goal: Effective communication Outcome: Progressing as expected Problem: Skin integrity Impaired (Risk or Actual) Goal: Prevention of new skin breakdown Outcome: Progressing as expected T Dwayne Cortez RN [facility] 2025-03-06 21:37:27 Problem: Falls, Risk of Goal: Absence of falls Outcome: Progressing as expected Problem: Respiratory Function - Impaired Goal: Able to cough effectively Outcome: Progressing as expected Goal: Adequate oxygenation Outcome: Progressing as expected Goal: Adequate work of breathing Outcome: Progressing as expected Goal: Patent airway Outcome: Progressing as expected Problem: Pain Goal: Control of pain at or below patient's documented comfort goal Outcome: Progressing as expected Goal: Reduction in pain sensation Outcome: Progressing as expected Problem: Discharge Planning Goal: Adequate for discharge Outcome: Progressing as expected Goal: Effective communication Outcome: Progressing as expected Problem: Skin integrity Impaired (Risk or Actual) Goal: Prevention of new skin breakdown Outcome: Progressing as expected [facility]
[2025-08-19 18:40] LABS: Absolute Lymphocytes (CBC) 2.2 K/uL (0.7-4.9); Hematocrit 32.6 % (36.0-45.0); Hemoglobin 11.2 g/dL (12.0-15.0); MCH 28.3 pg (27.0-35.0); MCHC 34.4 g/dL (32.0-36.0); MCV 82.3 fL (80-100); MPV 6.9 fL (7.6-11.3); Nucleated RBC Absolute Count 0.0 (0-0); Nucleated Red Blood Cells % 0.1 % (0-0); RBC Red Blood Cell Count 3.96 M/uL (3.86-4.86); White Blood Count 7.10 thou/uL (4.3-10.9)
[2025-08-19 18:47] LABS: PT Prothrombin Time 13.3 SECONDS (10-13.0); Protime INR 1.18
[2025-08-19 18:59] LABS: ALT/SGPT < 14 U/L (13-56); AST/SGOT < 10 U/L (15-37); Albumin 2.3 g/dL (3.4-5.0); Albumin/Globulin Ratio 0.7 (1.1-1.8); Alkaline Phosphatase 85 U/L (45-117); Anion Gap 8.6 mEq/L (5.0-15.0); BUN Blood Urea Nitrogen 13 mg/dL (7-18); Bilirubin Indirect, Calculated 0.2 mg/dL (0.2-0.8); Globulin 3.5 g/dL (2.3-3.5); Glucose Level 133 mg/dL (74-106); Magnesium 2.1 mg/dL (1.6-2.4); NT PRO-BNP 142 pg/mL (<125); Troponin High Sensitivity 12.4 pg/mL (<58.9)
--- NOTE | 2025-08-19 18:59 | RAD REPORT ---
Procedure: Chest Single View HISTORY: Chest pain COMPARISON: July 30, 2025 FINDINGS: Right upper lobe mass unchanged. Mild areas of subsegmental atelectasis within the lung bases. No significant pleural effusion noted. The heart is mildly to moderately enlarged. Central venous catheter in place
[2025-08-19 19:01] LABS: Potassium 1.6 mEq/L (3.5-5.1)
--- NOTE | 2025-08-19 19:02 | ER ---
Nurse's Notes [facility] Name: Lisset Levy Age: 75 yrs Sex: Female : 1950 Arrival Date: 08/19/2025 Time: 17:47 Bed 15 Private MD: Diagnosis: Hypokalemia-critical - 1.6 Presentation: 08/19 17:57 Chief complaint: Patient's son or daughter states: RECEIVED CALL FROM MD THAT POTASSIUM dd2 WAS 2.1, ADVISED TO COME TO ER. SON REPORTS DIARRHEA OFF/ON X 8 MONTHS BUT WORSE THIS WEEK. HX OF LUNG CA WITH RADIATION. Coronavirus screen: At this time, the client does not indicate any symptoms associated with coronavirus-19. Ebola Screen: No symptoms or risks identified at this time. Initial Sepsis Screen: Does the patient meet any 2 criteria? No. Patient's initial sepsis screen is negative. Does the patient have a suspected source of infection? No. Patient's initial sepsis screen is negative. Risk Assessment: Do you want to hurt yourself or someone else? Patient reports no desire to harm self or others. Onset of symptoms was August 19, 2025. 17:57 Method Of Arrival: Wheelchair dd2 17:57 Acuity: RICK 3 dd2 Triage Assessment: 17:59 General: Appears in no apparent distress. Behavior is cooperative, appropriate for age, dd2 quiet. Pain: Denies pain. GI: Parent/caregiver reports the patient having diarrhea. Historical: - Allergies: 17:59 No Known Allergies; dd2 - PMHx: 17:59 Hypertension; LUNG CANCER (Hypertension); dd2 - PSHx: 17:59 None; dd2 - Immunization history:: unknown. - Infectious Disease History:: Denies. - Social history:: Smoking status: unknown. Screenin:30 [facility] ED Fall Risk Assessment (Adult) History of falling in the last 3 months, kt5 including since admission No falls in past 3 months (0 pts) Confusion or Disorientation No (0 pts) Intoxicated or Sedated No (0 pts) Impaired Gait Yes (1 pt) Mobility Assist Device Used Yes (1 pt) Altered Elimination Yes (1 pt) Score/Fall Risk Level 3 or more points = High Risk Oriented to surroundings, Maintained a safe environment, Hourly rounding (assess needs \T\ fall precautionary measures) done. Abuse screen: Denies threats or abuse. Nutritional screening: No deficits noted. Tuberculosis screening: No symptoms or risk factors identified. Assessment: 18:00 General: Appears in no apparent distress. comfortable, Behavior is calm, cooperative, jb4 appropriate for age. Pain: Denies pain. Neuro: Level of Consciousness is awake, alert, obeys commands, Oriented to person, place, time, situation. Cardiovascular: Patient's skin is warm and dry. Respiratory: Airway is patent Respiratory effort is even, unlabored, Respiratory pattern is regular, symmetrical. Derm: Skin is intact, Skin is pink, warm \T\ dry. Musculoskeletal: Circulation, motion, and sensation intact. Range of motion: intact in all extremities. 19:17 General: received report from otilio magana, all questions answered. jb4 19:20 Reassessment: Patient appears in no apparent distress at this time. Patient denies pain jb4 at this time. Patient states feeling better. Patient states symptoms have improved. 19:43 General: pt to ct via stretcher with tech. kt5 19:53 General: pt back from ct, tolerated well. kt5 21:03 Reassessment: Patient appears in no apparent distress at this time. Patient and/or kt5 family updated on plan of care and expected duration. Pain level reassessed. Patient is alert, oriented x 3, equal unlabored respirations, skin warm/dry/pink. pt resting comfortable, on monitors v/s/s, call button in reach, piv meds infusing w/o complications, will cont to monitor, waiting bed assignment Patient states feeling better. 21:50 Reassessment: Patient appears in no apparent distress at this time. Patient and/or kt5 family updated on plan of care and expected duration. Pain level reassessed. Patient is alert, oriented x 3, equal unlabored respirations, skin warm/dry/pink. bianca care complete Patient denies pain at this time. Patient states feeling better. Patient states symptoms have improved. Vital Signs: 17:57 BP 96 / 53; Pulse 73; Resp 16; Temp 97.2; Pulse Ox 98% on R/A; Pain 0/10; dd2 19:20 BP 118 / 62; Pulse 66; Resp 20; Pulse Ox 98% ; jb4 21:03 BP 121 / 62; Pulse 78; Resp 20; Pulse Ox 97% ; kt5 21:34 BP 126 / 68; Pulse 74; Resp 20; Temp 98.3; Pulse Ox 98% ; Pain 0/10; kt5 21:50 BP 103 / 54; Pulse 74; Resp 20 S; Temp 98.3; Pulse Ox 99% on R/A; kt5 17:57 Pain Scale: Adult dd2 21:34 Pain Scale: Adult kt5 ED Course: 17:52 Patient arrived in ED. im 17:53 Enma Hogan PA-C is PHCP. sb4 17:53 Sadie Benz MD is Attending Physician. sb4 17:59 Triage completed. dd2 17:59 Arm band placed on right wrist. dd2 18:09 XRAY Chest (1 view) In Process Unspecified. EDMS 18:35 EKG done, by senior games technician. reviewed by Enma Hogan PA-C. Initial lab(s) drawn, by lab ts3 tech, sent to lab. Inserted saline lock: 20 gauge in right forearm, using aseptic technique. Blood collected. Flushed with 10 mL NS. 19:01 Erik Graf, RN is Hospitalizing Provider. sb4 19:19 Otilio Garza, RN is Primary Nurse. jb4 19:30 Patient has correct armband on for positive identification. Placed in gown. Bed in low kt5 position. Call light in reach. Side rails up X2. Adult w/ patient. Client placed on continuous cardiac and pulse oximetry monitoring. NIBP monitoring applied. surveillance system monitor on. Door closed. Noise minimized. Warm blanket given. Pillow given. 19:30 No provider procedures requiring assistance completed. kt5 19:50 CT Abd/Pelvis - Without Contrast In Process Unspecified. EDMS 21:56 Provided Education on: admission. kt5 Administered Medications: 19:19 Drug: Potassium Chloride IV 20 mEq IV at calculated rate once; administer over 1-2 jb4 hours {Note: going with 250ml NS over 2 hours .} Route: IV; Rate: calculated rate; Site: right antecubital; 21:53 Follow up: IV Status: Completed infusion; IV Intake: 100ml kt5 21:53 Follow up: Response: No adverse reaction kt5 19:20 Drug: Potassium PO Effervescent Tablet 50 mEq PO once; dissolve in 4 ounces of water or jb4 juice Route: PO; 21:53 Follow up: Response: No adverse reaction kt5 Medication: 21:56 VIS not applicable for this client. kt5 Intake: 21:53 IV: 100ml; Total: 100ml. kt5 Outcome: 19:01 Decision to Hospitalize by Provider. sb4 21:56 Admitted to Tele accompanied by tech, family with patient, via stretcher, kt5 21:56 Condition: improved 22:14 Patient left the ED. kt5 Signatures: Dispatcher [employer] EDMS Otilio Garza, RN RN jb4 Enma Hogan PANaldo PANaldo sb4 Alice Bryan DIANA, RN RN dd2 Monika Cueva ts3 Noelle Burt, RN RN kt5 Corrections: (The following items were deleted from the chart) 19:21 18:00 Reassessment: Patient appears in no apparent distress at this time. Patient jb4 and/or family updated on plan of care and expected duration. Pain level reassessed. Patient is alert, oriented x 3, equal unlabored respirations, skin warm/dry/pink. jb4 21:54 21:34 Reassessment: Patient appears in no apparent distress at this time. Patient kt5 and/or family updated on plan of care and expected duration. Pain level reassessed. Patient is alert, oriented x 3, equal unlabored respirations, skin warm/dry/pink. bianca care complete Patient denies pain at this time. Patient states feeling better. Patient states symptoms have improved. kt5
--- NOTE | 2025-08-19 19:02 | EDPHYS ---
Physician Documentation [facility] Name: Lisset Levy Age: 75 yrs Sex: Female : 1950 Arrival Date: 08/19/2025 Time: 17:47 Bed 15 Private MD: ED Physician Sadie Benz HPI: 08/19 17:58 This 75 yrs old Black Female presents to ER via Unassigned with complaints of Abnormal sb4 Lab Results - low potassium. 17:58 Patient presents today with her son with outpatient lab results of a potassium of 2.1. sb4 Send states that she has lung cancer is and is being treated at the cancer center with radiation. She had routine labs done and was called with the results today. He does not believe any other labs were abnormal, but does not have a copy of the results. Patient is a poor historian and denies any symptoms or complaints at all. Son states that she has had a lot of diarrhea over the past few months, worse the past weeks. He denies any vomiting. Historical: - Allergies: 17:59 No Known Allergies; dd2 - PMHx: 17:59 Hypertension; LUNG CANCER (Hypertension); dd2 - PSHx: 17:59 None; dd2 - Immunization history:: unknown. - Infectious Disease History:: Denies. - Social history:: Smoking status: unknown. ROS: 17:58 Constitutional: Negative for fever, chills, and weight loss, sb4 17:58 Abdomen/GI: Positive for diarrhea, 17:58 All other systems are negative, Exam: 17:58 Head/Face: Normocephalic, atraumatic. Eyes: Extra-ocular motions intact. Periorbital sb4 areas with no swelling, redness, or edema. ENT: Mucous membranes moist. Cardiovascular: Regular rate and rhythm with a normal S1 and S2. Respiratory: No increased work of breathing, no retractions or nasal flaring. Abdomen/GI: Soft, non-tender, no distension. Skin: Warm, dry with normal turgor. Normal color with no rashes, no lesions, and no evidence of cellulitis. 17:58 Constitutional: The patient appears in no acute distress, alert, awake, frail, Vital Signs: 17:57 BP 96 / 53; Pulse 73; Resp 16; Temp 97.2; Pulse Ox 98% on R/A; Pain 0/10; dd2 19:20 BP 118 / 62; Pulse 66; Resp 20; Pulse Ox 98% ; jb4 21:03 BP 121 / 62; Pulse 78; Resp 20; Pulse Ox 97% ; kt5 21:34 BP 126 / 68; Pulse 74; Resp 20; Temp 98.3; Pulse Ox 98% ; Pain 0/10; kt5 21:50 BP 103 / 54; Pulse 74; Resp 20 S; Temp 98.3; Pulse Ox 99% on R/A; kt5 17:57 Pain Scale: Adult dd2 21:34 Pain Scale: Adult kt5 MDM: 17:53 Medical Screening Exam initiated sb4 19:02 Data reviewed: vital signs, nurses notes, lab test result(s), EKG, radiologic studies, sb4 I have discussed the patient's presentation/case with the attending Emergency Department Physician; and as a result, I will admit patient. Historians other than the Patient: Daughter/Son: son. Care significantly affected by the following chronic conditions: Hypertension, Cancer. Counseling: I had a detailed discussion with the patient and/or guardian regarding the historical points, exam findings, and any diagnostic results supporting the discharge/admit diagnosis, lab results, radiology results, the need for further work-up and treatment in the hospital. 19:05 Consideration of Admission/Observation Patient was admitted/placed on observation. sb4 08/19 17:57 Order name: Basic Metabolic Panel; Complete Time: 19:02 sb4 08/19 17:57 Order name: CBC with Diff; Complete Time: 18:52 sb4 08/19 17:57 Order name: LFT's; Complete Time: 19:02 sb4 08/19 17:57 Order name: Magnesium; Complete Time: 19:02 sb4 08/19 17:57 Order name: NT PRO-BNP; Complete Time: 19:02 sb4 08/19 17:57 Order name: PT-INR; Complete Time: 18:49 sb4 08/19 17:57 Order name: Troponin HS; Complete Time: 19:02 sb4 08/19 21:29 Order name: CBC with Automated Diff EDMS 08/19 21:29 Order name: CBC with Automated Diff; Complete Time: 08:00 EDMS 08/19 21:29 Order name: CBC with Automated Diff EDMS 09/29 21:29 Order name: Comprehensive Metabolic Panel EDMS 08/19 21:29 Order name: Comprehensive Metabolic Panel; Complete Time: 08:00 EDMS 08/19 21:29 Order name: Comprehensive Metabolic Panel EDMS 08/19 21:29 Order name: Magnesium EDMS 08/19 21:29 Order name: Magnesium; Complete Time: 08:00 EDMS 08/19 21:29 Order name: Magnesium EDMS 08/19 21:29 Order name: Phosphorus EDMS 08/19 21:29 Order name: Phosphorus; Complete Time: 08:00 EDMS 08/19 21:29 Order name: Phosphorus EDMS 08/19 17:57 Order name: XRAY Chest (1 view); Complete Time: 19:00 sb4 08/19 19:02 Order name: CT Abd/Pelvis - Without Contrast; Complete Time: 08:00 sb4 08/19 17:57 Order name: Cardiac monitoring; Complete Time: 18:35 sb4 08/19 17:57 Order name: EKG - Nurse/Tech; Complete Time: 18:35 sb4 08/19 17:57 Order name: IV Saline Lock; Complete Time: 18:35 sb4 08/19 17:57 Order name: Labs collected and sent; Complete Time: 18:35 sb4 08/19 17:57 Order name: O2 Per Protocol; Complete Time: 18:01 sb4 08/19 17:57 Order name: O2 Sat Monitoring; Complete Time: 18:01 sb4 EC:35 Rate is 68 beats/min. Rhythm is regular, Normal Sinus Rhythm. UT interval is normal at sb4 164 msec. QRS interval is normal at 100 msec. QT interval is prolonged at 566 msec. Clinical impression: Suggests hypokalemia. Interpreted by me. Reviewed by me. Administered Medications: 19:19 Drug: Potassium Chloride IV 20 mEq IV at calculated rate once; administer over 1-2 jb4 hours {Note: going with 250ml NS over 2 hours .} Route: IV; Rate: calculated rate; Site: right antecubital; 21:53 Follow up: IV Status: Completed infusion; IV Intake: 100ml kt5 21:53 Follow up: Response: No adverse reaction kt5 19:20 Drug: Potassium PO Effervescent Tablet 50 mEq PO once; dissolve in 4 ounces of water or jb4 juice Route: PO; 21:53 Follow up: Response: No adverse reaction kt5 Disposition Summary: 08/19/25 19:01 Hospitalization Ordered Notes: Hospitalization Status: Inpatient Admission sb4 Provider: Erik Graf Location: Telemetry/[facility] (Inpatient) sb4 Condition: Serious sb4 Problem: new sb4 Symptoms: are unchanged sb4 Bed/Room Type: Standard sb4 Room Assignment: 231(08/19/25 21:25) km Diagnosis - Hypokalemia - critical - 1.6 sb4 Forms: - Medication Reconciliation Form sb4 - SBAR form sb4 - Leadership Thank You Letter sb4 Critical care time excluding procedures: 19:05 Critical care time: Bedside Care: 20 minutes, Consultation: 10 minutes, Family sb4 Intervention: 5 minutes. Total time: 35 minutes Signatures: Dispatcher [employer] EDMS Otilio Garza, RN RN jb4 Enma Hogan PA-C PA-C sb4 Sara Brown f DIEGO GALVIN RN RN dd2 Noelle Burt RN RN kt5 Corrections: (The following items were deleted from the chart) 17:58 17:58 Chest Single View+RAD.RAD.BRZ ordered. EDPR EDMS 21:25 19:01 sb4 kmf
[2025-08-19] MEDS ORDERED: NA CHLORIDE 0.9% 250 ML ONE (19:09)
[2025-08-19] MEDS ORDERED: POTASSIUM 25 MEQ EFFERV TAB ONE (19:09)
[2025-08-19] MEDS ORDERED: KCL 20 MEQ/100 mL IVPB 100 ML IV ONE (19:09)
--- NOTE | 2025-08-19 20:21 | RAD REPORT ---
EXAMINATION: CT ABDOMEN AND PELVIS WITHOUT CONTRAST CLINICAL INDICATION: Abdominal pain. Lung cancer. Hypotension. TECHNIQUE: CT abdomen and pelvis was performed, as per department protocol. IV contrast and oral was not administered.Axial, sagittal and coronal reconstructions were obtained. One or more of the following dose reduction techniques were used: Automated exposure control, adjustment of the mA and/o r kV according to the patient size, and/or iterative reconstruction. Unless otherwise specified, incidental findings do not require dedicated imaging follow-up. [id number]. COMPARISON: 2017. FINDINGS: The lack of intravenous and oral contrast limits evaluation of solid organs, vessels and bowel. Calcified right hilar lymph nodes. 12 mm groundglass nodule lingula. The liver, spleen, pancreas, adrenals and kidneys appear grossly normal No evidence of diverticulitis. Fluid within nondilated large and small bowel. Calcified uterine fibroid. IMPRESSION: Fluid within nondilated large and small bowel may indicate an enteritis
--- NOTE | 2025-08-19 21:28 | P.HP ---
Certification for Inpatient Patient admitted to: Observation With expected LOS: <2 Midnights Patient will require the following post-hospital care: None Practitioner: I am a practitioner with admitting privileges, knowledge of patient current condition, hospital course, and medical plan of care. Services: Services provided to patient in accordance with Admission requirements found in Title 42 Section 412.3 of the Code of Federal Regulations Patient History Date of Service: 08/19/25 Reason for admission: Acute hypokalemia. History of Present Illness: Patient is a 75-year-old female with past medical history of atrial fibrillation, essential hypertension, lung cancer, sent to the ER by her PCP secondary to hypokalemia. According to patient grandson, he states patient recently had some blood work done, and was called and notified yesterday to go to the ER due to abnormal results. Patient work up in the ER potassium of 1.6. Patient denies of any chest pain or shortness of breath. Patient is currently getting radiation therapy at the cancer center. Patient grandson also states patient have been having multiple episodes of diarrhea last week. Course in ER. (1) CT abdomen and pelvis without contrast. Impression: Fluid within nondilated large and small bowel may indicate an enteritis. (2) chest x- ray. Impression: Right upper lobe mass unchanged. Mild areas of subsegmental atelectasis within the lung bases. No significant pleural effusion noted. The heart is mildly to moderately enlarged. Central venous catheter in place. Allergies No Known Allergies Allergy (Unverified 08/12/17 17:26) Home Medications: Amiodarone HCl [Cordarone Tab] 200 mg PO BID 08/20/25 Apixaban [Eliquis] 5 mg PO BID 08/20/25 Metoprolol Tartrate [Lopressor] 50 mg PO BID 08/20/25 - Past Medical/Surgical History -: Essential hypertension. -: Lung cancer. -: Atrial fibrillation. -: Central venous catheter. - Family History Family History: Reviewed- Non-Contributory - Social History Smoking Status: Former smoker Alcohol use: No CD- Drugs: No Caffeine use: Yes Place of Residence: Home Review of Systems 10-point ROS is otherwise unremarkable General: Weakness Physical Examination - Physical Exam General: Alert, In no apparent distress, Oriented x3, Cooperative HEENT: Atraumatic, Normocephalic, PERRLA, Mucous membr. moist/pink, Sclerae nonicteric Neck: Supple, 2+ carotid pulse no bruit, No LAD, Without JVD or thyroid abnormal ity Respiratory: Clear to auscultation bilaterally, Normal air movement Cardiovascular: No edema, Regular rate/rhythm, Normal S1 S2, No rubs, No murmu rs, Irregular heart rate/rhythm (Atrial fibrillation.), Systolic murmur Capillary refill: <2 Seconds Gastrointestinal: Normal bowel sounds, Soft and benign, Non-distended, W/out hepatomegaly, No ascites, No tenderness, No masses, No rebound, No guarding Musculoskeletal: No clubbing, No swelling, No contractures, No erythema, No tenderness, No warmth Integumentary: No rashes, No breakdown, No significant lesion, No tenderness/swelling, No erythema, Other (Central venous catheter.) Neurological: Normal speech, Normal tone, Sensation intact, Normal reflexes 2+, Normal affect Lymphatics: No axilla or inguinal lymphadenopathy - Studies Laboratory Data (last 24 hrs) 08/19/25 08/19/25 08/19/25 18:31 18:31 18:31 WBC 7.10 Hgb 11.2 L Hct 32.6 L Plt Count 315 PT 13.3 H INR 1.18 Sodium 139 Potassium 1.6 L* BUN 13 Creatinine 0.87 Glucose 133 H Magnesium 2.1 Total Bilirubin 0.4 AST < 10 L ALT < 14 Alkaline Phosphatase 85 Female Exam - Breasts Breasts: Normal configuration, Normal contours, Symmetrical Assessment and Plan - Plan Patient sent to the ER by PCP due to hypokalemia. (1)Hypokalemia initial potassium of 1.6. Patient received some supplemental potassium in the ER. -IV D5 half NS +20 mEq KCl at 50 mL/ hr. -Order 40 mEq potassium p.o. x 1. -Order 20 mEq KCl diluted/100 mL x 1. -Continue to monitor subsequent results, and order replacement accordingly. (2) chronic atrial fibrillation. -Continue amiodarone 200 mg p.o. twice daily. -Continue Eliquis 5 mg p.o. twice daily. (3) chronic essential hypertension. -Continue metoprolol 50 mg p.o. twice daily. (4)Explained entire treatment plan to the patient, solicited questions answered and voiced understanding. Discharge Plan: Home Plan to discharge in: 48 Hours - Advance Directives Does patient have a Living Will: No Does patient have a Durable POA for Healthcare: No - Code Status/Comfort Care Code Status Assessed: Yes Code Status: Full Code Critical Care: No Time Spent Managing Pts Care (In Minutes): 55
[2025-08-19 22:40] VITALS: O2SAT 99
[2025-08-19] MEDS: D5.45NS W/KCL 20MEQ 1,000 ML IV SCH (23:11)
[2025-08-20] MEDS: KCL 20 MEQ/100 mL IVPB 100 ML IV ONE (02:21)
[2025-08-20] MEDS: KCL 20 MEQ/100 mL IVPB 20 MEQ/100 ML BAG IV SCH ×4 (02:23→22:42)
[2025-08-20] MEDS: POTASSIUM CL SA 10 MEQ TAB PO ONE ×3 (02:23→05:40)
[2025-08-20 04:40] LABS: Absolute Lymphocytes (CBC) 2.1 K/uL (0.7-4.9); Hematocrit 32.8 % (36.0-45.0); Hemoglobin 11.3 g/dL (12.0-15.0); MCH 28.5 pg (27.0-35.0); MCHC 34.4 g/dL (32.0-36.0); MCV 82.8 fL (80-100); MPV 7.1 fL (7.6-11.3); Nucleated RBC Absolute Count 0.0 (0-0); Nucleated Red Blood Cells % 0.0 % (0-0); RBC Red Blood Cell Count 3.96 M/uL (3.86-4.86); White Blood Count 7.70 thou/uL (4.3-10.9)
[2025-08-20 04:50] LABS: Albumin 2.2 g/dL (3.4-5.0); Albumin/Globulin Ratio 0.6 (1.1-1.8); Alkaline Phosphatase 86 U/L (45-117); Anion Gap 8.5 mEq/L (5.0-15.0); BUN Blood Urea Nitrogen 10 mg/dL (7-18); Globulin 3.7 g/dL (2.3-3.5); Glucose Level 119 mg/dL (74-106); Magnesium 1.9 mg/dL (1.6-2.4)
[2025-08-20 04:57] LABS: ALT/SGPT < 14 U/L (13-56); AST/SGOT < 10 U/L (15-37)
[2025-08-20 04:58] LABS: Potassium 2.5 mEq/L (3.5-5.1)
[2025-08-20] MEDS: METOPROLOL TAR 50 MG TAB PO SCH (08:22)
[2025-08-20] MEDS: POTASS/SODIUM PHOSPHATE 1 PKT POWD.PACK PO SCH (08:22)
[2025-08-20] MEDS: APIXABAN 5 MG TABLET PO SCH (08:22)
[2025-08-20] MEDS: AMIODARONE HCL 200 MG TAB PO SCH (08:23)
[2025-08-20] MEDS ORDERED: ENOXAPARIN 40 MG/0.4 ML SQ SCH (09:00)
--- NOTE | 2025-08-20 10:04 | P.PN ---
Date of Service: 08/20/25 Subjective: Reports diarrhea overnight, ongoing Unclear how long she has been having diarrhea for ROS: 10 point ROS as noted above, otherwise negative Physical exam GEN: Alert, oriented, NAD, cachectic HEENT: Normal conjunctiva, sclera anicteric CV: Regular rate and rhythm, no edema Pulm: Nonlabored respirations on room air ABD: Soft, nontender, nondistended MSK: No joint tenderness Integumentary: No rashes Neuro: Normal speech, normal affect Vitals reviewed Assessment: Hypokalemia Diarrhea Atrial fibrillation on chronic anticoagulation Hypertension Lung cancer on radiation therapy Plan: Hypokalemia Diarrhea Monitor on telemetry continue replete potassium up to 2.5 so far Stool studies ordered for C. difficile Atrial fibrillation on chronic anticoagulation Continue home medications including anticoagulation Hypertension Continue home medications Lung cancer on radiation therapy Unclear if patient is also on chemo, will need to investigate further. DVT PPX: Lovenox Code status: Full code Time Spent Managing Pts Care (In Minutes): 35
[2025-08-20 14:39] LABS: C.diff Antigen/Toxin Ag neg : Tox neg (NEG : NEG); CDIFF INTERNAL NEG CONTROL White Background (WHITE BKGD); STOOL CONSISTENCY Liquid/Semi-Solid
[2025-08-20 21:40] LABS: Anion Gap 8.7 mEq/L (5.0-15.0); BUN Blood Urea Nitrogen 8.0 mg/dL (7-18); Glucose Level 134.0 mg/dL (74-106); Potassium 2.7 mEq/L (3.5-5.1)
[2025-08-21 03:02] VITALS: BMI 16.5
[2025-08-21 06:53] LABS: Absolute Lymphocytes (CBC) 2.3 K/uL (0.7-4.9); Hematocrit 32.9 % (36.0-45.0); Hemoglobin 11.0 g/dL (12.0-15.0); MCH 28.1 pg (27.0-35.0); MCHC 33.6 g/dL (32.0-36.0); MCV 83.8 fL (80-100); MPV 7.7 fL (7.6-11.3); Nucleated RBC Absolute Count 0.0 (0-0); Nucleated Red Blood Cells % 0.1 % (0-0); RBC Red Blood Cell Count 3.93 M/uL (3.86-4.86); White Blood Count 7.10 thou/uL (4.3-10.9)
[2025-08-21 06:55] LABS: Albumin 2.2 g/dL (3.4-5.0); Albumin/Globulin Ratio 0.6 (1.1-1.8); Alkaline Phosphatase 77 U/L (45-117); Anion Gap 9.5 mEq/L (5.0-15.0); BUN Blood Urea Nitrogen 5 mg/dL (7-18); Globulin 3.4 g/dL (2.3-3.5); Glucose Level 94 mg/dL (74-106); Magnesium 1.9 mg/dL (1.6-2.4); Potassium 3.5 mEq/L (3.5-5.1)
[2025-08-21 07:04] LABS: ALT/SGPT < 14 U/L (13-56); AST/SGOT < 10 U/L (15-37)
--- NOTE | 2025-08-21 08:38 | P.PN ---
Date of Service: 08/21/25 Subjective: C. difficile negative Reports decrease in frequency of diarrhea Feeling better ROS: 10 point ROS as noted above, otherwise negative Physical exam GEN: Alert, oriented, NAD, cachectic HEENT: Normal conjunctiva, sclera anicteric CV: Regular rate and rhythm, no edema Pulm: Nonlabored respirations on room air ABD: Soft, nontender, nondistended MSK: No joint tenderness Integumentary: No rashes Neuro: Normal speech, normal affect Vitals reviewed Assessment: Hypokalemia Diarrhea Atrial fibrillation on chronic anticoagulation Hypertension Lung cancer on radiation therapy Plan: Hypokalemia Diarrhea Monitor on telemetry continue replete potassium up to 3.5 this morning with down to 3.1 recheck Negative for C. difficile, diarrhea improving PT consultation Atrial fibrillation on chronic anticoagulation Continue home medications including anticoagulation Hypertension Continue home medications Lung cancer on radiation therapy Unclear if patient is also on chemo, will need to investigate further. DVT PPX: Lovenox Code status: Full code Time Spent Managing Pts Care (In Minutes): 35
[2025-08-21] MEDS: POTASSIUM 25 MEQ EFFERV TAB PO ONE ×2 (10:40→19:58)
[2025-08-21] MEDS: ENSURE ENLIVE 237 ML CAN PO SCH (10:41)
[2025-08-21] MEDS: LOPERAMIDE HCL 2 MG CAPSULE PO PRN (14:10)
[2025-08-21] MEDS: ONDANSETRON 4 MG/2 ML VIAL IV PRN (14:36)
[2025-08-21] MEDS: MORPHINE 2 MG/ML SYR IV PRN (14:39)
[2025-08-21] MEDS: FLU (Fluarix) 25-26 (6MOS UP)/PF 45 MCG/0.5 ML Syringe IM ONE (19:00)
[2025-08-22 06:30] LABS: Hematocrit 32.1 % (36.0-45.0); Hemoglobin 10.8 g/dL (12.0-15.0); MCH 28.1 pg (27.0-35.0); MCHC 33.7 g/dL (32.0-36.0); MCV 83.4 fL (80-100); MPV 7.1 fL (7.6-11.3); RBC Red Blood Cell Count 3.85 M/uL (3.86-4.86); White Blood Count 8.70 thou/uL (4.3-10.9)
[2025-08-22 06:47] LABS: Anion Gap 8.0 mEq/L (5.0-15.0); BUN Blood Urea Nitrogen 8.0 mg/dL (7-18); Glucose Level 99.0 mg/dL (74-106); Potassium 4.0 mEq/L (3.5-5.1)
[2025-08-22] MEDS ORDERED: PNEUMOCOCCAL VACCINE 0.5 ML IMVAC ONE (09:00)
[2025-08-22] MEDS ORDERED: Calcium Chloride 10% INJ SYR IV ONE (14:18)
[2025-08-22] MEDS ORDERED: EPINEPHrine 1 MG/10 ML SYR IV ONE (14:18)
[2025-08-22] MEDS ORDERED: NA CHLORIDE 0.9% 1,000 ML IV ONE (14:18)
--- NOTE | 2025-08-22 15:04 | P.DS ---
Admission Date: 08/20/25 Discharge Date: 08/22/25 Disposition: ROUTINE DISCHARGE Discharge Condition: FAIR Reason for Admission: Acute hypokalemia. Brief History of Present Illness: Patient is a 75-year-old female with past medical history of atrial fibrillation, essential hypertension, lung cancer, sent to the ER by her PCP secondary to hypokalemia. According to patient bridger, he states patient recently had some blood work done, and was called and notified yesterday to go to the ER due to abnormal results. Patient work up in the ER potassium of 1.6. Patient denies of any chest pain or shortness of breath. Patient is currently getting radiation therapy at the cancer center. Patient bridger also states patient have been having multiple episodes of diarrhea last week. Course in ER. (1) CT abdomen and pelvis without contrast. Impression: Fluid within nondilated large and small bowel may indicate an enteritis. (2) chest x- ray. Impression: Right upper lobe mass unchanged. Mild areas of subsegmental atelectasis within the lung bases. No significant pleural effusion noted. The heart is mildly to moderately enlarged. Central venous catheter in place. Hospital Course: Assessment: Hypokalemia Diarrhea Atrial fibrillation on chronic anticoagulation Hypertension Lung cancer on radiation therapy Patient was admitted to the hospital initially for diarrhea and severe hypokalemia with potassium of 1.6. She was treated with potassium replacement, today her potassium is up to 4.0. She has not had any bowel movements today, C. difficile testing was negative. Patient advised to take Imodium as needed for diarrhea, tolerating diet. Patient was ambulatory to the shower with nursing staff. Patient to be discharged and her home health will be resumed including mcc, PT and OT. Please follow-up with your primary care doctor 1 to 2 weeks. Vital Signs/Physical Exam: Temp Pulse Resp BP Pulse Ox 99.6 F 70 30 H 100/53 L 99 08/22/25 12:00 08/22/25 12:00 08/22/25 12:00 08/22/25 12:00 08/22/25 12:00 General: Alert, In no apparent distress, Oriented x3 HEENT: Atraumatic, PERRLA Neck: Supple, JVD not distended Respiratory: Clear to auscultation bilaterally, Normal air movement Cardiovascular: Regular rate/rhythm, Normal S1 S2 Gastrointestinal: Normal bowel sounds, No tenderness Musculoskeletal: No tenderness Integumentary: No rashes Neurological: Normal speech, Normal affect Laboratory Data at Discharge: WBC 8.70 thou/uL (4.3-10.9) 08/22/25 06:02 Hgb 10.8 g/dL (12.0-15.0) L 08/22/25 06:02 Hct 32.1 % (36.0-45.0) L 08/22/25 06:02 Plt Count 283 thou/uL (152-406) 08/22/25 06:02 PT 13.3 SECONDS (10-13.0) H 08/19/25 18:31 INR 1.18 08/19/25 18:31 Sodium 139 mEq/L (136-145) 08/22/25 06:02 Potassium 4.0 mEq/L (3.5-5.1) D 08/22/25 06:02 BUN 8 mg/dL (7-18) 08/22/25 06:02 Creatinine 0.66 mg/dL (0.55-1.02) 08/22/25 06:02 Glucose 99 mg/dL (74-106) 08/22/25 06:02 Phosphorus 2.2 mg/dL (2.5-4.9) L 08/21/25 05:48 Magnesium 1.9 mg/dL (1.6-2.4) 08/21/25 05:48 Total Bilirubin 0.3 mg/dL (0.2-1.0) 08/21/25 05:48 AST < 10 U/L (15-37) L 08/21/25 05:48 ALT < 14 U/L (13-56) 08/21/25 05:48 Alkaline Phosphatase 77 U/L (45-117) 08/21/25 05:48 Home Medications: Amiodarone HCl [Cordarone Tab] 200 mg PO BID 08/20/25 Apixaban [Eliquis] 5 mg PO BID 08/20/25 Metoprolol Tartrate [Lopressor] 50 mg PO BID 08/20/25 Physician Discharge Instructions: Patient was admitted to the hospital initially for diarrhea and severe hypokalemia with potassium of 1.6. She was treated with potassium replacement, today her potassium is up to 4.0. She has not had any bowel movements today, C. difficile testing was negative. Patient advised to take Imodium as needed for diarrhea, tolerating diet. Patient was ambulatory to the shower with nursing staff. Patient to be discharged and her home health will be resumed including mcc, PT and OT. Please follow-up with your primary care doctor 1 to 2 weeks. Diet: Regular Activity: Fall precautions Followup: NONE,NONE [Primary Care Provider] - Time spent managing pt's care (in minutes): 35
[2025-08-22] MEDS: ACETAMINOPHEN 325 MG TABLET PO PRN (16:29)
[2025-08-22 16:34] VITALS: TEMP 98.2
[2025-08-22 17:09] VITALS: BP 97/50
== END 2025-08-22 17:30 | disposition home or self-care (01) | DRG 640 ==
LOC: ER 17:47 → 2ND 21:16 → OBSVTOIN 08-20 09:58
PROVIDERS: ADMIT Hospitalist; ATTEND Internal Medicine
DX: E87.6 Hypokalemia (principal); E43 Unspecified severe protein-calorie malnutrition; Z68.1 Body mass index [BMI] 19.9 or less, adult; C34.90 Malignant neoplasm of unspecified part of unspecified bronchus or lung; I48.20 Chronic atrial fibrillation, unspecified; R64 Cachexia; I10 Essential (primary) hypertension; Z79.01 Long term (current) use of anticoagulants; Z79.899 Other long term (current) drug therapy; Z87.891 Personal history of nicotine dependence
CPT/HCPCS: 36415; 71045; 74176; 80048; 80053; 80076; 83735; 83880; 84100; 84132; 84484; 85025; 85027; 85610; 87324; 93005; 96365; 96366; 97110; 97161; 99285; G0378; J0169; J2270; J2405; J3480; J7030; J7050